=== PATIENT | female | born 1950 | race Caucasian/White ===

== ENCOUNTER 2019-12-22 11:05 | Outpatient (CLI) | payer MEDICARE, MEDICAID, SELFPAY ==
--- NOTE | 2019-12-22 | XR_ITS ---
WS: [id number] LEFT ELBOW: 2 VIEW(S) TECHNIQUE: AP and lateral. HISTORY: LEFT SHOULDER PAIN COMPARISON: None available. Nondisplaced linear density along the radial head. Suspicious for fracture. Seen best on the lateral projection. Very minimal distention of the anterior joint capsule. No soft tissue abnormality. XR/XR elbow LT 2V [id number] IMPRESSION: Indeterminate for nondisplaced radial head fracture. There is a lucency on the lateral projection only, suspicious for fracture. Consider follow-up radiograph s in one week.
--- NOTE | 2019-12-22 | XR_ITS ---
WS: [id number] LEFT SHOULDER: 3 VIEW(S) TECHNIQUE: Internal and external rotation with Y view. HISTORY: SHOULDER PAIN LEFT COMPARISON: None available. No fracture or dislocation or soft tissue abnormality. Mild AC joint narrowing. Dual lead LEFT subclavian cardiac pacer. XR/XR shoulder LT min 2V* [id number] IMPRESSION: No acute shoulder fracture. Mild narrowing AC joint.
== END 2019-12-22 11:06 | disposition home or self-care (01) ==
LOC: RADOUTREAD 14:14
PROVIDERS: Family Provider Family Medicine; PCP Family Medicine; Visit Provider Nurse Practitioner Family
DX: Z01.89 Encounter for other specified special examinations (principal)

== ENCOUNTER 2020-04-03 12:08 | Emergency (ER) | payer MEDICARE, MEDICAID, SELFPAY ==
[2020-04-03 12:16] VITALS: BP 124/78; PULSE 89; RESP 17; TEMP 36.9; O2SAT 96; BMI 35.0
--- NOTE | 2020-04-03 12:27 | XRR_ITS ---
PROCEDURE INFORMATION: Exam: XR Chest, 1 View Exam date and time: 04/03/2020 12:47 PM Age: 70 years old Clinical indication: Shortness of breath; Patient HX: Poor HX due to PT condition; Additional info: Altered mental status TECHNIQUE: Imaging protocol: XR of the chest Views: 1 view. COMPARISON: No relevant prior studies available. FINDINGS: Tubes, catheters and devices: Left -sided pacemaker. Lungs: Mildly hyperaerated lungs consistent with deep inspiratory effort vs reactive airway disease vs mild COPD . Pleural space: Unremarkable. No pleural effusion. No pneumothorax. Heart/Mediastinum: Mild cardiomegaly. Vasculature: Calcification of the thoracic aorta and/or great vessels consistent with atherosclerotic vessel disease. Bones/joints: Unremarkable. XR/XR chest 1V portable [id number] IMPRESSION: 1. Mild cardiomegaly. 2. Mildly hyperaerated lungs consistent with deep inspiratory effort vs reactive airway disease vs mild COPD .
--- NOTE | 2020-04-03 12:27 | CTR_ITS ---
PROCEDURE INFORMATION: Exam: CT Head Without Contrast Exam date and time: 04/03/2020 12:45 PM Age: 70 years old Clinical indication: Altered mental status/memory loss; Confusion or disorientation; Patient HX: AMS TECHNIQUE: Imaging protocol: Computed tomography of the head without contrast. Radiation optimization: All CT scans at this facility use at least one of these dose optimization techniques: automated exposure control; mA and/or kV adjustment per patient size (includes targeted exams where dose is matched to clinical indication); or iterative reconstruction. COMPARISON: No relevant prior studies available. RADIATION DOSE METRICS: Total DLP: 1772.59 mGy-cm FINDINGS: Brain: There are old infarcts in the left cerebellar hemisphere.Old left MCA distribution infarct with compensatory dilatation of the left lateral ventricle. There are chronic lacunar infarcts in the left basal ganglia and left thalamus.No evidence for large acute ischemic infarction. Please note acute ischemia can be occult by head CT. Ventricles: Normal. No ventriculomegaly. Bones/joints: Unremarkable. No acute fracture. Sinuses: Visualized sinuses are unremarkable. No fluid levels. Mastoid air cells: Visualized mastoid air cells are well aerated. Calcified plaque is present within the intracranial vasculature. Soft tissues: Unremarkable. CT/CT head wo con* [id number] IMPRESSION: Old left MCA distribution and left cerebellar hemisphere infarcts. There are senescent changes of the brain as described above. No evidence for large acute ischemic infarction or acute intracranial injury. Radiation Dose CTDIVOL = (mGy): DLP = 1772.59 (mGy-cm)
--- NOTE | 2020-04-03 12:32 | W.ED.AMS ---
HPI - Altered Mental Status General: Chief Complaint: Altered Mental Status Stated Complaint: poss stroke symptoms Time Seen by Provider: 04/03/20 12:17 Source: patient and family Mode of arrival: ambulatory Limitations: altered mental status History of Present Illness: HPI narrative: Patient is brought in by her granddaughter with concerns of confusion. Symptoms started about 10 days ago with increased confusion, gait instability, generalized weakness and a few falls. The patient is on warfarin anticoagulation for atrial fibrillation. The patient has had 2 CVAs and has some baseline confusion for several years according to the granddaughter. Does appear to be worsening now. No fever, no cough no shortness of breath. No other symptoms. On further discussion, the patient has apparently been having memory issues for at least 6 months. Her granddaughter states that the patient forgets things a lot, has been forgetting why she goes to places she goes to and is showing signs of memory loss. MD complaint: altered mental status and confusion Onset (ago): day(s) (10) Review of Systems General: Reports: 10 or more systems reviewed and unremarkable except in HPI and below Const: Denies: fever(s), chills or body aches Eyes: Denies: change in vision or blurry vision ENMT: Denies: throat pain, enlarged tonsils, odynophagia, hoarseness, mouth pain or swelling of lips/tongue Card: Denies: palpitations, irregular heart rhythm, edema or swelling of feet/ankles Resp: Denies: dyspnea, productive cough or non-productive cough GI: Denies: abdominal pain, nausea or vomiting : Denies: flank pain, difficulty voiding, dysuria, urinary frequency, urinary urgency or urinary hesitancy Musc: Denies: neck pain, back pain or extremity swelling Skin/Breast: Denies: rash, pruritus or erythema Neuro: Reports: difficulty walking, frequent falls and confusion; Denies: headache(s), numbness in extremities or weakness in extremities Endo: Denies: polyuria, polydipsia or tired all the time [facility] ED PFSH: Medical History (Updated 04/03/20 @ 17:09 by Estevan Ventura MD, [facility]) Anticoagulant long-term use Atrial fibrillation Bipolar 1 disorder CHF (congestive heart failure) CKD (chronic kidney disease) CVA (cerebral vascular accident) Diabetes HTN (hypertension) Ischemic cardiomyopathy Myocardial infarction Obesity Sick sinus syndrome Surgical History Status cardiac pacemaker Social History Smoking and tobacco status: former smoker Current occupational status: retired Physical Exam Const: COMMON NORMALS: no acute distress, average body habitus, no limitations, healthy appearing, alert and well nourished ORIENTATION/CONSCIOUSNESS: Yes oriented to person and Yes oriented to place; not oriented to time HENMT: COMMON NORMALS: normocephalic, atraumatic and moist oral mucous membranes HEAD & SCALP: normocephalic and atraumatic Neck/C-Spine: COMMON NORMALS: no meningeal signs and no JVD Resp: COMMON NORMALS: normal respiratory effort, No retractions, No use of accessory muscles, clear to auscultation bilaterally and percussion normal AUSCULTATION: clear to auscultation bilaterally PERCUSSION: percussion normal Cardio: COMMON NORMALS: no JVD, regular rate, regular rhythm, S1 normal heart sound present, S2 normal heart sound present, No gallops present (Cardio), No clicks present (Cardio), No murmurs present (Cardio), No rub (Cardio) and Peripheral pulses 2+ throughout RATE: regular rate RHYTHM: regular rhythm HEART SOUNDS: S1 normal heart sound present and S2 normal heart sound present PERIPHERAL PULSES: Peripheral pulses 2+ throughout GI: COMMON NORMALS: Normal to inspection, nondistended, normoactive bowel sounds present, Soft to palpation, non-tender, No hepatosplenomegaly present, no masses and no bruits PALPATION: Yes Soft to palpation and Yes No hepatosplenomegaly present : COMMON NORMALS: Yes no CVA tenderness BLADDER/KIDNEY EXAM: Yes no CVA tenderness Back/Pelvis: COMMON NORMALS: no CVA tenderness Extremity: COMMON NORMALS: normal to inspection, full ROM, capillary refill normal, no calf tenderness and no pedal edema Neuro: SENSORIUM/ORIENTATION: Yes alert, Yes oriented to person, Yes oriented to place and No oriented to time MENINGEAL SIGNS: Yes no meningeal signs OTHER: difficult to complete. Skin: COMMON NORMALS: no rashes or lesions noted, no wounds, turgor normal, no jaundice, no petechiae and no mottling GENERAL SKIN EXAM: no rashes or lesions noted and turgor normal Course Reevaluation(s): Reevaluation #1: Discussed her lab and imaging findings with the patient and her granddaughter. Nothing acute on head CT or her lab work. I explained that since the patient has been showing symptoms of forgetfulness and dementia for the last 6 months this is probably progression of dementia. Advised that she speak with the patient's primary care provider to discuss possible treatment options and if they want to start medications for dementia. She voiced understanding and is in agreement with the plan. Time: 17:07 Vital Signs: Vital signs: Vital Signs Temperature 98.5 F 04/03/20 12:16 Pulse Rate 85 04/03/20 14:44 Respiratory Rate 18 04/03/20 14:44 Blood Pressure 131/73 04/03/20 14:44 Pulse Oximetry 95 04/03/20 14:44 MDM - Altered Mental Status MDM Narrative: Medical decision making narrative: 70-year-old female patient who was brought in with gradual memory loss and confusion. Her granddaughter says this started about 10 days ago but on further questioning this has been going on for at least 6 months. Evaluation was unremarkable for any medical cause of her symptoms. She most likely has undiagnosed dementia and she is advised to follow-up with her primary care for discussion on management options. Lab Data: Labs: Lab Results 04/03/20 04/03/20 04/03/20 Range/Units 12:39 12:39 12:39 WBC 9.9 (4.0-10.0) 10^3/ uL RBC 4.27 (4.1-5.3) 10^6/u L Hgb 12.4 (11.5-15.3) g/dL Hct 38.6 (37.0-47.0) % MCV 90.4 (81-99) fL MCH 29.0 (28.0-34.0) pg MCHC 32.1 (30.0-36.0) g/dL RDW 14.5 (12.1-15.1) % Plt Count 166 (130-400) 10^3/c mm MPV 10.6 H (7.4-10.4) fL Neut % (Auto) 80.3 % Lymph % (Auto) 9.1 % [place] % (Auto) 9.7 % Eos % (Auto) 0.5 % Baso % (Auto) 0.2 % Neut # (Auto) 7.9 H (1.8-7.7) 10^3/u L Lymph # (Auto) 0.9 (0.8-4.8) 10^3/u L [place] # (Auto) 1.0 H (0.2-0.9) 10^3/u L Eos # (Auto) 0.1 (0.0-0.8) 10^3/u L Baso # (Auto) 0.0 (0.0-0.1) 10^3/u L Nucleated RBC % (a uto) 0 % Nucleated RBCs # 0.0 /100WBC PT 24.70 H (10.5-13.3) SECO NDS INR 2.14 H (0.8-1.2) Sodium 134 L (136-145) mmol/L Potassium 3.6 (3.5-5.1) mmol/L Chloride 93 L (98-107) mmol/L Carbon Dioxide 28 (22-29) mmol/L Anion Gap 16.6 (5-19) BUN 26 H (8-23) mg/dL Creatinine 1.6 H (0.5-0.9) mg/dL Glucose 327 H (65-115) mg/dL Calculated Osmolal ity 288 (285-295) mOsm/k g Calcium 9.4 (8.5-10.5) mg/dL Phosphorus 2.2 L (2.5-4.5) mg/dL Magnesium 1.9 (1.7-2.3) mg/dL Total Bilirubin 1.0 (0.15-1.2) mg/dL AST 32 (0-32) U/L ALT 23 (0-33) U/L Alkaline Phosphata se 66 (35-105) IU/L Total Protein 7.3 (6.6-8.7) g/dL Albumin 3.9 (3.5-5.2) g/dL Globulin 3.4 (1.3-4.6) g/dL TSH 2.22 (0.27-4.20) uIU/ mL Urine Color (Yellow) Urine Appearance (CLEAR) Urine pH (5-7) Ur Specific Gravit y (1.005-1.030) Urine Protein (Negative) Urine Glucose (UA) (Normal) Urine Ketones (Negative) Urine Blood (Negative) Urine Nitrate (Negative) Urine Bilirubin (NEGATIVE) Urine Urobilinogen (Negative) mg/dL Ur Leukocyte [place] ase (Negative) Urine RBC (0-2) /hpf Urine WBC (0-5) /hpf Ur Squamous Epith Cells (0-5) Other Crystals /hpf Urine Bacteria (NONE) 04/03/20 Range/Units 13:17 WBC (4.0-10.0) 10^3/ uL RBC (4.1-5.3) 10^6/u L Hgb (11.5-15.3) g/dL Hct (37.0-47.0) % MCV (81-99) fL MCH (28.0-34.0) pg MCHC (30.0-36.0) g/dL RDW (12.1-15.1) % Plt Count (130-400) 10^3/c mm MPV (7.4-10.4) fL Neut % (Auto) % Lymph % (Auto) % [place] % (Auto) % Eos % (Auto) % Baso % (Auto) % Neut # (Auto) (1.8-7.7) 10^3/u L Lymph # (Auto) (0.8-4.8) 10^3/u L [place] # (Auto) (0.2-0.9) 10^3/u L Eos # (Auto) (0.0-0.8) 10^3/u L Baso # (Auto) (0.0-0.1) 10^3/u L Nucleated RBC % (a uto) % Nucleated RBCs # /100WBC PT (10.5-13.3) SECO NDS INR (0.8-1.2) Sodium (136-145) mmol/L Potassium (3.5-5.1) mmol/L Chloride (98-107) mmol/L Carbon Dioxide (22-29) mmol/L Anion Gap (5-19) BUN (8-23) mg/dL Creatinine (0.5-0.9) mg/dL Glucose (65-115) mg/dL Calculated Osmolal ity (285-295) mOsm/k g Calcium (8.5-10.5) mg/dL Phosphorus (2.5-4.5) mg/dL Magnesium (1.7-2.3) mg/dL Total Bilirubin (0.15-1.2) mg/dL AST (0-32) U/L ALT (0-33) U/L Alkaline Phosphata se (35-105) IU/L Total Protein (6.6-8.7) g/dL Albumin (3.5-5.2) g/dL Globulin (1.3-4.6) g/dL TSH (0.27-4.20) uIU/ mL Urine Color Yellow (Yellow) Urine Appearance Cloudy (CLEAR) Urine pH 5 (5-7) Ur Specific Gravit y 1.020 (1.005-1.030) Urine Protein Trace (Negative) Urine Glucose (UA) 1+ (Normal) Urine Ketones Negative (Negative) Urine Blood 2+ H (Negative) Urine Nitrate Negative (Negative) Urine Bilirubin 1+ H (NEGATIVE) Urine Urobilinogen 1 H (Negative) mg/dL Ur Leukocyte [place] ase 2+ H (Negative) Urine RBC 0-4 H (0-2) /hpf Urine WBC 15-25 H (0-5) /hpf Ur Squamous Epith Cells 15-25 H (0-5) Other Crystals Talc /hpf Urine Bacteria 2+ H (NONE) Discharge Plan Discharge Patient Disposition: Home, Self-Care Clinical Impression: Dementia Qualifiers: Dementia type: unspecified type Dementia behavioral disturbance: without behavioral disturbance Qualified Code(s): F03.90 - Unspecified dementia without behavioral disturbance Condition: Stable Prescriptions: Continued metoprolol tartrate 75 mg tablet 75 mg PO BID RF: 0 ferrous sulfate [Feosol] 325 mg (65 mg iron) tablet 325 mg PO DAILY RF: 0 warfarin 5 mg tablet See Rx Instructions .ROUTE .COMPLEX RF: 0 glipizide 10 mg tablet 10 mg PO DAILY RF: 0 simvastatin 20 mg tablet 20 mg PO DAILY RF: 0 hydrochlorothiazide 12.5 mg tablet 12.5 mg PO DAILY RF: 0 aspirin [Aspir-81] 81 mg tablet,delayed release (DR/EC) 81 mg PO DAILY RF: 0 docusate sodium 100 mg Capsule 100 mg PO DAILY RF: 0 Lexapro 10 mg Tablet 10 mg PO DAILY RF: 0 Ambien CR 6.25 mg Tablet,Ext Release Multiphase 6.25 mg PO BEDTIME RF: 0 Discharge Orders: Discharge Order (Routine); Ordered 04/03/20 Ordered By: Estevan Ventura Referrals: García Theodore MD [Primary Care Provider] - 4-7 days Patient Instructions: Dementia (ED) Activity Restrictions/Additional Instructions: Return for any new or worsening symptoms. Follow-up with Dr. Theodore soon as possible for evaluation and to discuss if you want to start medication for dementia. You may also discuss if you want to reduce the dose of Ambien as this may contribute to her symptoms also. Coding Level of Care Code ED [employer] Strategist for Chg Fwd Exam Comprehensive
[2020-04-03 12:45] LABS: Basophils % 0.2 %; Eosinophils # 0.1 10^3/uL (0.0-0.8); Eosinophils % 0.5 %; Hematocrit 38.6 % (37.0-47.0); Hemoglobin 12.4 g/dL (11.5-15.3); Lymphocytes # 0.9 10^3/uL (0.8-4.8); Lymphocytes % 9.1 %; Mean Corpuscular HGB Conc 32.1 g/dL (30.0-36.0); Mean Corpuscular Volume 90.4 fL (81-99); Mean Platelet Volume 10.6 fL (7.4-10.4); Monocytes % 9.7 %; Neutrophils # 7.9 10^3/uL (1.8-7.7); Neutrophils % 80.3 %; Nucleated Red Blood Cells % 0 %; Platelet Count 166 10^3/cmm (130-400); Red Blood Count 4.27 10^6/uL (4.1-5.3); Red Cell Distribution Width 14.5 % (12.1-15.1); White Blood Count 9.9 10^3/uL (4.0-10.0)
[2020-04-03 12:53] LABS: INR 2.14 (0.8-1.2)
[2020-04-03 13:23] LABS: Alanine Aminotransferase 23 U/L (0-33); Albumin Level 3.9 g/dL (3.5-5.2); Alkaline Phosphatase 66 IU/L (35-105); Anion Gap 16.6 (5-19); Aspartate Amino Transferase 32 U/L (0-32); Blood Urea Nitrogen 26 mg/dL (8-23); Calcium 9.4 mg/dL (8.5-10.5); Carbon Dioxide 28 mmol/L (22-29); Chloride 93 mmol/L (98-107); Globulin 3.4 g/dL (1.3-4.6); Glucose 327 mg/dL (65-115); Magnesium 1.9 mg/dL (1.7-2.3); Osmolality Calculated 288 mOsm/kg (285-295); Phosphorus 2.2 mg/dL (2.5-4.5); Potassium 3.6 mmol/L (3.5-5.1); Sodium 134 mmol/L (136-145); Thyroid Stimulating Hormone 2.22 uIU/mL (0.27-4.20); Total Protein 7.3 g/dL (6.6-8.7)
[2020-04-03 14:04] LABS: Urine Appearance Cloudy (CLEAR); Urine Color Yellow (Yellow)
[2020-04-03 14:05] LABS: Add Urine Microscopic? YES; Bilirubin Urine 1+ (NEGATIVE); Blood Urine 2+ (Negative); Glucose Urine UA 1+ (Normal); Ketones Urine Negative (Negative); Leukocyte Esterase Urine 2+ (Negative); Nitrate Urine Negative (Negative); Protein Urine Trace (Negative); RBC Urine 0-4 /hpf (0-2); Urobilinogen Urine 1 mg/dL (Negative); WBC Urine 15-25 /hpf (0-5); pH Urine 5 (5-7)
[2020-04-03 14:06] LABS: Bacteria Urine 2+; Other Crystals Urine TALC /hpf; Squamous Epithelial Cell Urine 15-25 (0-5)
[2020-04-03 14:07] LABS: Add Urine Culture? No
[2020-04-03 14:44] VITALS: BP 131/73; PULSE 85; RESP 18; O2SAT 95
[2020-04-03 17:39] VITALS: BP 107/65; PULSE 68; RESP 18; O2SAT 98
== END 2020-04-03 17:58 | disposition home or self-care (01) ==
PROVIDERS: Emergency Provider Family Medicine; Family Provider Family Medicine; PCP Family Medicine
DX: F03.90 Unspecified dementia, unspecified severity, without behavioral disturbance, psychotic disturbance, mood disturbance, and anxiety (principal); Z79.01 Long term (current) use of anticoagulants; Z79.82 Long term (current) use of aspirin; I48.91 Unspecified atrial fibrillation; I11.0 Hypertensive heart disease with heart failure; I50.9 Heart failure, unspecified; Z86.73 Personal history of transient ischemic attack (TIA), and cerebral infarction without residual deficits; E11.9 Type 2 diabetes mellitus without complications; I25.2 Old myocardial infarction; Z95.0 Presence of cardiac pacemaker; Z87.891 Personal history of nicotine dependence
CPT/HCPCS: 12345; 36415; 70450; 71045; 80053; 81001; 83735; 84100; 84443; 85025; 85610; 99281; 99283

== ENCOUNTER 2021-07-05 16:23 | Emergency (ER) | payer MEDICARE, MEDICAID, SELFPAY ==
[2021-07-05 16:59] VITALS: BP 163/90; PULSE 70; RESP 20; TEMP 36.6; O2SAT 95; BMI 36.6
--- NOTE | 2021-07-05 18:35 | CTR_ITS ---
PROCEDURE INFORMATION: Exam: CT Maxillofacial Without Contrast Exam date and time: 07/05/2021 6:35 PM Age: 71 years old Clinical indication: Injury or trauma; Fall; Blunt trauma (contusions or hematomas); Orbit/periorbital; Left; Additional info: Fall and hit head-left periorbital swelling TECHNIQUE: Imaging protocol: Computed tomography images of the face without contrast. Radiation optimization: All CT scans at this facility use at least one of these dose optimization techniques: automated exposure control; mA and/or kV adjustment per patient size (includes targeted exams where dose is matched to clinical indication); or iterative reconstruction. COMPARISON: CT head wo con* [id number] 07/05/2021 6:43 PM RADIATION DOSE METRICS: Total DLP (mGy-cm): 764.56 FINDINGS: Orbital cavity: Orbits are normal. Globes are unremarkable. Bones/joints: No acute fracture. Paranasal sinuses: Mild left posterior ethmoid sinusitis is appreciated. Mild mucosal thickening is also observed in the right maxillary sinus Soft tissues: Left facial soft tissue swelling is noted. A small subcutaneous hematoma is present in the left supraorbital region. CT/CT facial bones wo con* [id number] IMPRESSION: No facial bone fracture. Mild sinusitis. Radiation Dose CTDIVOL = (mGy): DLP = 764.56 (mGy-cm)
--- NOTE | 2021-07-05 18:35 | CTR_ITS ---
PROCEDURE INFORMATION: Exam: CT Lumbar Spine Without Contrast Exam date and time: 07/05/2021 6:35 PM Age: 71 years old Clinical indication: Injury or trauma; Fall; Blunt trauma (contusions or hematomas); Prior surgery; Surgery type: Hyst; Additional info: Fall with back pain TECHNIQUE: Imaging protocol: Computed tomography images of the lumbar spine without contrast. Radiation optimization: All CT scans at this facility use at least one of these dose optimization techniques: automated exposure control; mA and/or kV adjustment per patient size (includes targeted exams where dose is matched to clinical indication); or iterative reconstruction. COMPARISON: CT thoracic spin wo con* [id number] 07/05/2021 6:51 PM RADIATION DOSE METRICS: Total DLP (mGy-cm): 1821.74 FINDINGS: Vertebrae: There is no anterior wedging deformity. No acute lucent fracture lines are seen. There is left convexity of the lumbar spine centered at the L1-L2 level, with prominent degenerative endplate changes eccentric to the right. Degenerative endplate changes are also noted at the L3-L4 and L4-L5 levels. There is slight anterolisthesis at L3-L4. Lumbar facet arthropathy is noted. Discs/Spinal canal/Neural foramina: Neural foraminal stenosis is mild, eccentric to the right at L1-L2, moderate at L2-L3, moderate to severe at L3-L4 and L4-L5. No severe central canal or neural foraminal stenosis is demonstrated by CT. CT/CT lumbar spine wo con* [id number] IMPRESSION: 1. No acute lumbar spinal injury demonstrated by CT. 2. Degenerative changes, as above. Radiation Dose CTDIVOL = (mGy): DLP = 1821.74 (mGy-cm)
--- NOTE | 2021-07-05 18:35 | CTR_ITS ---
PROCEDURE INFORMATION: Exam: CT Thoracic Spine Without Contrast Exam date and time: 07/05/2021 6:35 PM Age: 71 years old Clinical indication: Injury or trauma; Fall; Blunt trauma (contusions or hematomas); Prior surgery; Surgery type: Pacemaker; Additional info: Fall with back pain TECHNIQUE: Imaging protocol: Computed tomography images of the thoracic spine without contrast. Radiation optimization: All CT scans at this facility use at least one of these dose optimization techniques: automated exposure control; mA and/or kV adjustment per patient size (includes targeted exams where dose is matched to clinical indication); or iterative reconstruction. COMPARISON: CT cervical spin wo con* [id number] 07/05/2021 6:49 PM RADIATION DOSE METRICS: Total DLP (mGy-cm): 2048.22 FINDINGS: Vertebrae: There is slight left convexity of the upper thoracic spine, slight right convexity of the lower thoracic spine. No anterior wedging deformity is seen. No acute lucent fracture lines are visualized. Degenerative endplate changes are seen throughout the thoracic spine, worst at the mid and lower levels. Discs/Spinal canal/Neural foramina: No severe central canal or neural foraminal stenosis is seen at the thoracic spinal levels. Central canal stenosis is mild to moderate at the T8-9, T9-10 and T10-11 levels. No severe neural foraminal stenosis. CT/CT thoracic spin wo con* [id number] IMPRESSION: 1. No acute thoracic spinal injury demonstrated by CT. 2. Degenerative changes of the thoracic spine, as above. Radiation Dose CTDIVOL = (mGy): DLP = 2048.22 (mGy-cm)
--- NOTE | 2021-07-05 18:35 | CTR_ITS ---
PROCEDURE INFORMATION: Exam: CT Head Without Contrast Exam date and time: 07/05/2021 6:35 PM Age: 71 years old Clinical indication: Injury or trauma; Fall; Blunt trauma (contusions or hematomas); Additional info: Fall at home and hit head TECHNIQUE: Imaging protocol: Computed tomography of the head without contrast. Radiation optimization: All CT scans at this facility use at least one of these dose optimization techniques: automated exposure control; mA and/or kV adjustment per patient size (includes targeted exams where dose is matched to clinical indication); or iterative reconstruction. COMPARISON: CT head wo con* [id number] 04/03/2020 2:20 PM RADIATION DOSE METRICS: Total DLP (mGy-cm): 933.73 FINDINGS: Brain: Left insula, basal ganglia and thalamus, and left cerebellar hemisphere chronic infarctions are again seen. Mild atrophy and mild white matter chronic microvascular changes are noted. No hemorrhage or evidence of acute infarction is visualized. Cerebral ventricles: No ventriculomegaly. Paranasal sinuses: Mild left posterior ethmoid sinusitis is appreciated Mastoid air cells: Visualized mastoid air cells are well aerated. Bones/joints: Unremarkable. No acute fracture. Soft tissues: A subcutaneous hematoma is present in the left supraorbital region. Soft tissue swelling is also seen in the left periorbital region, left aspect of the forehead and left temporal scalp. CT/CT head wo con* [id number] IMPRESSION: 1. No acute intracranial abnormality. 2. Mild sinusitis. Radiation Dose CTDIVOL = (mGy): DLP = 933.73 (mGy-cm)
--- NOTE | 2021-07-05 18:35 | CTR_ITS ---
PROCEDURE INFORMATION: Exam: CT Cervical Spine Without Contrast Exam date and time: 07/05/2021 6:35 PM Age: 71 years old Clinical indication: Injury or trauma; Fall; Blunt trauma; Additional info: Fall with neck pain TECHNIQUE: Imaging protocol: Computed tomography images of the cervical spine without contrast. Radiation optimization: All CT scans at this facility use at least one of these dose optimization techniques: automated exposure control; mA and/or kV adjustment per patient size (includes targeted exams where dose is matched to clinical indication); or iterative reconstruction. COMPARISON: CT facial bones wo con* [id number] 07/05/2021 6:47 PM RADIATION DOSE METRICS: Total DLP (mGy-cm): 827.09 FINDINGS: Vertebrae: [id number] degenerative changes are present in the cervical spine. Mild canal stenosis is present at C5-C6 and C6-C7 secondary to chronic changes. No cervical spine fracture is seen. Spinal straightening may be due to positioning or muscle spasm. Soft tissues: Unremarkable. Lungs: Lung apices are normal. CT/CT cervical spin wo con* [id number] IMPRESSION: No cervical spine fracture. Radiation Dose CTDIVOL = (mGy): DLP = 827.09 (mGy-cm)
--- NOTE | 2021-07-05 18:37 | W.ED.FALL ---
HPI - Fall General: Chief Complaint: Fall Stated Complaint: PCP SENT HER CT INJURIES DUE TO FALL Time Seen by Provider: 07/05/21 18:17 History of Present Illness: HPI Narrative: Patient is a 71-year-old female comes to the ED after having a fall. Patient says last night she was in her bedroom and tripped over a laundry basket and fell forward. She has a bedside commode in her room and her face hit the bedside commode. She denies any loss of consciousness. She then was on the ground for around 8 to 10 hours until her daughter showed up to check on her. Patient says she was not in any real acute distress and when she was able to get help and get up she felt fine and did not want to come into the ED. Her main complaints are left periorbital swelling and pain, headache, neck pain and back pain. She also has some left rib pain as well. Denies any neurological symptoms. She is able to ambulate at her baseline after fall currently. Patient is currently on warfarin. Patient took dose of ibuprofen in the afternoon today to help with pain. Associated symptoms-after fall: Reports headache(s) and neck pain; Denies abdominal pain, chest pain or hematuria Review of Systems Const: Denies: fever(s), chills or fatigue Eyes: Denies: change in vision or eye discomfort ENMT: Reports: sinus pain (Left periorbital swelling and pain); Denies: throat pain, odynophagia, nasal discharge or nasal congestion Card: Denies: chest pain, palpitations, edema, swelling of feet/ankles, dyspnea on exertion or orthopnea Resp: Denies: dyspnea, productive cough or non-productive cough GI: Denies: abdominal pain, nausea, vomiting, diarrhea, constipation or hematochezia : Denies: flank pain, dysuria or hematuria Musc: Reports: neck pain and back pain; Denies: extremity swelling Skin/Breast: Denies: rash or new lesions Neuro: Reports: headache(s); Denies: numbness in extremities or weakness in extremities FORMERLY [facility], 1928–1983 ED PFSH: Medical History Anticoagulant long-term use Atrial fibrillation Bipolar 1 disorder CHF (congestive heart failure) CKD (chronic kidney disease) CVA (cerebral vascular accident) Diabetes HTN (hypertension) Ischemic cardiomyopathy Myocardial infarction Obesity Sick sinus syndrome Surgical History Status cardiac pacemaker Social History Smoking and tobacco status: former smoker Current occupational status: retired Physical Exam Const: COMMON NORMALS: no acute distress, patient oriented x3, healthy appearing and alert GENERAL APPEARANCE: cooperative and comfortable NUTRITIONAL APPEARANCE: overweight HENMT: COMMON NORMALS: normocephalic HEAD & SCALP: normocephalic MOUTH: Normal oral and palatal mucosa present THROAT: posterior oropharynx normal and uvula midline Eye: COMMON NORMALS: Equal, round and reactive pupils present (Right eye is normal-unable to assess left eye due to swelling.) PERIORBITAL: periorbital findings abnormal positive left periorbital swelling, periorbital tenderness and periorbital ecchymosis PUPIL: Yes Equal, round and reactive pupils present (Right eye is normal-unable to assess left eye due to swelling.) OTHER: Left periorbital swelling is significant enough to where my unable to assess her left eye. Neck/C-Spine: COMMON NORMALS: supple GENERAL: Yes normal visual inspection Resp: COMMON NORMALS: normal respiratory effort, No retractions, No use of accessory muscles and clear to auscultation bilaterally AUSCULTATION: clear to auscultation bilaterally Cardio: COMMON NORMALS: regular rate, regular rhythm, S1 normal heart sound present, S2 normal heart sound present, No gallops present (Cardio), No clicks present (Cardio), No murmurs present (Cardio) and Peripheral pulses 2+ throughout RATE: regular rate RHYTHM: regular rhythm HEART SOUNDS: S1 normal heart sound present and S2 normal heart sound present PERIPHERAL PULSES: Peripheral pulses 2+ throughout GI: COMMON NORMALS: Normal to inspection, nondistended, normoactive bowel sounds present, Soft to palpation, non-tender and no masses PALPATION: Yes Soft to palpation : COMMON NORMALS: Yes no CVA tenderness BLADDER/KIDNEY EXAM: Yes no CVA tenderness Back/Pelvis: COMMON NORMALS: no CVA tenderness Extremity: COMMON NORMALS: normal to inspection Neuro: COMMON NORMALS: patient oriented x3, CN's II-XII intact bilaterally, moves all extremities, no focal motor deficits and no sensory deficits noted SENSORIUM/ORIENTATION: Yes alert SENSORY EXAM: Yes extremities (intact) MOTOR EXAM: 5/5 motor strength present throughout Skin: GENERAL SKIN EXAM: dry skin Course Vital Signs: Vital signs: Vital Signs Temperature 97.8 F 07/05/21 16:59 Pulse Rate 73 07/05/21 20:58 Respiratory Rate 18 07/05/21 20:24 Blood Pressure 161/89 07/05/21 20:58 Pulse Oximetry 96 07/05/21 20:58 MDM - Fall MDM Narrative: Medical decision making narrative: Patient is a 71-year-old female comes to the ED after having a fall at home. Patient tripped over a laundry basket and her head hit her bedside commode. Denies any loss of consciousness. Patient is on warfarin. Her main complaint is left periorbital ecchymosis and swelling, headache, neck pain and back pain. She also has some left rib pain as well. Patient is very pleasant and appears nontoxic and in no acute distress here in the ED. Vitals are stable. Neuro exam was normal. Patient's lungs are clear to auscultation bilaterally and she appears in no respiratory distress. CT of face, head, cervical spine, thoracic spine, lumbar spine all showed no acute fractures or findings. CT of chest showed some left rib fractures. INR 1.76. Patient was diagnosed with contusion of face, musculoskeletal back pain and left rib fractures. Patient was discharged home with a prescription for hydrocodone for pain. Return to ED precautions given. Follow-up with PCP in 7 to 10 days reevaluation. Patient understood and agreed with plan. Lab Data: Attestation: I reviewed the patient's lab results. Labs: Lab Results 07/05/21 Range/Units 19:20 PT 20.90 H (12.1-14.9) SECO NDS INR 1.76 H (0.8-1.2) APTT 34.5 (23.9-36.7) SECO NDS Imaging Data^: CT Head: Attestation: I personally reviewed and interpreted this imaging study as follows: Radiologist's impression: [address] [address] [address] Scan Report Signed Patient: Rupa Baptiste Unit #: [id number] : 1950 Age/Sex: 71 / F ADM Date: 07/05/21 Loc: ER Room/Bed: Attending Dr: Ordering Provider/Ordering MD: Srinath Toure Date of Service: 07/05/21 Procedure(s): CT head wo con* [id number] Accession Number(s): [id number] Report Number: [id number] PROCEDURE INFORMATION: Exam: CT Head Without Contrast Exam date and time: 07/05/2021 6:35 PM Age: 71 years old Clinical indication: Injury or trauma; Fall; Blunt trauma (contusions or hematomas); Additional info: Fall at home and hit head TECHNIQUE: Imaging protocol: Computed tomography of the head without contrast. Radiation optimization: All CT scans at this facility use at least one of these dose optimization techniques: automated exposure control; mA and/or kV adjustment per patient size (includes targeted exams where dose is matched to clinical indication); or iterative reconstruction. COMPARISON: CT head wo con* [id number] 04/03/2020 2:20 PM RADIATION DOSE METRICS: Total DLP (mGy-cm): 933.73 FINDINGS: Brain: Left insula, basal ganglia and thalamus, and left cerebellar hemisphere chronic infarctions are again seen. Mild atrophy and mild white matter chronic microvascular changes are noted. No hemorrhage or evidence of acute infarction is visualized. Cerebral ventricles: No ventriculomegaly. Paranasal sinuses: Mild left posterior ethmoid sinusitis is appreciated Mastoid air cells: Visualized mastoid air cells are well aerated. Bones/joints: Unremarkable. No acute fracture. Soft tissues: A subcutaneous hematoma is present in the left supraorbital region. Soft tissue swelling is also seen in the left periorbital region, left aspect of the forehead and left temporal scalp. CT/CT head wo con* [id number] IMPRESSION: 1. No acute intracranial abnormality. 2. Mild sinusitis. Radiation Dose CTDIVOL = (mGy): DLP = 933.73 (mGy-cm) Dictated By: aDvid Aguilar MD Signed By: David Aguilar MD Signed Date/Time: 07/05/21 190 DD/ [address]: Attestation: I personally reviewed and interpreted this imaging study as follows: Radiologist's impression: [address] [address] [address] Scan Report Signed Patient: Rupa Baptiste Unit #: [id number] : 1950 Age/Sex: 71 / F ADM Date: 07/05/21 Loc: ER Room/Bed: Attending Dr: Ordering Provider/Ordering MD: Srinath Toure Date of Service: 07/05/21 Procedure(s): CT chest wo con [id number] Accession Number(s): [id number] Report Number: [id number] PROCEDURE INFORMATION: Exam: CT Chest Without Contrast; Diagnostic Exam date and time: 07/05/2021 6:56 PM Age: 71 years old Clinical indication: Injury or trauma; Fall; Blunt trauma (contusions or hematomas); Prior surgery; Surgery type: Pacemaker; Additional info: Fall, rib pain TECHNIQUE: Imaging protocol: Diagnostic computed tomography of the chest without contrast. Radiation optimization: All CT scans at this facility use at least one of these dose optimization techniques: automated exposure control; mA and/or kV adjustment per patient size (includes targeted exams where dose is matched to clinical indication); or iterative reconstruction. COMPARISON: CR XR chest 1V portable [id number] 04/03/2020 12:38 PM RADIATION DOSE METRICS: Total DLP (mGy-cm): 832.99 FINDINGS: Tubes, catheters and devices: Cardiac pacemaker is noted. Lungs: No alveolar infiltrate is seen.There is evidence of previous granulomatous reaction. Several small calcified and noncalcified nodular densities are seen in both lungs, likely granulomata. The noncalcified nodules are nonspecific. Correlate with previous and/or followup imaging in accordance with the patient's risk category, per Fleischner criteria. Pleural spaces: No pleural effusion is seen. No pneumothorax. Heart: Cardiomegaly. No pericardial effusion. Aorta: Atherosclerotic vascular disease is noted. The ascending aorta is ectatic, measuring 3.9 cm. No dissection is evident by noncontrast CT. The thoracic aorta is mildly tortuous. Lymph nodes: Unremarkable. No enlarged lymph nodes. Bones/joints: Likely old healed nondisplaced rib fractures on the right. There are acute appearing fractures of the left lateral 6th, 7th and 8th ribs. Thoracic spine is described in separate report. Abdomen: Cholelithiasis and atrophic left kidney are noted. CT/CT chest wo con [id number] IMPRESSION: 1. Acute appearing fractures of the left lateral ribs 6, 7th and 8th ribs. 2. Likely old healed nondisplaced rib fractures on the right. 3. Several small calcified and noncalcified nodular densities are seen in both lungs, likely granulomata. The noncalcified nodules are nonspecific. Correlate with previous and/or followup imaging in accordance with the patient's risk category, per Fleischner criteria. 4. Ectatic ascending aorta. 5. Cardiomegaly. Radiation Dose CTDIVOL = (mGy): DLP = 832.99 (mGy-cm) Dictated By: Sena Olivo MD Signed By: Sena Olivo MD Signed Date/Time: 07/05/211942 DD/ [address] [address] [address] Scan Report Signed Patient: Rupa Baptiste Unit #: [id number] : 1950 Age/Sex: 71 / F ADM Date: 07/05/21 Loc: ER Room/Bed: Attending Dr: Ordering Provider/Ordering MD: Srinath Toure Date of Service: 07/05/21 Procedure(s): CT lumbar spine wo con* [id number] Accession Number(s): [id number] Report Number: [id number] PROCEDURE INFORMATION: Exam: CT Lumbar Spine Without Contrast Exam date and time: 07/05/2021 6:35 PM Age: 71 years old Clinical indication: Injury or trauma; Fall; Blunt trauma (contusions or hematomas); Prior surgery; Surgery type: Hyst; Additional info: Fall with back pain TECHNIQUE: Imaging protocol: Computed tomography images of the lumbar spine without contrast. Radiation optimization: All CT scans at this facility use at least one of these dose optimization techniques: automated exposure control; mA and/or kV adjustment per patient size (includes targeted exams where dose is matched to clinical indication); or iterative reconstruction. COMPARISON: CT thoracic spin wo con* [id number] 07/05/2021 6:51 PM RADIATION DOSE METRICS: Total DLP (mGy-cm): 1821.74 FINDINGS: Vertebrae: There is no anterior wedging deformity. No acute lucent fracture lines are seen. There is left convexity of the lumbar spine centered at the L1-L2 level, with prominent degenerative endplate changes eccentric to the right. Degenerative endplate changes are also noted at the L3-L4 and L4-L5 levels. There is slight anterolisthesis at L3-L4. Lumbar facet arthropathy is noted. Discs/Spinal canal/Neural foramina: Neural foraminal stenosis is mild, eccentric to the right at L1-L2, moderate at L2-L3, moderate to severe at L3-L4 and L4-L5. No severe central canal or neural foraminal stenosis is demonstrated by CT. CT/CT lumbar spine wo con* [id number] IMPRESSION: 1. No acute lumbar spinal injury demonstrated by CT. 2. Degenerative changes, as above. Radiation Dose CTDIVOL = (mGy): DLP = 1821.74 (mGy-cm) Dictated By: Sena Olivo MD Signed By: Sena Olivo MD Signed Date/Time: 07/05/211924 DD/ [address] [address] [address] Scan Report Signed Patient: Rupa Baptiste Unit #: [id number] : 1950 Age/Sex: 71 / F ADM Date: 07/05/21 Loc: ER Room/Bed: Attending Dr: Ordering Provider/Ordering MD: Srinath Toure Date of Service: 07/05/21 Procedure(s): CT thoracic spin wo con* [id number] Accession Number(s): [id number] Report Number: [id number] PROCEDURE INFORMATION: Exam: CT Thoracic Spine Without Contrast Exam date and time: 07/05/2021 6:35 PM Age: 71 years old Clinical indication: Injury or trauma; Fall; Blunt trauma (contusions or hematomas); Prior surgery; Surgery type: Pacemaker; Additional info: Fall with back pain TECHNIQUE: Imaging protocol: Computed tomography images of the thoracic spine without contrast. Radiation optimization: All CT scans at this facility use at least one of these dose optimization techniques: automated exposure control; mA and/or kV adjustment per patient size (includes targeted exams where dose is matched to clinical indication); or iterative reconstruction. COMPARISON: CT cervical spin wo con* [id number] 07/05/2021 6:49 PM RADIATION DOSE METRICS: Total DLP (mGy-cm): 2048.22 FINDINGS: Vertebrae: There is slight left convexity of the upper thoracic spine, slight right convexity of the lower thoracic spine. No anterior wedging deformity is seen. No acute lucent fracture lines are visualized. Degenerative endplate changes are seen throughout the thoracic spine, worst at the mid and lower levels. Discs/Spinal canal/Neural foramina: No severe central canal or neural foraminal stenosis is seen at the thoracic spinal levels. Central canal stenosis is mild to moderate at the T8-9, T9-10 and T10-11 levels. No severe neural foraminal stenosis. CT/CT thoracic spin wo con* [id number] IMPRESSION: 1. No acute thoracic spinal injury demonstrated by CT. 2. Degenerative changes of the thoracic spine, as above. Radiation Dose CTDIVOL = (mGy): DLP = 8.22 (mGy-cm) Dictated By: Sena Olivo MD Signed By: Sena Olivo MD Signed Date/Time: 07/05/211930 DD/ 28 [place] [address] CT Scan Report Signed Patient: Rupa Baptiste Unit #: [id number] : 1950 Age/Sex: 71 / F ADM Date: 07/05/21 Loc: ER Room/Bed: Attending Dr: Ordering Provider/Ordering MD: Srinath Toure Date of Service: 07/05/21 Procedure(s): CT cervical spin wo con* [id number] Accession Number(s): [id number] Report Number: [id number] PROCEDURE INFORMATION: Exam: CT Cervical Spine Without Contrast Exam date and time: 07/05/2021 6:35 PM Age: 71 years old Clinical indication: Injury or trauma; Fall; Blunt trauma; Additional info: Fall with neck pain TECHNIQUE: Imaging protocol: Computed tomography images of the cervical spine without contrast. Radiation optimization: All CT scans at this facility use at least one of these dose optimization techniques: automated exposure control; mA and/or kV adjustment per patient size (includes targeted exams where dose is matched to clinical indication); or iterative reconstruction. COMPARISON: CT facial bones wo con* [id number] 07/05/2021 6:47 PM RADIATION DOSE METRICS: Total DLP (mGy-cm): 827.09 FINDINGS: Vertebrae: [id number] degenerative changes are present in the cervical spine. Mild canal stenosis is present at C5-C6 and C6-C7 secondary to chronic changes. No cervical spine fracture is seen. Spinal straightening may be due to positioning or muscle spasm. Soft tissues: Unremarkable. Lungs: Lung apices are normal. CT/CT cervical spin wo con* [id number] IMPRESSION: No cervical spine fracture. Radiation Dose CTDIVOL = (mGy): DLP = 827.09 (mGy-cm) Dictated By: David Aguilar MD Signed By: David Aguilar MD Signed Date/Time: 07/05/211905 DD/ 03 [place] [address] CT Scan Report Signed Patient: Rupa Baptiste Unit #: [id number] : 1950 Age/Sex: 71 / F ADM Date: 07/05/21 Loc: ER Room/Bed: Attending Dr: Ordering Provider/Ordering MD: Srinath Toure Date of Service: 07/05/21 Procedure(s): CT facial bones wo con* [id number] Accession Number(s): [id number] Report Number: [id number] PROCEDURE INFORMATION: Exam: CT Maxillofacial Without Contrast Exam date and time: 07/05/2021 6:35 PM Age: 71 years old Clinical indication: Injury or trauma; Fall; Blunt trauma (contusions or hematomas); Orbit/periorbital; Left; Additional info: Fall and hit head-left periorbital swelling TECHNIQUE: Imaging protocol: Computed tomography images of the face without contrast. Radiation optimization: All CT scans at this facility use at least one of these dose optimization techniques: automated exposure control; mA and/or kV adjustment per patient size (includes targeted exams where dose is matched to clinical indication); or iterative reconstruction. COMPARISON: CT head wo con* [id number] 07/05/2021 6:43 PM RADIATION DOSE METRICS: Total DLP (mGy-cm): 764.56 FINDINGS: Orbital cavity: Orbits are normal. Globes are unremarkable. Bones/joints: No acute fracture. Paranasal sinuses: Mild left posterior ethmoid sinusitis is appreciated. Mild mucosal thickening is also observed in the right maxillary sinus Soft tissues: Left facial soft tissue swelling is noted. A small subcutaneous hematoma is present in the left supraorbital region. CT/CT facial bones wo con* [id number] IMPRESSION: No facial bone fracture. Mild sinusitis. Radiation Dose CTDIVOL = (mGy): DLP = 764.56 (mGy-cm) Dictated By: David Aguilar MD Signed By: David Aguilar MD Signed Date/Time: 07/05/211911 DD/ 09 Discharge Plan Discharge Patient Disposition: Home Clinical Impression: Musculoskeletal back pain Fall as cause of accidental injury at home as place of occurrence Qualifiers: Encounter type: initial encounter Qualified Code(s): W19.XXXA - Unspecified fall, initial encounter Multiple fractures of left lower extremity and ribs Qualifiers: Encounter type: initial encounter Fracture type: closed Qualified Code(s): S82.92XA - Unspecified fracture of left lower leg, initial encounter for closed fracture Contusion of face Qualifiers: Encounter type: initial encounter Qualified Code(s): S00.83XA - Contusion of other part of head, initial encounter Condition: Stable Prescriptions: No Action metoprolol tartrate 75 mg tablet 75 mg PO BID RF: 0 ferrous sulfate [Feosol] 325 mg (65 mg iron) tablet 325 mg PO DAILY RF: 0 warfarin 5 mg tablet See Rx Instructions .ROUTE .COMPLEX RF: 0 glipizide 10 mg tablet 10 mg PO DAILY RF: 0 simvastatin 20 mg tablet 20 mg PO DAILY RF: 0 hydrochlorothiazide 12.5 mg tablet 12.5 mg PO DAILY RF: 0 aspirin [Aspir-81] 81 mg tablet,delayed release (DR/EC) 81 mg PO DAILY RF: 0 docusate sodium 100 mg Capsule 100 mg PO DAILY RF: 0 Lexapro 10 mg Tablet 10 mg PO DAILY RF: 0 Ambien CR 6.25 mg Tablet,Ext Release Multiphase 6.25 mg PO BEDTIME RF: 0 Discharge Orders: Discharge ED (Routine); Ordered 07/05/21 Ordered By: Srinath Toure Referrals: García Theodore MD [Primary Care Provider] - Discharge Diet: Regular Discharge Activity: Increase activity as tolerated Patient Instructions: Black Eye (ED), Rib Fracture (ED), Contusion in Adults (ED), Musculoskeletal Pain (ED), Fall Prevention (ED), Opioid Safety Activity Restrictions/Additional Instructions: Follow-up with medical provider as directed in 5-7 days. Take medications as prescribed. Rest and limit any activity to allow for ribs to heal. If you notice any increasing chest pain or shortness of breath return to the ED immediately for reevaluation. Return to the ER or your medical provider if condition worsens. Please read and understand discharge instructions. Thank you for choosing [facility] for your healthcare needs today. Please realize this is an emergency room and that we are providing you with a medical screening exam and this may not be complete and all inclusive of all the testing and or work up that you may need to determine your ailment or severity of your illness. It is very important that you follow up as instructed or that you return to the Emergency Department should you have concerns or if your condition changes or worsens in any way. Coding Level of Care Code ED Analytical Lab Analyst for [facility] Exam Comprehensive
--- NOTE | 2021-07-05 18:56 | CTR_ITS ---
PROCEDURE INFORMATION: Exam: CT Chest Without Contrast; Diagnostic Exam date and time: 07/05/2021 6:56 PM Age: 71 years old Clinical indication: Injury or trauma; Fall; Blunt trauma (contusions or hematomas); Prior surgery; Surgery type: Pacemaker; Additional info: Fall, rib pain TECHNIQUE: Imaging protocol: Diagnostic computed tomography of the chest without contrast. Radiation optimization: All CT scans at this facility use at least one of these dose optimization techniques: automated exposure control; mA and/or kV adjustment per patient size (includes targeted exams where dose is matched to clinical indication); or iterative reconstruction. COMPARISON: CR XR chest 1V portable [id number] 04/03/2020 12:38 PM RADIATION DOSE METRICS: Total DLP (mGy-cm): 832.99 FINDINGS: Tubes, catheters and devices: Cardiac pacemaker is noted. Lungs: No alveolar infiltrate is seen.There is evidence of previous granulomatous reaction. Several small calcified and noncalcified nodular densities are seen in both lungs, likely granulomata. The noncalcified nodules are nonspecific. Correlate with previous and/or followup imaging in accordance with the patient's risk category, per Fleischner criteria. Pleural spaces: No pleural effusion is seen. No pneumothorax. Heart: Cardiomegaly. No pericardial effusion. Aorta: Atherosclerotic vascular disease is noted. The ascending aorta is ectatic, measuring 3.9 cm. No dissection is evident by noncontrast CT. The thoracic aorta is mildly tortuous. Lymph nodes: Unremarkable. No enlarged lymph nodes. Bones/joints: Likely old healed nondisplaced rib fractures on the right. There are acute appearing fractures of the left lateral 6th, 7th and 8th ribs. Thoracic spine is described in separate report. Abdomen: Cholelithiasis and atrophic left kidney are noted. CT/CT chest wo con [id number] IMPRESSION: 1. Acute appearing fractures of the left lateral ribs 6, 7th and 8th ribs. 2. Likely old healed nondisplaced rib fractures on the right. 3. Several small calcified and noncalcified nodular densities are seen in both lungs, likely granulomata. The noncalcified nodules are nonspecific. Correlate with previous and/or followup imaging in accordance with the patient's risk category, per Fleischner criteria. 4. Ectatic ascending aorta. 5. Cardiomegaly. Radiation Dose CTDIVOL = (mGy): DLP = 832.99 (mGy-cm)
[2021-07-05] MEDS: HYDROcodone-acetaminophen 5-325 mg Tablet 1 TAB PO (19:15)
[2021-07-05 19:49] LABS: INR 1.76 (0.8-1.2); Partial Thromboplastin Time 34.5 SECONDS (23.9-36.7)
[2021-07-05 20:24] VITALS: BP 154/92; PULSE 80; RESP 18; O2SAT 95
[2021-07-05 20:58] VITALS: BP 161/89; PULSE 73; O2SAT 96
== END 2021-07-05 20:59 | disposition home or self-care (01) ==
PROVIDERS: Emergency Provider Physician Assistant; PCP Family Medicine
DX: S82.92XA Unspecified fracture of left lower leg, initial encounter for closed fracture (principal); S00.83XA Contusion of other part of head, initial encounter; Z79.01 Long term (current) use of anticoagulants; Z79.82 Long term (current) use of aspirin; Z79.84 Long term (current) use of oral hypoglycemic drugs; M54.9 Dorsalgia, unspecified; W18.09XA Striking against other object with subsequent fall, initial encounter; I11.0 Hypertensive heart disease with heart failure; I50.9 Heart failure, unspecified; Z86.73 Personal history of transient ischemic attack (TIA), and cerebral infarction without residual deficits; E11.9 Type 2 diabetes mellitus without complications; I25.2 Old myocardial infarction; Z87.891 Personal history of nicotine dependence; Z95.0 Presence of cardiac pacemaker
CPT/HCPCS: 70450; 70486; 71250; 72125; 72128; 72131; 85610; 85730; 99283

== ENCOUNTER → 2022-03-09 08:29 | Outpatient (BNVA) | payer MEDICARE, MEDICAID, SELFPAY | PROVIDERS: PCP Family Medicine; Visit Provider Internal Medicine | DX: Z45.010 Encounter for checking and testing of cardiac pacemaker pulse generator [battery] (principal) | CPT/HCPCS: 93280 ==

== ENCOUNTER → 2022-06-20 13:49 | Outpatient (BNVA) | payer MEDICARE, MEDICAID, SELFPAY | PROVIDERS: PCP Family Medicine; Visit Provider Internal Medicine | DX: I25.2 Old myocardial infarction (principal); I49.5 Sick sinus syndrome; I48.91 Unspecified atrial fibrillation; I25.5 Ischemic cardiomyopathy; E66.9 Obesity, unspecified; I13.0 Hypertensive heart and chronic kidney disease with heart failure and stage 1 through stage 4 chronic kidney disease, or unspecified chronic kidney disease; E11.22 Type 2 diabetes mellitus with diabetic chronic kidney disease; N18.9 Chronic kidney disease, unspecified; I50.9 Heart failure, unspecified; Z87.891 Personal history of nicotine dependence; Z79.84 Long term (current) use of oral hypoglycemic drugs; Z79.01 Long term (current) use of anticoagulants | CPT/HCPCS: 99214 ==

== ENCOUNTER → 2022-08-10 09:02 | Outpatient (BNVA) | payer MEDICARE, MEDICAID, SELFPAY | PROVIDERS: PCP Family Medicine; Visit Provider Internal Medicine | DX: Z45.010 Encounter for checking and testing of cardiac pacemaker pulse generator [battery] (principal) | CPT/HCPCS: 93280 ==

== ENCOUNTER 2022-08-31 16:43 | Observation (INO) | payer MEDICARE, MEDICAID, SELFPAY ==
[2022-08-31] VITALS (7 sets, daily range): BP systolic 159–184; BP diastolic 71–117; PULSE 73–95; RESP 16–28; TEMP 36.6–36.9; O2SAT 94–95; BMI 32.3
--- NOTE | 2022-08-31 16:56 | ECG_ITS ---
[facility] Test Date: 2022-08-31 Pat Name: Rupa Baptiste Department: Room: Gender: Female Critical Care Specialist: : 1950 Requested By: Vic Morales Order Number: [id number] [place] MD: Aamir Fontanez M.D. Measurements Intervals [place] Rate: 76 P: 0 CT: 0 QRS: 25 QRSD: 115 T: 256 QT: 444 QTc: 500 Interpretive Statements ATRIAL FIBRILLATION WITH ABERRANT CONDUCTION OR VENTRICULAR PREMATURE COMPLEXES MODERATE INTRAVENTRICULAR CONDUCTION DELAY [110+ ms QRS DURATION] ST DEVIATION AND MODERATE T-WAVE ABNORMALITY, CONSIDER ANTEROLATERAL ISCHEMIA [-0.1+ mV T-WAVE IN V3-V6] ST DEVIATION AND MODERATE T-WAVE ABNORMALITY, CONSIDER INFERIOR ISCHEMIA [-0.1+ mV T-WAVE IN II/aVF] Compared to ECG 05/16/2018 23:30:36 Ventricular premature complex(es) now present Aberrant conduction of supraventricular beat(s) now present Intraventricular conduction delay now present Possible ischemia now present T-wave abnormality still present Electronically Signed On 09-01-2022 15:04:49 [employer] MANAGER by Aamir Fontanez M.D. [id number]
--- NOTE | 2022-08-31 16:57 | XRR_ITS ---
PROCEDURE INFORMATION: Exam: XR Chest Exam date and time: 08/31/2022 6:06 PM Age: 72 years old Clinical indication: Smoker's cough; Additional info: Dyspnea, cough TECHNIQUE: Imaging protocol: Radiologic exam of the chest. Views: 1 view. COMPARISON: CT chest wo con [id number] 07/05/2021 6:57 PM FINDINGS: Tubes, catheters and devices: The pacemaker and its leads appear stable in position. Lungs: The lungs are clear. Pleural spaces: Unremarkable. No pleural effusion. No pneumothorax. Heart/Mediastinum: Unremarkable. No cardiomegaly. Bones/joints: Levoscoliosis of the thoracolumbar spine region is noted. No acute fracture is seen. XR/XR chest 1V portable [id number] IMPRESSION: No acute cardiopulmonary abnormality.
--- NOTE | 2022-08-31 16:58 | W.ED.SOB ---
HPI - SOB/Dyspnea General: Chief Complaint: Shortness of Breath/Dyspnea Stated Complaint: respiratory distress Time Seen by Provider: 08/31/22 16:46 History of Present Illness: HPI Narrative: Patient is brought in by EMS with report of shortness of breath. Patient has history of cerebrovascular events and head injury. She suffers from dementia. Patient is unable to provide history. EMS reports low-grade oral temperature. EMS reports diminished breath sounds at were improved by an albuterol treatment during transport. The patient is not oriented. Her daughter is on her way to help us determine what her baseline is. Patient is on warfarin for chronic atrial fibrillation. Other relevant history includes obesity, hypertension, pacemaker, renal disease. Review of Systems General: Reports: ROS unobtainable due to mental status PFSH ED PFSH: Medical History Anticoagulant long-term use Atrial fibrillation Bipolar 1 disorder CHF (congestive heart failure) CKD (chronic kidney disease) CVA (cerebral vascular accident) Diabetes HTN (hypertension) Ischemic cardiomyopathy Myocardial infarction Obesity Sick sinus syndrome Surgical History Status cardiac pacemaker Social History Smoking and tobacco status: former smoker Current occupational status: retired Physical Exam Const: COMMON NORMALS: alert and well nourished GENERAL APPEARANCE: cooperative and well developed ORIENTATION/CONSCIOUSNESS: Yes awake, Yes oriented to person and Yes oriented to place; not oriented to time HENMT: COMMON NORMALS: normocephalic, atraumatic, external ears normal and Normal external nose present HEAD & SCALP: normal to inspection, normocephalic and atraumatic FACE & SINUS: face symmetric NOSE: Normal external nose present EXTERNAL EAR: Yes external ears normal MOUTH: lip normal; no muffled voice Eye: COMMON NORMALS: EOMs intact bilaterally and conjunctivae normal GENERAL EYE: appearance normal, both eyes and all related structures CONJUNCTIVA: Yes conjunctivae normal Neck/C-Spine: COMMON NORMALS: no JVD GENERAL: Yes normal visual inspection and Yes trachea midline Resp: EFFORT & INSPECTION: Yes tachypneic, Yes respiratory distress (mild), Yes labored, No stridor, No Actively coughing, Yes audible wheezes and Yes prolonged expiratory phase AUSCULTATION: rales and wheezes Cardio: COMMON NORMALS: no JVD and regular rate RATE: regular rate RHYTHM: abnormal rhythm PERIPHERAL PULSES: radial pulses present GI: COMMON NORMALS: Soft to palpation INSPECTION: Yes normal to inspection PALPATION: Yes Soft to palpation, No Tenderness to palpation present (GI) and No Guarding due to palpation present (GI) Back/Pelvis: COMMON NORMALS: thoraco-lumbar ROM normal Extremity: COMMON NORMALS: normal to inspection, no calf tenderness and no pedal edema GENERAL: Yes normal exam except as noted Neuro: COMMON NORMALS: moves all extremities, no focal motor deficits and no sensory deficits noted SENSORIUM/ORIENTATION: Yes alert, Yes oriented to person, Yes oriented to place, No oriented to time and Yes Orientation impaired Psych: COMMON NORMALS: cooperative, normal affect and speech normal SPEECH: Yes normal speech Skin: COMMON NORMALS: turgor normal and no jaundice NARRATIVE SKIN EXAM: Yeast infection around pannus, umbilicus, pelvis GENERAL SKIN EXAM: turgor normal Course Vital Signs: Vital signs: Vital Signs Temperature 97.8 F 08/31/22 16:48 Pulse Rate 80 08/31/22 18:30 Respiratory Rate 22 H 08/31/22 18:30 Blood Pressure 165/101 08/31/22 18:30 Pulse Oximetry 95 08/31/22 18:30 Oxygen Delivery Me thod 08/31/22 18:30 MDM - SOB/Dyspnea Medical Decision Making I have had the opportunity to speak with the patient's daughter who has given some new collateral information. The patient seemed to have some respiratory distress last night. Daughter gave her breathing treatments and a humidifier. She seemed to get better. Today around 10 AM she was at her baseline. Around 3 PM the daughter checked on her again and she was minimally responsive with apparent respiratory distress. Daughter noted she had a right facial droop. She has a history of a stroke causing a right facial droop. This has resolved. Patient is on Coumadin and INR is in the normal range. Currently the patient is on room air and has some abnormal breath sounds. Daughter also notes that she has had urinary tract infections in the past which have caused changes in her breathing, mental status, and functional decline. UPDATE: The patient's BNP is significantly elevated. CT angiogram of the chest shows some clot in the brachiocephalic and left subclavian. Unknown chronicity. No pulmonary embolism. There is evidence of reflux into the liver and IVC, suggesting high right heart pressures. There was a question of some inflammation around the gallbladder. The patient does not have any tenderness there nor does she have any subjective complaint of abdominal pain or any objective findings of vomiting. Alkaline phosphatase is normal. CT scan of the head showed old strokes but nothing acute. ABG is pending. Patient is EKG is abnormal as mentioned above. Potassium is mildly low. AG elevated, urine ketones neg. I spoke with Dr. Lizama for admission; he is going to see patient and we'll wait for ABG before determine bed. Lab Data : 08/31/22 17:00 08/31/22 17:00 Labs/Radiology: Radiology Impressions Chest X-Ray 08/31/22 16:57 IMPRESSION: No acute cardiopulmonary abnormality. Chest CTA 08/31/22 18:32 IMPRESSION: Cardiomegaly with evidence for elevated central venous pressure or tricuspid regurgitation. Lower most cuts of imaging raise question of gallbladder inflammatory changes in association with cholelithiasis; dedicated abdominal imaging could be considered if there are appropriate clinical findings. 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 No evident pulmonary embolic disease. Head CT 08/31/22 18:32 IMPRESSION: Mild patient motion. No acute intracranial abnormality is seen. Laboratory Results WBC 7.0 10^3/uL (4.0-10.0) 08/31/22 17:00 RBC 4.23 10^6/uL (4.1-5.3) 08/31/22 17:00 Hgb 12.4 g/dL (11.5-15.3) 08/31/22 17:00 Hct 39.3 % (37.0-47.0) 08/31/22 17:00 MCV 92.9 fl (81-99) 08/31/22 17:00 MCH 29.3 pg (28.0-34.0) 08/31/22 17:00 MCHC 31.6 g/dL (30.0-36.0) 08/31/22 17:00 RDW 14.7 % (12.1-15.1) 08/31/22 17:00 Plt Count 189 10^3/cmm (130-400) 08/31/22 17:00 MPV 10.3 fL (7.4-10.4) 08/31/22 17:00 Neut % (Auto) 81.2 % 08/31/22 17:00 Lymph % (Auto) 4.6 % 08/31/22 17:00 [place] % (Auto) 9.8 % 08/31/22 17:00 Eos % (Auto) 3.0 % 08/31/22 17:00 Baso % (Auto) 0.4 % 08/31/22 17:00 Neut # (Auto) 5.71 10^3/uL (1.8-7.7) 08/31/22 17:00 Lymph # (Auto) 0.3 10^3/uL (0.8-4.8) L 08/31/22 17:00 [place] # (Auto) 0.7 10^3/uL (0.2-0.9) 08/31/22 17:00 Eos # (Auto) 0.2 10^3/uL (0.0-0.8) 08/31/22 17:00 Baso # (Auto) 0.0 10^3/uL (0.0-0.1) 08/31/22 17:00 Nucleated RBC % (auto) 0 % 08/31/22 17:00 Nucleated RBCs # 0.0 /100WBC 08/31/22 17:00 PT 26.80 SECONDS (12.1-14.9) H 08/31/22 17:00 INR 2.44 (0.8-1.2) H 08/31/22 17:00 Sodium 135 mmol/L (136-145) L 08/31/22 17:00 Potassium 3.2 mmol/L (3.5-5.1) L 08/31/22 17:00 Chloride 94 mmol/L (98-107) L 08/31/22 17:00 Carbon Dioxide 25 mmol/L (22-29) 08/31/22 17:00 Anion Gap 19.2 (5-19) H 08/31/22 17:00 BUN 25 mg/dL (8-23) H 08/31/22 17:00 Creatinine 1.3 mg/dL (0.5-0.9) H 08/31/22 17:00 GFR Calculation Not Reportable 08/31/22 17:00 Glucose 187 mg/dL (65-115) H 08/31/22 17:00 Calculated Osmolality 289 mOsm/kg (285-295) 08/31/22 17:00 Calcium 9.8 mg/dL (8.5-10.5) 08/31/22 17:00 Magnesium 1.7 mg/dL (1.7-2.3) 08/31/22 17:00 Total Bilirubin 1.2 mg/dL (0.15-1.2) 08/31/22 17:00 AST 67 U/L (0-32) H 08/31/22 17:00 ALT 62 U/L (0-33) H 08/31/22 17:00 Alkaline Phosphatase 100 U/L (35-105) 08/31/22 17:00 Troponin T Gen 5 ng/L 37 ng/L (0-10) H 08/31/22 17:09 NT-Pro-B Natriuret Pep 52473 pg/mL (0-125) H 08/31/22 17:00 Total Protein 7.8 g/dL (6.6-8.7) 08/31/22 17:00 Albumin 3.8 g/dL (3.5-5.2) 08/31/22 17:00 Globulin 4.0 g/dL (1.3-4.6) 08/31/22 17:00 Urine Color Yellow (Yellow) 08/31/22 18:48 Urine Appearance Clear (CLEAR) 08/31/22 18:48 Urine pH 5 (5-7) 08/31/22 18:48 Ur Specific [place] 1.020 (1.005-1.030) 08/31/22 18:48 Urine Protein 2+ (Negative) H 08/31/22 18:48 Urine Glucose (UA) Norm (Normal) 08/31/22 18:48 Urine Ketones Negative (Negative) 08/31/22 18:48 Urine Blood 3+ (Negative) H 08/31/22 18:48 Urine Nitrate Negative (Negative) 08/31/22 18:48 Urine Bilirubin 1+ (Negative) H 08/31/22 18:48 Urine Urobilinogen Norm mg/dL (Negative) 08/31/22 18:48 Ur Leukocyte Esterase Negative (Negative) 08/31/22 18:48 Urine RBC 0-4 /hpf (0-2) H 08/31/22 18:48 Urine WBC 0-4 /hpf (0-5) H 08/31/22 18:48 Ur Squamous Epith Cells 0-4 /hpf (0-5) H 08/31/22 18:48 Amorphous Sediment Not Reportable 08/31/22 18:48 Urine Bacteria None /hpf (NONE) 08/31/22 18:48 Influenza Type A Ag negative (Negative) 08/31/22 17:00 Influenza Type B Ag negative (Negative) 08/31/22 17:00 SARS-CoV-2 Ag (Rapid) negative (Negative) 08/31/22 17:00 EKG Data EKG 1: Interpretation: Atrial fibrillation, rate 76, T wave inversions with large amplitude noted in the inferior and lateral/anterior leads. No STEMI criteria. PVCs. QRS 115 ms. no prior EKG for comparison Discharge Plan Discharge Condition: Stable Prescriptions: No Action metoprolol tartrate 75 mg tablet 75 mg PO BID ferrous sulfate [Feosol] 325 mg (65 mg iron) tablet 325 mg PO DAILY warfarin 5 mg tablet See Rx Instructions .ROUTE .COMPLEX Rx Instructions: 5 mg orally on (, , SATURDAY, SAT, SUN) 2.5 mg orally on (SAT, ) glipizide 10 mg tablet 10 mg PO DAILY simvastatin 20 mg tablet 20 mg PO DAILY hydrochlorothiazide 12.5 mg tablet 12.5 mg PO DAILY aspirin [Aspir-81] 81 mg tablet,delayed release (DR/EC) 81 mg PO DAILY Lexapro 10 mg Tablet 10 mg PO DAILY Ambien CR 6.25 mg Tablet,Ext Release Multiphase 6.25 mg PO BEDTIME Referrals: García Theodore MD [Primary Care Provider] - Coding Level of Care Code ED Tumor Registrar for Chg Fwd Exam Comprehensive
[2022-08-31] MEDS: ipratropium-albuterol 3 mL Neb 6 ML INHALATION (17:01)
[2022-08-31] MEDS: nitroglycerin 1 gm/inch oint Pkt 1 INCH TOPICAL (17:17)
[2022-08-31 17:18] LABS: Basophils % 0.4 %; Eosinophils # 0.2 10^3/uL (0.0-0.8); Hematocrit 39.3 % (37.0-47.0); Hemoglobin 12.4 g/dL (11.5-15.3); Lymphocytes # 0.3 10^3/uL (0.8-4.8); Lymphocytes % 4.6 %; Mean Corpuscular HGB Conc 31.6 g/dL (30.0-36.0); Mean Corpuscular Hemoglobin 29.3 pg (28.0-34.0); Mean Corpuscular Volume 92.9 fl (81-99); Mean Platelet Volume 10.3 fL (7.4-10.4); Monocytes # 0.7 10^3/uL (0.2-0.9); Monocytes % 9.8 %; Neutrophils # 5.71 10^3/uL (1.8-7.7); Neutrophils % 81.2 %; Nucleated Red Blood Cells % 0 %; Platelet Count 189 10^3/cmm (130-400); Red Blood Count 4.23 10^6/uL (4.1-5.3); Red Cell Distribution Width 14.7 % (12.1-15.1)
[2022-08-31 17:30] LABS: INR 2.44 (0.8-1.2)
[2022-08-31 17:41] LABS: Influenza A by IFA negative (Negative); Influenza B by IFA negative (Negative); SARS Covid-2 Antigen negative (Negative)
[2022-08-31 18:15] LABS: Alanine Aminotransferase 62 U/L (0-33); Albumin Level 3.8 g/dL (3.5-5.2); Alkaline Phosphatase 100 U/L (35-105); Anion Gap 19.2 (5-19); Aspartate Amino Transferase 67 U/L (0-32); Blood Urea Nitrogen 25 mg/dL (8-23); Calcium 9.8 mg/dL (8.5-10.5); Carbon Dioxide 25 mmol/L (22-29); Chloride 94 mmol/L (98-107); Glucose 187 mg/dL (65-115); Magnesium 1.7 mg/dL (1.7-2.3); Osmolality Calculated 289 mOsm/kg (285-295); Potassium 3.2 mmol/L (3.5-5.1); Sodium 135 mmol/L (136-145); Total Bilirubin 1.2 mg/dL (0.15-1.2); Total Protein 7.8 g/dL (6.6-8.7)
--- NOTE | 2022-08-31 18:32 | CTR_ITS ---
PROCEDURE INFORMATION: Exam: CTA Chest With Contrast Exam date and time: 08/31/2022 7:23 PM Age: 72 years old Clinical indication: Shortness of breath; Additional info: Sudden shortness of breath, ekg abnormal, elevated bnp TECHNIQUE: Imaging protocol: Computed tomographic angiography of the chest with contrast. 3D rendering (Not supervised by radiologist): MIP and/or 3D reconstructed images were created by the technologist. Radiation optimization: All CT scans at this facility use at least one of these dose optimization techniques: automated exposure control; mA and/or kV adjustment per patient size (includes targeted exams where dose is matched to clinical indication); or iterative reconstruction. Contrast material: OMNIPAQUE 350; Contrast volume: 80 ml; Contrast route: INTRAVENOUS (IV); COMPARISON: CT chest con [id number] 07/05/2021 6:57 PM RADIATION DOSE METRICS: Total DLP (mGy-cm): 528.82 FINDINGS: Tubes, catheters and devices: Dual lead permanent pacemaker in place. Pulmonary arteries: Normal. No pulmonary emboli. Aorta: No aortic aneurysm. Veins: Extensive collateral contrast flow noted raising suggestion of obstruction of medial left subclavian vein and the left brachiocephalic vein. Contrast reflux into distended inferior vena cava and hepatic veins noted. Lungs: Calcified pulmonary granulomatous change. 4 mm nodule at left apex that can not be definitely classified is calcified is unchanged. No new abnormalities. Pleural spaces: No pneumothorax. No pleural effusion. Heart: Cardiomegaly. Dense coronary arterial calcifications are noted. Lymph nodes: No enlarged lymph nodes. Gallbladder and bile ducts: Lower most cuts raise question of gallbladder reactive changes in association with cholelithiasis. Bones/joints: Healing fractures of posterior right ribs noted. Soft tissues: Unremarkable. CT/CT angio chest PE protcl [id number] IMPRESSION: Cardiomegaly with evidence for elevated central venous pressure or tricuspid regurgitation. Lower most cuts of imaging raise question of gallbladder inflammatory changes in association with cholelithiasis; dedicated abdominal imaging could be considered if there are appropriate clinical findings. 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 No evident pulmonary embolic disease.
--- NOTE | 2022-08-31 18:32 | CTR_ITS ---
PROCEDURE INFORMATION: Exam: CT Head Without Contrast Exam date and time: 08/31/2022 7:20 PM Age: 72 years old Clinical indication: Altered mental status/memory loss; Additional info: AMS with right facial droop around 3pm, resolved TECHNIQUE: Imaging protocol: Computed tomography of the head without contrast. Radiation optimization: All CT scans at this facility use at least one of these dose optimization techniques: automated exposure control; mA and/or kV adjustment per patient size (includes targeted exams where dose is matched to clinical indication); or iterative reconstruction. COMPARISON: CT head wo con* [id number] 07/05/2021 6:43 PM RADIATION DOSE METRICS: Total DLP (mGy-cm): 1150.18 FINDINGS: Brain: Mild patient motion occurs during the examination. Chronic infarction changes are present in the left basal ganglia and insula, and left cerebellar hemisphere. Mild atrophy and mild white matter chronic microvascular changes are noted. No hemorrhage or evidence of acute infarction. Cerebral ventricles: No ventriculomegaly. Paranasal sinuses: A retention cyst is present in the left posterior ethmoid sinuses. No fluid levels. Mastoid air cells: Visualized mastoid air cells are well aerated. Bones/joints: Unremarkable. No acute fracture. Soft tissues: Unremarkable. CT/CT head wo con* [id number] IMPRESSION: Mild patient motion. No acute intracranial abnormality is seen.
[2022-08-31] MEDS: iohexol 350 mg/mL 500 mL Btl (per mL) IV (18:40)
[2022-08-31 19:14] LABS: Troponin T (5th) Once 37 ng/L (0-10)
[2022-08-31 19:27] LABS: Add Urine Microscopic? YES; Bilirubin Urine 1+ (Negative); Blood Urine 3+ (Negative); Glucose Urine UA Norm (Normal); Ketones Urine Negative (Negative); Leukocyte Esterase Urine Negative (Negative); Nitrate Urine Negative (Negative); Protein Urine 2+ (Negative); Urine Appearance Clear (CLEAR); Urine Color Yellow (Yellow); Urobilinogen Urine Norm (Negative); pH Urine 5 (5-7)
[2022-08-31 19:29] LABS: Add Urine Culture? No; RBC Urine 0-4 /hpf (0-2); Squamous Epithelial Cell Urine 0-4 /hpf (0-5); WBC Urine 0-4 /hpf (0-5)
--- NOTE | 2022-08-31 21:07 | PM.HP ---
Providers/Chief Complaint Primary Care Provider: García Theodore MD Chief Complaint: respiratory distress History of Present Illness Pleasant 72-year-old lady with history of A. 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 She lives by herself but the daughter lives a mile away and comes over multiple times day. She reportedly was feeling short of breath last night and also complained of some chest pain. Her daughter gave her some breathing treatments, this morning was seen around 10 AM and was okay. Around noon she was seen by her neighbor and was noted to be short of breath. Then around 2 PM was found slumped over, minimally responsive, daughter noted right-sided facial droop. She was noted short of breath on arrival in ER, received breathing treatment, Solu-Medrol dose. Saturation has improved to low to mid 90s. She is less short of breath, although her daughter feels she is still breathing harder than usual. The right side facial droop has since resolved. She is awake and alert. Her daughter does report that at home her blood pressure was very elevated up to 220 systolic. Currently blood pressure is better 165/101. Her daughter does state that her mother forgot to take 1 or 2 days her medications which her daughter left for her. In ER she was unable to provide history for herself until the daughter arrived later and provided the history. EKG noted with T wave inversions on EKG, ST depression concerning for inferior lateral ischemic changes. Also noted chronic atrial fibrillation. Baseline troponin mildly elevated at 37. NT proBNP very elevated at 24,926. BUN 25, creatinine 1.3, lower than prior 1.6 in 2020. Potassium 3.2, magnesium 1.7. Mild transaminitis, AST 67, ALT 62. UA 0-4 RBC, 0-4 WBC, 0-[address] with motion abnormality without acute intracranial abnormality. Chest x-ray without acute cardiopulmonary abnormality. CT angiogram of the chest with cardiomegaly with evidence of elevated central venous pressure or tricuspid regurgitation. Lowermost cuts imaging raise question of gallbladder inflammation changes in association with cholelithiasis. Dedicated normal imaging could be considered if there is appropriate clinical findings. Findings suggest inclusion of left brachiocephalic and median left subclavian veins. PPM in place. No PE. Review of Systems General: Reports: ROS unobtainable due to medical condition Const: Denies: fever(s) Card: Reports: chest pain (last night) Resp: Reports: dyspnea and non-productive cough GI: Denies: abdominal pain, nausea, vomiting or diarrhea : Denies: flank pain Skin/Breast: Denies: rash Neuro: Reports: other (transient facial droop); Denies: headache(s), numbness in extremities or weakness in extremities Medications/Allergies Home Medications Medication Instructions Recorded Confirmed Last Taken Type aspirin 81 mg tablet,delayed 81 mg PO DAILY 03/23/20 06/20/22 04/02/20 History release (Aspir-) ferrous sulfate 325 mg (65 mg 325 mg PO DAILY 03/23/20 06/20/22 04/02/20 History iron) tablet (Feosol) glipizide 10 mg tablet 10 mg PO DAILY 03/23/20 06/20/22 04/03/20 History hydrochlorothiazide 12.5 mg tablet 12.5 mg PO DAILY 03/23/20 06/20/22 04/02/20 History metoprolol tartrate 75 mg tablet 75 mg PO BID 03/23/20 06/20/22 04/03/20 History simvastatin 20 mg tablet 20 mg PO DAILY 03/23/20 06/20/22 04/02/20 History warfarin 5 mg tablet See Rx Instructions .Route .COMPLEX 03/23/20 06/20/22 04/02/20 History escitalopram oxalate 10 mg tablet 10 mg PO DAILY 04/03/20 06/20/22 04/02/20 History (Lexapro) zolpidem 6.25 mg tablet,extended 6.25 mg PO BEDTIME 04/03/20 06/20/22 04/02/20 History release,multiphase (Ambien CR) Allergies Allergy/AdvReac Type Severity Reaction Status Date / Time Penicillins Allergy Unknown Unknown Verified 06/20/22 14:00 Tetanus Vaccines and Toxoid Allergy Unknown Unknown Verified 06/20/22 14:00 PFSH Acute PFSH: Medical History (Updated 08/31/22 @ 21:34 by James Lizama MD) Anticoagulant long-term use Atrial fibrillation Bipolar 1 disorder CHF (congestive heart failure) CKD (chronic kidney disease) CVA (cerebral vascular accident) Diabetes HTN (hypertension) Ischemic cardiomyopathy Myocardial infarction Obesity Sick sinus syndrome Surgical History Status cardiac pacemaker Family History Other Cancer Suicide Social History Smoking and tobacco status: former smoker Caregiver/support person: Yes (daughter) Lives independently: No Household members: none Current occupational status: retired Vitals/I&O/Wt Last Vital Signs Temp 97.8 F 08/31/22 16:48 Pulse 80 08/31/22 18:30 Resp 22 H 08/31/22 18:30 BP 165/101 08/31/22 18:30 Pulse Ox 95 08/31/22 18:30 O2 Del Method 08/31/22 18:30 Weight last 48 hrs Weight 90.718 kg Physical Exam Narrative: Daughter at bedside, providing history Const: COMMON NORMALS: alert; negative for patient oriented x3 GENERAL APPEARANCE: cooperative ORIENTATION/CONSCIOUSNESS: Yes awake HENMT: COMMON NORMALS: oropharynx normal Neck/C-Spine: COMMON NORMALS: no JVD Resp: AUSCULTATION: diminished lung sounds Cardio: COMMON NORMALS: no JVD, regular rhythm, S1 normal heart sound present, S2 normal heart sound present and No murmurs present (Cardio) RHYTHM: abnormal rhythm irregularly irregular HEART SOUNDS: S1 normal heart sound present and S2 normal heart sound present GI: COMMON NORMALS: Normal to inspection, nondistended, normoactive bowel sounds present, Soft to palpation and non-tender PALPATION: Yes Soft to palpation OTHER: Fitzgerald negative Extremity: COMMON NORMALS: no joint enlargement and no pedal edema Neuro: COMMON NORMALS: moves all extremities; negative for patient oriented x3 SENSORIUM/ORIENTATION: Yes alert Skin: COMMON NORMALS: no rashes or lesions noted GENERAL SKIN EXAM: no rashes or lesions noted Data : 08/31/22 17:00 08/31/22 17:00 A&P Assessment and plan (1) Acute encephalopathy: Episode of acute encephalopathy, respiratory distress, briefly short of breath night before, was complaining of chest pain. Encephalopathy so far has resolved. She is awake and alert. Unclear etiology. May have been hypertensive urgency as blood pressure reported high in 220s. UA without suggestion of UTI. Lung imaging without suggestion of focal abnormality. She is otherwise afebrile, without leukocytosis, without any headache or suggestion of [employer] infection. Focal abnormality observed at the time of episode has also resolved. Discussed possibility of TIA, or possibly focal normality also was related to hypertensive urgency. Not sure if may be missing several days of medications contributed to the severe elevation of blood pressure. She will need optimization of control of blood pressure going forward. ABG is also pending to assess further for hypercapnia, although she is currently awake and alert so that is probably less likely. (2) Respiratory distress: She was short of breath yesterday, as well as this morning, received breathing treatments which belonged to her daughter. She otherwise does not normally use oxygen, no history of known lung disease. No focal pneumonia noted. Rapid flu and COVID-19 negative. Will check respiratory viral panel. Additional history of ischemic cardiomyopathy, history of EF 30-35%, most recent TTE in 2016. Will reassess TTE. Complete troponin EKG seriesTo assess for possibility of cardiac ischemia. Possibility of right-sided heart failure with possible congestive hepatopathy, perhaps also responsible for gallbladder findings, although otherwise no peripheral edema. (3) Chest pain: Episode of chest pain last night, complete troponin EKG series. Known history of CAD, ischemic cardiomyopathy. Assess TTE. Continue aspirin, beta-andrew, statin. She is also anticoagulated with warfarin. Nitroglycerin as needed. Would benefit from risk restratification once able to undergo, with stress test or invasive testing depending on above findings and her condition. (4) Transaminitis: New mild transaminitis. Question of possible congestive hepatopathy, possible endorgan injury with hypertensive urgency, or another cause. We will recheck liver parameters. Additional assessment with gallbladder ultrasound. Check hepatitis panel. Check respiratory viral panel. (5) Abnormal gall bladder diagnostic imaging: Gallbladder ultrasound, although abdominal exam is benign, Fitzgerald's negative. Does have mild transaminitis, although T bili and alk phos are normal. Possibly secondary to some congestive hepatopathy with beginning of right side/backward heart failure. (6) Ischemic cardiomyopathy: History of ischemic cardiomyopathy, past EF 30-35%. Assess TTE. (7) Lung nodule: 4 mm nodule left apical lung. Follow-up with primary provider. 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 Does have PPM in place. Possible chronic stenosis secondary to PPM wires. She is on anticoagulation in therapeutic range, thrombosis would be less likely. She also does not appear to have any edema in her left arm, shoulder, neck which will also support more of a chronic process. Follow-up with primary provider and cardiology in office. (9) HTN (hypertension): Possible hypertensive urgency at home, perhaps contributing to acute encephalopathy, possibly also with endorgan injury otherwise with cardiac effect with also underlying ischemic cardiomyopathy, possible also TIA. Blood pressure so far does look better. 165/101. We will resume metoprolol. Requested to confirm other medications, please resume other antihypertensives once available. Plan Hypomagnesemia: Replace, recheck Hypokalemia: Replace, recheck Dementia Chronic A. fib on anticoagulation: Continue warfarin. Follow-up INR. Continue metoprolol. Bipolar CKD History of CVA with residual right-sided symptoms Diabetes CAD Obesity SSS Other chronic problems noted Requested to confirm home medications, please reconcile once available. Attestations Medical Necessity Statement*: Place in observation for assessment and management after episode of acute encephalopathy, respiratory distress, chest pain, hypertensive urgency, with additional above abnormalities in a lady with underlying ischemic cardiomyopathy, EF 30-35%, history of CAD and other comorbidities. 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
--- NOTE | 2022-08-31 21:12 | USR_ITS ---
PROCEDURE INFORMATION: Exam: US Abdomen, Limited; Right Upper Quadrant Exam date and time: 08/31/2022 9:23 PM Age: 72 years old Clinical indication: Abnormal findings; Abnormal radiologic finding of the abdomen; Radiologic exam and body structure: CT of chest tonight; Patient HX: Shavon 14 years old; Additional info: Cholelithiasis, assess for cholecystitis TECHNIQUE: Imaging protocol: Real time ultrasound of the abdomen with image documentation. Limited exam focused on the right upper quadrant. COMPARISON: CT angio chest PE protcl [id number] 08/31/2022 7:23 PM FINDINGS: Liver: Normal. No masses. Gallbladder: Cholelithiasis noted. Gallbladder is contracted and gallbladder wall thickening is suggested. Biliary ducts: Common bile duct is dilated measuring up to 9 mm. Pancreas: Visualized pancreas is unremarkable. Right kidney: No mass. No hydronephrosis. US/US gall bladder [id number] IMPRESSION: Cholelithiasis. Gallbladder wall thickening and contraction can relate to acute or chronic inflammatory change. Dilation of common bile duct for which correlation with liver function tests is recommended in assessment for obstructive process.
--- NOTE | 2022-08-31 21:12 | USCV_ITS ---
Emile Rupa Age: 72 Gender: F : 1950 Exam Date: 08/31/2022 21:46 Ordering Phys: James Lizama MD Technologist: Britt Rodriguez Exam Location: [facility] [place] Indication: Dyspnea Cardiomyopathy valvular heart disease BP: 157 / 101 HR: 90 Rhythm: Sinus Technical Quality: Adequate MEASUREMENTS (Male / Female) Normal Values 2D ECHO LV Diastolic Diameter PLAX 4.2 cm 4.2 - 5.9 / 3.9 - 5.3 cm LV Systolic Diameter PLAX 3.4 cm LV Chamber Size 3.3 cm IVS Diastolic Thickness 1.6 cm 0.6 - 1.0 / 0.6 - 0.9 cm IVS Systolic Thickness 2.0 cm LVPW Diastolic Thickness 1.3 cm 0.6 - 1.0 / 0.6 - 0.9 cm LVPW Systolic Thickness 1.5 cm RV Chamber Size 4.5 cm LVOT Diameter 2.0 cm LV Ejection Fraction 2D Teich 38.7 % LV Ejection Fraction MOD 2C 47.4 % LV Ejection Fraction 2C AL 51.1 % LA Diameter 4.3 cm LA Width 3.6 cm LA Height 6.9 cm RA Width 4.7 cm RA Height 5.1 cm Aorta at Sinotubular Diameter 3.5 cm IVC Diameter 1.5 cm M-MODE Aortic Annulus Diameter 3.7 cm LA Ao Ratio MM 1.2 MV E Point Septal Separation 0.8 cm DOPPLER AV Peak Velocity 127.7 cm/s LVOT Peak Velocity 65.7 cm/s AV Area Cont Eq vti 1.6 cm squared AV Area Cont Eq pk 1.7 cm squared MV Area PHT 3.2 cm squared Mitral E to A Ratio 2.8 MV E' Velocity 57.0 cm/s Mitral E to MV E' Ratio 8.8 Mitral E to LV E' Lateral Ratio 6.3 Mitral E to LV E' Septal Ratio 14.6 TR Peak Velocity 263.4 cm/s TR Peak Gradient 27.8 mmHg TR Mean Velocity 189.7 cm/s TR Mean Gradient 17.0 mmHg TR Velocity Time Integral 76.2 cm TV Peak E Velocity 122.0 cm/s Right Atrial Pressure 15.0 mmHg Pulmonary Artery Systolic Pressu 42.8 mmHg RV Acceleration Time 0.1 s RV Ejection Time 0.4 s RV AcT/ET 0.4 FINDINGS Left Ventricle Mild biatrial enlargement mild left ventricular hypertrophy. Relative hypokinesia of the septum. LV ejection fraction on 50 to 55%( visual) Right Ventricle Normal right ventricular size and systolic function. Pacemaker wire is noted in the right ventricle Right Atrium Mildly increased right atrial size. Pacemaker wires noted Left Atrium Mildly increased left atrial size. Mitral Valve Mild mitral annular calcification. Moderate mitral valve regurgitation. Aortic Valve Thickened aortic valve. Tricuspid Valve Mild tricuspid valve regurgitation. Estimated pulmonary artery peak systolic pressure 43 mmHg Pulmonic Valve Pulmonic valve not well visualized. Pericardium Normal pericardium without effusion. Aorta Normal ascending aorta dimension. IVC Normal inferior vena cava. CONCLUSIONS Mild left ventricular hypertrophy. Relative hypokinesia of the septum. LV ejection fraction on 50 to 55%( visual). Mild biatrial enlargement Pacemaker wire is noted on the right. Right ventricule. Mild mitral annular calcification. Moderate mitral valve regurgitation. Mild tricuspid valve regurgitation. Estimated pulmonary artery peak systolic pressure 43 mmHg There is no pericardial effusion. Compared to the study from 06/07/2016, there is significant improvement in the LV ejection fraction Dr Aamir Fontanez MD [facility] (Electronically Signed) Final Date: 01 September 2022 11:19 S
[2022-08-31] MEDS: lidocaine 1% 5 ML in potassium chloride premix 100 ML 50 ML IV (21:32)
[2022-08-31] MEDS: metoprolol tartrate 50 mg Tablet 75 MG PO (22:57)
[2022-08-31 23:45] LABS: Hepatitis A Antibody IgM Non-Reactive (Nonreactive); Hepatitis B Core IgM Non-Reactive (Nonreactive); Hepatitis B Surface Antigen Non-Reactive (Nonreactive); Hepatitis C Virus Antibody Non-Reactive (Nonreactive)
[2022-09-01 03:51] VITALS: BP 159/93; PULSE 89; RESP 22; TEMP 36.4; O2SAT 94
[2022-09-01 05:36] LABS: Basophils % 0.2 %; Hematocrit 37.4 % (37.0-47.0); Hemoglobin 11.6 g/dL (11.5-15.3); Lymphocytes # 0.3 10^3/uL (0.8-4.8); Lymphocytes % 7.7 %; Mean Corpuscular Hemoglobin 29.6 pg (28.0-34.0); Mean Corpuscular Volume 95.4 fl (81-99); Mean Platelet Volume 10.9 fL (7.4-10.4); Monocytes # 0.2 10^3/uL (0.2-0.9); Monocytes % 5.3 %; Neutrophils # 3.59 10^3/uL (1.8-7.7); Neutrophils % 86.6 %; Nucleated Red Blood Cells % 0 %; Platelet Count 156 10^3/cmm (130-400); Red Blood Count 3.92 10^6/uL (4.1-5.3); Red Cell Distribution Width 14.9 % (12.1-15.1); White Blood Count 4.2 10^3/uL (4.0-10.0)
[2022-09-01 05:43] LABS: INR 2.24 (0.8-1.2)
[2022-09-01 06:00] VITALS: PULSE 95
[2022-09-01 06:10] LABS: Alanine Aminotransferase 58 U/L (0-33); Albumin Level 3.2 g/dL (3.5-5.2); Alkaline Phosphatase 85 U/L (35-105); Aspartate Amino Transferase 68 U/L (0-32); Blood Urea Nitrogen 25 mg/dL (8-23); Calcium 9.1 mg/dL (8.5-10.5); Carbon Dioxide 23 mmol/L (22-29); Chloride 96 mmol/L (98-107); Globulin 3.6 g/dL (1.3-4.6); Glucose 229 mg/dL (65-115); Magnesium 1.9 mg/dL (1.7-2.3); Osmolality Calculated 286 mOsm/kg (285-295); Sodium 132 mmol/L (136-145); Total Bilirubin 0.7 mg/dL (0.15-1.2); Total Protein 6.8 g/dL (6.6-8.7)
[2022-09-01 06:13] LABS: Creatinine Clr Calc Pharmacy 51.6772
[2022-09-01 06:15] LABS: Anion Gap 16.7 (5-19); Potassium 3.7 mmol/L (3.5-5.1)
[2022-09-01 06:31] LABS: Glucose Point of Care 221 mg/dL (70-110)
[2022-09-01 07:53] VITALS: BP 156/81; PULSE 99; RESP 16; TEMP 36.7; O2SAT 96
[2022-09-01 08:15] VITALS: PULSE 97; RESP 18; O2SAT 95
[2022-09-01] MEDS: atorvastatin 40 mg Tablet 20 MG PO (08:19)
[2022-09-01] MEDS: insulin lispro 100 unit/1 mL SUBCUT (08:19)
[2022-09-01] MEDS: metoprolol tartrate 50 mg Tablet 75 MG PO (08:19)
[2022-09-01] MEDS: aspirin 81 mg EC Tablet PO (08:20)
[2022-09-01 11:42] LABS: Glucose Point of Care 150 mg/dL (70-110)
[2022-09-01 11:56] VITALS: BP 159/96; PULSE 83; RESP 16; TEMP 36.7; O2SAT 94
[2022-09-01 15:04] VITALS: BP 159/96; PULSE 83; RESP 16; TEMP 36.7; O2SAT 94
--- NOTE | 2022-09-01 18:28 | PM.DCS ---
Discharge Providers Date of Admission: 08/31/22 22:39 Date of Discharge: September 01, 2022 Attending Provider at Admission: James Lizama Attending Provider at Discharge: Vinnie oDnohue MD Primary Care Provider: García Theodore MD Diagnoses at Discharge Discharge Diagnosis (1) Acute encephalopathy: Status: Inactive (2) Respiratory distress: Status: Inactive (3) Chest pain: Status: Inactive (4) Transaminitis: Status: Inactive (5) Abnormal gall bladder diagnostic imaging: Status: Inactive (6) Ischemic cardiomyopathy: Status: Inactive (7) Lung nodule: Status: Inactive (8) Acquired abnormality of brachiocephalic vein: Status: Inactive (9) HTN (hypertension): Status: Inactive Reason for Visit Reason for Visit: respiratory distress Hospital Course Hospital Course ?72-year-old lady with history of A. 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 Appropiate work up was done during hospital stay for the above mention complain, chest pain, and acute ecephalopathy was attributed to likely transient hypertensive urgency at home,transient SOB with wheezing, could be possibly 2/2 mild reactive airway disease possibly viral,she was at her baseline mentation at the time of discharge,encephalopathy was completely resolved. She was not having any chest pain at the time of discharge, 2Decho was done during hospital stay, results reviewed.Shortness of breath was mostly resoved,she was discharged on PO prednisone as well as albuterol inhaler as needed as well pulmicort inhaler.Over all patient did well during hospital stay she was discharged home in stable condition. She will follow her PCP as outpatient. Physical Exam Resp: COMMON NORMALS: normal respiratory effort and clear to auscultation bilaterally AUSCULTATION: clear to auscultation bilaterally OTHER: minimal occasional expiratory wheezing Cardio: COMMON NORMALS: regular rate, regular rhythm, S1 normal heart sound present, S2 normal heart sound present, No gallops present (Cardio), No murmurs present (Cardio), No rub (Cardio) and Peripheral pulses 2+ throughout RATE: regular rate RHYTHM: regular rhythm HEART SOUNDS: S1 normal heart sound present and S2 normal heart sound present PERIPHERAL PULSES: Peripheral pulses 2+ throughout GI: COMMON NORMALS: Normal to inspection, nondistended, normoactive bowel sounds present, Soft to palpation, non-tender, No hepatosplenomegaly present and no masses AUSCULTATION: Yes normoactive bowel sounds PALPATION: Yes Soft to palpation and Yes No hepatosplenomegaly present RECTAL EXAM: deferred Extremity: COMMON NORMALS: no clubbing, cyanosis or edema and no pedal edema Discharge Data Studies Completed and Pending Completed Studies During Hospitalization Category Date Time Status CT angio chest PE protcl [id number] Stat Cat Scan 08/31/22 18:[address] head wo con* [id number] Stat Cat Scan 08/31/22 18:32 Completed XR chest 1V portable [id number] Stat Exams 08/31/22 16:57 Completed CV carotid duplex BI* [id number] Stat Ultrasound 09/01/22 21:59 Completed CV. echo complete* [id number] Stat Ultrasound 08/31/22 21:12 Completed US gall bladder [id number] Stat Ultrasound 08/31/22 21:12 Completed Pending at discharge Category Date Time Status ABG FULL [Arterial Blood Gas Full] Stat Lab 08/31/22 18:42 Received Viral Respiratory,Rapid Cultur Routine Lab 08/31/22 22:39 Ordered Radiology Impressions Chest X-Ray 08/31/22 16:57 IMPRESSION: No acute cardiopulmonary abnormality. Chest CTA 08/31/22 18:32 IMPRESSION: Cardiomegaly with evidence for elevated central venous pressure or tricuspid regurgitation. Lower most cuts of imaging raise question of gallbladder inflammatory changes in association with cholelithiasis; dedicated abdominal imaging could be considered if there are appropriate clinical findings. 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 No evident pulmonary embolic disease. Head CT 08/31/22 18:32 IMPRESSION: Mild patient motion. No acute intracranial abnormality is seen. Gallbladder Ultrasound 08/31/22 21:12 IMPRESSION: Cholelithiasis. Gallbladder wall thickening and contraction can relate to acute or chronic inflammatory change. Dilation of common bile duct for which correlation with liver function tests is recommended in assessment for obstructive process. Carotid Doppler Study 09/01/22 21:59 IMPRESSION: No findings of occlusion or significant narrowing. REFERENCES: SRU CRITERIA. The degree of internal carotid artery stenosis is based on criteria defined by the Society of Radiologists in Ultrasound (SRU). Normal is no stenosis. Mild is less than 50% stenosis. Moderate is 50-69% stenosis. Severe is greater than 69% stenosis to near occlusion. Near occlusion is a markedly narrowed lumen. Total occlusion is no detectable patent lumen. Laboratory Results WBC 4.2 10^3/uL (4.0-10.0) 09/01/22 04:37 RBC 3.92 10^6/uL (4.1-5.3) L 09/01/22 04:37 Hgb 11.6 g/dL (11.5-15.3) 09/01/22 04:37 Hct 37.4 % (37.0-47.0) 09/01/22 04:37 MCV 95.4 fl (81-99) 09/01/22 04:37 MCH 29.6 pg (28.0-34.0) 09/01/22 04:37 MCHC 31.0 g/dL (30.0-36.0) 09/01/22 04:37 RDW 14.9 % (12.1-15.1) 09/01/22 04:37 Plt Count 156 10^3/cmm (130-400) 09/01/22 04:37 MPV 10.9 fL (7.4-10.4) H 09/01/22 04:37 Neut % (Auto) 86.6 % 09/01/22 04:37 Lymph % (Auto) 7.7 % 09/01/22 04:37 [place] % (Auto) 5.3 % 09/01/22 04:37 Eos % (Auto) 0.0 % 09/01/22 04:37 Baso % (Auto) 0.2 % 09/01/22 04:37 Neut # (Auto) 3.59 10^3/uL (1.8-7.7) 09/01/22 04:37 Lymph # (Auto) 0.3 10^3/uL (0.8-4.8) L 09/01/22 04:37 [place] # (Auto) 0.2 10^3/uL (0.2-0.9) 09/01/22 04:37 Eos # (Auto) 0.0 10^3/uL (0.0-0.8) 09/01/22 04:37 Baso # (Auto) 0.0 10^3/uL (0.0-0.1) 09/01/22 04:37 Nucleated RBC % (auto) 0 % 09/01/22 04:37 Nucleated RBCs # 0.0 /100WBC 09/01/22 04:37 PT 25.10 SECONDS (12.1-14.9) H 09/01/22 04:37 INR 2.24 (0.8-1.2) H 09/01/22 04:37 Sodium 132 mmol/L (136-145) L 09/01/22 04:37 Potassium 3.7 mmol/L (3.5-5.1) 09/01/22 04:37 Chloride 96 mmol/L (98-107) L 09/01/22 04:37 Carbon Dioxide 23 mmol/L (22-29) 09/01/22 04:37 Anion Gap 16.7 (5-19) 09/01/22 04:37 BUN 25 mg/dL (8-23) H 09/01/22 04:37 Creatinine 1.1 mg/dL (0.5-0.9) H 09/01/22 04:37 GFR Calculation Not Reportable 09/01/22 04:37 Glucose 229 mg/dL (65-115) H 09/01/22 04:37 POC Glucose 150 mg/dL (70-110) H 09/01/22 11:35 Calculated Osmolality 286 mOsm/kg (285-295) 09/01/22 04:37 Calcium 9.1 mg/dL (8.5-10.5) 09/01/22 04:37 Magnesium 1.9 mg/dL (1.7-2.3) 09/01/22 04:37 Total Bilirubin 0.7 mg/dL (0.15-1.2) 09/01/22 04:37 AST 68 U/L (0-32) H 09/01/22 04:37 ALT 58 U/L (0-33) H 09/01/22 04:37 Alkaline Phosphatase 85 U/L (35-105) 09/01/22 04:37 Troponin T Gen 5 ng/L 37 ng/L (0-10) H 08/31/22 17:09 NT-Pro-B Natriuret Pep 41375 pg/mL (0-125) H 08/31/22 17:00 Total Protein 6.8 g/dL (6.6-8.7) 09/01/22 04:37 Albumin 3.2 g/dL (3.5-5.2) L 09/01/22 04:37 Globulin 3.6 g/dL (1.3-4.6) 09/01/22 04:37 Urine Color Yellow (Yellow) 08/31/22 18:48 Urine Appearance Clear (CLEAR) 08/31/22 18:48 Urine pH 5 (5-7) 08/31/22 18:48 Ur Specific [place] 1.020 (1.005-1.030) 08/31/22 18:48 Urine Protein 2+ (Negative) H 08/31/22 18:48 Urine Glucose (UA) Norm (Normal) 08/31/22 18:48 Urine Ketones Negative (Negative) 08/31/22 18:48 Urine Blood 3+ (Negative) H 08/31/22 18:48 Urine Nitrate Negative (Negative) 08/31/22 18:48 Urine Bilirubin 1+ (Negative) H 08/31/22 18:48 Urine Urobilinogen Norm mg/dL (Negative) 08/31/22 18:48 Ur Leukocyte Esterase Negative (Negative) 08/31/22 18:48 Urine RBC 0-4 /hpf (0-2) H 08/31/22 18:48 Urine WBC 0-4 /hpf (0-5) H 08/31/22 18:48 Ur Squamous Epith Cells 0-4 /hpf (0-5) H 08/31/22 18:48 Amorphous Sediment Not Reportable 08/31/22 18:48 Urine Bacteria None /hpf (NONE) 08/31/22 18:48 Hepatitis A IgM Ab Non-reactive (Nonreactive) 08/31/22 17:00 Hep Bs Antigen Non-reactive (Nonreactive) 08/31/22 17:00 Hep B Core IgM Ab Non-reactive (Nonreactive) 08/31/22 17:00 Hepatitis C Antibody Non-reactive (Nonreactive) 08/31/22 17:00 Influenza Type A Ag negative (Negative) 08/31/22 17:00 Influenza Type B Ag negative (Negative) 08/31/22 17:00 SARS-CoV-2 Ag (Rapid) negative (Negative) 08/31/22 17:00 Vitals Last Vital Signs Temp 98.1 F 09/01/22 15:04 Pulse 83 09/01/22 15:04 Resp 16 09/01/22 15:04 BP 159/96 09/01/22 15:04 Pulse Ox 94 09/01/22 15:04 O2 Del Method 09/01/22 08:15 Discharge Plan Discharge Patient Disposition: Home Condition: Stable Prescriptions: New prednisone 20 mg tablet 20 mg PO DAILY 5 Days Qty: 5 0RF ProAir HFA 90 mcg/actuation HFA aerosol inhaler 1 inh inhalation Q6H PRN (Reason: shortness of breath or wheezing) Qty: 6.7 1RF Pulmicort Flexhaler 90 mcg/actuation aerosol powdr breath activated 1 inh inhalation BID 30 Days Qty: 1 0RF Continued metoprolol tartrate 75 mg tablet 75 mg PO BID ferrous sulfate [Feosol] 325 mg (65 mg iron) tablet 325 mg PO DAILY warfarin 5 mg tablet See Rx Instructions .ROUTE .COMPLEX Rx Instructions: 5 mg orally on (, , SATURDAY, SAT, SAT) 2.5 mg orally on (SAT, ) simvastatin 20 mg tablet 20 mg PO DAILY hydrochlorothiazide 12.5 mg tablet 12.5 mg PO DAILY aspirin [Aspir-81] 81 mg tablet,delayed release (DR/EC) 81 mg PO DAILY escitalopram oxalate [Lexapro] 10 mg Tablet 10 mg PO DAILY donepezil 5 mg Tablet 5 mg PO DAILY docusate sodium 100 mg Capsule 100 mg PO DAILY zolpidem 5 mg Tablet 5 - 10 mg PO BEDTIME glipizide 5 mg Tablet 5 mg PO DAILY Discharge Orders: Discharge Order (Routine); Ordered 09/01/22 Ordered By: Vinnie Donohue Referrals: García Theodore MD [Primary Care Provider] - 1 week (Please call Saturday to schedule your appointment.) Patient Instructions: Albuterol (By breathing), Prednisone (By mouth), Budesonide (By breathing) (Flex de Pulmicort, Pulmicort Flexhaler,..., Pulmonary Nodules (DC), Encephalopathy (DC), Opioid Safety Discharge Attestations Time Spent in Discharge Care*: less than 30 min Quality Metrics Clinical Quality Measures [ No reported AMI, CVA or VTE this stay] Coding Level of Care Code Acute Chg FW DC note Exam Expanded Problem Focused Diagnoses Acute encephalopathy G93.40 Respiratory distress R06.03 Chest pain R07.9 Transaminitis R74.01 Abnormal gall bladder diagnostic imaging R93.2 Ischemic cardiomyopathy I25.5 Lung nodule R91.1 Acquired abnormality of brachiocephalic vein I87.9 HTN (hypertension) I10
--- NOTE | 2022-09-01 21:59 | USR_ITS ---
PROCEDURE INFORMATION: Exam: US Duplex Bilateral Extracranial Arteries, Carotid Arteries Exam date and time: 09/01/2022 12:12 AM Age: 72 years old Clinical indication: Altered mental status/memory loss; Confusion or disorientation; Additional info: TIA TECHNIQUE: Imaging protocol: Real-time Duplex ultrasound scan of the bilateral carotid and vertebral arteries combining gaytan scale, color Doppler and spectral waveform analysis. Bilateral exam. Exam focused on the carotid arteries. COMPARISON: CT head wo con* [id number] 08/31/2022 7:20 PM FINDINGS: Right common carotid artery: Unremarkable. No occlusion or stenosis. Right internal carotid artery: Mild atheromatous change at origin. No occlusion or stenosis. Right ICA/CCA ratio: 0.6. Right external carotid artery: No stenosis in the origin. Right vertebral artery: Unremarkable. Antegrade flow. Left common carotid artery: Mild atheromatous change at origin. No occlusion or stenosis. Left internal carotid artery: Unremarkable. No occlusion or stenosis. Left ICA/CCA ratio: 1.4 Left external carotid artery: No stenosis in the origin. Left vertebral artery: Unremarkable. Antegrade flow. US/CV carotid duplex BI* [id number] IMPRESSION: No findings of occlusion or significant narrowing. REFERENCES: SRU CRITERIA. The degree of internal carotid artery stenosis is based on criteria defined by the Society of Radiologists in Ultrasound (SRU). Normal is no stenosis. Mild is less than 50% stenosis. Moderate is 50-69% stenosis. Severe is greater than 69% stenosis to near occlusion. Near occlusion is a markedly narrowed lumen. Total occlusion is no detectable patent lumen.
[2022-09-07 18:11] LABS: ABG PCO2 33.5 mmHg (35-45); ABG PH Result 7.46 (7.35-7.45); Base Excess ABG 0.3 mmol/L (-2.0-2.0); HCO3 ABG 23.7 mmol/L (22-26); Oxygen Saturation ABG 96.3; PO2 ABG 76.9 mmHg (80.0-100.0)
[2022-09-07 18:12] LABS: Blood Gas Allen Test POS; Blood Gas Operator Identificat MONRO; Blood Gas Sample Type ARTERIAL; Oxygen Device ROOM AIR; Potassium Level - ABG 3.2 mmol/L (3.5-5.0)
[2022-09-07 18:13] LABS: Arterial Blood Gas Hematocrit 38.3 % (37-47); Blood Gas CCRB Time 1910; Ionized Calcium Level - ABG 1.2 mmol/L (1.1-1.4)
[2022-09-07 18:14] LABS: Carboxyhemoglobin 1.3 %THgb (0.4-20.1); HGB O2 Sat 94.6 % (95-100); Methemoglobin 0.4 % (0.4-1.5); Total Hemoglobin 12.5 g/dL (12-16)
== END 2022-09-01 15:09 | disposition home or self-care (01) ==
LOC: ER 21:26 → MEDSURG 22:25
PROVIDERS: Admitting Provider Internal Medicine; Emergency Provider Emergency Medicine; PCP Family Medicine; Visit Provider Internal Medicine
DX: G93.40 Encephalopathy, unspecified (principal); R06.03 Acute respiratory distress; R07.9 Chest pain, unspecified; R74.01 Elevation of levels of liver transaminase levels; R93.2 Abnormal findings on diagnostic imaging of liver and biliary tract; I25.5 Ischemic cardiomyopathy; R91.1 Solitary pulmonary nodule; I87.9 Disorder of vein, unspecified; I48.91 Unspecified atrial fibrillation; I69.851 Hemiplegia and hemiparesis following other cerebrovascular disease affecting right dominant side; I65.23 Occlusion and stenosis of bilateral carotid arteries; K80.20 Calculus of gallbladder without cholecystitis without obstruction; F03.90 Unspecified dementia, unspecified severity, without behavioral disturbance, psychotic disturbance, mood disturbance, and anxiety; Z79.01 Long term (current) use of anticoagulants; I25.2 Old myocardial infarction; E66.9 Obesity, unspecified; Z68.33 Body mass index [BMI] 33.0-33.9, adult; E11.22 Type 2 diabetes mellitus with diabetic chronic kidney disease; I13.0 Hypertensive heart and chronic kidney disease with heart failure and stage 1 through stage 4 chronic kidney disease, or unspecified chronic kidney disease; N18.9 Chronic kidney disease, unspecified; I50.9 Heart failure, unspecified
CPT/HCPCS: 36415; 36416; 36600; 51701; 70450; 71045; 71275; 76705; 80051; 80053; 80074; 81001; 82330; 82805; 82962; 83735; 83880; 84484; 85025; 85610; 87426; 87804; 93005; 93306; 93880; 94640; 96365; 96366; 96367; 96372; 96375; 99285; G0378; J1815; J2930; J3475; J3480; Q9967

== ENCOUNTER 2022-09-06 | Outpatient (CLI) | payer MEDICARE, MEDICAID, SELFPAY ==
[2022-09-06 17:30] LABS: INR 2.58 (0.8-1.2)
[2022-09-06 17:44] LABS: NT Pro B Type Natriuretic Pept 7368 pg/mL (0-125)
== END 2022-09-06 23:00 | disposition home or self-care (01) ==
LOC: LAB 09-19 11:05
PROVIDERS: PCP Family Medicine; Visit Provider Family Medicine
DX: G93.40 Encephalopathy, unspecified (principal)
CPT/HCPCS: 83880; 85610

== ENCOUNTER → 2022-12-19 14:51 | Outpatient (BNVA) | payer MEDICARE, MEDICAID, SELFPAY | PROVIDERS: PCP Family Medicine; Visit Provider Internal Medicine | DX: I25.2 Old myocardial infarction (principal); I48.91 Unspecified atrial fibrillation; E66.9 Obesity, unspecified; I25.5 Ischemic cardiomyopathy; Z87.891 Personal history of nicotine dependence; Z95.0 Presence of cardiac pacemaker; Z79.01 Long term (current) use of anticoagulants; Z79.82 Long term (current) use of aspirin; I13.0 Hypertensive heart and chronic kidney disease with heart failure and stage 1 through stage 4 chronic kidney disease, or unspecified chronic kidney disease; E11.22 Type 2 diabetes mellitus with diabetic chronic kidney disease; N18.9 Chronic kidney disease, unspecified; I50.9 Heart failure, unspecified; Z79.84 Long term (current) use of oral hypoglycemic drugs | CPT/HCPCS: 99214 ==

== ENCOUNTER 2023-01-21 10:31 | Outpatient (CLI) | payer MEDICARE, MEDICAID, SELFPAY ==
--- NOTE | 2023-01-21 | ECG_ITS ---
[facility] Test Date: 2023-01-21 Pat Name: Rupa Baptiste Department: Room: Gender: Female Program Research Specialist: : 1950 Requested By: Dennis Lopez Order Number: [id number] South MD: Dennis Lopez M.D. Interpretive Statements NAME OF STUDY: LEXISCAN SESTAMIBI STRESS TEST INDICATION: [Chest Pain, ] Procedure: At the baseline, the blood pressure was 137/87 mmHg with a heart rate of 76 bpm. The electrocardiogram showed atrial fibrillation with PVCs. The Lexiscan was infused over a period of 20 seconds. A total of 0.4 mg of Lexiscan was infused. The stress phase was continued for a total of 5 minutes. Heart rate was at the end of stress phase was 74 bpm and a blood pressure of 150/71 mmHg. The EKG at the peak infusion revealed atrial fibrillation with PVCs. Sestamibi was injected 20 seconds after the Lexiscan infusion. Blood pressure at the end of recovery phase was 174/80 mmHg with a heart rate of 99 bpm. Conclusion: 1. Normal EKG response to Lexiscan infusion 2. No Lexiscan induced chest pain or cardiac arrhythmia. 3. Normal blood pressure and heart rate response. 4. Sestamibi/sestamibi perfusion scan pending; see separate report. Electronically Signed On 01-27-2023 14:55:31 CDT by Dennis Lopez M.D. [email or web address]
[2023-01-21 11:03] VITALS: BMI 33.3
--- NOTE | 2023-01-21 11:05 | NMCV_ITS ---
NM henry perf SPECT r/s* [id number] Rupa Baptiste Age: 72 Gender: F : 1950 Exam Date: 01/21/2023 11:05 Ordering Phys: Dennis Lopez M.D ([email or web address]) Technologist: TAMARA Ibarra Exam Location: [facility] Indications: CHEST PAIN STRESS TEST [facility] IMAGE PROTOCOL Rest/Stress 1 Lexiscan Day Radiopharmaceutical Dose (mCi) Administration Site Administered by Rest: Tc-99m 10.8 IV TAMARA Ibarra Sestamibi Stress:Tc-99m 32.8 IV TAMARA Ibarra Sestamibi Rest: 21-Jan-2023 60 Discovery 630 Stress: 21-Jan-2023 30 Discovery 630 0.4mg Lexiscan. Supine position only as patient was unable to lay prone. SPECT RESULTS Technical Quality: Excellent Raw Data Analysis: Normal Image Corrections: No attenuation or motion correction applied Summed Stress Score: 14 Summed Rest Score: 9 Summed Difference Score: 5 PERFUSION FINDINGS There is a large sized, partially reversible perfusion defect noted in the apical, apical inferior, inferior and inferolateral hussein. This is consistent with large sized prior infarcts in the RCA and Left circumflex artery territories with large areas of susan-infarct ischemia in these territories. FUNCTIONAL RESULTS (calculated via Gated SPECT) Stress Image LV EF (%): 55 Stress EDV (mL):94 TID: 0.87 Stress ESV (mL):42 FUNCTIONAL FINDINGS: There is normal left ventricular systolic function. IMPRESSIONS 1. Abnormal myocardial perfusion imaging with large sized prior infarcts noted in RCA and Left circumflex artery territories with large areas of susan-infarct ischemia in these territories. 2. LV systolic function is normal Dennis Lopez MD (Electronically Signed) Final Date: 26 January 2023 11:25 S
[2023-01-21 12:49] VITALS: BP 174/80; PULSE 99
== END 2023-01-21 10:32 | disposition home or self-care (01) ==
LOC: CDL 10:32
PROVIDERS: PCP Family Medicine; Visit Provider Internal Medicine
DX: R07.9 Chest pain, unspecified (principal)
CPT/HCPCS: 36415; 78452; 93017; 96374; A9500

== ENCOUNTER 2023-01-23 21:15 | Emergency (ER) | payer MEDICARE, MEDICAID, SELFPAY ==
[2023-01-23 21:30] VITALS: BP 163/100; PULSE 76; RESP 18; TEMP 36.7; O2SAT 94
--- NOTE | 2023-01-23 21:41 | XRR_ITS ---
PROCEDURE INFORMATION: Exam: XR Chest Exam date and time: 01/23/2023 9:47 PM Age: 72 years old Clinical indication: Shortness of breath; Prior surgery; Surgery type: Pacemaker; Additional info: SOB TECHNIQUE: Imaging protocol: Radiologic exam of the chest. Views: 1 view. COMPARISON: CR (CHEST, ) 08/31/2022 6:06 PM FINDINGS: Tubes, catheters and devices: Pacemaker. Lungs: Unremarkable. No consolidation. Pleural spaces: Unremarkable. No pleural effusion. No pneumothorax. Heart/Mediastinum: Cardiomegaly. Bones/joints: Unremarkable. XR/XR chest 1V portable [id number] IMPRESSION: 1. Negative for infiltrate. 2. Cardiomegaly. 3. Pacemaker.
--- NOTE | 2023-01-23 21:41 | ECG_ITS ---
[facility] Test Date: 2023-01-23 Pat Name: Rupa Baptiste Department: Room: Gender: Female Quantitative Researcher: : 1950 Requested By: Pelon Ramirez Order Number: [id number] South MD: Aamir Fontanez M.D. Measurements Intervals Lamar Rate: 78 P: 0 AL: 0 QRS: 77 QRSD: 138 T: -75 QT: 393 QTc: 448 Interpretive Statements Atrial fibrillation with demand V paced rhythm ELECTRONIC VENTRICULAR PACEMAKER -- CONTOUR ANALYSIS BASED ON INTRINSIC RHYTHM INTRAVENTRICULAR CONDUCTION DELAY [130+ ms QRS DURATION] Compared to ECG 08/31/2022 17:18:56 Ventricular premature complex(es) no longer present Aberrant conduction of supraventricular beat(s) no longer present T-wave abnormality no longer present Possible ischemia no longer present Electronically Signed On 01-24-2023 0:17:37 CDT by Aamir Fontanez M.D. [id number]
[2023-01-23] MEDS: hyDRALAzine 20 mg/mL INJ 1 mL 10 MG IVP (22:00)
--- NOTE | 2023-01-23 22:10 | W.ED.SOB ---
HPI - SOB/Dyspnea General: Chief Complaint: Shortness of Breath/Dyspnea Stated Complaint: high bp Time Seen by Provider: 01/23/23 21:49 Source: patient Mode of arrival: ambulatory Limitations: no limitations History of Present Illness: HPI Narrative: 72-year-old female has a history of hypertension along with CHF and A-fib she states that today she had a cough along with some slight dyspnea she is in no distress here pulse ox 95% on room air able to talk in full since she became concerned and asked her blood pressure is running over 200 she denies any chest pain she denies any vomiting she denies any worsening proving factors denies any swelling in her legs. Cough has been nonproductive. Associated symptoms: Deny abdominal pain, chest pain, fever(s), nausea or vomiting Review of Systems Const: Denies: fever(s), chills, body aches or change in appetite Eyes: Denies: blurry vision or eye discomfort ENMT: Denies: throat pain or dental pain Card: Denies: chest pain Resp: Reports: dyspnea and non-productive cough GI: Denies: abdominal pain, nausea, vomiting or diarrhea : Denies: dysuria Musc: Denies: neck pain or back pain Skin/Breast: Denies: rash Neuro: Denies: headache(s) Psych: Denies: depression Antonino/Lymph: Denies: easy bruising All/Imm: Denies: urticaria PFSH ED PFSH: Medical History (Updated 01/24/23 @ 01:34 by Pelon Ramirez MD) Abnormal gall bladder diagnostic imaging Acquired abnormality of brachiocephalic vein Acute encephalopathy Anticoagulant long-term use Atrial fibrillation Bipolar 1 disorder Chest pain CHF (congestive heart failure) CKD (chronic kidney disease) CVA (cerebral vascular accident) Diabetes HTN (hypertension) Ischemic cardiomyopathy Lung nodule Myocardial infarction Obesity Respiratory distress Sick sinus syndrome Transaminitis Surgical History Status cardiac pacemaker Family History Other Cancer Suicide Social History Smoking and tobacco status: former smoker Caregiver/support person: Yes (daughter) Lives independently: No Household members: none Current occupational status: retired Physical Exam Const: COMMON NORMALS: no acute distress, patient oriented x3 and healthy appearing HENMT: COMMON NORMALS: normocephalic and atraumatic HEAD & SCALP: normocephalic and atraumatic Eye: COMMON NORMALS: Equal, round and reactive pupils present and EOMs intact bilaterally PUPIL: Yes Equal, round and reactive pupils present Neck/C-Spine: COMMON NORMALS: full ROM and supple Chest: COMMONS NORMALS: normal inspection of the chest and normal palpation of entire chest wall Resp: COMMON NORMALS: normal respiratory effort, No retractions, No use of accessory muscles and clear to auscultation bilaterally AUSCULTATION: clear to auscultation bilaterally Cardio: COMMON NORMALS: regular rate, regular rhythm and No murmurs present (Cardio) RATE: regular rate RHYTHM: regular rhythm GI: COMMON NORMALS: Normal to inspection, nondistended, normoactive bowel sounds present, Soft to palpation, non-tender and no masses PALPATION: Yes Soft to palpation Extremity: COMMON NORMALS: normal to inspection and full ROM Neuro: COMMON NORMALS: patient oriented x3, moves all extremities and no focal motor deficits Psych: COMMON NORMALS: mental status grossly normal, Normal thought process present and cooperative THOUGHT PROCESS: Normal thought process present Skin: COMMON NORMALS: no rashes or lesions noted and no wounds GENERAL SKIN EXAM: no rashes or lesions noted Course Vital Signs: Vital signs: Vital Signs Temperature 98.1 F 01/23/23 21:30 Pulse Rate 102 H 01/24/23 01:36 Respiratory Rate 28 H 01/24/23 01:36 Blood Pressure 142/78 01/24/23 01:36 Pulse Oximetry 94 01/24/23 01:36 Oxygen Delivery Me thod 01/24/23 01:36 MDM - SOB/Dyspnea Medical Decision Making Patient presents here with slight cough and dyspnea she has been in no distress here she does have hypertension her blood pressure here is improved her blood work here is normal she has no signs of pulmonary edema never required oxygen she stable for discharge she is to follow-up with PCP and return if worsening. Lab Data 01/23/23 22:08 01/23/23 22:08 Labs/Radiology: Radiology Impressions Chest X-Ray 01/23/23 21:41 IMPRESSION: 1. Negative for infiltrate. 2. Cardiomegaly. 3. Pacemaker. Head CT 01/23/23 23:03 IMPRESSION: 1. Negative for intracranial hemorrhage or mass effect. 2. Stable large amount of diffuse white matter disease with a stable chronic infarct involving the left basal ganglial, insula and cerebellum similar to prior exam. 3. Left ethmoid sinus probable mucous retention cyst again seen similar to prior exam. Laboratory Results WBC 9.4 10^3/uL (4.0-10.0) 01/23/23 22:08 RBC 4.12 10^6/uL (4.1-5.3) 01/23/23 22:08 Hgb 11.6 g/dL (11.5-15.3) 01/23/23 22:08 Hct 36.8 % (37.0-47.0) L 01/23/23 22:08 MCV 89.3 fl (81-99) 01/23/23 22:08 MCH 28.2 pg (28.0-34.0) 01/23/23 22:08 MCHC 31.5 g/dL (30.0-36.0) 01/23/23 22:08 RDW 15.3 % (12.1-15.1) H 01/23/23 22:08 Plt Count 279 10^3/cmm (130-400) 01/23/23 22:08 MPV 10.1 fL (7.4-10.4) 01/23/23 22:08 Neut % (Auto) 68.3 % 01/23/23 22:08 Lymph % (Auto) 16.4 % 01/23/23 22:08 [place] % (Auto) 10.1 % 01/23/23 22:08 Eos % (Auto) 4.5 % 01/23/23 22:08 Baso % (Auto) 0.5 % 01/23/23 22:08 Neut # (Auto) 6.40 10^3/uL (1.8-7.7) 01/23/23 22:08 Lymph # (Auto) 1.5 10^3/uL (0.8-4.8) 01/23/23 22:08 [place] # (Auto) 1.0 10^3/uL (0.2-0.9) H 01/23/23 22:08 Eos # (Auto) 0.4 10^3/uL (0.0-0.8) 01/23/23 22:08 Baso # (Auto) 0.1 10^3/uL (0.0-0.1) 01/23/23 22:08 PT 23.50 SECONDS (12.1-14.9) H 01/23/23 22:08 INR 2.01 (0.8-1.2) H 01/23/23 22:08 Sodium 137 mmol/L (136-145) 01/23/23 22:08 Potassium 3.5 mmol/L (3.5-5.1) 01/23/23 22:08 Chloride 98 mmol/L (98-107) 01/23/23 22:08 Carbon Dioxide 31 mmol/L (22-29) H 01/23/23 22:08 Anion Gap 11.5 (5-19) 01/23/23 22:08 BUN 18 mg/dL (8-23) 01/23/23 22:08 Creatinine 1.0 mg/dL (0.5-0.9) H 01/23/23 22:08 GFR Calculation Not Reportable 01/23/23 22:08 Glucose 201 mg/dL (65-115) H 01/23/23 22:08 Calculated Osmolality 292 mOsm/kg (285-295) 01/23/23 22:08 Calcium 9.1 mg/dL (8.5-10.5) 01/23/23 22:08 Total Bilirubin 0.5 mg/dL (0.15-1.2) 01/23/23 22:08 AST 28 U/L (0-32) 01/23/23 22:08 ALT 22 U/L (0-33) 01/23/23 22:08 Alkaline Phosphatase 103 U/L (35-105) 01/23/23 22:08 Troponin T Baseline 27 ng/L (0-10) H 01/23/23 22:08 Troponin T 120 Minute 27.78 ng/L (0-10) H 01/24/23 00:47 Delta Troponin T 0.78 ABS# (0-10) 01/24/23 00:47 NT-Pro-B Natriuret Pep 5739 pg/mL (0-125) H 01/23/23 22:08 Total Protein 8.0 g/dL (6.6-8.7) 01/23/23 22:08 Albumin 3.3 g/dL (3.5-5.2) L 01/23/23 22:08 Globulin 4.7 g/dL (1.3-4.6) H 01/23/23 22:08 Influenza Type A Ag negative (Negative) 01/23/23 22:11 Influenza Type B Ag negative (Negative) 01/23/23 22:11 SARS-CoV-2 Ag (Rapid) negative (Negative) 01/23/23 22:11 EKG Data EKG 1: I personally reviewed and interpreted this EKG as follows: EKG Interpretation Date: 01/23/23 EKG interpretation time: 21:41 Interpretation: paced rhythm hr [address] or t wave abnormalities qrs 138 qtc 426 EKG 2: I personally reviewed and interpreted this EKG as follows: EKG Interpretation Date: 01/24/23 EKG interpretation time: 00:02 Interpretation: afib hr [address] or t wave abnormalities qrs 119 qtc 440 Discharge Plan Discharge Patient Disposition: Home Clinical Impression: Hypertension, Dyspnea Condition: Stable Prescriptions: No Action metoprolol tartrate 75 mg tablet 75 mg PO BID ferrous sulfate [Feosol] 325 mg (65 mg iron) tablet 325 mg PO DAILY warfarin 5 mg tablet See Rx Instructions .ROUTE .COMPLEX Rx Instructions: 5 mg orally on (, , SATURDAY, SAT, SUN) 2.5 mg orally on (MON, ) simvastatin 20 mg tablet 20 mg PO DAILY hydrochlorothiazide 12.5 mg tablet 12.5 mg PO DAILY aspirin [Aspir-81] 81 mg tablet,delayed release (DR/EC) 81 mg PO DAILY escitalopram oxalate [Lexapro] 10 mg Tablet 10 mg PO DAILY donepezil 5 mg Tablet 5 mg PO DAILY docusate sodium 100 mg Capsule 100 mg PO DAILY zolpidem 5 mg Tablet 5 - 10 mg PO BEDTIME glipizide 5 mg Tablet 5 mg PO DAILY Discharge Orders: Discharge ED (Routine); Ordered 01/24/23 Ordered By: Pelon Ramirez Referrals: García Theodore MD [Primary Care Provider] - Discharge Diet: Advance as tolerated Discharge Activity: Resume usual activity Patient Instructions: Dyspnea (ED), Hypertension (ED) Coding Level of Care Code ED 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
[2023-01-23 22:23] LABS: Hematocrit 36.8 % (37.0-47.0); Hemoglobin 11.6 g/dL (11.5-15.3); Red Blood Count 4.12 10^6/uL (4.1-5.3); White Blood Count 9.4 10^3/uL (4.0-10.0)
[2023-01-23 22:24] LABS: Basophils # 0.1 10^3/uL (0.0-0.1); Basophils % 0.5 %; Eosinophils # 0.4 10^3/uL (0.0-0.8); Eosinophils % 4.5 %; Lymphocytes # 1.5 10^3/uL (0.8-4.8); Lymphocytes % 16.4 %; Mean Corpuscular HGB Conc 31.5 g/dL (30.0-36.0); Mean Corpuscular Hemoglobin 28.2 pg (28.0-34.0); Mean Corpuscular Volume 89.3 fl (81-99); Mean Platelet Volume 10.1 fL (7.4-10.4); Monocytes % 10.1 %; Neutrophils % 68.3 %; Platelet Count 279 10^3/cmm (130-400); Red Cell Distribution Width 15.3 % (12.1-15.1)
[2023-01-23 22:43] LABS: INR 2.01 (0.8-1.2)
[2023-01-23 22:53] LABS: Alanine Aminotransferase 22 U/L (0-33); Albumin Level 3.3 g/dL (3.5-5.2); Alkaline Phosphatase 103 U/L (35-105); Anion Gap 11.5 (5-19); Aspartate Amino Transferase 28 U/L (0-32); Blood Urea Nitrogen 18 mg/dL (8-23); Calcium 9.1 mg/dL (8.5-10.5); Carbon Dioxide 31 mmol/L (22-29); Chloride 98 mmol/L (98-107); Globulin 4.7 g/dL (1.3-4.6); Glucose 201 mg/dL (65-115); NT Pro B Type Natriuretic Pept 5739 pg/mL (0-125); Osmolality Calculated 292 mOsm/kg (285-295); Potassium 3.5 mmol/L (3.5-5.1); Sodium 137 mmol/L (136-145); Total Bilirubin 0.5 mg/dL (0.15-1.2)
--- NOTE | 2023-01-23 23:03 | CTR_ITS ---
PROCEDURE INFORMATION: Exam: CT Head Without Contrast Exam date and time: 01/23/2023 11:30 PM Age: 72 years old Clinical indication: Pain; Headache; Patient HX: C/O FERRER with hypertension. History of CVA and dementia. TECHNIQUE: Imaging protocol: Computed tomography of the head without contrast. Radiation optimization: All CT scans at this facility use at least one of these dose optimization techniques: automated exposure control; mA and/or kV adjustment per patient size (includes targeted exams where dose is matched to clinical indication); or iterative reconstruction. REPORTING DATA: Count of CT and Cardiac NM exams in prior 12 months: This patient has received 2 known CTs and 0 known cardiac nuclear medicine studies in the 12 months prior to the current study. COMPARISON: CT head wo con* [id number] 08/31/2022 7:20 PM RADIATION DOSE METRICS: Total DLP (mGy-cm): 1277.1 FINDINGS: Brain: Stable large amount of diffuse white matter disease with a stable chronic infarct involving the left basal ganglial, insula and cerebellum similar to prior exam. Cerebral ventricles: No ventriculomegaly. Paranasal sinuses: Left ethmoid sinus probable mucous retention cyst again seen similar to prior exam. Mastoid air cells: Visualized mastoid air cells are well aerated. Bones/joints: Unremarkable. No acute fracture. Soft tissues: Unremarkable. CT/CT head wo con* [id number] IMPRESSION: 1. Negative for intracranial hemorrhage or mass effect. 2. Stable large amount of diffuse white matter disease with a stable chronic infarct involving the left basal ganglial, insula and cerebellum similar to prior exam. 3. Left ethmoid sinus probable mucous retention cyst again seen similar to prior exam.
[2023-01-23 23:06] LABS: SARS Covid-2 Antigen negative (Negative)
[2023-01-23 23:07] LABS: Influenza A by IFA negative (Negative); Influenza B by IFA negative (Negative)
[2023-01-23] MEDS: labetalol 5 mg/mL SDV 20mL 10 MG IVP (23:08)
[2023-01-23] MEDS: FUROsemide 10 mg/mL SDV 4mL 40 MG IVP (23:08)
[2023-01-23 23:13] VITALS: BP 182/129; PULSE 88; RESP 33; O2SAT 97
--- NOTE | 2023-01-23 23:56 | ECG_ITS ---
[facility] Test Date: 2023-01-24 Pat Name: Rupa Baptiste Department: Room: Gender: Female [employer]: : 1950 Requested By: Pelon Ramirez Order Number: [id number] oSuth MD: Dennis Lopez M.D. Measurements Intervals [place] Rate: 87 P: 0 SC: 0 QRS: 120 QRSD: 119 T: -60 QT: 395 QTc: 477 Interpretive Statements ATRIAL FIBRILLATION POSSIBLE RIGHT VENTRICULAR HYPERTROPHY [SOME/ALL OF: PROMINENT R IN V1, LATE TRANSITION, RAD, DAXA, SSS] ST DEVIATION AND MODERATE T-WAVE ABNORMALITY, CONSIDER LATERAL ISCHEMIA [-0.1+ mV T-WAVE IN I/aVL/V5/V6] ST DEVIATION AND MODERATE T-WAVE ABNORMALITY, CONSIDER INFERIOR ISCHEMIA [-0.1+ mV T-WAVE IN II/aVF] Compared to ECG 01/23/2023 21:41:19 Possible ischemia now present Ventricular-paced complex(es) or rhythm no longer present Intraventricular conduction delay no longer present Electronically Signed On 01-24-2023 16:40:50 CDT by Dennis Lopez M.D. [email or web address]
[2023-01-24] VITALS: BP 169/111; PULSE 102; RESP 18; O2SAT 95
[2023-01-24] MEDS: labetalol 5 mg/mL SDV 20mL 20 MG IVP (00:03)
[2023-01-24 00:46] LABS: Troponin(5th) Baseline 27 ng/L (0-10)
[2023-01-24 01:00] VITALS: BP 136/79; PULSE 103; RESP 21; O2SAT 99
[2023-01-24 01:21] LABS: Troponin 5 2HR 27.78 ng/L (0-10)
[2023-01-24 01:26] LABS: Troponin 5 2HR Delta 0.78 ABS# (0-10)
[2023-01-24 01:36] VITALS: BP 142/78; PULSE 102; RESP 28; O2SAT 94
== END 2023-01-24 01:57 | disposition home or self-care (01) ==
PROVIDERS: Emergency Provider Emergency Medicine; PCP Family Medicine
DX: R06.00 Dyspnea, unspecified (principal); Z79.01 Long term (current) use of anticoagulants; Z79.82 Long term (current) use of aspirin; Z79.84 Long term (current) use of oral hypoglycemic drugs; Z87.891 Personal history of nicotine dependence; I13.0 Hypertensive heart and chronic kidney disease with heart failure and stage 1 through stage 4 chronic kidney disease, or unspecified chronic kidney disease; E11.22 Type 2 diabetes mellitus with diabetic chronic kidney disease; N18.9 Chronic kidney disease, unspecified; I50.9 Heart failure, unspecified; I25.2 Old myocardial infarction; Z95.0 Presence of cardiac pacemaker; Z20.822 Contact with and (suspected) exposure to COVID-19
CPT/HCPCS: 70450; 71045; 80053; 83880; 84484; 85025; 85610; 87426; 87804; 93005; 96374; 96375; 96376; 99285; J0360; J1940; J3490

== ENCOUNTER 2023-01-25 17:42 | Emergency (ER) | payer MEDICARE, MEDICAID, SELFPAY ==
[2023-01-25] VITALS (19 sets, daily range): BP systolic 142–171; BP diastolic 80–121; PULSE 78–126; RESP 16–27; TEMP 37.3; O2SAT 92–97
--- NOTE | 2023-01-25 20:43 | ED_ITS ---
HPI - Headache General: Chief Complaint: Headache Stated Complaint: states high BP Time Seen by Provider: 01/25/23 20:43 History of Present Illness: Ms Baptiste is a 72-year-old lady with history of prior stroke, CKD, diabetes, atrial fibrillation, hypertension presenting to the emergency department for uncontrolled blood pressure. She notes recent ER visit for similar and had been doing well upon discharge, blood pressure gradually increased again. Today was 210 systolic and she noted left-sided headache which feels different from her baseline headaches. Denies other focal neurologic symptoms. No other specific changes in health, exacerbating, or alleviating factors identified. Onset (ago): day(s) Onset description: gradually Severity: moderate Quality & Timing: throbbing and pulsatile Exacerbating factors: none Relieving factors: nothing Associated symptoms: Reports other Review of Systems General: Reports: 10 or more systems reviewed and unremarkable except in HPI and below PFSH ED PFSH: Medical History (Updated 02/01/23 @ 00:02 by KATHRINE Goel) Abnormal gall bladder diagnostic imaging Acquired abnormality of brachiocephalic vein Acute encephalopathy Anticoagulant long-term use Atrial fibrillation Bipolar 1 disorder Chest pain CHF (congestive heart failure) CKD (chronic kidney disease) CVA (cerebral vascular accident) Diabetes HTN (hypertension) Ischemic cardiomyopathy Lung nodule Myocardial infarction Obesity Respiratory distress Sick sinus syndrome Transaminitis Surgical History Status cardiac pacemaker Family History Other Cancer Suicide Social History Smoking and tobacco status: former smoker Caregiver/support person: Yes (daughter) Lives independently: No Household members: none Current occupational status: retired Physical Exam Const: COMMON NORMALS: patient oriented x3 and alert GENERAL APPEARANCE: cooperative and well developed HENMT: COMMON NORMALS: normocephalic and atraumatic HEAD & SCALP: normocephalic and atraumatic THROAT: posterior oropharynx normal Eye: COMMON NORMALS: conjunctivae normal CONJUNCTIVA: Yes conjunctivae normal SCLERA: sclerae normal Neck/C-Spine: COMMON NORMALS: supple GENERAL: Yes trachea midline Resp: COMMON NORMALS: clear to auscultation bilaterally EFFORT & IN SPECTION: Yes able to speak in complete sentences AUSCULTATION: clear to auscultation bilaterally Cardio: COMMON NORMALS: regular rate and regular rhythm RATE: regular rate RHYTHM: regular rhythm GI: COMMON NORMALS: Soft to palpation PALPATION: Yes Soft to palpation and No Tenderness to palpation present (GI) Extremity: GENERAL: Yes normal exam except as noted and No edema Neuro: COMMON NORMALS: patient oriented x3, CN's II-XII intact bilaterally, moves all extremities, no focal motor deficits and no sensory deficits noted SENSORIUM/ORIENTATION: Yes alert and No Orientation impaired Psych: COMMON NORMALS: mental status grossly normal and Normal thought process present THOUGHT PROCESS: Normal thought process present Course Vital Signs: Vital signs: Vital Signs Temperature 99.1 F 01/25/23 17:51 Pulse Rate 85 01/26/23 00:29 Respiratory Rate 20 H 01/26/23 00:29 Blood Pressure 144/77 01/26/23 00:29 Pulse Oximetry 96 01/26/23 00:29 Oxygen Delivery Me thod Room Air 01/25/23 20:53 MDM - Headache Medical Decision Making 72-year-old lady presenting due to headache with high blood pressure. Exam as above. EKG demonstrates atrial fibrillation, nonspecific ST segment abnormalities, no STEMI. Labs with no evidence of significant abnormality requiring intervention or endorgan dysfunction. BNP is mildly elevated.. CT head and cervical spine negative for acute pathology. Patient had resolution of symptoms and improvement in blood pressure with migraine cocktail and metoprolol. Most likely allergy of patient's symptoms is hypertensive urgency. Given improvement she is satisfactory for outpatient management with plan to increase antihypertensives and have close PCP follow-up. The results of ED evaluation were discussed with the patient including prescriptions and/or symptomatic cares (if applicable) including appropriate and responsible use, followup plan, and return precautions. The patient verbalized understanding and felt safe for discharge. Medical Records I reviewed the patient's medical records. Lab Data I reviewed the patient's lab results. 01/25/23 20:52 01/25/23 20:52 Radiology Impressions Cervical Spine CT 01/25/23 21:00 IMPRESSION: No acute osseous injury. Head CT 01/25/23 21:00 IMPRESSION: No acute intracranial abnormality. Laboratory Results WBC 9.9 10^3/uL (4.0-10.0) 01/25/23 20:52 RBC 4.24 10^6/uL (4.1-5.3) 01/25/23 20:52 Hgb 11.8 g/dL (11.5-15.3) 01/25/23 20:52 Hct 37.5 % (37.0-47.0) 01/25/23 20:52 MCV 88.4 fl (81-99) 01/25/23 20:52 MCH 27.8 pg (28.0-34.0) L 01/25/23 20:52 MCHC 31.5 g/dL (30.0-36.0) 01/25/23 20:52 RDW 15.2 % (12.1-15.1) H 01/25/23 20:52 Plt Count 290 10^3/cmm (130-400) 01/25/23 20:52 MPV 9.9 fL (7.4-10.4) 01/25/23 20:52 Neut % (Auto) 67.6 % 01/25/23 20:52 Lymph % (Auto) 19.7 % 01/25/23 20:52 [place] % (Auto) 9.9 % 01/25/23 20:52 Eos % (Auto) 2.2 % 01/25/23 20:52 Baso % (Auto) 0.4 % 01/25/23 20:52 Neut # (Auto) 6.70 10^3/uL (1.8-7.7) 01/25/23 20:52 Lymph # (Auto) 2.0 10^3/uL (0.8-4.8) 01/25/23 20:52 [place] # (Auto) 1.0 10^3/uL (0.2-0.9) H 01/25/23 20:52 Eos # (Auto) 0.2 10^3/uL (0.0-0.8) 01/25/23 20:52 Baso # (Auto) 0.0 10^3/uL (0.0-0.1) 01/25/23 20:52 Nucleated RBC % (auto) 0 % 01/25/23 20:52 Nucleated RBCs # 0.0 /100WBC 01/25/23 20:52 PT 25.80 SECONDS (12.1-14.9) H 01/25/23 20:52 INR 2.26 (0.8-1.2) H 01/25/23 20:52 Sodium 134 mmol/L (136-145) L 01/25/23 20:52 Potassium 3.5 mmol/L (3.5-5.1) 01/25/23 20:52 Chloride 94 mmol/L (98-107) L 01/25/23 20:52 Carbon Dioxide 28 mmol/L (22-29) 01/25/23 20:52 Anion Gap 15.5 (5-19) 01/25/23 20:52 BUN 20 mg/dL (8-23) 01/25/23 20:52 Creatinine 0.9 mg/dL (0.5-0.9) 01/25/23 20:52 GFR Calculation Not Reportable 01/25/23 20:52 Glucose 169 mg/dL (65-115) H 01/25/23 20:52 Calculated Osmolality 285 mOsm/kg (285-295) 01/25/23 20:52 Calcium 9.3 mg/dL (8.5-10.5) 01/25/23 20:52 Total Bilirubin 0.5 mg/dL (0.15-1.2) 01/25/23 20:52 AST 28 U/L (0-32) 01/25/23 20:52 ALT 22 U/L (0-33) 01/25/23 20:52 Alkaline Phosphatase 96 U/L (35-105) 01/25/23 20:52 NT-Pro-B Natriuret Pep 5745 pg/mL (0-125) H 01/25/23 20:52 Total Protein 8.0 g/dL (6.6-8.7) 01/25/23 20:52 Albumin 3.1 g/dL (3.5-5.2) L 01/25/23 20:52 Globulin 4.9 g/dL (1.3-4.6) H 01/25/23 20:52 Discharge Plan Discharge Patient Disposition: Home Clinical Impression: Hypertension Condition: Stable Prescriptions: New hydrochlorothiazide 12.5 mg tablet 12.5 mg PO BID Qty: 60 1RF potassium chloride 8 mEq tablet extended release 8 meq PO DAILY Qty: 30 0RF Discontinued hydrochlorothiazide 12.5 mg tablet 12.5 mg PO DAILY No Action metoprolol tartrate 75 mg tablet 75 mg PO BID ferrous sulfate [Feosol] 325 mg (65 mg iron) tablet 325 mg PO DAILY warfarin 5 mg tablet See Rx Instructions .ROUTE .COMPLEX Rx Instructions: 5 mg orally on (, , SATURDAY, SAT, SUN) 2.5 mg orally on (MON, ) simvastatin 20 mg tablet 20 mg PO DAILY aspirin [Aspir-81] 81 mg tablet,delayed release (DR/EC) 81 mg PO DAILY escitalopram oxalate [Lexapro] 10 mg Tablet 10 mg PO DAILY donepezil 5 mg Tablet 5 mg PO DAILY docusate sodium 100 mg Capsule 100 mg PO DAILY zolpidem 5 mg Tablet 5 - 10 mg PO BEDTIME glipizide 5 mg Tablet 5 mg PO DAILY Discharge Orders: Discharge ED (Routine); Ordered 01/25/23 Ordered By: Bubba Santacruz Referrals: García Theodore MD [Primary Care Provider] - Discharge Diet: Usual diet Discharge Activity: Resume usual activity Patient Instructions: Acute Headache (ED), Hypertension (ED) Activity Restrictions/Additional Instructions: Thank you for visiting the emergency department. You were seen and evaluated for high blood pressure and headache. The exact cause of your symptoms is unclear as discussed. We are pleased that you had improvement with treatment in the emergency department. I will increase your hydrochlorothiazide from 12.5 mg once daily to 12.5 mg twice daily. I will also add potassium supplementation. Please continue your other medications. Please follow-up with your primary care provider, I recommend repeat laboratory studies within 2 weeks. I will message case management for follow-up with cardiology. Return to the emergency department for chest pain, shortness of breath, changes in urine output, confusion, or anything else that you are concerned about and feel needs emergency department evaluation. 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
[2023-01-25 21:00] LABS: Basophils % 0.4 %; Eosinophils # 0.2 10^3/uL (0.0-0.8); Eosinophils % 2.2 %; Hematocrit 37.5 % (37.0-47.0); Hemoglobin 11.8 g/dL (11.5-15.3); Lymphocytes % 19.7 %; Mean Corpuscular HGB Conc 31.5 g/dL (30.0-36.0); Mean Corpuscular Hemoglobin 27.8 pg (28.0-34.0); Mean Corpuscular Volume 88.4 fl (81-99); Mean Platelet Volume 9.9 fL (7.4-10.4); Monocytes % 9.9 %; Neutrophils % 67.6 %; Nucleated Red Blood Cells % 0 %; Platelet Count 290 10^3/cmm (130-400); Red Blood Count 4.24 10^6/uL (4.1-5.3); Red Cell Distribution Width 15.2 % (12.1-15.1); White Blood Count 9.9 10^3/uL (4.0-10.0)
--- NOTE | 2023-01-25 21:00 | CTR_ITS ---
PROCEDURE INFORMATION: Exam: CT Cervical Spine Without Contrast Exam date and time: 01/25/2023 9:12 PM Age: 72 years old Clinical indication: Injury or trauma; Fall; Blunt trauma; Patient HX: PT reports she fell; Additional info: R neck pain, HTN TECHNIQUE: Imaging protocol: Computed tomography of the cervical spine without contrast. Radiation optimization: All CT scans at this facility use at least one of these dose optimization techniques: automated exposure control; mA and/or kV adjustment per patient size (includes targeted exams where dose is matched to clinical indication); or iterative reconstruction. REPORTING DATA: Count of CT and Cardiac NM exams in prior 12 months: This patient has received 4 known CTs and 0 known cardiac nuclear medicine studies in the 12 months prior to the current study. COMPARISON: CT cervical spin wo con* [id number] 07/05/2021 6:49 PM RADIATION DOSE METRICS: Total DLP (mGy-cm): 496.5 FINDINGS: Bones/joints: Near anatomic alignment. No acute fracture. Multilevel degenerative changes are present. No severe spinal canal stenosis. Lungs: Unchanged 4 mm solid left upper lobe nodule. Soft tissues: Unremarkable. CT/CT cervical spin wo con* [id number] IMPRESSION: No acute osseous injury.
--- NOTE | 2023-01-25 21:00 | CTR_ITS ---
PROCEDURE INFORMATION: Exam: CT Head Without Contrast Exam date and time: 01/25/2023 9:12 PM Age: 72 years old Clinical indication: Pain; Headache not specified; Additional info: Left sided headache, HTN TECHNIQUE: Imaging protocol: Computed tomography of the head without contrast. Radiation optimization: All CT scans at this facility use at least one of these dose optimization techniques: automated exposure control; mA and/or kV adjustment per patient size (includes targeted exams where dose is matched to clinical indication); or iterative reconstruction. REPORTING DATA: Count of CT and Cardiac NM exams in prior 12 months: This patient has received 3 known CTs and 0 known cardiac nuclear medicine studies in the 12 months prior to the current study. COMPARISON: CT head wo con* [id number] 01/23/2023 11:30 PM RADIATION DOSE METRICS: Total DLP (mGy-cm): 1131.7 FINDINGS: Brain: Chronic left cerebellar encephalomalacia is unchanged. Chronic encephalomalacia left basal ganglia and insula and the left frontal white matter. No acute infarct. No hemorrhage. Stable involutional changes of the brain. No mass effect. Cerebral ventricles: Stable ventricular size. No ventriculomegaly. Paranasal sinuses: Scattered paranasal sinus mucosal thickening, without air-fluid level present. Mastoid air cells: Visualized mastoid air cells are well aerated. Bones/joints: Unremarkable. No acute fracture. Soft tissues: Unremarkable. CT/CT head wo con* [id number] IMPRESSION: No acute intracranial abnormality.
[2023-01-25 21:16] LABS: INR 2.26 (0.8-1.2)
[2023-01-25 21:21] LABS: Alanine Aminotransferase 22 U/L (0-33); Albumin Level 3.1 g/dL (3.5-5.2); Alkaline Phosphatase 96 U/L (35-105); Anion Gap 15.5 (5-19); Aspartate Amino Transferase 28 U/L (0-32); Blood Urea Nitrogen 20 mg/dL (8-23); Calcium 9.3 mg/dL (8.5-10.5); Carbon Dioxide 28 mmol/L (22-29); Chloride 94 mmol/L (98-107); Globulin 4.9 g/dL (1.3-4.6); Glucose 169 mg/dL (65-115); Osmolality Calculated 285 mOsm/kg (285-295); Potassium 3.5 mmol/L (3.5-5.1); Sodium 134 mmol/L (136-145); Total Bilirubin 0.5 mg/dL (0.15-1.2)
[2023-01-25] MEDS: diphenhydrAMINE 50 mg/mL SDV 1mL 12.5 MG IVP (21:38)
[2023-01-25] MEDS: metoclopramide 5 mg/mL SDV 2 mL IVP (21:39)
[2023-01-25] MEDS: acetaminophen 500 mg Tablet 1000 MG PO (21:40)
[2023-01-25 21:55] LABS: NT Pro B Type Natriuretic Pept 5745 pg/mL (0-125)
[2023-01-25] MEDS: metoprolol tartrate 25 mg Tablet 75 MG PO (22:23)
[2023-01-25] MEDS: metoprolol tartrate 1 mg/1 mL SDV 5 mL 5 MG IVP (22:26)
[2023-01-26 00:29] VITALS: BP 144/77; PULSE 85; RESP 20; O2SAT 96
--- NOTE | 2023-01-28 14:02 | DCPLANNER ---
Addendum entered by Janel Alonzo 02/15/23 09:50: Patient had a follow up appointment scheduled with [facility] - patient did attend appointment. Addendum entered by Janel Alonzo 01/31/23 07:40: Patient has a follow up appointment scheduled for January at 11:[address] Ceron at [facility]. Original Note: account support manager had message to schedule a follow up appointment for patient with cardiology. account support manager sent patients information to the front office staff at [facility]. Patients information will be printed and reviewed. Clinic will call patient with appointment information.
== END 2023-01-25 23:52 | disposition home or self-care (01) ==
PROVIDERS: Emergency Medicine; Emergency Provider Emergency Medicine; PCP Family Medicine
DX: I13.0 Hypertensive heart and chronic kidney disease with heart failure and stage 1 through stage 4 chronic kidney disease, or unspecified chronic kidney disease (principal); E11.22 Type 2 diabetes mellitus with diabetic chronic kidney disease; N18.9 Chronic kidney disease, unspecified; I50.9 Heart failure, unspecified; I25.2 Old myocardial infarction; Z95.0 Presence of cardiac pacemaker; Z79.82 Long term (current) use of aspirin; Z79.84 Long term (current) use of oral hypoglycemic drugs; Z79.01 Long term (current) use of anticoagulants; Z87.891 Personal history of nicotine dependence
CPT/HCPCS: 70450; 72125; 80053; 83880; 85025; 85610; 96374; 96375; 99285; J1200; J2765; J3475; J3490

== ENCOUNTER 2023-02-13 07:51 | Emergency (ER) | payer MEDICARE, MEDICAID, SELFPAY ==
[2023-02-13 07:59] VITALS: BP 154/98; PULSE 110; RESP 16; TEMP 36.7; O2SAT 95
--- NOTE | 2023-02-13 08:17 | ED_ITS ---
HPI - Wound/Laceration General: Chief Complaint: Wound/Laceration Stated Complaint: fall/head lac Time Seen by Provider: 02/13/23 07:53 Source: family (daughter) Mode of arrival: wheelchair Limitations: no limitations History of Present Illness: Patient is a 72-year-old female presents to ED today along with her daughter for evaluation of a bleeding scalp hematoma. Daughter states patient fell appro ximately 10 days ago and was subsequently seen at [facility] ED. She states they had CT scans (head/cervical) performed which were normal but states they were transferred to [place] because the [place] provider was freaked out because they could not get the bleeding from her scalp wound to stop. Patient is on warfarin. Daughter states once they arrived at [place] they were told I do not know why she was sent here and wound was stapled and they were discharged home. Daughter states wound had been doing well with minimal bleeding and hematoma seemed to be resolving but states today when she picked mother up (she had a scheduled cardiac angiogram this morning) she n oticed scalp wound/hematoma was bleeding again thus prompted their ED visit now. Daughter noticed blood underneath patient's fingernails and thinks she accidentally scratched the wound causing it to bleed. Patient herself is not able to provide much history secondary to dementia. Daughter does confirm she is at her normal mental status. Onset (ago): hour(s) Location: scalp Place: home Patient tetanus UTD: Yes Context: accidental Associated symptoms: Reports no associated symptoms; Denies fever(s) Treatments prior to arrival: bandage Review of Systems Const: Denies: fever(s) Neuro: Reports: confusion (chronic due to demenia) and other (normal mental status per daughter); Denies: headache(s) or behavioral changes [facility] ED PFSH: Medical History (Updated 02/13/23 @ 09:34 by ARUN Peace) Abnormal gall bladder diagnostic imaging Acquired abnormality of brachiocephalic vein Acute encephalopathy Anticoagulant long-term use Atrial fibrillation Bipolar 1 disorder Chest pain CHF (congestive heart failure) CKD (chronic kidney disease) CVA (cerebral vascular accident) Diabetes HTN (hypertension) Ischemic cardiomyopathy Lung nodule Myocardial infarction Obesity Respiratory distress Sick sinus syndrome Transaminitis Surgical History Status cardiac pacemaker Family History Other Cancer Suicide Social History Smoking and tobacco status: former smoker Caregiver/support person: Yes (daughter) Lives independently: No Household members: none Current occupational status: retired Physical Exam Const: COMMON NORMALS: no acute distress, average body habitus, alert and well nourished EXAM LIMITATIONS: altered mental status (chronic dementia) GENERAL APPEARANCE: cooperative ORIENTATION/CONSCIOUSNESS: Yes awake and Yes oriented to person HENMT: HEAD IMAGES: 1. large hematoma present with multiple intact ramón; wound is caked in dried blood/clots and matted in hair making examination difficult; does not appear to have any active bleeding at this time FACE & SINUS: normal facial exam Eye: GENERAL EYE: appearance normal, both eyes and all related structures Neck/C-Spine: COMMON NORMALS: full ROM CERVICAL SPINE: Yes cervical ROM normal and No Cervical spine tenderness OTHER: healing/old ecchymosis posterior neck from hematoma Neuro: SENSORIUM/ORIENTATION: Yes alert and Yes oriented to person Course Vital Signs: Vital signs: Vital Signs Temperature 98.0 F 02/13/23 07:59 Pulse Rate 110 H 02/13/23 07:59 Respiratory Rate 18 02/13/23 09:22 Blood Pressure 154/98 02/13/23 07:59 Pulse Oximetry 95 02/13/23 07:59 Oxygen Delivery Me thod Room Air 02/13/23 07:59 MDM - Wound/Laceration Medical Decision Making Daughter states wound has only been cleaned/washed once since incident 10 days ago. Daughter states she doesn't have the stomach to clean it. Wound here was caked in dried blood/clot/hair making visualization difficult. Wound was irrigated and cleaned as best as possible or as much as patient would allow. She does have one small 1-2mm area with scant oozing most likely secondary to underlying hematoma but no active bleeding. Patient was witnessed scratching/picking wound multiple times during her visit which most likely is what has caused bleeding to return. She declined blood work (CBC, INR). Ultimately patient has not been on her warfarin since Saturday as it was held due to her scheduled angiogram today so I would have a low suspicion for a supratherapeutic INR at this time. Daughter states they are going to schedule her a follow-up visit with her PCP Dr. Theodore. I will leave ramón in until that visit. Recommend pressure dressing and ice to help with swelling/bleeding. Strict return to ED precautions given. Discharge Plan Discharge Patient Disposition: Home Clinical Impression: Hematoma of scalp Qualifiers: Encounter type: subsequent encounter Qualified Code(s): S00.03XD - Contusion of scalp, subsequent encounter Condition: Stable Prescriptions: No Action metoprolol tartrate 75 mg tablet 75 mg PO BID ferrous sulfate [Feosol] 325 mg (65 mg iron) tablet 325 mg PO DAILY warfarin 5 mg tablet See Rx Instructions .ROUTE .COMPLEX Rx Instructions: 5 mg orally on (, , SATURDAY, SAT, SAT) 2.5 mg orally on (SAT, ) simvastatin 20 mg tablet 20 mg PO DAILY aspirin [Aspir-81] 81 mg tablet,delayed release (DR/EC) 81 mg PO DAILY enoxaparin 100 mg/mL syringe 90 mg SUBCUT DIRECTED Qty: 5.4 0RF Rx Instructions: 1 injection in the AM and PM on , , . escitalopram oxalate [Lexapro] 10 mg Tablet 10 mg PO DAILY hydrochlorothiazide 12.5 mg tablet 12.5 mg PO BID Qty: 60 1RF potassium chloride 8 mEq tablet extended release 8 meq PO DAILY Qty: 30 0RF donepezil 5 mg Tablet 5 mg PO DAILY docusate sodium 100 mg Capsule 100 mg PO DAILY zolpidem 5 mg Tablet 5 - 10 mg PO BEDTIME glipizide 5 mg Tablet 5 mg PO DAILY Discharge Orders: Discharge ED (Routine); Ordered 02/13/23 Ordered By: Radhika Correa Referrals: García Theodore MD [Primary Care Provider] - Patient Instructions: Hematoma (ED) Activity Restrictions/Additional Instructions: As we discussed please keep a pressure dressing on patient's scalp hematoma and apply ice for 20 minutes every 1-2 hours to help with swelling. Encourage patient to abstain from scratching or picking area. Please follow-up with her primary care provider by the end of the week for re-evaluation and staple removal. Patient needs to return to the emergency department if wound begins bleeding again or if she is soaking through her pressure dressing in less than 1 to 2 hours. Coding Level of Care Code ED Casting Supervisor for Brock Angelo
[2023-02-13 09:22] VITALS: RESP 18
== END 2023-02-13 09:44 | disposition home or self-care (01) ==
PROVIDERS: Emergency Provider Physician Assistant; PCP Family Medicine
DX: S00.03XA Contusion of scalp, initial encounter (principal); Z79.01 Long term (current) use of anticoagulants; Z79.82 Long term (current) use of aspirin; Z79.84 Long term (current) use of oral hypoglycemic drugs; Z87.891 Personal history of nicotine dependence; Z95.0 Presence of cardiac pacemaker; I13.0 Hypertensive heart and chronic kidney disease with heart failure and stage 1 through stage 4 chronic kidney disease, or unspecified chronic kidney disease; E11.22 Type 2 diabetes mellitus with diabetic chronic kidney disease; N18.9 Chronic kidney disease, unspecified; I50.9 Heart failure, unspecified; Z86.73 Personal history of transient ischemic attack (TIA), and cerebral infarction without residual deficits; I25.2 Old myocardial infarction; W19.XXXA Unspecified fall, initial encounter
CPT/HCPCS: 99282

== ENCOUNTER → 2023-02-14 11:16 | Outpatient (BNVA) | payer MEDICARE, MEDICAID, SELFPAY | PROVIDERS: PCP Family Medicine; Visit Provider Specialist | DX: I11.0 Hypertensive heart disease with heart failure (principal); I50.9 Heart failure, unspecified; I48.91 Unspecified atrial fibrillation; Z95.0 Presence of cardiac pacemaker; Z87.891 Personal history of nicotine dependence; I25.2 Old myocardial infarction; Z79.82 Long term (current) use of aspirin; Z79.01 Long term (current) use of anticoagulants | CPT/HCPCS: 99214 ==

== ENCOUNTER 2023-04-06 17:02 | Emergency (ER) | payer MEDICARE, MEDICAID, SELFPAY ==
[2023-04-06] VITALS (7 sets, daily range): BP systolic 132–176; BP diastolic 83–119; PULSE 84–120; RESP 16–19; TEMP 36.4; O2SAT 92–97
--- NOTE | 2023-04-06 17:07 | W.ED.FALL ---
Documented by User: Bubba Santacruz MD 04/16/23 03:32 HPI - Fall General: Chief Complaint: Fall Stated Complaint: COCCYX PAIN S/P FALL Time Seen by Provider: 04/06/23 17:05 Limitations: altered mental status History of Present Illness: Ms. Baptiste is a 73-year-old lady with history of cognitive decline secondary to prior strokes with dementia type symptoms presenting the emergency department for reported fall. Initially history is very unclear, EMS reported that she fell and had tailbone pain. The patient herself does not specifically recall this event and does not provide much meaningful history. Upon arrival of the patient's daughter shortly thereafter further information is obtained. Patient currently has good days and bad days. She seemed more out of it yesterday. Today she seemed worse with increased shortness of breath and visible dyspnea. She apparently was trying to go to bed this afternoon and slipped off the edge of the bed falling on her tailbone. Patient's daughter reviewed apparently video and no reported loss of consciousness or head strike. Initially was complaining of tailbone pain however seems to be intermittent. Primary concern today is increased shortness of breath and fatigue. Review of Systems General: Reports: ROS unobtainable due to mental status PFSH ED PFSH: Medical History (Updated 04/14/23 @ 00:01 by KATHRINE Goel) Abnormal gall bladder diagnostic imaging Acquired abnormality of brachiocephalic vein Acute encephalopathy Anticoagulant long-term use Atrial fibrillation Bipolar 1 disorder Chest pain CHF (congestive heart failure) CKD (chronic kidney disease) CVA (cerebral vascular accident) Diabetes HTN (hypertension) Ischemic cardiomyopathy Lung nodule Myocardial infarction Obesity Respiratory distress Sick sinus syndrome Transaminitis Surgical History Status cardiac pacemaker Family History Other Cancer Suicide Social History Smoking and tobacco status: former smoker Caregiver/support person: Yes (daughter) Lives independently: No Household members: none Current occupational status: retired Physical Exam Const: COMMON NORMALS: alert GENERAL APPEARANCE: cooperative and well developed HENMT: COMMON NORMALS: normocephalic and atraumatic HEAD & SCALP: normocephalic and atraumatic THROAT: posterior oropharynx normal Eye: COMMON NORMALS: conjunctivae normal CONJUNCTIVA: Yes conjunctivae normal SCLERA: sclerae normal Neck/C-Spine: COMMON NORMALS: supple GENERAL: Yes trachea midline Resp: COMMON NORMALS: normal respiratory effort EFFORT & INSPECTION: Yes able to speak in complete sentences Cardio: COMMON NORMALS: regular rate and regular rhythm RATE: regular rate RHYTHM: regular rhythm GI: COMMON NORMALS: Soft to palpation PALPATION: Yes Soft to palpation and No Tenderness to palpation present (GI) Back/Pelvis: OTHER: Lower lumbar and coccyx pain. Extremity: GENERAL: Yes normal exam except as noted and No edema Neuro: COMMON NORMALS: moves all extremities SENSORIUM/ORIENTATION: Yes alert and Yes Orientation impaired Psych: COMMON NORMALS: mental status grossly normal MEMORY/COGNITION: Yes memory grossly impaired Course Vital Signs: Vital signs: Vital Signs Temperature 97.6 F 04/06/23 17:09 Pulse Rate 86 04/06/23 21:00 Respiratory Rate 18 04/06/23 21:00 Blood Pressure 132/88 04/06/23 20:30 Pulse Oximetry 97 04/06/23 21:00 Oxygen Delivery Me thod Room Air 04/06/23 17:09 MDM - Fall Medical Decision Making 73-year-old lady presented the emergency department with low back pain post fall. Upon clarification of clinical history mostly concerned about significant change in level fatigue and initially complaining of severe pain though subsequently not. Handed off to Dr. Weber pending completion of ED evaluation. 73-year-old female checked out to me by the previous physician at shift change. This lady had had a fall trying to get into bed this afternoon. This is unusual for her and that she does not usually try to sleep in the afternoon. She has a history of atrial fibrillation as well as heart failure. She has been more short of breath recently. No cough or fever. Heart rate of 90. Blood pressure 140/83, saturations been normal on room air. She is in no respiratory distress. CBC is normal. BMP shows a BUN of 28, creatinine 1.2. BNP is significantly elevated at over 12,000. X-ray of the chest shows some mild cardiomegaly with no pulmonary edema. Lumbar and pelvic x-rays are negative. Pelvis CT done because of question of left fracture of hip, is negative for hip fracture. She appears to be baseline mental status. She has received 60 mg of IV furosemide here with excellent output already. She will be discharged home on 40 mg of Lasix daily. We will hold off on hydrochlorothiazide for the next 3 days due to potential potassium wasting in favor of Lasix. She may return to hydrochlorothiazide at that point. Close outpatient follow-up. To return if worsening. Medical Records I reviewed the patient's medical records. Lab Data I reviewed the patient's lab results. 04/06/23 17:42 04/06/23 17:42 Radiology Impressions Chest X-Ray 04/06/23 17:31 IMPRESSION: No acute findings. Stable mild cardiomegaly. Lumbar Spine X-Ray 04/06/23 17: IMPRESSION: No evidence of acute fracture or acute traumatic subluxation. Pelvis X-Ray 04/06/23: IMPRESSION: 1. Limited evaluation of the left hip. If left hip fracture is suspected, consider a dedicated left hip series or CT scan of the pelvis to include the hips. 2. No other acute finding. Pelvis CT 04/06/23 19:48 IMPRESSION: 1. No evidence of acute fracture or dislocation. 2. Mild degenerative changes of both hips. 3. Chronic whiskering and ligamentous calcification of bilateral ischial tuberosities. 4. Moderate diverticulosis of the distal colon without diverticulitis. Laboratory Results WBC 7.8 10^3/uL (4.0-10.0) 04/06/23 17: RBC 4.27 10^6/uL (4.1-5.3) 04/06/23 17: Hgb 12.1 g/dL (11.5-15.3) 04/06/23 17: Hct 39.7 % (37.0-47.0) 04/06/23 17: MCV 93.0 fl (81-99) 04/06/23 17: MCH 28.3 pg (28.0-34.0) 04/06/23 17: MCHC 30.5 g/dL (30.0-36.0) 04/06/23 17: RDW 15.5 % (12.1-15.1) H 04/06/23 17:42 Plt Count 211 10^3/cmm (130-400) 04/06/23 17: MPV 10.8 fL (7.4-10.4) H 04/06/23 17:42 Neut % (Auto) 71.4 % 04/06/23 17:42 Lymph % (Auto) 16.8 % 04/06/23 17:42 [place] % (Auto) 9.3 % 04/06/23 17:42 Eos % (Auto) 1.3 % 04/06/23 17:42 Baso % (Auto) 0.8 % 04/06/23 17:42 Neut # (Auto) 5.54 10^3/uL (1.8-7.7) 04/06/23 17:42 Lymph # (Auto) 1.3 10^3/uL (0.8-4.8) 04/06/23 17:42 [place] # (Auto) 0.7 10^3/uL (0.2-0.9) 04/06/23 17:42 Eos # (Auto) 0.1 10^3/uL (0.0-0.8) 04/06/23 17:42 Baso # (Auto) 0.1 10^3/uL (0.0-0.1) 04/06/23 17:42 Nucleated RBC % (auto) 0 % 04/06/23 17:42 Nucleated RBCs # 0.0 /100WBC 04/06/23 17:42 Sodium 133 mmol/L (136-145) L 04/06/23 17:42 Potassium 3.4 mmol/L (3.5-5.1) L 04/06/23 17:42 Chloride 97 mmol/L (98-107) L 04/06/23 17:42 Carbon Dioxide 24 mmol/L (22-29) 04/06/23 17:42 Anion Gap 15.4 (5-19) 04/06/23 17:42 BUN 28 mg/dL (8-23) H 04/06/23 17:42 Creatinine 1.2 mg/dL (0.5-0.9) H 04/06/23 17:42 GFR Calculation Not Reportable 04/06/23 17:42 Glucose 220 mg/dL (65-115) H 04/06/23 17:42 POC Glucose 235 mg/dL (70-110) H 04/06/23 17:49 Calculated Osmolality 288 mOsm/kg (285-295) 04/06/23 17:42 Calcium 8.7 mg/dL (8.5-10.5) 04/06/23 17:42 Magnesium 1.7 mg/dL (1.7-2.3) 04/06/23 17:42 Troponin T Baseline 23 ng/L (0-10) H 04/06/23 17:42 Troponin T 120 Minute 23.81 ng/L (0-10) H 04/06/23 19:34 Delta Troponin T 0.81 ABS# (0-10) 04/06/23 19:34 NT-Pro-B Natriuret Pep 53988 pg/mL (0-125) H 04/06/23 17:42 TSH 6.61 uIU/mL (0.27-4.20) H 04/06/23 17:42 Urine Color Colorless (Yellow) 04/06/23 19:39 Urine Appearance Hazy (CLEAR) A 04/06/23 19:39 Urine pH 7 (5-7) 04/06/23 19:39 Ur Specific [place] 1.005 (1.005-1.030) 04/06/23 19:39 Urine Protein Neg (Negative) 04/06/23 19:39 Urine Glucose (UA) Norm (Normal) 04/06/23 19:39 Urine Ketones Negative (Negative) 04/06/23 19:39 Urine Blood Neg (Negative) 04/06/23 19:39 Urine Nitrate Negative (Negative) 04/06/23 19:39 Urine Bilirubin Neg (Negative) 04/06/23 19:39 Urine Urobilinogen Norm mg/dL (Negative) 04/06/23 19:39 Ur Leukocyte Esterase 1+ (Negative) H 04/06/23 19:39 Urine RBC 0-4 /hpf (0-2) H 04/06/23 19:39 Urine WBC 25-40 /hpf (0-5) H 04/06/23 19:39 Ur Squamous Epith Cells 0-4 /hpf (0-5) H 04/06/23 19:39 Amorphous Sediment Not Reportable 04/06/23 19:39 Urine Bacteria 2+ /hpf (NONE) H 04/06/23 19:39 Discharge Plan Discharge Patient Disposition: Home Clinical Impression: CHF (congestive heart failure), Contusion of pelvic region Condition: Stable Prescriptions: New furosemide 40 mg tablet 40 mg PO DAILY Qty: 3 0RF Discontinued hydrochlorothiazide 12.5 mg tablet 12.5 mg PO BID Qty: 60 1RF No Action metoprolol tartrate 75 mg tablet 75 mg PO BID ferrous sulfate [Feosol] 325 mg (65 mg iron) tablet 325 mg PO DAILY simvastatin 20 mg tablet 20 mg PO DAILY aspirin [Aspir-81] 81 mg tablet,delayed release (DR/EC) 81 mg PO DAILY Eliquis 5 mg tablet 5 mg PO BID Qty: 180 0RF escitalopram oxalate [Lexapro] 10 mg Tablet 10 mg PO DAILY potassium chloride 8 mEq tablet extended release 8 meq PO DAILY Qty: 30 0RF donepezil 5 mg Tablet 5 mg PO DAILY docusate sodium 100 mg Capsule 100 mg PO DAILY zolpidem 5 mg Tablet 5 - 10 mg PO BEDTIME glipizide 5 mg Tablet 5 mg PO DAILY Discharge Orders: Discharge ED (Routine); Ordered 04/06/23 Ordered By: Mikhail Weber Referrals: García Theodore MD [Primary Care Provider] - 1-3 days Patient Instructions: Heart Failure (ED), Hip Contusion (ED) Activity Restrictions/Additional Instructions: For now, stop your hydrochlorothiazide. Use furosemide 40 mg daily instead. This is for 3 days. You may return to hydrochlorothiazide following. Call your doctor Saturday for a follow-up appointment. Return for worsening shortness of breath despite treatment, fever, chest discomfort, worsening mental status or worsening fall status, any other concerning symptoms. Coding Level of Care Code ED Transportation Worker for Chg Fwd Documented by User: Mikhail Weber, 04/07/23 16:23 HPI - Fall General: Chief Complaint: Fall Stated Complaint: COCCYX PAIN S/P FALL Time Seen by Provider: 04/06/23 17:05 [facility] ED PFSH: Medical History (Updated 04/14/23 @ 00:01 by KATHRINE Goel) Abnormal gall bladder diagnostic imaging Acquired abnormality of brachiocephalic vein Acute encephalopathy Anticoagulant long-term use Atrial fibrillation Bipolar 1 disorder Chest pain CHF (congestive heart failure) CKD (chronic kidney disease) CVA (cerebral vascular accident) Diabetes HTN (hypertension) Ischemic cardiomyopathy Lung nodule Myocardial infarction Obesity Respiratory distress Sick sinus syndrome Transaminitis Surgical History Status cardiac pacemaker Family History Other Cancer Suicide Social History Smoking and tobacco status: former smoker Caregiver/support person: Yes (daughter) Lives independently: No Household members: none Current occupational status: retired Course Vital Signs: Vital signs: Vital Signs Temperature 97.6 F 04/06/23 17:09 Pulse Rate 86 04/06/23 21:00 Respiratory Rate 18 04/06/23 21:00 Blood Pressure 132/88 04/06/23 20:30 Pulse Oximetry 97 04/06/23 21:00 Oxygen Delivery Me thod Room Air 04/06/23 17:09 MDM - Fall Medical Decision Making 73-year-old female checked out to me by the previous physician at shift change. This lady had had a fall trying to get into bed this afternoon. This is unusual for her and that she does not usually try to sleep in the afternoon. She has a history of atrial fibrillation as well as heart failure. She has been more short of breath recently. No cough or fever. Heart rate of 90. Blood pressure 140/83, saturations been normal on room air. She is in no respiratory distress. CBC is normal. BMP shows a BUN of 28, creatinine 1.2. BNP is significantly elevated at over 12,000. X-ray of the chest shows some mild cardiomegaly with no pulmonary edema. Lumbar and pelvic x-rays are negative. Pelvis CT done because of question of left fracture of hip, is negative for hip fracture. She appears to be baseline mental status. She has received 60 mg of IV furosemide here with excellent output already. She will be discharged home on 40 mg of Lasix daily. We will hold off on hydrochlorothiazide for the next 3 days due to potential potassium wasting in favor of Lasix. She may return to hydrochlorothiazide at that point. Close outpatient follow-up. To return if worsening. Lab Data 04/06/23 17:42 04/06/23 17:42 Radiology Impressions Chest X-Ray 04/06/23 17:31 IMPRESSION: No acute findings. Stable mild cardiomegaly. Lumbar Spine X-Ray 04/06/23 17:31 IMPRESSION: No evidence of acute fracture or acute traumatic subluxation. Pelvis X-Ray 04/06/23 17:31 IMPRESSION: 1. Limited evaluation of the left hip. If left hip fracture is suspected, consider a dedicated left hip series or CT scan of the pelvis to include the hips. 2. No other acute finding. Pelvis CT 04/06/23 19:48 IMPRESSION: 1. No evidence of acute fracture or dislocation. 2. Mild degenerative changes of both hips. 3. Chronic whiskering and ligamentous calcification of bilateral ischial tuberosities. 4. Moderate diverticulosis of the distal colon without diverticulitis. Laboratory Results WBC 7.8 10^3/uL (4.0-10.0) 04/06/23 17:42 RBC 4.27 10^6/uL (4.1-5.3) 04/06/23 17:42 Hgb 12.1 g/dL (11.5-15.3) 04/06/23 17:42 Hct 39.7 % (37.0-47.0) 04/06/23 17:42 MCV 93.0 fl (81-99) 04/06/23 17:42 MCH 28.3 pg (28.0-34.0) 04/06/23 17:42 MCHC 30.5 g/dL (30.0-36.0) 04/06/23 17:42 RDW 15.5 % (12.1-15.1) H 04/06/23 17:42 Plt Count 211 10^3/cmm (130-400) 04/06/23 17:42 MPV 10.8 fL (7.4-10.4) H 04/06/23 17:42 Neut % (Auto) 71.4 % 04/06/23 17:42 Lymph % (Auto) 16.8 % 04/06/23 17:42 [place] % (Auto) 9.3 % 04/06/23 17:42 Eos % (Auto) 1.3 % 04/06/23 17:42 Baso % (Auto) 0.8 % 04/06/23 17:42 Neut # (Auto) 5.54 10^3/uL (1.8-7.7) 04/06/23 17:42 Lymph # (Auto) 1.3 10^3/uL (0.8-4.8) 04/06/23 17:42 [place] # (Auto) 0.7 10^3/uL (0.2-0.9) 04/06/23 17:42 Eos # (Auto) 0.1 10^3/uL (0.0-0.8) 04/06/23 17:42 Baso # (Auto) 0.1 10^3/uL (0.0-0.1) 04/06/23 17:42 Nucleated RBC % (auto) 0 % 04/06/23 17:42 Nucleated RBCs # 0.0 /100WBC 04/06/23 17:42 Sodium 133 mmol/L (136-145) L 04/06/23 17:42 Potassium 3.4 mmol/L (3.5-5.1) L 04/06/23 17:42 Chloride 97 mmol/L (98-107) L 04/06/23 17:42 Carbon Dioxide 24 mmol/L (22-29) 04/06/23 17:42 Anion Gap 15.4 (5-19) 04/06/23 17:42 BUN 28 mg/dL (8-23) H 04/06/23 17:42 Creatinine 1.2 mg/dL (0.5-0.9) H 04/06/23 17:42 GFR Calculation Not Reportable 04/06/23 17:42 Glucose 220 mg/dL (65-115) H 04/06/23 17:42 POC Glucose 235 mg/dL (70-110) H 04/06/23 17:49 Calculated Osmolality 288 mOsm/kg (285-295) 04/06/23 17:42 Calcium 8.7 mg/dL (8.5-10.5) 04/06/23 17:42 Magnesium 1.7 mg/dL (1.7-2.3) 04/06/23 17:42 Troponin T Baseline 23 ng/L (0-10) H 04/06/23 17:42 Troponin T 120 Minute 23.81 ng/L (0-10) H 04/06/23 19:34 Delta Troponin T 0.81 ABS# (0-10) 04/06/23 19:34 NT-Pro-B Natriuret Pep 77459 pg/mL (0-125) H 04/06/23 17:42 TSH 6.61 uIU/mL (0.27-4.20) H 04/06/23 17:42 Urine Color Colorless (Yellow) 04/06/23 19:39 Urine Appearance Hazy (CLEAR) A 04/06/23 19:39 Urine pH 7 (5-7) 04/06/23 19:39 Ur Specific [place] 1.005 (1.005-1.030) 04/06/23 19:39 Urine Protein Neg (Negative) 04/06/23 19:39 Urine Glucose (UA) Norm (Normal) 04/06/23 19:39 Urine Ketones Negative (Negative) 04/06/23 19:39 Urine Blood Neg (Negative) 04/06/23 19:39 Urine Nitrate Negative (Negative) 04/06/23 19:39 Urine Bilirubin Neg (Negative) 04/06/23 19:39 Urine Urobilinogen Norm mg/dL (Negative) 04/06/23 19:39 Ur Leukocyte Esterase 1+ (Negative) H 04/06/23 19:39 Urine RBC 0-4 /hpf (0-2) H 04/06/23 19:39 Urine WBC 25-40 /hpf (0-5) H 04/06/23 19:39 Ur Squamous Epith Cells 0-4 /hpf (0-5) H 04/06/23 19:39 Amorphous Sediment Not Reportable 04/06/23 19:39 Urine Bacteria 2+ /hpf (NONE) H 04/06/23 19:39 Discharge Plan Discharge Patient Disposition: Home Clinical Impression: CHF (congestive heart failure), Contusion of pelvic region Condition: Stable Prescriptions: New furosemide 40 mg tablet 40 mg PO DAILY Qty: 3 0RF Discontinued hydrochlorothiazide 12.5 mg tablet 12.5 mg PO BID Qty: 60 1RF No Action metoprolol tartrate 75 mg tablet 75 mg PO BID ferrous sulfate [Feosol] 325 mg (65 mg iron) tablet 325 mg PO DAILY simvastatin 20 mg tablet 20 mg PO DAILY aspirin [Aspir-81] 81 mg tablet,delayed release (DR/EC) 81 mg PO DAILY Eliquis 5 mg tablet 5 mg PO BID Qty: 180 0RF escitalopram oxalate [Lexapro] 10 mg Tablet 10 mg PO DAILY potassium chloride 8 mEq tablet extended release 8 meq PO DAILY Qty: 30 0RF donepezil 5 mg Tablet 5 mg PO DAILY docusate sodium 100 mg Capsule 100 mg PO DAILY zolpidem 5 mg Tablet 5 - 10 mg PO BEDTIME glipizide 5 mg Tablet 5 mg PO DAILY Discharge Orders: Discharge ED (Routine); Ordered 04/06/23 Ordered By: Mikhail Weber Referrals: García Theodore MD [Primary Care Provider] - 1-3 days Patient Instructions: Heart Failure (ED), Hip Contusion (ED) Activity Restrictions/Additional Instructions: For now, stop your hydrochlorothiazide. Use furosemide 40 mg daily instead. This is for 3 days. You may return to hydrochlorothiazide following. Call your doctor Saturday for a follow-up appointment. Return for worsening shortness of breath despite treatment, fever, chest discomfort, worsening mental status or worsening fall status, any other concerning symptoms. Coding Level of Care Code ED Transportation Worker for Brock Angelo
--- NOTE | 2023-04-06 17:31 | XRR_ITS ---
PROCEDURE INFORMATION: Exam: XR Lumbosacral Spine Exam date and time: 04/06/2023 6:19 PM Age: 73 years old Clinical indication: Injury or trauma; Fall; Crushing TECHNIQUE: Imaging protocol: Radiologic exam of the lumbosacral spine. Views: 2 or 3 views. COMPARISON: CT lumbar spine wo con* [id number] 07/05/2021 6:54 PM FINDINGS: Limitations: Streak and motion artifacts limit evaluation. Bones/joints: Vertebral body heights are maintained. No acute fracture. Normal alignment. At L1-L2, there are prominent chronic degenerative endplate changes, better demonstrated on the comparison study. Multilevel degenerative disc disease, similar to the comparison examination. Soft tissues: Extensive atherosclerotic calcification of the abdominal aorta and iliac arteries. XR/XR lumbar spine 2-3V* [id number] IMPRESSION: No evidence of acute fracture or acute traumatic subluxation.
--- NOTE | 2023-04-06 17:31 | XRR_ITS ---
PROCEDURE INFORMATION: Exam: XR Chest Exam date and time: 04/06/2023 6:19 PM Age: 73 years old Clinical indication: Shortness of breath; Additional info: SOB TECHNIQUE: Imaging protocol: Radiologic exam of the chest. Views: 1 view. COMPARISON: CR (CHEST, ) 01/23/2023 9:47 PM FINDINGS: Tubes, catheters and devices: A left pacemaker device is present and its leads are in appropriate position. Lungs: There is no evidence of focal pulmonary consolidation. Pleural spaces: No pleural effusion or pneumothorax. Heart/Mediastinum: Mild cardiomegaly. Bones/joints: Old fractures of the right 9th and 10th ribs with advanced healing changes. There are no acute fractures. XR/XR chest 1V portable [id number] IMPRESSION: No acute findings. Stable mild cardiomegaly.
--- NOTE | 2023-04-06 17:31 | XRR_ITS ---
PROCEDURE INFORMATION: Exam: XR Pelvis Exam date and time: 04/06/2023 6:19 PM Age: 73 years old Clinical indication: Injury or trauma; Fall; Other: No pelvic/hip pain TECHNIQUE: Imaging protocol: Radiologic exam of the pelvis. Views: 1 or 2 view. COMPARISON: CT lumbar spine wo con* [id number] 07/05/2021 6:54 PM FINDINGS: Bones/joints: Evaluation of the left hip is limited by technical factors and overlying calcific opacities, some of which may be vascular in etiology. The reminder of the examination shows no acute pelvic fracture and no aggressive bone lesions. Soft tissues: There has been mesh repair of a midline pelvic ventral hernia. XR/XR pelvis 1-2V* [id number] IMPRESSION: 1. Limited evaluation of the left hip. If left hip fracture is suspected, consider a dedicated left hip series or CT scan of the pelvis to include the hips. 2. No other acute finding.
[2023-04-06 17:51] LABS: Basophils # 0.1 10^3/uL (0.0-0.1); Basophils % 0.8 %; Eosinophils # 0.1 10^3/uL (0.0-0.8); Eosinophils % 1.3 %; Hematocrit 39.7 % (37.0-47.0); Hemoglobin 12.1 g/dL (11.5-15.3); Lymphocytes # 1.3 10^3/uL (0.8-4.8); Lymphocytes % 16.8 %; Mean Corpuscular HGB Conc 30.5 g/dL (30.0-36.0); Mean Corpuscular Hemoglobin 28.3 pg (28.0-34.0); Mean Platelet Volume 10.8 fL (7.4-10.4); Monocytes # 0.7 10^3/uL (0.2-0.9); Monocytes % 9.3 %; Neutrophils # 5.54 10^3/uL (1.8-7.7); Neutrophils % 71.4 %; Nucleated Red Blood Cells % 0 %; Platelet Count 211 10^3/cmm (130-400); Red Blood Count 4.27 10^6/uL (4.1-5.3); Red Cell Distribution Width 15.5 % (12.1-15.1); White Blood Count 7.8 10^3/uL (4.0-10.0)
--- NOTE | 2023-04-06 17:53 | ECG_ITS ---
[facility] Test Date: 2023-04-06 Pat Name: Rupa Baptiste Department: Room: Gender: Female Adoption Specialist: : 1950 Requested By: Bubba Santacruz Order Number: [id number] South MD: Dennis Lopez M.D. Measurements Intervals [place] Rate: 76 P: 0 AL: 0 QRS: 50 QRSD: 117 T: 269 QT: 432 QTc: 488 Interpretive Statements ATRIAL FIBRILLATION WITH T WAVE INVERSIONS ELECTRONIC VENTRICULAR PACEMAKER -- CONTOUR ANALYSIS BASED ON INTRINSIC RHYTHM INDETERMINATE AXIS MODERATE INTRAVENTRICULAR CONDUCTION DELAY [110+ ms QRS DURATION] ST DEVIATION AND MODERATE T-WAVE ABNORMALITY, CONSIDER ANTEROLATERAL ISCHEMIA [-0.1+ mV T-WAVE IN V3-V6] ST DEVIATION AND MODERATE T-WAVE ABNORMALITY, CONSIDER INFERIOR ISCHEMIA [-0.1+ mV T-WAVE IN II/aVF] Compared to ECG 01/24/2023 00:02:38 Indeterminate axis now present Intraventricular conduction delay now present Atrial abnormality no longer present T-wave abnormality still present Possible ischemia still present Electronically Signed On 04-08-2023 8:00:45 CDT by Dennis Lopez M.D. [id number]
[2023-04-06 18:06] LABS: Glucose Point of Care 235 mg/dL (70-110)
[2023-04-06 18:10] LABS: Troponin(5th) Baseline 23 ng/L (0-10)
[2023-04-06 18:32] LABS: Anion Gap 15.4 (5-19); Blood Urea Nitrogen 28 mg/dL (8-23); Calcium 8.7 mg/dL (8.5-10.5); Carbon Dioxide 24 mmol/L (22-29); Chloride 97 mmol/L (98-107); Glucose 220 mg/dL (65-115); Magnesium 1.7 mg/dL (1.7-2.3); NT Pro B Type Natriuretic Pept 12982 pg/mL (0-125); Osmolality Calculated 288 mOsm/kg (285-295); Potassium 3.4 mmol/L (3.5-5.1); Sodium 133 mmol/L (136-145); Thyroid Stimulating Hormone 6.61 uIU/mL (0.27-4.20)
--- NOTE | 2023-04-06 18:53 | PC.NURSE ---
PT FAMILY STATES PT HAS GOOD DAYS AND WONKY DAYS WHERE HER DEMENTIA IS PROMINENT. FAMILY STATES THESE DAYS COME AND GO. FAMILY IS CONCERNED PT MAY HAVE A UTI
[2023-04-06] MEDS: FUROsemide 10 mg/mL SDV 10mL 60 MG IVP (19:01)
--- NOTE | 2023-04-06 19:48 | CTR_ITS ---
PROCEDURE INFORMATION: Exam: CT Pelvis Without Contrast; Skeletal Exam date and time: 04/06/2023 7:56 PM Age: 73 years old Clinical indication: Injury or trauma; Fall; Crushing; Left; Hip and pelvic region; Hip and pelvic area; Additional info: Fall pelvic pain TECHNIQUE: Imaging protocol: Computed tomography of the pelvis without contrast. Exam focused on the skeleton. Radiation optimization: All CT scans at this facility use at least one of these dose optimization techniques: automated exposure control; mA and/or kV adjustment per patient size (includes targeted exams where dose is matched to clinical indication); or iterative reconstruction. REPORTING DATA: Count of CT and Cardiac NM exams in prior 12 months: This patient has received 6 known CTs and 0 known cardiac nuclear medicine studies in the 12 months prior to the current study. COMPARISON: CR (PELVIS, ) 04/06/2023 6:19 PM RADIATION DOSE METRICS: Total DLP (mGy-cm): 517.07 FINDINGS: Bones/joints: There is diffuse osseous demineralization. No acute fracture. There is normal joint alignment. Both hips demonstrate acetabular sclerosis and subchondral cyst formation consistent with mild osteoarthritis. There are degenerative changes of the pubic symphysis. Chronic whiskering and ligamentous calcification at the (posterior) ischial tuberosities bilaterally. Soft tissues: Bilateral iliac artery calcification. Mild anasarca of the pelvic wall. No evidence of intrapelvic hematoma. Moderate diverticulosis of the visualized distal colon without acute diverticulitis. CT/CT bony pelvis [id number] IMPRESSION: 1. No evidence of acute fracture or dislocation. 2. Mild degenerative changes of both hips. 3. Chronic whiskering and ligamentous calcification of bilateral ischial tuberosities. 4. Moderate diverticulosis of the distal colon without diverticulitis.
[2023-04-06 20:00] LABS: Troponin 5 2HR 23.81 ng/L (0-10)
[2023-04-06 20:01] LABS: Add Urine Microscopic? YES; Bilirubin Urine Neg (Negative); Blood Urine Neg (Negative); Glucose Urine UA Norm (Normal); Ketones Urine Negative (Negative); Leukocyte Esterase Urine 1+ (Negative); Nitrate Urine Negative (Negative); Protein Urine Neg (Negative); Specific Gravity, Urine 1.005 (1.005-1.030); Urine Appearance Hazy (CLEAR); Urine Color Colorless (Yellow); Urobilinogen Urine Norm (Negative); pH Urine 7 (5-7)
[2023-04-06 20:08] LABS: Bacteria Urine 2+ /hpf; RBC Urine 0-4 /hpf (0-2); Squamous Epithelial Cell Urine 0-4 /hpf (0-5); WBC Urine 25-40 /hpf (0-5)
[2023-04-06 20:09] LABS: Add Urine Culture? Yes
[2023-04-06 20:10] LABS: Troponin 5 2HR Delta 0.81 ABS# (0-10)
== END 2023-04-06 21:35 | disposition home or self-care (01) ==
PROVIDERS: Emergency Medicine; Emergency Provider Emergency Medicine; PCP Family Medicine
DX: S30.0XXA Contusion of lower back and pelvis, initial encounter (principal); Z79.01 Long term (current) use of anticoagulants; Z79.82 Long term (current) use of aspirin; Z79.84 Long term (current) use of oral hypoglycemic drugs; Z87.891 Personal history of nicotine dependence; I13.0 Hypertensive heart and chronic kidney disease with heart failure and stage 1 through stage 4 chronic kidney disease, or unspecified chronic kidney disease; E11.22 Type 2 diabetes mellitus with diabetic chronic kidney disease; N18.9 Chronic kidney disease, unspecified; I50.9 Heart failure, unspecified; Z86.73 Personal history of transient ischemic attack (TIA), and cerebral infarction without residual deficits; I25.2 Old myocardial infarction; Z95.0 Presence of cardiac pacemaker; F03.90 Unspecified dementia, unspecified severity, without behavioral disturbance, psychotic disturbance, mood disturbance, and anxiety; W19.XXXA Unspecified fall, initial encounter
CPT/HCPCS: 36415; 36416; 71045; 72100; 72170; 72192; 80048; 81001; 82962; 83735; 83880; 84443; 84484; 85025; 87077; 87086; 87186; 93005; 96374; 99285; J1940

== ENCOUNTER 2023-04-20 20:48 | Emergency (ER) | payer MEDICARE, MEDICAID, SELFPAY ==
[2023-04-20 20:50] VITALS: BP 157/97; PULSE 105; RESP 18; TEMP 37.4; O2SAT 94; BMI 41.5
--- NOTE | 2023-04-20 21:23 | XRR_ITS ---
PROCEDURE INFORMATION: Exam: XR Chest Exam date and time: 04/20/2023 9:35 PM Age: 73 years old Clinical indication: Other: AMS; Additional info: AMS weakness TECHNIQUE: Imaging protocol: Radiologic exam of the chest. Views: 1 view. COMPARISON: CR (CHEST, ) 04/06/2023 6:19 PM FINDINGS: Tubes, catheters and devices: There is a permanent pacemaker present, unchanged. Lungs: No consolidative pulmonary infiltrates are noted. Pleural spaces: No pleural effusion. No pneumothorax. Heart/Mediastinum: Mild cardiomegaly is noted. Vasculature: The thoracic aorta is atherosclerotic. Bones/joints: Degenerative spine changes. XR/XR chest 1V portable [id number] IMPRESSION: 1. Mild cardiomegaly is noted. 2. No acute abnormality demonstrated. 3. There is no interval change from the prior examination.
[2023-04-20 22:02] LABS: Basophils % 0.4 %; Eosinophils # 0.1 10^3/uL (0.0-0.8); Eosinophils % 0.8 %; Hematocrit 36.2 % (37.0-47.0); Hemoglobin 11.3 g/dL (11.5-15.3); Lymphocytes # 0.6 10^3/uL (0.8-4.8); Lymphocytes % 5.4 %; Mean Corpuscular HGB Conc 31.2 g/dL (30.0-36.0); Mean Corpuscular Hemoglobin 28.3 pg (28.0-34.0); Mean Corpuscular Volume 90.5 fl (81-99); Mean Platelet Volume 9.7 fL (7.4-10.4); Monocytes # 0.7 10^3/uL (0.2-0.9); Monocytes % 6.9 %; Neutrophils # 8.95 10^3/uL (1.8-7.7); Neutrophils % 86.1 %; Nucleated Red Blood Cells % 0 %; Platelet Count 194 10^3/cmm (130-400); Red Cell Distribution Width 16.2 % (12.1-15.1); White Blood Count 10.4 10^3/uL (4.0-10.0)
[2023-04-20 22:21] LABS: Add Urine Microscopic? YES; Bilirubin Urine 1+ (Negative); Blood Urine Neg (Negative); Glucose Urine UA Norm (Normal); Ketones Urine Negative (Negative); Leukocyte Esterase Urine Negative (Negative); Nitrate Urine Negative (Negative); Protein Urine Trace (Negative); Specific Gravity, Urine 1.015 (1.005-1.030); Urine Appearance Clear (CLEAR); Urine Color Yellow (Yellow); Urobilinogen Urine Norm (Negative); pH Urine 5 (5-7)
[2023-04-20 22:22] LABS: Bacteria Urine TRACE /hpf
[2023-04-20 22:38] LABS: Lactic Sepsis W/Reflex 2.4 mmol/L (0.5-2.2)
[2023-04-20 22:44] LABS: Alanine Aminotransferase 29 U/L (0-33); Albumin Level 3.4 g/dL (3.5-5.2); Alkaline Phosphatase 111 U/L (35-105); Aspartate Amino Transferase 46 U/L (0-32); Blood Urea Nitrogen 20 mg/dL (8-23); C Reactive Protein 27.2 mg/L (0.0-4.9); Calcium 8.7 mg/dL (8.5-10.5); Carbon Dioxide 28 mmol/L (22-29); Chloride 92 mmol/L (98-107); Globulin 3.9 g/dL (1.3-4.6); Glucose 204 mg/dL (65-115); Lipase 33 U/L (13-60); NT Pro B Type Natriuretic Pept 6419 pg/mL (0-125); Osmolality Calculated 276 mOsm/kg (285-295); Sodium 129 mmol/L (136-145); Total Protein 7.3 g/dL (6.6-8.7)
[2023-04-20 22:45] LABS: Creatinine Clr Calc Pharmacy 51.6582
[2023-04-20] MEDS: metoprolol tartrate 1 mg/1 mL SDV 5 mL 5 MG IVP (22:52)
[2023-04-20 22:57] VITALS: BP 145/81; PULSE 81; RESP 16; O2SAT 94
[2023-04-20 23:19] VITALS: BP 159/104; PULSE 103; RESP 16; O2SAT 94
[2023-04-20] MEDS: ondansetron 2 mg/ML SDV 2 mL 4 MG IVP (23:32)
[2023-04-20 23:48] LABS: Reflex Lactate Order REFLEX LACTIC ORDERD
[2023-04-21 00:27] VITALS: BP 159/104; PULSE 103; RESP 16; TEMP 37.4; O2SAT 94
--- NOTE | 2023-04-21 00:45 | ED_ITS ---
HPI - Nausea/Vomiting/Diarrhea General: Chief complaint: Nausea/Vomiting/Diarrhea Stated complaint: N/V Time Seen by Provider: 04/20/23 20:52 History of Present Illness: 73-year-old female with a hx of demetntia who has had a couple of episodes of vomiting this evening. She had vomited intermittently on and off throughout the week. She was seen 2 weeks ago, diagnosed with heart failure, and allowed home. Shortness of breath has been improved since that time. At that point, she had an equivocal urinalysis. However, it cultured positive for E. coli, so the patient was called in medication and treated. She experienced vomiting with the Macrobid she was placed on. She seemed improved after starting a different antibiotic prescribed by her PCP for several days, until this evening, when she vomited twice. The patient also has some mental status changes, and generalized weakness. Her daughter had trouble moving her at home, and called an ambulance. Her daughter notes that she had taken her nightly Ambien prior to trying to get her moved, and this may have affected her mental status to some degree as well MD elicited complaint: nausea and vomiting Onset (ago): hour(s) Description of vomiting: food contents Associated nausea: Yes Associated abdominal pain: No Exacerbating factors: eating Associated symtoms: Reports altered mental status and nausea; Denies bloating, chest pain, cough, fevers/chills or anorexia Review of Systems General: Reports: ROS unobtainable due to mental status Card: Denies: chest pain GI: Reports: nausea; Denies: bloating [facility] ED PFSH: Medical History Abnormal gall bladder diagnostic imaging Acquired abnormality of brachiocephalic vein Acute encephalopathy Anticoagulant long-term use Atrial fibrillation Bipolar 1 disorder Chest pain CHF (congestive heart failure) CKD (chronic kidney disease) CVA (cerebral vascular accident) Diabetes HTN (hypertension) Ischemic cardiomyopathy Lung nodule Myocardial infarction Obesity Respiratory distress Sick sinus syndrome Transaminitis Surgical History Status cardiac pacemaker Family History Other Cancer Suicide Social History Smoking and tobacco status: former smoker Caregiver/support person: Yes (daughter) Lives independently: No Household members: none Current occupational status: retired Physical Exam Const: EXAM LIMITATIONS: altered mental status GENERAL APPEARANCE: cooperative and frail appearing; not in distress ORIENTATION/CONSCIOUSNESS: Yes awake and Yes oriented to person; not oriented to place and not oriented to time HENMT: COMMON NORMALS: normocephalic, atraumatic and Normal external nose present HEAD & SCALP: normocephalic and atraumatic NOSE: Normal external nose present Eye: COMMON NORMALS: Equal, round and reactive pupils present and EOMs intact bilaterally PUPIL: Yes Equal, round and reactive pupils present Neck/C-Spine: GENERAL: Yes trachea midline Chest: CHEST: Yes Symmetrical chest wall rise Resp: COMMON NORMALS: normal respiratory effort, No use of accessory muscles and clear to auscultation bilaterally AUSCULTATION: clear to auscultation bilaterally Cardio: COMMON NORMALS: regular rate and regular rhythm RATE: regular rate RHYTHM: regular rhythm GI: COMMON NORMALS: Normal to inspection, nondistended, normoactive bowel sounds present, Soft to palpation and non-tender PALPATION: Yes Soft to palpation Extremity: COMMON NORMALS: no pedal edema Neuro: PENG COMA SCALE: document GCS findings [place] coma scale eye opening: Spontaneous Peng coma scale verbal response: Confused [place] coma scale motor response: Obey commands [place] coma scale total score: 14 SENSORIUM/ORIENTATION: Yes oriented to person, No oriented to place and No oriented to time Course Vital Signs: Vital signs: Vital Signs Temperature 99.4 F 04/21/23 00:27 Pulse Rate 103 H 04/21/23 00:27 Respiratory Rate 16 04/21/23 00:27 Blood Pressure 159/104 04/21/23 00:27 Pulse Oximetry 94 04/21/23 00:27 Oxygen Delivery Me thod Room Air 04/20/23 20:50 MDM - Nausea/Vomiting/Diarrhea Medical Decision Making 73-year-old female. She does appear significantly confused, more so than on my exam of her 2 weeks ago however, this lady has had her nightly Ambien to help her sleep, which can significantly affect mental status. She has no localizing symptoms neurologically. Her laboratory is stable. Chest x-ray is stable as well her CRP is still minimally elevated, but she has no red or white cells in her urine. Her leukocyte esterase is negative. BNP is half of what it was 2 weeks ago. The concern is vomiting. The patient's daughter believes it may be the antibiotic medication she has been taking. The patient has a nontender belly on exam without significant bloating. As her urinalysis is now negative, and UTI seems to be fully treated, she will stop antibiotic. We will place her on Zofran prior to meals for symptom control. If she worsens, they will return. Risk of return is significant, as this patient seems to be fragile, and may not be functioning at home at this point. Lab Data 04/20/23 21:55 04/20/23 21:55 Radiology Impressions Chest X-Ray 04/20/23: IMPRESSION: 1. Mild cardiomegaly is noted. 2. No acute abnormality demonstrated. 3. There is no interval change from the prior examination. Laboratory Results WBC 10.4 10^3/uL (4.0-10.0) H 04/20/23 21:55 RBC 4.00 10^6/uL (4.1-5.3) L 04/20/23 21:55 Hgb 11.3 g/dL (11.5-15.3) L 04/20/23 21: Hct 36.2 % (37.0-47.0) L 04/20/23 21:55 MCV 90.5 fl (81-99) 04/20/23 21:55 MCH 28.3 pg (28.0-34.0) 04/20/23 21: MCHC 31.2 g/dL (30.0-36.0) 04/20/23 21: RDW 16.2 % (12.1-15.1) H 04/20/23 21:55 Plt Count 194 10^3/cmm (130-400) 04/20/23 21: MPV 9.7 fL (7.4-10.4) 04/20/23 21:55 Neut % (Auto) 86.1 % 04/20/23 21: Lymph % (Auto) 5.4 % 04/20/23 21: [place] % (Auto) 6.9 % 04/20/23 21: Eos % (Auto) 0.8 % 04/20/23 21: Baso % (Auto) 0.4 % 04/20/23 21:55 Neut # (Auto) 8.95 10^3/uL (1.8-7.7) H 04/20/23 21:55 Lymph # (Auto) 0.6 10^3/uL (0.8-4.8) L 04/20/23 21:55 [place] # (Auto) 0.7 10^3/uL (0.2-0.9) 04/20/23 21:55 Eos # (Auto) 0.1 10^3/uL (0.0-0.8) 04/20/23 21:55 Baso # (Auto) 0.0 10^3/uL (0.0-0.1) 04/20/23 21:55 Nucleated RBC % (auto) 0 % 04/20/23 21:55 Nucleated RBCs # 0.0 /100WBC 04/20/23 21:55 PT 19.60 SECONDS (12.1-14.9) H 04/20/23 21:55 INR 1.60 (0.8-1.2) H 04/20/23 21:55 APTT 31.0 SECONDS (23.9-36.7) 04/20/23 21:55 Sodium 129 mmol/L (136-145) L 04/20/23 21:55 Potassium 4.0 mmol/L (3.5-5.1) 04/20/23 21:55 Chloride 92 mmol/L (98-107) L 04/20/23 21:55 Carbon Dioxide 28 mmol/L (22-29) 04/20/23 21:55 Anion Gap 13.0 (5-19) 04/20/23 21:55 BUN 20 mg/dL (8-23) 04/20/23 21:55 Creatinine 1.2 mg/dL (0.5-0.9) H 04/20/23 21:55 GFR Calculation Not Reportable 04/20/23 21:55 Glucose 204 mg/dL (65-115) H 04/20/23 21:55 Calculated Osmolality 276 mOsm/kg (285-295) L 04/20/23 21:55 Lactic Acid 2.4 mmol/L (0.5-2.2) H 04/20/23 21:55 Lactic Acid (Sepsis) 2.0 mmol/L (0.5-2.2) 04/20/23 23:58 Calcium 8.7 mg/dL (8.5-10.5) 04/20/23 21:55 Total Bilirubin 1.0 mg/dL (0.15-1.2) 04/20/23 21:55 AST 46 U/L (0-32) H 04/20/23 21:55 ALT 29 U/L (0-33) 04/20/23 21:55 Alkaline Phosphatase 111 U/L (35-105) H 04/20/23 21:55 C-Reactive Protein 27.2 mg/L (0.0-4.9) H 04/20/23 21:55 NT-Pro-B Natriuret Pep 6419 pg/mL (0-125) H 04/20/23 21:55 Total Protein 7.3 g/dL (6.6-8.7) 04/20/23 21:55 Albumin 3.4 g/dL (3.5-5.2) L 04/20/23 21:55 Globulin 3.9 g/dL (1.3-4.6) 04/20/23 21:55 Lipase 33 U/L (13-60) 04/20/23 21:55 Urine Color Yellow (Yellow) 04/20/23 21:50 Urine Appearance Clear (CLEAR) 04/20/23 21:50 Urine pH 5 (5-7) 04/20/23 21:50 Ur Specific [place] 1.015 (1.005-1.030) 04/20/23 21:50 Urine Protein Trace (Negative) 04/20/23 21:50 Urine Glucose (UA) Norm (Normal) 04/20/23 21:50 Urine Ketones Negative (Negative) 04/20/23 21:50 Urine Blood Neg (Negative) 04/20/23 21:50 Urine Nitrate Negative (Negative) 04/20/23 21:50 Urine Bilirubin 1+ (Negative) H 04/20/23 21:50 Urine Urobilinogen Norm mg/dL (Negative) 04/20/23 21:50 Ur Leukocyte Esterase Negative (Negative) 04/20/23 21:50 Urine RBC None /hpf (0-2) 04/20/23 21:50 Urine WBC None /hpf (0-5) 04/20/23 21:50 Ur Squamous Epith Cells 5-10 /hpf (0-5) H 04/20/23 21:50 Amorphous Sediment Not Reportable 04/20/23 21:50 Urine Bacteria Trace /hpf (NONE) 04/20/23 21:50 Discharge Plan Discharge Patient Disposition: Home Clinical Impression: Vomiting, Weakness Condition: Stable Prescriptions: New ondansetron 4 mg film 4 mg PO DAILY PRN (Reason: nausea and vomiting) Qty: 20 0RF No Action metoprolol tartrate 75 mg tablet 75 mg PO BID ferrous sulfate [Feosol] 325 mg (65 mg iron) tablet 325 mg PO DAILY simvastatin 20 mg tablet 20 mg PO DAILY aspirin [Aspir-81] 81 mg tablet,delayed release (DR/EC) 81 mg PO DAILY Eliquis 5 mg tablet 5 mg PO BID Qty: 180 0RF escitalopram oxalate [Lexapro] 10 mg Tablet 10 mg PO DAILY potassium chloride 8 mEq tablet extended release 8 meq PO DAILY Qty: 30 0RF donepezil 5 mg Tablet 5 mg PO DAILY docusate sodium 100 mg Capsule 100 mg PO DAILY zolpidem 5 mg Tablet 5 - 10 mg PO BEDTIME glipizide 5 mg Tablet 5 mg PO DAILY furosemide 40 mg tablet 40 mg PO DAILY Qty: 3 0RF Discharge Orders: Discharge ED (Routine); Ordered 04/21/23 Ordered By: Mikhail Weber Referrals: García Theodore MD [Primary Care Provider] - 1-3 days Patient Instructions: Weakness (ED), Vomiting - Adult Activity Restrictions/Additional Instructions: Return for repeated episodes of vomiting, worsening mental status, worsening weakness, worsening shortness of breath, any other concerning symptoms. Use medication prescribed 30 minutes prior to meals, to prevent vomiting. Follow-up with your doctor this week. You may stop the antibiotic used for the urinary tract infection as this is resolved. Coding Level of Care Code ED Plumbing Technician for Brock Angelo
== END 2023-04-21 00:28 | disposition home or self-care (01) ==
PROVIDERS: Emergency Provider Emergency Medicine; PCP Family Medicine
DX: R11.11 Vomiting without nausea (principal); R53.1 Weakness; Z79.82 Long term (current) use of aspirin; Z79.84 Long term (current) use of oral hypoglycemic drugs; Z87.891 Personal history of nicotine dependence; I13.0 Hypertensive heart and chronic kidney disease with heart failure and stage 1 through stage 4 chronic kidney disease, or unspecified chronic kidney disease; E11.22 Type 2 diabetes mellitus with diabetic chronic kidney disease; N18.9 Chronic kidney disease, unspecified; I50.9 Heart failure, unspecified; Z86.73 Personal history of transient ischemic attack (TIA), and cerebral infarction without residual deficits; I25.2 Old myocardial infarction; Z95.0 Presence of cardiac pacemaker
CPT/HCPCS: 36415; 71045; 80053; 81001; 83605; 83690; 83880; 85025; 85610; 85730; 86140; 96374; 96375; 99285; J2405; J3490

== ENCOUNTER 2023-06-04 17:21 | Inpatient (IN) | payer MEDICARE, MEDICAID, SELFPAY ==
[2023-06-04] VITALS (11 sets, daily range): BP systolic 101–131; BP diastolic 73–91; PULSE 69–121; RESP 4–28; TEMP 35.8–36.4; O2SAT 96–99; BMI 29.9
--- NOTE | 2023-06-04 | XRR_ITS ---
[facility] Final Radiology Report Call: [phone] assistance Online chat: [email or web address] Name: BHARAT ESTRADA Age: 73Years F Date: 06/04/2023 MRN: [id number] SSN: -- : 1950 Study: XR CHEST 1 VIEW Requesting Physician: CHLOE ROWELL Images: 1 Add?l Studies: Provided Clinical History: PROCEDURE INFORMATION: Exam: XR Chest Exam date and time: 06/04/2023 6:33 PM Age: 73 years old Clinical indication: Patient HX: Cough, sobhorts TECHNIQUE: Imaging protocol: Radiologic exam of the chest. Views: 1 view. COMPARISON: No relevant prior studies available. FINDINGS: Tubes, catheters and devices: Pacemaker pad on the left chest wall. Intact dual lead left subclavian pacemaker. Lungs: Unremarkable. No consolidation. Pleural spaces: Unremarkable. No pleural effusion. No pneumothorax. Heart/Mediastinum: Cardiomegaly. Bones/joints: Unremarkable. IMPRESSION: 1. No acute pulmonary findings. 2. Cardiomegaly. Thank you for allowing us to participate in the care of your patient. Dictated and Authenticated by: Rogelio Cesar MD 06/04/2023 7:29 PM Central Time ([place] & [place]) [place]
--- NOTE | 2023-06-04 17:59 | ECG_ITS ---
[facility] Test Date: 2023-06-04 Pat Name: Rupa Baptiste Department: Room: ICU11 Gender: Female Window/Distribution Clerk: : 1950 Requested By: Sameer Baker Order Number: [id number] South MD: Jere Hardy M.D. Measurements Intervals [place] Rate: 115 P: 132 FL: 242 QRS: -66 QRSD: 169 T: 127 QT: 407 QTc: 565 Interpretive Statements ELECTRONIC VENTRICULAR PACEMAKER ABNORMAL RHYTHM ECG Compared to ECG 04/06/2023 17:53:42 Indeterminate axis no longer present Intraventricular conduction delay no longer present T-wave abnormality no longer present Possible ischemia no longer present Electronically Signed On 06-05-2023 14:45:55 CDT by Jere Hardy M.D. [id number] [email or web address]
[2023-06-04] MEDS: amiodarone 50 mg/mL SDV 3 mL 150 MG IVP (18:01)
--- NOTE | 2023-06-04 18:01 | ED_ITS ---
Documented by User: Sameer Samuel KassandraDO lianna 06/05/23 06:27 HPI - SOB/Dyspnea General: Chief Complaint: Shortness of Breath/Dyspnea Stated Complaint: chest pain, sob, Time Seen by Provider: 06/04/23 17:46 History of Present Illness: HPI Narrative: 73-year-old female presents to the emergency room generally feeling weak having rapid heart rate intermittently. Patient has a known history of atrial fibrillation has a pacemaker in place for the looking at her chart it is not an ICD. She presents with her daughter and neither of them were certain whether it was an ICD or not. Initially her complaint was generalized weakness not feeling well has been going on for some time. She was seen at another local emergency room there were no significant findings and she was discharged home. Shortly after arrival here she began having a wide-complex tachycardia around 1 15-1 20. On the rhythm strip she did not be appear to be any pacemaker spikes however on the EKG there are small pacemaker spikes it appears to be pacing at a rate of 115-120 intermittently there are on paced QRS spikes. He has a history of congestive heart failure as well. Took over care Pending labs and disposition. This is a 73-year-old female with complex medical history including atrial fibrillation, mood disorder, CHF, hypertension and hyperlipidemia. Patient presents emergency room with shortness of breath within the past few days but noticed increased difficulty breathing prior comes emergency room. Patient denies any chest pain, cough, cough blood or vomiting blood. No sick contacts or recent foreign travel. I discussed the EKG finding with initial ED physician. There was a concern for possible cardiac arrhythmia. Patient was started on amiodarone before I took over patient's care. MD elicited complaint: shortness of breath Pertinent past history: congestive heart failure Timing: intermittent Severity: moderate Exacerbating factors: nothing Relieving factors: nothing Known history of: congestive heart failure Associated symptoms: Reports chest congestion, cough, nausea and palpitations; Deny abdominal pain, chest pain, diaphoresis, dizziness, extremity pain, fever(s), hemoptysis, lightheadedness, myalgias, orthopnea, paresthesias, polydipsia, polyuria, rash, sense of impending doom, syncope or vomiting Treatment prior to arrival: none Review of Systems Const: Reports: fatigue and malaise; Denies: fever(s), chills or diaphoresis Card: Reports: palpitations, irregular heart rhythm and edema; Denies: chest pain, lightheadedness, syncope or orthopnea Resp: Reports: dyspnea and chest congestion; Denies: productive cough, non-productive cough or hemoptysis GI: Reports: nausea; Denies: abdominal pain or vomiting : Denies: dysuria, urinary frequency or urinary urgency Musc: Denies: neck pain, back pain or extremity pain Skin/Breast: Denies: rash or pruritus Neuro: Denies: dizziness Endo: Denies: polyuria or polydipsia PFSH ED PFSH: Medical History Abnormal gall bladder diagnostic imaging Acquired abnormality of brachiocephalic vein Acute encephalopathy Anticoagulant long-term use Atrial fibrillation Bipolar 1 disorder Chest pain CHF (congestive heart failure) CKD (chronic kidney disease) CVA (cerebral vascular accident) Residual right-sided weakness Diabetes HTN (hypertension) Ischemic cardiomyopathy Lung nodule Myocardial infarction Obesity Respiratory distress Sick sinus syndrome Transaminitis Surgical History History of hysterectomy Status cardiac pacemaker Family History Other Cancer Suicide Social History Smoking and tobacco status: former smoker Caregiver/support person: Yes (daughter) Lives independently: No Household members: none Current occupational status: retired Physical Exam Const: GENERAL APPEARANCE: cooperative and comfortable ORIEN TATION/CONSCIOUSNESS: Yes awake, Yes oriented to person, Yes oriented to place and Yes oriented to time HENMT: COMMON NORMALS: normocephalic, atraumatic and hearing grossly normal bilaterally HEAD & SCALP: normocephalic and atraumatic Resp: COMMON NORMALS: normal respiratory effort, No retractions and No use of accessory muscles AUSCULTATION: rales Cardio: COMMON NORMALS: No murmurs present (Cardio) RATE: tachycardic RHYTHM: abnormal rhythm irregularly irregular GI: COMMON NORMALS: Soft to palpation and No hepatosplenomegaly present AUSCULTATION: Yes normoactive bowel sounds PALPATION: Yes Soft to palpation, No Tenderness to palpation present (GI), No Guarding due to palpation present (GI) and Yes No hepatosplenomegaly present Extremity: COMMON NORMALS: normal to inspection, capillary refill normal, no clubbing, cyanosis or edema, no calf tenderness and no pedal edema Neuro: SENSORIUM/ORIENTATION: Yes oriented to person, Yes oriented to place and Yes oriented to time Skin: COMMON NORMALS: no rashes or lesions noted GENERAL SKIN EXAM: no rashes or lesions noted Course Vital Signs: Vital signs: Vital Signs Temperature 97.5 F L 06/06/23 19:00 Pulse Rate 107 H 06/07/23 02:00 Respiratory Rate 20 H 06/07/23 02:00 Blood Pressure 105/70 06/07/23 02:00 Pulse Oximetry 96 06/07/23 02:00 Oxygen Delivery Me thod Room Air 06/06/23 23:00 Oxygen Flow Rate 1 06/06/23 19:00 MDM - SOB/Dyspnea Medical Decision Making Initially on arrival patient was one of the regular exam rooms began having a tachyarrhythmia look like intermittent slow V. tach on the rate monitor. There did not appear to be any pacemaker spikes she was brought to the trauma bay and given 150 mg of IV push amiodarone and started on Milic amiodarone drip at half milligram. EKG shows a small pacer spikes with each of these complexes however the rate is at 115. Reviewing chart she does not have an ICD. Care signed out to Dr. White at change of shift. See final notes for diagnosis and disposition. Patient was made comfortable emergency room. Patient had extensive work-up done including CBC, CMP, troponin, BNP and cardiac enzymes. She was given Cardizem, amiodarone bolus and drip. Discussed the lab and treatment plan with the fernanda galvan at bedside. Discussed patient with the team assembler and hospitalist. Patient will be admitted for ICU admission for further evaluation and treatment. Lab Data 06/06/23 04:30 06/06/23 04:30 Labs/Radiology: Laboratory Results WBC 6.2 10^3/uL (4.0-10.0) 06/04/23 18:10 RBC 5.08 10^6/uL (4.1-5.3) 06/04/23 18:10 Hgb 15.3 g/dL (11.5-15.3) 06/04/23 18:10 Hct 49.0 % (37.0-47.0) H 06/04/23 18:10 MCV 96.5 fl (81-99) 06/04/23 18:10 MCH 30.1 pg (28.0-34.0) 06/04/23 18:10 MCHC 31.2 g/dL (30.0-36.0) 06/04/23 18:10 RDW 21.9 % (12.1-15.1) H 06/04/23 18:10 Plt Count 173 10^3/cmm (130-400) 06/04/23 18:10 MPV 11.3 fL (7.4-10.4) H 06/04/23 18:10 Neut % (Auto) 59.3 % 06/04/23 18:10 Lymph % (Auto) 28.6 % 06/04/23 18:10 Reeves % (Auto) 9.1 % 06/04/23 18:10 Eos % (Auto) 1.9 % 06/04/23 18:10 Baso % (Auto) 0.8 % 06/04/23 18:10 Neut # (Auto) 3.69 10^3/uL (1.8-7.7) 06/04/23 18:10 Lymph # (Auto) 1.8 10^3/uL (0.8-4.8) 06/04/23 18:10 Reeves # (Auto) 0.6 10^3/uL (0.2-0.9) 06/04/23 18:10 Eos # (Auto) 0.1 10^3/uL (0.0-0.8) 06/04/23 18:10 Baso # (Auto) 0.1 10^3/uL (0.0-0.1) 06/04/23 18:10 Nucleated RBC % (auto) 0 % 06/04/23 18:10 Nucleated RBCs # 0.0 /100WBC 06/04/23 18:10 Sodium 140 mmol/L (136-145) 06/04/23 18:10 Potassium 3.9 mmol/L (3.5-5.1) 06/04/23 18:10 Chloride 101 mmol/L (98-107) 06/04/23 18:10 Carbon Dioxide 27 mmol/L (22-29) 06/04/23 18:10 Anion Gap 15.9 (5-19) 06/04/23 18:10 BUN 16 mg/dL (8-23) 06/04/23 18:10 Creatinine 1.0 mg/dL (0.5-0.9) H 06/04/23 18:10 GFR Calculation Not Reportable 06/04/23 18:10 Glucose 102 mg/dL (65-115) 06/04/23 18:10 Calculated Osmolality 291 mOsm/kg (285-295) 06/04/23 18:10 Calcium 9.1 mg/dL (8.5-10.5) 06/04/23 18:10 Magnesium 1.8 mg/dL (1.7-2.3) 06/04/23 18:10 Total Bilirubin 2.1 mg/dL (0.15-1.2) H 06/04/23 18:10 AST 36 U/L (0-32) H 06/04/23 18:10 ALT 21 U/L (0-33) 06/04/23 18:10 Alkaline Phosphatase 87 U/L (35-105) 06/04/23 18:10 Troponin T Baseline 31 ng/L (0-10) H 06/04/23 18:10 Troponin T 120 Minute 34.26 ng/L (0-10) H 06/04/23 20:28 Delta Troponin T 3.26 ABS# (0-10) 06/04/23 20:28 NT-Pro-B Natriuret Pep 77150 pg/mL (0-125) H 06/04/23 18:10 Total Protein 6.5 g/dL (6.6-8.7) L 06/04/23 18:10 Albumin 3.2 g/dL (3.5-5.2) L 06/04/23 18:10 Globulin 3.3 g/dL (1.3-4.6) 06/04/23 18:10 Discharge Plan Discharge Patient Disposition: Admitted As Inpatient Admit Provider: Tyron Miranda Clinical Impression: Arrhythmia, Acute dyspnea, CHF (congestive heart failure) Condition: Stable Coding Level of Care Code ED [employer] And [employer] Manager for Chg Fwd Documented by User: aVn White MD 06/07/23 02:42 HPI - SOB/Dyspnea General: Chief Complaint: Shortness of Breath/Dyspnea Stated Complaint: chest pain, sob, Time Seen by Provider: 06/04/23 17:46 History of Present Illness: HPI Narrative: Took over care Pending labs and disposition. This is a 73-year-old female with complex medical history including atrial fibrillation, mood disorder, CHF, hypertension and hyperlipidemia. Patient presents emergency room with shortness of breath within the past few days but noticed increased difficulty breathing prior comes emergency room. Patient denies any chest pain, cough, cough blood or vomiting blood. No sick contacts or recent foreign travel. I discussed the EKG finding with initial ED physician. There was a concern for possible cardiac arrhythmia. Patient was started on amiodarone before I took over patient's care. Associated symptoms: Deny hemoptysis Review of Systems General: Reports: 10 or more systems reviewed and unremarkable except in HPI and below Resp: Reports: dyspnea; Denies: productive cough, non-productive cough, pain on inspiration, change in phlegm color or hemoptysis PFSH ED PFSH: Medical History Abnormal gall bladder diagnostic imaging Acquired abnormality of brachiocephalic vein Acute encephalopathy Anticoagulant long-term use Atrial fibrillation Bipolar 1 disorder Chest pain CHF (congestive heart failure) CKD (chronic kidney disease) CVA (cerebral vascular accident) Residual right-sided weakness Diabetes HTN (hypertension) Ischemic cardiomyopathy Lung nodule Myocardial infarction Obesity Respiratory distress Sick sinus syndrome Transaminitis Surgical History History of hysterectomy Status cardiac pacemaker Family History Other Cancer Suicide Social History Smoking and tobacco status: former smoker Caregiver/support person: Yes (daughter) Lives independently: No Household members: none Current occupational status: retired Physical Exam Const: COMMON NORMALS: no acute distress, average body habitus, patient oriented x3, no limitations, healthy appearing, alert and well nourished Neck/C-Spine: COMMON NORMALS: full ROM, no lymphadenopathy, supple, no meningeal signs, no JVD, Thyroid normal and No carotid bruits THYROID: Thyroid normal Chest: COMMONS NORMALS: normal inspection of the chest, normal palpation of entire chest wall, normal inspection of the breasts and normal palpation of the breasts Breast/axilla inspection: Yes normal inspection of the breasts BREAST/AXILLA PALPATION: Yes normal palpation of the breasts Resp: AUSCULTATION: diminished lung sounds, no tactile fremitus, No rub present and no vesicular sounds Cardio: COMMON NORMALS: no JVD and S2 normal heart sound present RATE: tachycardic and Other (paced ) RHYTHM: other (paced) HEART SOUNDS: S2 normal heart sound present GI: COMMON NORMALS: Normal to inspection, nondistended, normoactive bowel sounds present, Soft to palpation, non-tender, No hepatosplenomegaly present, no masses and no bruits PALPATION: Yes Soft to palpation and Yes No hepatosplenomegaly present Extremity: COMMON NORMALS: normal to inspection, full ROM, capillary refill n ormal, no joint enlargement, no clubbing, cyanosis or edema, no calf tenderness and no pedal edema Neuro: COMMON NORMALS: patient oriented x3 SENSORIUM/ORIENTATION: Yes alert MENINGEAL SIGNS: Yes no meningeal signs Psych: COMMON NORMALS: mental status grossly normal, Normal thought process present, cooperative, normal affect, speech normal, activity/motor behavior normal, denies hallucinations, denies homicidal ideation and denies suicidal ideation SPEECH: Yes normal speech THOUGHT PROCESS: Normal thought process present Course Vital Signs: Vital signs: Vital Signs Temperature 97.5 F L 06/06/23 19:00 Pulse Rate 107 H 06/07/23 02:00 Respiratory Rate 20 H 06/07/23 02:00 Blood Pressure 105/70 06/07/23 02:00 Pulse Oximetry 96 06/07/23 02:00 Oxygen Delivery Me thod Room Air 06/06/23 23:00 Oxygen Flow Rate 1 06/06/23 19:00 MDM - SOB/Dyspnea Medical Decision Making Patient was made comfortable emergency room. Patient had extensive work-up done including CBC, CMP, troponin, BNP and cardiac enzymes. She was given Cardizem, amiodarone bolus and drip. Discussed the lab and treatment plan with the daughter at bedside. Discussed patient with the team assembler and hospitalist. Patient will be admitted for ICU admission for further evaluation and treatment. Differential Diagnosis Likely acute exacerbation of chronic obstructive airways disease, congestive heart failure, community acquired pneumonia, asthma with exacerbation and pulm onary embolism Lab Data 06/06/23 04:30 06/06/23 04:30 Labs/Radiology: Laboratory Results WBC 6.2 10^3/uL (4.0-10.0) 06/04/23 18:10 RBC 5.08 10^6/uL (4.1-5.3) 06/04/23 18:10 Hgb 15.3 g/dL (11.5-15.3) 06/04/23 18:10 Hct 49.0 % (37.0-47.0) H 06/04/23 18:10 MCV 96.5 fl (81-99) 06/04/23 18:10 MCH 30.1 pg (28.0-34.0) 06/04/23 18:10 MCHC 31.2 g/dL (30.0-36.0) 06/04/23 18:10 RDW 21.9 % (12.1-15.1) H 06/04/23 18:10 Plt Count 173 10^3/cmm (130-400) 06/04/23 18:10 MPV 11.3 fL (7.4-10.4) H 06/04/23 18:10 Neut % (Auto) 59.3 % 06/04/23 18:10 Lymph % (Auto) 28.6 % 06/04/23 18:10 Reeves % (Auto) 9.1 % 06/04/23 18:10 Eos % (Auto) 1.9 % 06/04/23 18:10 Baso % (Auto) 0.8 % 06/04/23 18:10 Neut # (Auto) 3.69 10^3/uL (1.8-7.7) 06/04/23 18:10 Lymph # (Auto) 1.8 10^3/uL (0.8-4.8) 06/04/23 18:10 Reeves # (Auto) 0.6 10^3/uL (0.2-0.9) 06/04/23 18:10 Eos # (Auto) 0.1 10^3/uL (0.0-0.8) 06/04/23 18:10 Baso # (Auto) 0.1 10^3/uL (0.0-0.1) 06/04/23 18:10 Nucleated RBC % (auto) 0 % 06/04/23 18:10 Nucleated RBCs # 0.0 /100WBC 06/04/23 18:10 Sodium 140 mmol/L (136-145) 06/04/23 18:10 Potassium 3.9 mmol/L (3.5-5.1) 06/04/23 18:10 Chloride 101 mmol/L (98-107) 06/04/23 18:10 Carbon Dioxide 27 mmol/L (22-29) 06/04/23 18:10 Anion Gap 15.9 (5-19) 06/04/23 18:10 BUN 16 mg/dL (8-23) 06/04/23 18:10 Creatinine 1.0 mg/dL (0.5-0.9) H 06/04/23 18:10 GFR Calculation Not Reportable 06/04/23 18:10 Glucose 102 mg/dL (65-115) 06/04/23 18:10 Calculated Osmolality 291 mOsm/kg (285-295) 06/04/23 18:10 Calcium 9.1 mg/dL (8.5-10.5) 06/04/23 18:10 Magnesium 1.8 mg/dL (1.7-2.3) 06/04/23 18:10 Total Bilirubin 2.1 mg/dL (0.15-1.2) H 06/04/23 18:10 AST 36 U/L (0-32) H 06/04/23 18:10 ALT 21 U/L (0-33) 06/04/23 18:10 Alkaline Phosphatase 87 U/L (35-105) 06/04/23 18:10 Troponin T Baseline 31 ng/L (0-10) H 06/04/23 18:10 Troponin T 120 Minute 34.26 ng/L (0-10) H 06/04/23 20:28 Delta Troponin T 3.26 ABS# (0-10) 06/04/23 20:28 NT-Pro-B Natriuret Pep 09527 pg/mL (0-125) H 06/04/23 18:10 Total Protein 6.5 g/dL (6.6-8.7) L 06/04/23 18:10 Albumin 3.2 g/dL (3.5-5.2) L 06/04/23 18:10 Globulin 3.3 g/dL (1.3-4.6) 06/04/23 18:10 Other Data Paced rhythm with rate of 115.. 0-42 QRS interval 169 with interval 407 Critical Care Time Critical Care Time: Critical Care Time: Yes Total Critical Care Time: 45 Attestation: Time spent for multiple reevaluation. Discussed the patient with team assembler and hospitalist. Time spent discussing patient with family. Time spent reviewing old medical records including EKG and chest x-ray. Discharge Plan Discharge Patient Disposition: Admitted As Inpatient Admit Provider: Tyron Miranda Clinical Impression: Arrhythmia, Acute dyspnea, CHF (congestive heart failure) Condition: Stable Coding Level of Care Code ED [employer] And Special Products Manager for Brock Angelo
[2023-06-04 18:17] LABS: Basophils # 0.1 10^3/uL (0.0-0.1); Basophils % 0.8 %; Eosinophils # 0.1 10^3/uL (0.0-0.8); Eosinophils % 1.9 %; Hemoglobin 15.3 g/dL (11.5-15.3); Lymphocytes # 1.8 10^3/uL (0.8-4.8); Lymphocytes % 28.6 %; Mean Corpuscular HGB Conc 31.2 g/dL (30.0-36.0); Mean Corpuscular Hemoglobin 30.1 pg (28.0-34.0); Mean Corpuscular Volume 96.5 fl (81-99); Mean Platelet Volume 11.3 fL (7.4-10.4); Monocytes # 0.6 10^3/uL (0.2-0.9); Monocytes % 9.1 %; Neutrophils # 3.69 10^3/uL (1.8-7.7); Neutrophils % 59.3 %; Nucleated Red Blood Cells % 0 %; Platelet Count 173 10^3/cmm (130-400); Red Blood Count 5.08 10^6/uL (4.1-5.3); Red Cell Distribution Width 21.9 % (12.1-15.1); White Blood Count 6.2 10^3/uL (4.0-10.0)
--- NOTE | 2023-06-04 18:46 | W.ED.SOB ---
Documented by User: Van White MD 06/05/23 01:16 HPI - SOB/Dyspnea General: Chief Complaint: Shortness of Breath/Dyspnea Stated Complaint: chest pain, sob, Time Seen by Provider: 06/04/23 17:46 History of Present Illness: HPI Narrative: 73-year-old female with complex medical history including CHF, atrial fibrillation, mood disorder, and hyperlipidemia. Patient presents emergency room with daughter due to shortness of breath. Upon present emergency room patient was found to have abnormal rhythm on the EKG. She was started on amiodarone bolus and a drip. Associated symptoms: Deny chest pain, hemoptysis, lightheadedness, palpitations or syncope Review of Systems General: Reports: 10 or more systems reviewed and unremarkable except in HPI and below ENMT: Denies: enlarged tonsils Card: Denies: chest pain, palpitations, lightheadedness, syncope, pre-syncope, dyspnea on exertion or leg pain with exertion Resp: Reports: dyspnea; Denies: productive cough, non-productive cough, pain on inspiration, change in phlegm color or hemoptysis PFSH ED PFSH: Medical History (Updated 06/04/23 @ 23:06 by Tyron Miranda MD) Abnormal gall bladder diagnostic imaging Acquired abnormality of brachiocephalic vein Acute encephalopathy Anticoagulant long-term use Atrial fibrillation Bipolar 1 disorder Chest pain CHF (congestive heart failure) CKD (chronic kidney disease) CVA (cerebral vascular accident) Residual right-sided weakness Diabetes HTN (hypertension) Ischemic cardiomyopathy Lung nodule Myocardial infarction Obesity Respiratory distress Sick sinus syndrome Transaminitis Surgical History (Updated 06/04/23 @ 22:56 by Tyron Miranda MD) History of hysterectomy Status cardiac pacemaker Family History Other Cancer Suicide Social History Smoking and tobacco status: former smoker Caregiver/support person: Yes (daughter) Lives independently: No Household members: none Current occupational status: retired Physical Exam Const: COMMON NORMALS: no acute distress, average body habitus, patient oriented x3, no limitations, healthy appearing, alert and well nourished Neck/C-Spine: COMMON NORMALS: full ROM, no lymphadenopathy, supple, no meningeal signs, no JVD, Thyroid normal and No carotid bruits THYROID: Thyroid normal Chest: COMMONS NORMALS: normal inspection of the chest, normal palpation of entire chest wall, normal inspection of the breasts and normal palpation of the breasts Breast/axilla inspection: Yes normal inspection of the breasts BREAST/AXILLA PALPATION: Yes normal palpation of the breasts Resp: AUSCULTATION: diminished lung sounds, no tactile fremitus, No rub present and no vesicular sounds Cardio: COMMON NORMALS: no JVD and S2 normal heart sound present RATE: tachycardic and Other (paced ) RHYTHM: other (paced) HEART SOUNDS: S2 normal heart sound present GI: COMMON NORMALS: Normal to inspection, nondistended, normoactive bowel sounds present, Soft to palpation, non-tender, No hepatosplenomegaly present, no masses and no bruits PALPATION: Yes Soft to palpation and Yes No hepatosplenomegaly present Extremity: COMMON NORMALS: normal to inspection, full ROM, capillary refill normal, no joint enlargement, no clubbing, cyanosis or edema, no calf tenderness and no pedal edema Neuro: COMMON NORMALS: patient oriented x3 SENSORIUM/ORIENTATION: Yes alert MENINGEAL SIGNS: Yes no meningeal signs Psych: COMMON NORMALS: mental status grossly normal, Normal thought process present, cooperative, normal affect, speech normal, activity/motor behavior normal, denies hallucinations, denies homicidal ideation and denies suicidal ideation SPEECH: Yes normal speech THOUGHT PROCESS: Normal thought process present Course Reevaluation(s): Reevaluation #1: Patient was resting comfortably without acute distress. I discussed the finding with daughter. Reevaluation #2: Patient was given Cardizem bolus and patient was reexamined. Reevaluation #3: Patient was given IV Lasix. Discussed the rationale with daughter. Consultations: Consultation #1: I 6:40 PM I discussed patient with Dr. wynne the wholesale parts salesperson about the abnormal breathing and EKG abnormalities. I was told is okay to apply electrocardioversion if needed Consultation #2: I discussed patient with the hospitalist patient will be admitted for further evaluation and treatment. Consultation #3: I spoke with pacemaker member service representative and after interrogating the pacemaker she discussed the results with me. According to her there is no ventricular arrhythmia mostly atrial arrhythmia. Vital Signs: Vital signs: Vital Signs Temperature 96.8 F L 06/05/23 04:00 Pulse Rate 93 06/05/23 04:15 Respiratory Rate 23 H 06/05/23 04:15 Blood Pressure 104/74 06/05/23 04:00 Pulse Oximetry 80 L 06/05/23 04:15 Oxygen Delivery Me thod Nasal Cannula 06/04/23 23:24 Oxygen Flow Rate 2 06/04/23 23:24 MDM - SOB/Dyspnea Medical Decision Making Patient made comfortable emergency room. Patient extensive work-up done including CBC, CMP, BMP, troponin, chest x-ray. Was treated with IV amiodarone, Cardizem and Lasix. Discussed the x-ray, lab findings and treatment with daughter at bedside. Discussed patient with wholesale parts salesperson, hospitalist and pacemaker interrogator. Patient will be admitted for further evaluation and treatment. While in emergency room patient main stable within acute distress. Differential Diagnosis Likely acute exacerbation of chronic obstructive airways disease, congestive heart failure, community acquired pneumonia, asthma with exacerbation and pulmonary embolism Lab Data 06/05/23 01:15 06/05/23 01:15 Labs/Radiology: Laboratory Results WBC 6.2 10^3/uL (4.0-10.0) 06/04/23 18:10 RBC 5.08 10^6/uL (4.1-5.3) 06/04/23 18:10 Hgb 15.3 g/dL (11.5-15.3) 06/04/23 18:10 Hct 49.0 % (37.0-47.0) H 06/04/23 18:10 MCV 96.5 fl (81-99) 06/04/23 18:10 MCH 30.1 pg (28.0-34.0) 06/04/23 18:10 MCHC 31.2 g/dL (30.0-36.0) 06/04/23 18:10 RDW 21.9 % (12.1-15.1) H 06/04/23 18:10 Plt Count 173 10^3/cmm (130-400) 06/04/23 18:10 MPV 11.3 fL (7.4-10.4) H 06/04/23 18:10 Neut % (Auto) 59.3 % 06/04/23 18:10 Lymph % (Auto) 28.6 % 06/04/23 18:10 Mckenzie % (Auto) 9.1 % 06/04/23 18:10 Eos % (Auto) 1.9 % 06/04/23 18:10 Baso % (Auto) 0.8 % 06/04/23 18:10 Neut # (Auto) 3.69 10^3/uL (1.8-7.7) 06/04/23 18:10 Lymph # (Auto) 1.8 10^3/uL (0.8-4.8) 06/04/23 18:10 Mckenzie # (Auto) 0.6 10^3/uL (0.2-0.9) 06/04/23 18:10 Eos # (Auto) 0.1 10^3/uL (0.0-0.8) 06/04/23 18:10 Baso # (Auto) 0.1 10^3/uL (0.0-0.1) 06/04/23 18:10 Nucleated RBC % (auto) 0 % 06/04/23 18:10 Nucleated RBCs # 0.0 /100WBC 06/04/23 18:10 Sodium 140 mmol/L (136-145) 06/04/23 18:10 Potassium 3.9 mmol/L (3.5-5.1) 06/04/23 18:10 Chloride 101 mmol/L (98-107) 06/04/23 18:10 Carbon Dioxide 27 mmol/L (22-29) 06/04/23 18:10 Anion Gap 15.9 (5-19) 06/04/23 18:10 BUN 16 mg/dL (8-23) 06/04/23 18:10 Creatinine 1.0 mg/dL (0.5-0.9) H 06/04/23 18:10 GFR Calculation Not Reportable 06/04/23 18:10 Glucose 102 mg/dL (65-115) 06/04/23 18:10 Calculated Osmolality 291 mOsm/kg (285-295) 06/04/23 18:10 Calcium 9.1 mg/dL (8.5-10.5) 06/04/23 18:10 Magnesium 1.8 mg/dL (1.7-2.3) 06/04/23 18:10 Total Bilirubin 2.1 mg/dL (0.15-1.2) H 06/04/23 18:10 AST 36 U/L (0-32) H 06/04/23 18:10 ALT 21 U/L (0-33) 06/04/23 18:10 Alkaline Phosphatase 87 U/L (35-105) 06/04/23 18:10 Troponin T Baseline 31 ng/L (0-10) H 06/04/23 18:10 Troponin T 120 Minute 34.26 ng/L (0-10) H 06/04/23 20:28 Delta Troponin T 3.26 ABS# (0-10) 06/04/23 20:28 NT-Pro-B Natriuret Pep 62258 pg/mL (0-125) H 06/04/23 18:10 Total Protein 6.5 g/dL (6.6-8.7) L 06/04/23 18:10 Albumin 3.2 g/dL (3.5-5.2) L 06/04/23 18:10 Globulin 3.3 g/dL (1.3-4.6) 06/04/23 18:10 EKG Data EKG 1: Interpretation: Rate of 113 with paced rhythm. MT interval. QT interval 399. No ST elevation or inverted T wave. EKG 2: Computer Generated Interpretation: Rate of 115 with MT interval of 242 paced rhythm. No obvious ST elevation ST changes. QTc 407. Critical Care Time Critical Care Time: Critical Care Time: Yes Total Critical Care Time: 45 Attestation: Time spent to reevaluate and reexamined patient multiple times. Time spent discussing lab and x-ray findings with daughter. Discussed patient with wholesale parts salesperson, hospitalist and pacemaker interrogated. Time spent to review past medical history and old records. Discharge Plan Discharge Patient Disposition: Admitted As Inpatient Admit Provider: Tyron Miranda Clinical Impression: Arrhythmia, Acute dyspnea, CHF (congestive heart failure) Condition: Stable Coding Level of Care Code ED Laboratory Technologist for Chg Fwd Documented by User: Sameer Cai DO 06/05/23 06:20 HPI - SOB/Dyspnea General: Chief Complaint: Shortness of Breath/Dyspnea Stated Complaint: chest pain, sob, Time Seen by Provider: 06/04/23 17:46 PFSH ED PFSH: Medical History (Updated 06/04/23 @ 23:06 by Tyron Miranda MD) Abnormal gall bladder diagnostic imaging Acquired abnormality of brachiocephalic vein Acute encephalopathy Anticoagulant long-term use Atrial fibrillation Bipolar 1 disorder Chest pain CHF (congestive heart failure) CKD (chronic kidney disease) CVA (cerebral vascular accident) Residual right-sided weakness Diabetes HTN (hypertension) Ischemic cardiomyopathy Lung nodule Myocardial infarction Obesity Respiratory distress Sick sinus syndrome Transaminitis Surgical History (Updated 06/04/23 @ 22:56 by Tyron Miranda MD) History of hysterectomy Status cardiac pacemaker Family History Other Cancer Suicide Social History Smoking and tobacco status: former smoker Caregiver/support person: Yes (daughter) Lives independently: No Household members: none Current occupational status: retired Course Vital Signs: Vital signs: Vital Signs Temperature 96.8 F L 06/05/23 04:00 Pulse Rate 93 06/05/23 04:15 Respiratory Rate 23 H 06/05/23 04:15 Blood Pressure 104/74 06/05/23 04:00 Pulse Oximetry 80 L 06/05/23 04:15 Oxygen Delivery Me thod Nasal Cannula 06/04/23 23:24 Oxygen Flow Rate 2 06/04/23 23:24 MDM - SOB/Dyspnea Medical Decision Making Duplicate chart. Care signed out to Dr. White at change of shift. See final notes for diagnosis and disposition. Patient made comfortable emergency room. Patient extensive work-up done including CBC, CMP, BMP, troponin, chest x-ray. Was treated with IV amiodarone, Cardizem and Lasix. Discussed the x-ray, lab findings and treatment with daughter at bedside. Discussed patient with wholesale parts salesperson, hospitalist and pacemaker interrogator. Patient will be admitted for further evaluation and treatment. While in emergency room patient main stable within acute distress. Lab Data 06/05/23 01:15 06/05/23 01:15 Labs/Radiology: Laboratory Results WBC 6.2 10^3/uL (4.0-10.0) 06/04/23 18:10 RBC 5.08 10^6/uL (4.1-5.3) 06/04/23 18:10 Hgb 15.3 g/dL (11.5-15.3) 06/04/23 18:10 Hct 49.0 % (37.0-47.0) H 06/04/23 18:10 MCV 96.5 fl (81-99) 06/04/23 18:10 MCH 30.1 pg (28.0-34.0) 06/04/23 18:10 MCHC 31.2 g/dL (30.0-36.0) 06/04/23 18:10 RDW 21.9 % (12.1-15.1) H 06/04/23 18:10 Plt Count 173 10^3/cmm (130-400) 06/04/23 18:10 MPV 11.3 fL (7.4-10.4) H 06/04/23 18:10 Neut % (Auto) 59.3 % 06/04/23 18:10 Lymph % (Auto) 28.6 % 06/04/23 18:10 Mckenzie % (Auto) 9.1 % 06/04/23 18:10 Eos % (Auto) 1.9 % 06/04/23 18:10 Baso % (Auto) 0.8 % 06/04/23 18:10 Neut # (Auto) 3.69 10^3/uL (1.8-7.7) 06/04/23 18:10 Lymph # (Auto) 1.8 10^3/uL (0.8-4.8) 06/04/23 18:10 Mckenzie # (Auto) 0.6 10^3/uL (0.2-0.9) 06/04/23 18:10 Eos # (Auto) 0.1 10^3/uL (0.0-0.8) 06/04/23 18:10 Baso # (Auto) 0.1 10^3/uL (0.0-0.1) 06/04/23 18:10 Nucleated RBC % (auto) 0 % 06/04/23 18:10 Nucleated RBCs # 0.0 /100WBC 06/04/23 18:10 Sodium 140 mmol/L (136-145) 06/04/23 18:10 Potassium 3.9 mmol/L (3.5-5.1) 06/04/23 18:10 Chloride 101 mmol/L (98-107) 06/04/23 18:10 Carbon Dioxide 27 mmol/L (22-29) 06/04/23 18:10 Anion Gap 15.9 (5-19) 06/04/23 18:10 BUN 16 mg/dL (8-23) 06/04/23 18:10 Creatinine 1.0 mg/dL (0.5-0.9) H 06/04/23 18:10 GFR Calculation Not Reportable 06/04/23 18:10 Glucose 102 mg/dL (65-115) 06/04/23 18:10 Calculated Osmolality 291 mOsm/kg (285-295) 06/04/23 18:10 Calcium 9.1 mg/dL (8.5-10.5) 06/04/23 18:10 Magnesium 1.8 mg/dL (1.7-2.3) 06/04/23 18:10 Total Bilirubin 2.1 mg/dL (0.15-1.2) H 06/04/23 18:10 AST 36 U/L (0-32) H 06/04/23 18:10 ALT 21 U/L (0-33) 06/04/23 18:10 Alkaline Phosphatase 87 U/L (35-105) 06/04/23 18:10 Troponin T Baseline 31 ng/L (0-10) H 06/04/23 18:10 Troponin T 120 Minute 34.26 ng/L (0-10) H 06/04/23 20:28 Delta Troponin T 3.26 ABS# (0-10) 06/04/23 20:28 NT-Pro-B Natriuret Pep 67206 pg/mL (0-125) H 06/04/23 18:10 Total Protein 6.5 g/dL (6.6-8.7) L 06/04/23 18:10 Albumin 3.2 g/dL (3.5-5.2) L 06/04/23 18:10 Globulin 3.3 g/dL (1.3-4.6) 06/04/23 18:10 Discharge Plan Discharge Patient Disposition: Admitted As Inpatient Admit Provider: Tyron Miranda Clinical Impression: Arrhythmia, Acute dyspnea, CHF (congestive heart failure) Condition: Stable Coding Level of Care Code ED Laboratory Technologist for Brock Angelo
[2023-06-04 18:58] LABS: Troponin(5th) Baseline 31 ng/L (0-10)
[2023-06-04 19:01] LABS: Alanine Aminotransferase 21 U/L (0-33); Albumin Level 3.2 g/dL (3.5-5.2); Alkaline Phosphatase 87 U/L (35-105); Blood Urea Nitrogen 16 mg/dL (8-23); Calcium 9.1 mg/dL (8.5-10.5); Carbon Dioxide 27 mmol/L (22-29); Chloride 101 mmol/L (98-107); Globulin 3.3 g/dL (1.3-4.6); Glucose 102 mg/dL (65-115); Osmolality Calculated 291 mOsm/kg (285-295); Sodium 140 mmol/L (136-145); Total Bilirubin 2.1 mg/dL (0.15-1.2); Total Protein 6.5 g/dL (6.6-8.7)
[2023-06-04 19:04] LABS: Anion Gap 15.9 (5-19); Aspartate Amino Transferase 36 U/L (0-32); Potassium 3.9 mmol/L (3.5-5.1)
[2023-06-04] MEDS: dilTIAZem 5 mg/mL SDV 5 mL 20 MG IVP (19:50)
--- NOTE | 2023-06-04 19:58 | ECG_ITS ---
[facility] Test Date: 2023-06-04 Pat Name: Rupa Baptiste Department: Room: ICU11 Gender: Female Network Services Project Manager: : 1950 Requested By: Sameer Baker Order Number: [id number] South MD: Jere Hardy M.D. Measurements Intervals [place] Rate: 113 P: 0 WA: 0 QRS: -74 QRSD: 194 T: 113 QT: 399 QTc: 548 Interpretive Statements ELECTRONIC VENTRICULAR PACEMAKER ABNORMAL RHYTHM ECG Compared to ECG 04/06/2023 17:53:42 Indeterminate axis no longer present Intraventricular conduction delay no longer present T-wave abnormality no longer present Possible ischemia no longer present Electronically Signed On 06-05-2023 14:42:14 CDT by Jere Hardy M.D. [id number]
[2023-06-04 20:43] LABS: Magnesium 1.8 mg/dL (1.7-2.3); NT Pro B Type Natriuretic Pept 13956 pg/mL (0-125)
[2023-06-04 21:12] LABS: Troponin 5 2HR 34.26 ng/L (0-10); Troponin 5 2HR Delta 3.26 ABS# (0-10)
[2023-06-04] MEDS: FUROsemide 10 mg/mL SDV 10mL 60 MG IVP (21:28)
--- NOTE | 2023-06-04 22:54 | PM.HP ---
Providers/Chief Complaint Admitting Physician: Tyron Miranda MD Primary Care Provider: García Theodore MD Chief Complaint: chest pain, sob, History of Present Illness Rupa Baptiste is a 73 year old female with history of dementia presenting to the hospital with her daughter with shortness of breath the last several weeks. Prior to that she had had some vomiting, and has continued to have some significant diarrhea. She has not had any fever. She has ate less than before. Tonight she seemed significantly short of breath, weaker, and heart rate was up. They have visited the emergency department at [place] as well as here for some of these issues. There have been no sick contacts. She has not had any apparent chest pain. Review of Systems General: Reports: ROS unobtainable due to mental status (Patient with dementia, daughter helps with history) Medications/Allergies Home Medications Medication Instructions Recorded Confirmed Last Taken Type aspirin 81 mg tablet,delayed 81 mg PO DAILY 03/23/20 05/14/23 08/29/22 History release (Aspir-) ferrous sulfate 325 mg (65 mg 325 mg PO DAILY 03/23/20 05/14/23 08/29/22 History iron) tablet (Feosol) metoprolol tartrate 75 mg tablet 75 mg PO BID 03/23/20 05/14/23 08/29/22 History simvastatin 20 mg tablet 20 mg PO DAILY 03/23/20 05/14/23 08/29/22 History escitalopram oxalate 10 mg tablet 10 mg PO DAILY 04/03/20 05/14/23 08/29/22 History (Lexapro) docusate sodium 100 mg capsule 100 mg PO DAILY 08/31/22 05/14/23 08/29/22 History donepezil 5 mg tablet 5 mg PO DAILY 08/31/22 05/14/23 08/29/22 History glipizide 5 mg tablet 5 mg PO DAILY 08/31/22 05/14/23 08/29/22 History zolpidem 5 mg tablet 5 - 10 mg PO BEDTIME 08/31/22 05/14/23 08/29/22 History potassium chloride 8 mEq 8 meq PO DAILY #30 tabs 01/25/23 05/14/23 Unknown Rx tablet,extended release furosemide 40 mg tablet 40 mg PO DAILY #3 tabs 04/06/23 05/14/23 Unknown Rx ondansetron 4 mg oral soluble film 4 mg PO DAILY PRN nausea and 04/21/23 05/14/23 Unknown Rx vomiting #20 ea apixaban 5 mg tablet (Eliquis) 5 mg PO BID #180 tabs 05/16/23 Unknown Rx Allergies Allergy/AdvReac Type Severity Reaction Status Date / Time Penicillins Allergy Unknown Unknown Verified 02/13/23 08:05 Tetanus Vaccines and Toxoid Allergy Unknown Unknown Verified 02/13/23 08:05 PFSH Acute PFSH: Medical History (Updated 06/04/23 @ 23:06 by Tyron Miranda MD) Abnormal gall bladder diagnostic imaging Acquired abnormality of brachiocephalic vein Acute encephalopathy Anticoagulant long-term use Atrial fibrillation Bipolar 1 disorder Chest pain CHF (congestive heart failure) CKD (chronic kidney disease) CVA (cerebral vascular accident) Residual right-sided weakness Diabetes HTN (hypertension) Ischemic cardiomyopathy Lung nodule Myocardial infarction Obesity Respiratory distress Sick sinus syndrome Transaminitis Surgical History (Updated 06/04/23 @ 22:56 by Tyron Miranda MD) History of hysterectomy Status cardiac pacemaker Family History Other Cancer Suicide Social History Smoking and tobacco status: former smoker Caregiver/support person: Yes (daughter) Lives independently: No Household members: none Current occupational status: retired Vitals/I&O/Wt Last Vital Signs Temp 97.6 F 06/04/23 17:34 Pulse 115 H 06/04/23 21:36 Resp 16 06/04/23 22:34 BP 115/84 06/04/23 22:34 Pulse Ox 96 06/04/23 22:34 O2 Del Method Room Air 06/04/23 19:57 O2 Flow Rate 2 06/04/23 18:31 Weight last 48 hrs Weight 81.647 kg Physical Exam Narrative: General exam is a white female, conversant but confused. Daughter helps with history. HEENT: Atraumatic normocephalic. Oropharynx clear. Neck is supple no lymphadenopathy thyromegaly Cardiovascular tachycardic, irregular, no obvious murmur Lungs clear no wheezing or crackles. Diminished breath sounds at the bases. Abdomen is soft with positive bowel sounds. No obvious organomegaly. Tinea noted increases, umbilicus exam is deferred. Extremities no cyanosis, edema, cap refill brisk Skin no rash Neuro daughter reports mild right-sided weakness. Data 06/04/23 18:10 06/04/23 18:10 Other Labs: Magnesium normal Total bilirubin 2.1, AST 36. ALT and alk phos are normal Troponin 31 with repeat of 34 BNP 13,956 Albumin 3.2 Urinalysis not performed I have ordered a pacemaker check. Amiodarone was started in the emergency department. The patient also got 60 mg of Lasix, and some diltiazem. Chest x-ray demonstrates cardiomegaly, no infiltrate, pacemaker. Unfortunately no image can be reviewed secondary to issues with the interface EKG which I reviewed demonstrates a wide-complex tachycardia, some of the beats paced, irregular. This most likely represents atrial fibrillation with aberrancy Previous echocardiogram August 2022 demonstrates an EF of 50 to 55%, moderate MR, mild TR, pulmonary artery pressure around 40 A&P Assessment and plan (1) Arrhythmia: Patient presents with tachycardia, irregular wide-complex rhythm some of which are paced She was started on amiodarone in the emergency department Continue amiodarone Restart the patient's metoprolol, 25 mg twice daily. She is normally on 75 mg a day. 12.5 mg p.o. now. Cardiology consultation CBC, BMP in the morning Magnesium is already been checked along with potassium. Echocardiogram when heart rate is lower. Defer to cardiology/daytime physician (2) CHF (congestive heart failure): Patient presents with shortness of breath, markedly elevated BNP Echo when able In the emergency department with good diuresis Received 60 mg of Lasix IV once around 850. Reevaluate in the morning for further dosing. (3) Atrial fibrillation: Patient with past history of atrial fibrillation Hold her Eliquis, convert to Lovenox. This is being done in case any procedures are needed during her hospital stay. Cardiology consultation Continue amiodarone Change metoprolol to 25 mg twice daily 12.5 mg of metoprolol now (4) Diabetes: Consistent carb diet when able Mild sliding scale insulin (5) Diarrhea: Family reports diarrhea. Significant liquid stool. She has no evidence of abdominal pain First check C. difficile, monitor for any recurrent diarrhea She may have been on stool softener at home. We will have to wait for med reconciliation. Obviously hold this. Plan Multiple other medical problems as outlined in past medical history Full code Lovenox will suffice for DVT prophylaxis Protonix for GI prophylaxis Attestations Medical Necessity Statement*: Will need greater than 2 midnight stay for evaluation and treatment of cardiac arrhythmia, acute CHF Critical Care Time: The high probability of a clinically significant, sudden or life threatening deterioration of the patient's [cardiac, GI] system(s) required my full and direct attention, intervention and personal management. The critical care time is as shown. This time is in addition to time spent performing any reported procedures but includes the following: [x] Data and vital sign review and interpretation [x] Patient assessment, examination and intervention [x] Documentation [x] Medication orders and management Critical Care Time (min): 67 Coding Level of Care Code Critical Care >/= 30 minutes Critical care time (in minutes): 67 The high probability of a clinically significant, sudden or life threatening deterioration, as referenced in this documentation, required my full and direct attention, intervention and personal management. The critical care time shown is in addition to time spent performing any reported separately billable procedures and includes the following: [x] Data and vital sign review and interpretation [x] Patient assessment, examination and intervention [x] Medication orders and management [x] Patient/Family updates as able [x] Care Coordination and Documentation. Diagnoses Arrhythmia I49.9 CHF (congestive heart failure) I50.9 Atrial fibrillation I48.91 Diabetes E11.9 Diarrhea R19.7
[2023-06-04] MEDS: metoprolol tartrate 25 mg Tablet 12.5 MG PO (23:33)
[2023-06-04] MEDS: enoxaparin 80 mg/0.8 mL Syringe SUBCUT (23:34)
--- NOTE | 2023-06-04 23:46 | ECG_ITS ---
[facility] Test Date: 2023-06-05 Pat Name: Rupa Baptiste Department: Room: ICU11 Gender: Female Retail Attendant: : 1950 Requested By: Sameer Baker Order Number: [id number] South MD: Jere Hardy M.D. Measurements Intervals [place] Rate: 114 P: -64 MS: 64 QRS: -78 QRSD: 195 T: 110 QT: 421 QTc: 582 Interpretive Statements ELECTRONIC VENTRICULAR PACEMAKER ABNORMAL RHYTHM ECG Compared to ECG 06/04/2023 19:58:15 No significant changes Electronically Signed On 06-05-2023 14:46:22 CDT by Jere Hardy M.D. [id number]
[2023-06-05] VITALS (221 sets, daily range): BP systolic 42–155; BP diastolic 23–111; PULSE 57–129; RESP 0–42; TEMP 36–36.4; O2SAT 74–100
[2023-06-05 00:28] LABS: Bilirubin Urine 1+ (Negative); Blood Urine 2+ (Negative); Glucose Urine UA Norm (Normal); Ketones Urine Negative (Negative); Leukocyte Esterase Urine Trace (Negative); Nitrate Urine Negative (Negative); Protein Urine Neg (Negative); Specific Gravity, Urine 1.015 (1.005-1.030); Urine Appearance Hazy (CLEAR); Urine Color Yellow (Yellow); Urobilinogen Urine Neg (Negative); pH Urine 5 (5-7)
[2023-06-05 00:29] LABS: Add Urine Culture? Yes; Bacteria Urine 2+ /hpf; RBC Urine 0-4 /hpf (0-2); Squamous Epithelial Cell Urine 0-4 /hpf (0-5); WBC Urine 15-25 /hpf (0-5)
[2023-06-05 01:26] LABS: Basophils % 0.7 %; Eosinophils # 0.1 10^3/uL (0.0-0.8); Eosinophils % 1.7 %; Hematocrit 50.5 % (37.0-47.0); Hemoglobin 15.2 g/dL (11.5-15.3); Lymphocytes # 1.7 10^3/uL (0.8-4.8); Lymphocytes % 28.2 %; Mean Corpuscular HGB Conc 30.1 g/dL (30.0-36.0); Mean Corpuscular Hemoglobin 29.7 pg (28.0-34.0); Mean Corpuscular Volume 98.8 fl (81-99); Mean Platelet Volume 11.3 fL (7.4-10.4); Monocytes # 0.6 10^3/uL (0.2-0.9); Monocytes % 9.4 %; Neutrophils # 3.51 10^3/uL (1.8-7.7); Neutrophils % 59.8 %; Nucleated Red Blood Cells % 0 %; Platelet Count 165 10^3/cmm (130-400); Red Blood Count 5.11 10^6/uL (4.1-5.3); Red Cell Distribution Width 21.9 % (12.1-15.1); White Blood Count 5.9 10^3/uL (4.0-10.0)
[2023-06-05 01:48] LABS: Alanine Aminotransferase 21 U/L (0-33); Albumin Level 3.2 g/dL (3.5-5.2); Alkaline Phosphatase 92 U/L (35-105); Anion Gap 13.5 (5-19); Aspartate Amino Transferase 29 U/L (0-32); Blood Urea Nitrogen 18 mg/dL (8-23); Carbon Dioxide 29 mmol/L (22-29); Chloride 101 mmol/L (98-107); Globulin 3.5 g/dL (1.3-4.6); Glucose 120 mg/dL (65-115); Magnesium 1.8 mg/dL (1.7-2.3); Osmolality Calculated 293 mOsm/kg (285-295); Potassium 3.5 mmol/L (3.5-5.1); Sodium 140 mmol/L (136-145); Total Bilirubin 2.7 mg/dL (0.15-1.2); Total Protein 6.7 g/dL (6.6-8.7)
[2023-06-05 01:49] LABS: Troponin 5 6HR 35.74 ng/L (0-10); Troponin 5 6HR Delta 4.74 ng/L (0-12)
[2023-06-05] MEDS: cefTRIAXone 1,000 MG in sodium chloride 0.9% (plus) 50 ML 100 MG IV (04:34)
[2023-06-05 06:47] LABS: Glucose Point of Care 93 mg/dL (70-110)
--- NOTE | 2023-06-05 07:30 | US_ITS ---
WS: [id number] RIGHT UPPER QUADRANT ULTRASOUND HISTORY: elevated bili COMPARISON: 08/31/2022 Liver: 12.0 cm in length. Liver is normal size. There is a subtle area of increased echogenicity in t he right hepatic lobe measuring 1.3 x 2.4 x 1.5 cm toward the diaphragmatic surface. No increased vas cularity. This has not been identified on prior imaging studies. Portal Vein: Not well visualized Gallbladder: Normally distended gallbladder. Numerous stones are present with shadowing. The wall sullivan s not appear thickened. CBD: 0.4 cm Pancreas: Portions of the head and tail are obscured. The body is negative. Right kidney: 10.5 cm in length. Normal size and echogenicity. Cortical cyst lower pole measures 2.8 x 2.7 x 2.1 cm. Aorta and IVC: Poor visualization. No ascites. IMPRESSION: 1. Cholelithiasis without evidence for acute cholecystitis. 2. Hepatic steatosis. Focal area of increased echogenicity in the right lobe of the liver is probably either a small hemangioma or focal hepatic steatosis. This can be reevaluated in 3 months by ultraso und. This has not been described on prior imaging studies. 3. Quality of the ultrasound is suboptimal by body habitus.
--- NOTE | 2023-06-05 07:32 | USCV_ITS ---
Rupa Baptiste Age: 73 Gender: F : 1950 Exam Date: 06/05/2023 10:02 Ordering Phys: Maxx Garcia MD Technologist: YENY [place] [facility] [place] SHORTNESS OF BREATH BP: 92 / 77 HR: Rhythm: Atrial fibrillation Technical Quality: Adequate MEASUREMENTS (Male / Female) Normal Values 2D ECHO LVOT Diameter 2.0 cm LV Ejection Fraction MOD 2C 30.2 % LV Ejection Fraction 2C AL 24.2 % LA Diameter 4.4 cm LA Width 5.5 cm LA Height 6.6 cm RA Width 4.3 cm RA Height 5.6 cm Aorta at Sinotubular Diameter 2.8 cm IVC Diameter 2.5 cm M-MODE Aortic Annulus Diameter 3.3 cm LA Ao Ratio MM 1.3 MV E Point Septal Separation 0.8 cm DOPPLER AV Peak Velocity 90.0 cm/s LVOT Peak Velocity 51.0 cm/s AV Area Cont Eq vti 1.6 cm squared AV Area Cont Eq pk 1.8 cm squared MV Peak Velocity 71.0 cm/s MV Area PHT 3.1 cm squared MV E' Velocity 35.0 cm/s Mitral E to MV E' Ratio 14.0 Mitral E to LV E' Lateral Ratio 15.0 Mitral E to LV E' Septal Ratio 13.4 TR Peak Velocity 181.3 cm/s TR Peak Gradient 13.1 mmHg TR Mean Velocity 129.5 cm/s TR Mean Gradient 7.6 mmHg TR Velocity Time Integral 51.3 cm TV Peak E Velocity 84.0 cm/s Right Atrial Pressure 15.0 mmHg Pulmonary Artery Systolic Pressu 28.1 mmHg RV Acceleration Time 0.1 s RV Ejection Time 0.3 s RV AcT/ET 0.4 FINDINGS Left Ventricle Left ventricle is normal in size. LV systolic function is moderate to severely reduced with EF of 30-35%. Moderate to severe global hypokinesis. Right Ventricle RV is hypokinetic. Right ventricular pacemaker lead. Right Atrium RA is dilated. Right atrial pacemaker lead. Left Atrium Severely dilated. Mitral Valve Mild mitral annular calcification. Mild mitral regurgitation. Aortic Valve Aortic valve is thickened. Moderate aortic regurgitation. No significant stenosis Tricuspid Valve Mild tricuspid regurgitation. Pulmonary artery systolic pressure is normal Pulmonic Valve Not well visualized Pericardium Normal Aorta Normal in size IVC Dilated CONCLUSIONS LV systolic function is moderate to severely reduced with EF of 30-35%. Moderate to severe global hypokinesis. RV is hypokinetic. Bilateral dilation Mild mitral regurgitation Moderate aortic regurgitation Mild tricuspid regurgitation IVC dilated Compared to prior echocardiogram from 08/2022, LV systolic function has significantly reduced. Dennis Lopez MD (Electronically Signed) Final Date: 05 June 2023 18:12 S
[2023-06-05 08:13] LABS: Glucose Point of Care 96 mg/dL (70-110)
[2023-06-05 08:18] LABS: C Reactive Protein 8.3 mg/L (0.0-4.9); T3 Free 1.9 PG/ML (2.0-4.4); Thyroid Stimulating Hormone 8.55 uIU/mL (0.27-4.20)
[2023-06-05] MEDS: pantoprazole DR 40 mg Tablet PO (08:29)
[2023-06-05] MEDS: donepezil 5 MG Tablet PO (08:29)
[2023-06-05] MEDS: aspirin 81 mg EC Tablet PO (08:29)
[2023-06-05] MEDS: atorvastatin 40 mg Tablet 20 MG PO (08:29)
[2023-06-05] MEDS: magnesium lactate 84 mg Tablet PO (08:29)
[2023-06-05] MEDS: escitalopram 10 mg Tablet PO (08:29)
--- NOTE | 2023-06-05 09:03 | PC.PHAR ---
PTS DAUGHTER CONCHIS VERIFIED MEDICATIONS WITH ME OVER THE PHONE- DAUGHTER STS SHE THINKS PT SHOULD STILL BE TAKING POTASSIUM [address] HAS NOT CALLED IN A REFILL
--- NOTE | 2023-06-05 09:33 | PM.CONSULT ---
Providers/Reason For Consult Consulting Physician/Specialty*: Cardiovascular medicine Reason for Consult*: Wide-complex tachycardia Requesting Physician: Hospitalist Attending Physician: Maxx Garcia MD Primary Care Provider: García Theodore MD History of Present Illness History of Present Illness Rupa Baptiste is a 73 year old female well-known to me from when I was here full-time. She has an extraordinarily bizarre affect. She has a long list of medical problems including chronic atrial fibrillation. She previously was anticoagulated with warfarin but more recently has been on Eliquis. She has a bipolar affective disorder which manifests itself is extremely bizarre behavior at times. Apparently she is also recently developed dementia. I have not seen her in several years. She has underlying coronary disease with ischemic cardiomyopathy and chronic congestive heart failure. She also has chronic kidney disease, history of stroke, diabetes, hypertension, obesity, sick sinus syndrome, pacemaker implant, transaminitis and an occluded left subclavian vein. She is noncompliant with her medicines often simply not taking them or forgets them. Typically her daughter accompanies her which is the case today. She has been having some GI distress lately with nausea, vomiting and diarrhea. She frequents the emergency room here and also at [place]. She has been in this emergency room several times in the last few weeks. Last night she came in because she is short of breath. She was next noted to be in a wide-complex tachycardia with occasional paced beats. I originally received a call from the emergency room physician. He thought at the time that it was ventricular tachycardia and wanted to cardiovert her. Ultimately I received a copy of the EKG electronically and it appears to be atrial fibrillation with a rapid rate. Her BNP is significantly elevated. She was started on amiodarone in the emergency room and that continues. She was given a dose of Cardizem and Lopressor but those have not been continued. She was switched from Eliquis to Lovenox. This morning she is her usual bizarre self. Her blood pressure is 136/96. Her heart rate is now down to about 98 and irregularly irregular with a wide-complex. Her chest x-ray does not show any significant heart failure. Her creatinine is 1.3 and her BNP is nearly 14,000. She is not as short of breath this morning. Review of Systems Narrative: Review of systems is largely unavailable due to her underlying mental status. Medications/Allergies Home Medications Medication Instructions Recorded Confirmed Last Taken Type ferrous sulfate 325 mg (65 mg 325 mg PO DAILY 03/23/20 06/05/23 08/29/22 History iron) tablet (Feosol) metoprolol tartrate 75 mg tablet 75 mg PO BID 03/23/20 06/05/23 08/29/22 History simvastatin 20 mg tablet 20 mg PO DAILY 03/23/20 06/05/23 08/29/22 History escitalopram oxalate 10 mg tablet 10 mg PO DAILY 04/03/20 06/05/23 08/29/22 History (Lexapro) docusate sodium 100 mg capsule 100 mg PO DAILY 08/31/22 06/05/23 08/29/22 History donepezil 5 mg tablet 5 mg PO DAILY 08/31/22 06/05/23 08/29/22 History glipizide 5 mg tablet 5 mg PO DAILY 08/31/22 06/05/23 08/29/22 History zolpidem 5 mg tablet 5 - 10 mg PO BEDTIME 08/31/22 06/05/23 08/29/22 History potassium chloride 8 mEq 8 meq PO DAILY #30 tabs 01/25/23 06/05/23 Unknown Rx tablet,extended release furosemide 40 mg tablet 40 mg PO DAILY #3 tabs 04/06/23 06/05/23 Unknown Rx ondansetron 4 mg oral soluble film 4 mg PO DAILY PRN nausea and 04/21/23 06/05/23 Unknown Rx vomiting #20 ea apixaban 5 mg tablet (Eliquis) 5 mg PO BID #180 tabs 05/16/23 06/05/23 Unknown Rx aspirin 81 mg tablet,delayed 81 mg PO DAILY 06/05/23 06/05/23 Unknown History release lactobacillus comb no.10 20 20,000 mmu cells PO DAILY 06/05/23 06/05/23 Unknown History billion cell capsule (Probiotic) Allergies Allergy/AdvReac Type Severity Reaction Status Date / Time Penicillins Allergy Unknown Unknown Verified 06/05/23 09:04 Tetanus Vaccines and Toxoid Allergy Unknown Unknown Verified 06/05/23 09:04 Current Medications Generic Name Dose Route Start Last Admin Trade Name Freq PRN Reason Stop Dose Admin Aspirin 81 mg 06/05/23 09:00 06/05/23 08:29 Aspirin 81 Mg Ec Tablet PO 81 mg DAILY AJ Administration Atorvastatin Calcium 20 mg 06/05/23 09:00 06/05/23 08:29 Atorvastatin 40 Mg Tablet PO 20 mg DAILY AJ Administration Donepezil HCl 5 mg 06/05/23 09:00 06/05/23 08:29 Donepezil 5 Mg Tablet PO 5 mg DAILY AJ Administration Enoxaparin Sodium 80 mg 06/04/23 23:30 06/04/23 23:34 Enoxaparin 80 Mg/0.8 Ml Syringe SUBCUT 80 mg Q12H AJ Administration Escitalopram Oxalate 10 mg 06/05/23 09:00 06/05/23 08:29 Escitalopram 10 Mg Tablet PO 10 mg DAILY AJ Administration Amiodarone HCl 900 mg/ 518 mls @ 17.267 mls/hr 06/04/23 18:00 06/04/23 18:19 Dextrose/ IV Miscellaneous IV 0.5 mg/min Supplies CONT AJ 17.27 mls/hr Administration 0.5 MG/MIN Ceftriaxone Sodium 1,000 mg/ 50 mls @ 100 mls/hr 06/05/23 04:15 06/05/23 07:34 Sodium Chloride IV Infused Q24H [facility] Infusion Protocol Insulin Human Lispro 0 unit 06/05/23 08:00 06/05/23 08:00 Insulin Lispro 100 Unit/1 Ml SUBCUT Not Given WM&BEDTIME [facility] Protocol Magnesium Lactate 84 mg 06/05/23 09:00 06/05/23 08:29 Magnesium Lactate 84 Mg Tablet PO 84 mg DAILY [facility] Administration Nystatin 1 applic 06/05/23 09:00 06/05/23 08:30 Nystatin Cream 30 Gm TOPICAL Not Given BID [facility] Pantoprazole Sodium 40 mg 06/05/23 09:00 06/05/23 08:[address] 40 Mg Tablet PO 40 mg DAILY AJ Administration PFSH Acute PFSH: Medical History Abnormal gall bladder diagnostic imaging Acquired abnormality of brachiocephalic vein Acute encephalopathy Anticoagulant long-term use Atrial fibrillation Bipolar 1 disorder Chest pain CHF (congestive heart failure) CKD (chronic kidney disease) CVA (cerebral vascular accident) Residual right-sided weakness Diabetes HTN (hypertension) Ischemic cardiomyopathy Lung nodule Myocardial infarction Obesity Respiratory distress Sick sinus syndrome Transaminitis Surgical History History of hysterectomy Status cardiac pacemaker Family History Other Cancer Suicide Social History Smoking and tobacco status: former smoker Caregiver/support person: Yes (daughter) Lives independently: No Household members: none Current occupational status: retired Vitals/I&O/Wt Last Vital Signs Temp 96.8 F L 06/05/23 04:00 Pulse 57 L 06/05/23 09:00 Resp 19 H 06/05/23 08:35 BP 136/96 06/05/23 08:35 Pulse Ox 99 06/05/23 09:00 O2 Del Method Nasal Cannula 06/05/23 09:00 O2 Flow Rate 2 06/05/23 09:00 06/04/23 06/05/23 06/05/23 22:59 06:59 14:59 Intake Total 290 / 290 Output Total 150 / 150 Balance -150 / -150 290 / 290 Weight last 48 hrs Weight 193 lb Weight 180 lb Physical Exam Narrative: GENERAL: General she is awake and alert and not in any distress HEENT: Exam within normal limits. NECK: Supple without jugular vein distention. The carotid upstroke is normal without bruits. BACK: Exam normal. LUNGS: Clear. HEART: Irregularly irregular rhythm ABDOMEN: Benign without organomegaly or tenderness. EXTREMITIES: No edema. NEUROLOGIC: Exam normal. SKIN: Unremarkable. Urinary Catheter Management: Lewis: Cath Placed During This Visit: yes Reason for Continuing Indwelling Catheter: Accurate Measurement of Urinary Output in Critically Ill Patients Urinary Catheter Date of Insertion: 06/04/23 Urinary Catheter Time of Insertion: 22:30 Data 06/05/23 01:15 06/05/23 01:15 A&P Assessment and plan (1) Atrial fibrillation: (2) Diabetes: (3) Status cardiac pacemaker: (4) CHF (congestive heart failure): (5) Myocardial infarction: (6) CVA (cerebral vascular accident): (7) Anticoagulant long-term use: (8) CKD (chronic kidney disease): (9) Bipolar 1 disorder: (10) Obesity: (11) Sick sinus syndrome: (12) HTN (hypertension): Plan To me this is atrial fibrillation with a rapid rate associated with occasional paced beats. I think we simply need to slow the rate. I am going to add back her metoprolol but increase the dose to 100 mg twice a day. I am going to stop the Lovenox and add back the Eliquis. I do not think she needs amiodarone so I will stop that. I will avoid calcium channel blockers because of her underlying LV dysfunction. She seems comfortable now and clinically compensated. Consult Attestations Medical Necessity Statement: Hospitalization for atrial fibrillation, congestive heart failure and multiple other medical problems. and High Time for a total of 60 minutes, includes reviewing past or interval history, examining/interviewing patient, placing orders, counseling patient/family/other support, updating patient/family/other support, discussing plan of care with staff, communicating with other healthcare providers and documenting encounter Diagnoses Atrial fibrillation I48.91 Diabetes E11.9 Status cardiac pacemaker Z95.0 CHF (congestive heart failure) I50.9 Myocardial infarction I21.9 CVA (cerebral vascular accident) I63.9 Anticoagulant long-term use Z79.01 CKD (chronic kidney disease) N18.9 Bipolar 1 disorder F31.9 Obesity E66.9 Sick sinus syndrome I49.5 HTN (hypertension) I10
[2023-06-05 11:58] LABS: Glucose Point of Care 106 mg/dL (70-110)
--- NOTE | 2023-06-05 14:02 | PM.PN ---
Subjective Subjective: Patient was seen this morning, she is alert to person, to place, not to time she has no complaints she does not know why she is here in the hospital, denies any fevers, no chills, no cough, currently on amiodarone drip at 0.5 Patient was reexamined earlier on in the morning, her daughter is at bedside, her daughter tells me that for the last 6 weeks she has had a poor appetite, recurrent nausea vomiting, without a clear etiology, her primary care provider thought it was potentially her medications possibly Lasix however they could not find an answer eventually they were thinking it was a gallbladder but gallbladder ultrasound was supposed to be ordered but her primary care provider went on vacation and they said that they would ordered but he never came to fruition, she does complain of right upper quadrant pain when she eats, Vitals/I&O/Wt Last Vital Signs Temp 96.8 F L 06/05/23 04:00 Pulse 111 H 06/05/23 12:20 Resp 27 H 06/05/23 12:20 BP 124/97 06/05/23 12:20 Pulse Ox 99 06/05/23 12:20 O2 Del Method Nasal Cannula 06/05/23 09:00 O2 Flow Rate 2 06/05/23 09:00 06/04/23 06/05/23 06/05/23 22:59 06:59 14:59 Intake Total 530 / 530 Output Total 150 / 150 Balance -150 / -150 530 / 530 Weight last 48 hrs Weight 87.543 kg Weight 81.647 kg Physical Exam Const: COMMON NORMALS: no acute distress and patient oriented x3 Resp: COMMON NORMALS: normal respiratory effort, No retractions, No use of accessory muscles and clear to auscultation bilaterally AUSCULTATION: clear to auscultation bilaterally Cardio: COMMON NORMALS: regular rate, regular rhythm, S1 normal heart sound present and S2 normal heart sound present RATE: regular rate RHYTHM: regular rhythm HEART SOUNDS: S1 normal heart sound present and S2 normal heart sound present GI: COMMON NORMALS: Normal to inspection, nondistended, normoactive bowel sounds present OTHER: Right upper quadrant pain to palpation Extremity: COMMON NORMALS: no pedal edema Neuro: COMMON NORMALS: patient oriented x3 Psych: COMMON NORMALS: mental status grossly normal Urinary Catheter Management: Lewis: Cath Placed During This Visit: yes Reason for Continuing Indwelling Catheter: Accurate Measurement of Urinary Output in Critically Ill Patients Urinary Catheter Date of Insertion: 06/04/23 Urinary Catheter Time of Insertion: 22:30 Data 06/05/23 01:15 06/05/23 01:15 A&P Assessment and plan (1) Arrhythmia: Patient presents with tachycardia, irregular wide-complex rhythm some of which are paced, seems like atrial fibrillation with paced rhythm She was started on amiodarone in the emergency department Currently on amiodarone drip Restart the patient's metoprolol, 25 mg twice daily. She is normally on 75 mg a day. 12.5 mg p.o. now. Cardiology consultation CBC, BMP in the morning Magnesium is already been checked along with potassium. Cardiac echocardiogram ordered (2) CHF (congestive heart failure): Patient presents with shortness of breath, markedly elevated BNP Echo when able In the emergency department with good diuresis Received 60 mg of Lasix IV once around 850. Reevaluate in the morning for further dosing. (3) Atrial fibrillation: Patient with past history of atrial fibrillation Hold her Eliquis, convert to Lovenox. This is being done in case any procedures are needed during her hospital stay. Cardiology consultation Continue amiodarone Change metoprolol to 25 mg twice daily 12.5 mg of metoprolol now (4) Diabetes: Consistent carb diet when able Mild sliding scale insulin (5) Diarrhea: Family reports diarrhea. Significant liquid stool. She has no evidence of abdominal pain First check C. difficile, monitor for any recurrent diarrhea She may have been on stool softener at home. We will have to wait for med reconciliation. Obviously hold this. (6) Right upper quadrant abdominal pain: We will order right upper current ultrasound, does have hyperbilirubinemia, follow liver functions, follow bilirubin follow ultrasound, will consider HIDA scanning based on clinical progress (7) Hyperbilirubinemia: (8) Urinary tract infection: Continue Rocephin Plan Multiple other medical problems as outlined in past medical history Full code Lovenox will suffice for DVT prophylaxis Protonix for GI prophylaxis Attestations Medical Necessity Statement*: Patient requires hospitalization for wide-complex tachycardia, currently on amiodarone drip, with recurrent nausea, vomiting, Diagnoses Arrhythmia I49.9 CHF (congestive heart failure) I50.9 Atrial fibrillation I48.91 Diabetes E11.9 Diarrhea R19.7 Right upper quadrant abdominal pain R10.11 Hyperbilirubinemia E80.6 Urinary tract infection N39.0
[2023-06-05 16:29] LABS: Glucose Point of Care 105 mg/dL (70-110)
[2023-06-05] MEDS: nystatin cream 30 gm 1 APPLIC TOPICAL (17:20)
[2023-06-05 18:54] LABS: Blood Urea Nitrogen 17 mg/dL (8-23); Carbon Dioxide 25 mmol/L (22-29); Chloride 102 mmol/L (98-107); Glucose 110 mg/dL (65-115); Osmolality Calculated 288 mOsm/kg (285-295); Sodium 138 mmol/L (136-145)
[2023-06-05 18:57] LABS: Creatinine Clr Calc Pharmacy 49.0289
[2023-06-05 18:59] LABS: Anion Gap 15.2 (5-19); Potassium 4.2 mmol/L (3.5-5.1)
[2023-06-05 22:46] LABS: Glucose Point of Care 176 mg/dL (70-110)
[2023-06-05] MEDS: metoprolol tartrate 50 mg Tablet 100 MG PO (22:50)
[2023-06-05] MEDS: insulin lispro 100 unit/1 mL SUBCUT (22:51)
[2023-06-05] MEDS: apixaban 5 mg Tablet PO (22:51)
[2023-06-06] VITALS (125 sets, daily range): BP systolic 105–134; BP diastolic 67–113; PULSE 70–120; RESP 8–36; TEMP 36.4; O2SAT 83–100
[2023-06-06] MEDS: cefTRIAXone 1,000 MG in sodium chloride 0.9% (plus) 50 ML 100 MG IV (04:30)
[2023-06-06 04:50] LABS: Basophils % 0.6 %; Eosinophils # 0.1 10^3/uL (0.0-0.8); Eosinophils % 2.1 %; Hematocrit 47.9 % (37.0-47.0); Hemoglobin 14.9 g/dL (11.5-15.3); Lymphocytes # 1.3 10^3/uL (0.8-4.8); Lymphocytes % 20.4 %; Mean Corpuscular HGB Conc 31.1 g/dL (30.0-36.0); Mean Corpuscular Hemoglobin 30.2 pg (28.0-34.0); Mean Corpuscular Volume 97.2 fl (81-99); Mean Platelet Volume 10.6 fL (7.4-10.4); Monocytes # 0.8 10^3/uL (0.2-0.9); Monocytes % 13.4 %; Neutrophils # 3.98 10^3/uL (1.8-7.7); Neutrophils % 63.3 %; Nucleated Red Blood Cells % 0 %; Platelet Count 152 10^3/cmm (130-400); Red Blood Count 4.93 10^6/uL (4.1-5.3); Red Cell Distribution Width 21.7 % (12.1-15.1); White Blood Count 6.3 10^3/uL (4.0-10.0)
[2023-06-06 05:11] LABS: Alanine Aminotransferase 19 U/L (0-33); Albumin Level 2.9 g/dL (3.5-5.2); Alkaline Phosphatase 90 U/L (35-105); Aspartate Amino Transferase 25 U/L (0-32); Blood Urea Nitrogen 18 mg/dL (8-23); Calcium 8.8 mg/dL (8.5-10.5); Carbon Dioxide 25 mmol/L (22-29); Chloride 104 mmol/L (98-107); Globulin 3.1 g/dL (1.3-4.6); Glucose 117 mg/dL (65-115); Magnesium 1.8 mg/dL (1.7-2.3); Osmolality Calculated 291 mOsm/kg (285-295); Phosphorus 2.9 mg/dL (2.5-4.5); Sodium 139 mmol/L (136-145); Total Bilirubin 1.5 mg/dL (0.15-1.2)
[2023-06-06 05:22] LABS: T3 Free 1.9 PG/ML (2.0-4.4)
[2023-06-06 05:28] LABS: Anion Gap 13.9 (5-19); Potassium 3.9 mmol/L (3.5-5.1)
[2023-06-06 07:34] LABS: Glucose Point of Care 106 mg/dL (70-110)
--- NOTE | 2023-06-06 08:04 | P.PN_ITS ---
Subjective Subjective: Rupa is asleep this morning. I did not awaken her. Her heart rate is 100 and irregularly irregular. Her creatinine has remained stable. Ultrasound of her gallbladder revealed cholelithiasis without evidence for acute cholecystitis. Vitals/I&O/Wt Last Vital Signs Temp 97.6 F 06/05/23 19:00 Pulse 101 H 06/06/23 07:35 Resp 34 H 06/06/23 07:35 BP 112/85 06/06/23 07:35 Pulse Ox 97 06/06/23 07:35 O2 Del Method Nasal Cannula 06/05/23 19:00 O2 Flow Rate 2 06/05/23 19:00 06/05/23 06/06/23 06/06/23 22:59 06:59 14:59 Intake Total 50 / 580 Output Total 250 / 250 100 / 350 Balance -250 / 280 -50 / 230 Weight last 48 hrs Weight 192 lb 14.472 oz Weight 193 lb Weight 180 lb Physical Exam Narrative: GENERAL: General she is sleeping this morning. HEENT: Exam within normal limits. NECK: Supple without jugular vein distention. The carotid upstroke is normal without bruits. BACK: Exam normal. LUNGS: Clear. HEART: Irregularly irregular rhythm ABDOMEN: Benign without organomegaly or tenderness. EXTREMITIES: No edema. NEUROLOGIC: Exam normal. SKIN: Unremarkable. Urinary Catheter Management: Lewis: Cath Placed During This Visit: yes Reason for Continuing Indwelling Catheter: Accurate Measurement of Urinary Ou tput in Critically Ill Patients Urinary Catheter Date of Insertion: 06/04/23 Urinary Catheter Time of Insertion: 22:30 Data 06/06/23 04:30 06/06/23 04:30 Micro: Microbiology 06/05/23 12:20 C.difficile Toxin B Gene (PCR) - Final Stool - Stool Aspirate A&P Assessment and plan (1) Arrhythmia: (2) Acute dyspnea: (3) HTN (hypertension): (4) Sick sinus syndrome: (5) Obesity: (6) Atrial fibrillation: (7) Diabetes: (8) Status cardiac pacemaker: (9) CHF (congestive heart failure): (10) Myocardial infarction: (11) Anticoagulant long-term use: (12) CKD (chronic kidney disease): Plan Her cardiac status is stable. I am not going to increase her AV delphine blockers at this time. We will continue the anticoagulant. She is not having any chest pain. She is not short of breath at rest. She is able to lie flat. Attestations Medical Necessity Statement*: Hospitalization required for management of the above-mentioned medical problems. and Moderate Time for a total of 30 minutes, includes reviewing past or interval history, examining/interviewing patient, discussing plan of care with staff and documenting encounter Diagnoses Arrhythmia I49.9 Acute dyspnea R06.00 HTN (hypertension) I10 Sick sinus syndrome I49.5 Obesity E66.9 Atrial fibrillation I48.91 Diabetes E11.9 Status cardiac pacemaker Z95.0 CHF (congestive heart failure) I50.9 Myocardial infarction I21.9 Anticoagulant long-term use Z79.01 CKD (chronic kidney disease) N18.9
[2023-06-06 09:35] LABS: NT Pro B Type Natriuretic Pept 8530 pg/mL (0-125)
[2023-06-06] MEDS: escitalopram 10 mg Tablet PO (11:18)
[2023-06-06] MEDS: magnesium lactate 84 mg Tablet PO (11:18)
[2023-06-06] MEDS: pantoprazole DR 40 mg Tablet PO (11:18)
[2023-06-06] MEDS: donepezil 5 MG Tablet PO (11:19)
[2023-06-06] MEDS: atorvastatin 40 mg Tablet 20 MG PO (11:19)
[2023-06-06] MEDS: aspirin 81 mg EC Tablet PO (11:19)
[2023-06-06] MEDS: levothyroxine 25 mcg Tablet PO (11:19)
[2023-06-06] MEDS: nystatin cream 30 gm 1 APPLIC TOPICAL (11:20)
[2023-06-06] MEDS: apixaban 5 mg Tablet PO ×2 (11:21→20:40)
[2023-06-06] MEDS: metoprolol tartrate 50 mg Tablet 100 MG PO ×2 (11:21→20:40)
[2023-06-06 11:26] LABS: Glucose Point of Care 87 mg/dL (70-110)
--- NOTE | 2023-06-06 16:15 | NM_ITS ---
WS: [id number] NUCLEAR MEDICINE HIDA SCAN CLINICAL INFORMATION: ruq pain, hyperbilirubinemia TECHNIQUE: Following intravenous administration of NUCLEAR MEDICINE HIDA SCAN CLINICAL INFORMATION: ruq pain, hyperbilirubinemia 1. TECHNIQUE: Following intravenous administration of 7.6 mCi of technetium 99m mebrofenin, images o f the abdomen were obtained over the course of 120 minutes. Lateral imaging cannot be obtained due to patient's clinical status COMPARISON: Ultrasound 06/05/2023 FINDINGS: Patchy hepatic uptake compatible with fatty infiltration. Gallbladder difficult to visualize at 60 mi nutes. Additional imaging was performed 120 minutes. Gallbladder is not definitely visualized at 120 minutes. Findings suspicious for cystic duct obstruction and cholecystitis. Common bile duct and smal l bowel activity is visualized IMPRESSION: Somewhat limited study due to patient's clinical status and inability to position for lat eral imaging * Diffuse patchy hepatic radiotracer uptake compatible with fatty infiltration. * Gallbladder is not definitely visualized suspicious for cholecystitis. Correlation with biliary f unction studies. Recommend follow-up with ultrasound. * Common bile duct and small bowel activity are visualized by 90 minutes. Noted on the prior most recent CT from 2009 gallbladder appears thickened at that time with cholelith iasis similar to the recent ultrasound suggesting chronic or indolent gallbladder dysfunction.
--- NOTE | 2023-06-06 17:13 | PM.PN ---
Subjective Subjective: Patient was seen this morning, she denies any fevers, no chills, continues to complain of feeling nauseated and complaining of right upper quadrant abdominal pain, her daughter is at bedside, I discussed her echocardiogram findings, she tells me that Dr. Chelsey kan has been concerned about her heart function and he was considering doing an angiogram however as her clinical condition started to deteriorate she had a poor appetite, she was bedridden decided against it, as they thought she might succumb daughter wants to discuss with cardiology about potential interventions for the diminished ejection fraction, she tells me that anything that would help her mom give her more energy level she is for doing, Vitals/I&O/Wt Last Vital Signs Temp 97.6 F 06/05/23 19:00 Pulse 111 H 06/06/23 14:30 Resp 15 06/06/23 14:30 BP 130/113 06/06/23 15:00 Pulse Ox 98 06/06/23 14:30 O2 Del Method Nasal Cannula 06/06/23 10:01 O2 Flow Rate 2 06/06/23 10:01 06/06/23 06/06/23 06/06/23 06:59 14:59 22:59 Intake Total 50 / 580 0 / 0 Output Total 100 / 350 Balance -50 / 230 0 / 0 Weight last 48 hrs Weight 87.5 kg Weight 87.543 kg Weight 81.647 kg Physical Exam Const: COMMON NORMALS: no acute distress GENERAL APPEARANCE: cooperative ORIENTATION/CONSCIOUSNESS: Yes awake, Yes oriented to person and Yes oriented to place; not oriented to time Resp: COMMON NORMALS: normal respiratory effort, No retractions, No use of accessory muscles and clear to auscultation bilaterally AUSCULTATION: clear to auscultation bilaterally Cardio: COMMON NORMALS: regular rate, regular rhythm, S1 normal heart sound present and S2 normal heart sound present RATE: regular rate RHYTHM: regular rhythm HEART SOUNDS: S1 normal heart sound present and S2 normal heart sound present GI: COMMON NORMALS: Normal to inspection, nondistended, normoactive bowel sounds present and non-tender OTHER: Tender to the right upper quadrant to palpation Extremity: COMMON NORMALS: no clubbing, cyanosis or edema and no pedal edema Neuro: SENSORIUM/ORIENTATION: Yes oriented to person, Yes oriented to place and No oriented to time Urinary Catheter Management: Lewis: Cath Placed During This Visit: yes Reason for Continuing Indwelling Catheter: Accurate Measurement of Urinary Output in Critically Ill Patients Urinary Catheter Date of Insertion: 06/04/23 Urinary Catheter Time of Insertion: 22:30 Data 06/06/23 04:30 06/06/23 04:30 Micro: Microbiology 06/04/23 23:55 Urine Culture - Preliminary Urine,Clean Catch Gram Negative Rods 06/05/23 12:20 C.difficile Toxin B Gene (PCR) - Final Stool - Stool Aspirate A&P Assessment and plan (1) Arrhythmia: Patient presents with tachycardia, irregular wide-complex rhythm some of which are paced, seems like atrial fibrillation with paced rhythm She was started on amiodarone in the emergency department Cardiology consulted On metoprolol 100 twice daily On Eliquis 5 mg twice daily (2) CHF (congestive heart failure): Patient presents with shortness of breath, markedly elevated BNP CONCLUSIONS ?LV systolic function is moderate to severely reduced with EF of ?30-35%. Moderate to severe global hypokinesis. ?RV is hypokinetic. ?Bilateral dilation ?Mild mitral regurgitation ?Moderate aortic regurgitation ?Mild tricuspid regurgitation ?IVC dilated ?Compared to prior echocardiogram from 08/2022, LV systolic ?function has significantly reduced. -cardiology consulted (3) Atrial fibrillation: Patient with past history of atrial fibrillation eliquis Cardiology consultation (4) Diabetes: Consistent carb diet when able Mild sliding scale insulin (5) Diarrhea: Family reports diarrhea. Significant liquid stool. She has no evidence of abdominal pain First check C. difficile, monitor for any recurrent diarrhea She may have been on stool softener at home. We will have to wait for med reconciliation. Obviously hold this. (6) Right upper quadrant abdominal pain: ruq us 1. Cholelithiasis without evidence for acute cholecystitis. 2. Hepatic steatosis. Focal area of increased echogenicity in the right lobe of the liver is probably either a small hemangioma or focal hepatic steatosis. This can be reevaluated in 3 months by ultrasound. This has not been described on prior imaging studies. 3. Quality of the ultrasound is suboptimal by body habitus. due to persistent ruq pain, HID scan ordered (7) Hyperbilirubinemia: (8) Urinary tract infection: Continue Rocephin (9) Systolic CHF: Plan Multiple other medical problems as outlined in past medical history Full code Lovenox will suffice for DVT prophylaxis Protonix for GI prophylaxis plan for today cardio eval, hida scam, monitor hr, pt, ot Attestations Medical Necessity Statement*: patient needs hospitalization for ef 35%, new, afib, ruq hida scan Diagnoses Arrhythmia I49.9 CHF (congestive heart failure) I50.9 Atrial fibrillation I48.91 Diabetes E11.9 Diarrhea R19.7 Right upper quadrant abdominal pain R10.11 Hyperbilirubinemia E80.6 Urinary tract infection N39.0 Systolic CHF I50.20
[2023-06-06 17:17] LABS: Glucose Point of Care 124 mg/dL (70-110)
[2023-06-06 20:21] LABS: Glucose Point of Care 188 mg/dL (70-110)
[2023-06-06] MEDS: insulin lispro 100 unit/1 mL SUBCUT (20:40)
[2023-06-07] VITALS (41 sets, daily range): BP systolic 89–132; BP diastolic 63–113; PULSE 60–119; RESP 16–24; O2SAT 82–100
[2023-06-07 04:20] LABS: Basophils % 0.5 %; Eosinophils # 0.1 10^3/uL (0.0-0.8); Eosinophils % 1.3 %; Hematocrit 46.8 % (37.0-47.0); Hemoglobin 14.5 g/dL (11.5-15.3); Lymphocytes # 1.2 10^3/uL (0.8-4.8); Lymphocytes % 19.3 %; Mean Corpuscular Hemoglobin 30.5 pg (28.0-34.0); Mean Corpuscular Volume 98.5 fl (81-99); Mean Platelet Volume 10.9 fL (7.4-10.4); Monocytes # 0.7 10^3/uL (0.2-0.9); Monocytes % 10.5 %; Neutrophils # 4.27 10^3/uL (1.8-7.7); Neutrophils % 68.2 %; Nucleated Red Blood Cells % 0 %; Platelet Count 159 10^3/cmm (130-400); Red Blood Count 4.75 10^6/uL (4.1-5.3); Red Cell Distribution Width 21.9 % (12.1-15.1); White Blood Count 6.3 10^3/uL (4.0-10.0)
[2023-06-07] MEDS: cefTRIAXone 1,000 MG in sodium chloride 0.9% (plus) 50 ML 100 MG IV (05:45)
[2023-06-07] MEDS: levothyroxine 25 mcg Tablet PO (05:45)
[2023-06-07 05:57] LABS: Alanine Aminotransferase 16 U/L (0-33); Albumin Level 2.8 g/dL (3.5-5.2); Alkaline Phosphatase 83 U/L (35-105); Aspartate Amino Transferase 23 U/L (0-32); Blood Urea Nitrogen 19 mg/dL (8-23); Carbon Dioxide 28 mmol/L (22-29); Chloride 105 mmol/L (98-107); Globulin 3.1 g/dL (1.3-4.6); Glucose 99 mg/dL (65-115); Magnesium 1.9 mg/dL (1.7-2.3); Osmolality Calculated 294 mOsm/kg (285-295); Phosphorus 2.7 mg/dL (2.5-4.5); Sodium 141 mmol/L (136-145); Total Bilirubin 1.2 mg/dL (0.15-1.2); Total Protein 5.9 g/dL (6.6-8.7)
--- NOTE | 2023-06-07 07:41 | PM.PN ---
Subjective Subjective: Overnight Rupa's blood pressure and heart rate have gone up. Her blood pressure at this morning is 132/113. Her heart rate is 115 and irregularly irregular. She seems less with it this morning. I have looked after Rupa for many years. She has always had a very bizarre affect but was always able to process information relatively well. Now she does not seem to grasp what she is being told. When I asked her this morning how she was doing she told me that because the commercials are on TV that she was doing fine. She has relatively inappropriate answers to fairly simple questions. I had the same interaction with her last evening when I tried to discuss the results of the echo. Her daughter was not there last evening and is not there this morning. She does not appear in any distress. She is not short of breath. She tells me she is not having any pain. She did not get a dose of lisinopril yesterday. Vitals/I&O/Wt Last Vital Signs Temp 97.5 F L 06/06/23 19:00 Pulse 111 H 06/07/23 07:00 Resp 24 H 06/07/23 07:00 BP 132/113 06/07/23 07:00 Pulse Ox 82 L 06/07/23 07:00 O2 Del Method Room Air 06/06/23 23:00 O2 Flow Rate 1 06/06/23 19:00 06/06/23 06/07/23 06/07/23 22:59 06:59 14:59 Intake Total 50 / 50 50 / 50 Output Total 300 / 300 150 / 450 Balance -250 / -250 -150 / -400 50 / 50 Weight last 48 hrs Weight 192 lb 14.472 oz Weight 192 lb 14.472 oz Physical Exam Narrative: GENERAL: In general she is comfortable but seems slightly confused HEENT: Exam within normal limits. NECK: Supple without jugular vein distention. The carotid upstroke is normal without bruits. BACK: Exam normal. LUNGS: Clear. HEART: Irregularly irregular rhythm ABDOMEN: Benign without organomegaly or tenderness. EXTREMITIES: No edema. NEUROLOGIC: Exam not done. SKIN: Unremarkable. Urinary Catheter Management: Lewis: Cath Placed During This Visit: yes Reason for Continuing Indwelling Catheter: Accurate Measurement of Urinary Output in Critically Ill Patients Urinary Catheter Date of Insertion: 06/04/23 Urinary Catheter Time of Insertion: 22:30 Data 06/07/23 04:00 06/07/23 05:30 Micro: Microbiology 06/04/23 23:55 Urine Culture - Preliminary Urine,Clean Catch Gram Negative Rods A&P Assessment and plan (1) Bipolar 1 disorder: (2) CKD (chronic kidney disease): (3) Anticoagulant long-term use: (4) CVA (cerebral vascular accident): (5) Myocardial infarction: (6) CHF (congestive heart failure): (7) Status cardiac pacemaker: (8) Diabetes: (9) Atrial fibrillation: (10) Obesity: (11) Sick sinus syndrome: (12) HTN (hypertension): Plan This morning I am going to add verapamil to see if I can get her heart rate under better control. I am also going to increase the dose of lisinopril from 5 mg daily to 10 mg daily. Efforts to explain the drop in left ventricular function have simply been unsuccessful with Rupa directly. I will talk to her daughter if and when she comes in today. My general sense is to treat this medically no matter what given her overall state of health. Attestations Medical Necessity Statement*: Hospital stay for treatment of all of the above-mentioned medical problems is still required. and Moderate Time for a total of 35 minutes, includes reviewing past or interval history, examining/interviewing patient, updating patient/family/other support and documenting encounter Diagnoses Bipolar 1 disorder F31.9 CKD (chronic kidney disease) N18.9 Anticoagulant long-term use Z79.01 CVA (cerebral vascular accident) I63.9 Myocardial infarction I21.9 CHF (congestive heart failure) I50.9 Status cardiac pacemaker Z95.0 Diabetes E11.9 Atrial fibrillation I48.91 Obesity E66.9 Sick sinus syndrome I49.5 HTN (hypertension) I10
[2023-06-07 07:47] LABS: Glucose Point of Care 112 mg/dL (70-110)
[2023-06-07] MEDS: metoprolol tartrate 50 mg Tablet 100 MG PO ×2 (08:14→20:00)
[2023-06-07] MEDS: atorvastatin 40 mg Tablet 20 MG PO (08:15)
[2023-06-07] MEDS: aspirin 81 mg EC Tablet PO (08:15)
[2023-06-07] MEDS: magnesium lactate 84 mg Tablet PO (08:15)
[2023-06-07] MEDS: escitalopram 10 mg Tablet PO (08:15)
[2023-06-07] MEDS: donepezil 5 MG Tablet PO (08:15)
[2023-06-07] MEDS: lisinopril 5 mg Tablet 10 MG PO (08:15)
[2023-06-07] MEDS: pantoprazole DR 40 mg Tablet PO (08:15)
[2023-06-07] MEDS: apixaban 5 mg Tablet PO (08:15)
[2023-06-07] MEDS: ciprofloxacin 400 MG/200 ML PREMIX 200 MG IV ×2 (10:05→21:35)
[2023-06-07] MEDS: metroNIDAZOLE IV 500 MG/100 ML PREMIX 100 MG IV ×2 (10:07→17:06)
--- NOTE | 2023-06-07 11:29 | PC.SOCIAL ---
IMM Update: IMM Update. Page 2 of IMM updated/reviewed with pt at 0923. Copy provided and placed in pt file.
[2023-06-07 11:54] LABS: Glucose Point of Care 168 mg/dL (70-110)
[2023-06-07] MEDS: insulin lispro 100 unit/1 mL SUBCUT ×2 (11:56→20:03)
--- NOTE | 2023-06-07 14:28 | PC.PT ---
PT staff believe Patient would benefit most from rehab placement,but patient daughter state patient would not attend rehab, but hopefully with encouragement from care team,we can go that direction-
--- NOTE | 2023-06-07 15:13 | P.PN_ITS ---
Subjective Subjective: Patient was seen this morning, her daughter is at bedside she is alert to person, to place, not to time, I had extensive discussion with her about her HIDA scan findings, they seem to indicate chronic cholecystitis, given her symptoms of recurrent nausea, vomiting, poor appetite, weight loss, it seems to fit this, however given her diminished ejection fraction, I do not believe she would be a good surgical candidate, I did speak to general surgery spoke to Dr. Hameed, who recommended that patient could be a candidate for elective surgery as outpatient, if her cardiac condition could be optimized, her daughter really wants her mom to undergo her surgery, as her mom does not have a good quality of life she is continue to lose weight continues to have a lot of nausea vomiting, his severely deconditioned. Advised daughter that I do not know if fixing the gallbladder would help with that exactly, but certainly would help with her chronic nausea vomiting, and her right upper quadrant pain and on examination today she continues to be quite tender in the right upper quadrant. However doing a coronary angiogram for EF of 30 to 35% does carry significant risk, significant morbidity or mortality, significant risk of acute renal failure. Given her age, this does carry significant risk. According to daughter 6 months ago her mom was walking, she can carry out conversation she does have dementia, but she could carry out conversations, she does have a history of strokes and vascular dementia, but she was quite functional but over the last 6 months she has had a gradual decline. Her daughter is hoping that with us optimizing her cardiac status, performing a coronary angiogram this would give her a chance at potentially gallbladder surgery which is what she wants ultimately for her mom, she tells me that for the last few months she being trying to have her mom gallbladder evaluated and potentially operated on but as she had such a drastic decline they were worried that her mom would not make it. I did also speak to Dr. Hardy, who will also have a detailed discussion about performing a coronary angiogram. I was very clear with patient's daughter that I cannot promise that her mom will gain her functionality, after undergoing coronary angiogram, nor can I guarantee that she will be a optimal surgical candidate, it is up to the surgeon ultimately if he is going to operate on the gallbladder or not. The other option that I agrees to family is just medical evaluation, and medical treatment, kidney continue antibiotics, antiplatelet therapy however her daughter tells me that her mom or he does not have a good quality of life and she wants to give her mom a chance at the quality of life that she had 6 months ago. This will be shared decision making between Rupa her daughter and the surgeon. I have called upon Dr. Hardy to evaluate her cardiac condition, given her a diminished ejection fraction, and will await his discussion with the patient's family. After discussing the risk and benefits of all options, Vitals/I&O/Wt Last Vital Signs Temp 97.5 F L 06/06/23 19:00 Pulse 63 06/07/23 14:00 Resp 23 H 06/07/23 14:00 BP 105/70 06/07/23 14:00 Pulse Ox 92 06/07/23 14:00 O2 Del Method Nasal Cannula 06/07/23 07:42 O2 Flow Rate 2 06/07/23 07:42 06/07/23 06/07/23 06/07/23 06:59 14:59 22:59 Intake Total 600 / 600 Output Total 150 / 450 Balance -150 / -400 600 / 600 Weight last 48 hrs Weight 87.5 kg Weight 87.5 kg Physical Exam Const: COMMON NORMALS: no acute distress and patient oriented x3 Neck/C-Spine: COMMON NORMALS: no JVD Resp: COMMON NORMALS: normal respiratory effort, No retractions, No use of accessory muscles and clear to auscultation bilaterally AUSCULTATION: clear to auscultation bilaterally Cardio: COMMON NORMALS: no JVD, regular rate, regular rhythm, S1 normal heart sound present and S2 normal heart sound present RATE: regular rate RHYTHM: regular rhythm HEART SOUNDS: S1 normal heart sound present and S2 normal heart sound present GI: COMMON NORMALS: Normal to inspection, nondistended, normoactive bowel sounds present OTHER: Right upper quadrant tenderness Extremity: COMMON NORMALS: no pedal edema Neuro: COMMON NORMALS: patient oriented x3 Urinary Catheter Management: Lewis: Cath Placed During This Visit: yes Reason for Continuing Indwelling Catheter: Accurate Measurement of Urinary Output in Critically Ill Patients Urinary Catheter Date of Insertion: 06/04/23 Urinary Catheter Time of Insertion: 22:30 Data 06/07/23 04:00 06/07/23 05:30 Micro: Microbiology 06/04/23 23:55 Urine Culture - Final Urine,Clean Catch Klebsiella pneumoniae A&P Assessment and plan (1) Arrhythmia: Patient presents with tachycardia, irregular wide-complex rhythm some of which are paced, seems like atrial fibrillation with paced rhythm She was started on amiodarone in the emergency department Cardiology consulted On metoprolol 100 twice daily On Eliquis 5 mg twice daily (2) CHF (congestive heart failure): Patient presents with shortness of breath, markedly elevated BNP CONCLUSIONS ?LV systolic function is moderate to severely reduced with EF of ?30-35%. Moderate to severe global hypokinesis. ?RV is hypokinetic. ?Bilateral dilation ?Mild mitral regurgitation ?Moderate aortic regurgitation ?Mild tricuspid regurgitation ?IVC dilated ?Compared to prior echocardiogram from 08/2022, LV systolic ?function has significantly reduced. -cardiology consulted (3) Atrial fibrillation: Patient with past history of atrial fibrillation eliquis Cardiology consultation (4) Diabetes: Consistent carb diet when able Mild sliding scale insulin (5) Diarrhea: Monitor (6) Right upper quadrant abdominal pain: ruq us 1. Cholelithiasis without evidence for acute cholecystitis. 2. Hepatic steatosis. Focal area of increased echogenicity in the right lobe of the liver is probably either a small hemangioma or focal hepatic steatosis. This can be reevaluated in 3 months by ultrasound. This has not been described on prior imaging studies. 3. Quality of the ultrasound is suboptimal by body habitus. HIDA scan MPRESSION: Somewhat limited study due to patient's clinical status and inability to position for lateral imaging *? Diffuse patchy hepatic radiotracer uptake compatible with fatty infiltration. *? Gallbladder is not definitely visualized suspicious for? cholecystitis. Correlation with biliary function studies. Recommend follow-up with ultrasound. *? Common bile duct and small bowel activity are visualized by 90 minutes. Noted on the prior most recent CT from 2009 gallbladder appears thickened at that time with cholelithiasis similar to the recent ultrasound suggesting chronic or indolent gallbladder dysfunction. -Likely chronic cholecystitis -Switch to Cipro IV and Flagyl -Monitor nausea, vomiting -Low-fat diet -Follow-up with general surgery as outpatient for consideration of surgical intervention after optimizing of her cardiac status (7) Hyperbilirubinemia: (8) Urinary tract infection: On ciprofloxacin (9) Systolic CHF: - EF of 30 to 35% LV systolic function is moderate to severely reduced with EF of ?30-35%. Moderate to severe global hypokinesis. ?RV is hypokinetic. ?Bilateral dilation ?Mild mitral regurgitation ?Moderate aortic regurgitation ?Mild tricuspid regurgitation ?IVC dilated ?Compared to prior echocardiogram from 08/2022, LV systolic ?function has significantly reduced. -Cardiology consulted for consideration of cardiac angiogram (10) Chronic cholecystitis: Plan Multiple other medical problems as outlined in past medical history Full code Lovenox will suffice for DVT prophylaxis Protonix for GI prophylaxis plan for today spoke to patient, spoke to patient's daughter, extensive family discussion, spoke to cardiology Attestations Medical Necessity Statement*: Patient requires hospitalization for chronic cholecystitis, requiring IV antibiotics, diminished ejection fraction of 30 to 35%, awaiting cardiology's recommendation for possible coronary angiography Coding Level of Care Code 12417 High Time for a total of 60 minutes, includes reviewing past or interval history, examining/interviewing patient, placing orders, counseling patient/fam marina/other support, updating patient/family/other support, discussing plan of care with staff, communicating with other healthcare providers, documenting encounter and coordinating care Diagnoses Arrhythmia I49.9 CHF (congestive heart failure) I50.9 Atrial fibrillation I48.91 Diabetes E11.9 Diarrhea R19.7 Right upper quadrant abdominal pain R10.11 Hyperbilirubinemia E80.6 Urinary tract infection N39.0 Systolic CHF I50.20 Chronic cholecystitis K81.1
[2023-06-07 17:02] LABS: Glucose Point of Care 130 mg/dL (70-110)
[2023-06-07 19:57] LABS: Glucose Point of Care 161 mg/dL (70-110)
[2023-06-07] MEDS: morphine 4 mg/mL SDV 1 mL 2 MG IVP (22:54)
[2023-06-08] VITALS (58 sets, daily range): BP systolic 88–149; BP diastolic 53–99; PULSE 40–86; RESP 10–27; TEMP 35.9–37.1; O2SAT 75–100
[2023-06-08] MEDS: metroNIDAZOLE IV 500 MG/100 ML PREMIX 100 MG IV ×3 (02:07→17:43)
[2023-06-08 04:35] LABS: Basophils # 0.1 10^3/uL (0.0-0.1); Basophils % 0.7 %; Eosinophils # 0.2 10^3/uL (0.0-0.8); Eosinophils % 1.6 %; Hematocrit 47.6 % (37.0-47.0); Hemoglobin 14.4 g/dL (11.5-15.3); Lymphocytes # 1.4 10^3/uL (0.8-4.8); Lymphocytes % 15.7 %; Mean Corpuscular HGB Conc 30.3 g/dL (30.0-36.0); Mean Corpuscular Hemoglobin 30.1 pg (28.0-34.0); Mean Corpuscular Volume 99.6 fl (81-99); Mean Platelet Volume 11.7 fL (7.4-10.4); Monocytes # 1.9 10^3/uL (0.2-0.9); Monocytes % 20.4 %; Neutrophils % 61.4 %; Nucleated Red Blood Cells % 0 %; Platelet Count 155 10^3/cmm (130-400); Red Blood Count 4.78 10^6/uL (4.1-5.3); Red Cell Distribution Width 21.9 % (12.1-15.1); White Blood Count 9.1 10^3/uL (4.0-10.0)
[2023-06-08 05:01] LABS: Alanine Aminotransferase 17 U/L (0-33); Albumin Level 2.7 g/dL (3.5-5.2); Alkaline Phosphatase 84 U/L (35-105); Blood Urea Nitrogen 23 mg/dL (8-23); Calcium 8.8 mg/dL (8.5-10.5); Carbon Dioxide 22 mmol/L (22-29); Chloride 105 mmol/L (98-107); Globulin 3.1 g/dL (1.3-4.6); Glucose 133 mg/dL (65-115); Magnesium 2.1 mg/dL (1.7-2.3); Osmolality Calculated 290 mOsm/kg (285-295); Phosphorus 3.4 mg/dL (2.5-4.5); Sodium 137 mmol/L (136-145); Total Bilirubin 0.9 mg/dL (0.15-1.2); Total Protein 5.8 g/dL (6.6-8.7)
[2023-06-08 05:02] LABS: Creatinine Clr Calc Pharmacy 41.4756
[2023-06-08 05:03] LABS: Anion Gap 14.4 (5-19); Aspartate Amino Transferase 25 U/L (0-32); Potassium 4.4 mmol/L (3.5-5.1)
[2023-06-08] MEDS: levothyroxine 25 mcg Tablet PO (05:48)
[2023-06-08] MEDS: diphenhydrAMINE 50 mg Capsule PO (05:48)
[2023-06-08] MEDS: sodium chloride 0.9% 1,000 ML 50 ML IV (05:48)
--- NOTE | 2023-06-08 07:00 | XACV_ITS ---
Exam Room: ICU11 Ht: 165 cm Wt: 87 kg BSA: 2.03 m2 Gender: Female : 1950 Any Known Allergies: Other Exam Priority: Routine Procedure(s): Procedure Description: Diagnostic procedure Diagnostic Cath Status: Urgent Diagnostic Findings * Patient has had a decrease in left ventricular function and has cholecystitis. She has a number of underlying medical problems. Previous stress testing a few months ago was abnormal but angiography was not done at that time. Upon arrival to the catheterization laboratory patient's heart rate was paced and 60 bpm. She was less alert than previously. She was also intermittently hypoxic. She was mildly agitated. My feeling was that there was something amiss and that the procedure should not continue. I therefore decided not to proceed. In the meantime I did use an ultrasound to try to find her radial artery because she did not have a radial artery pulse. I was not able to identify the artery with ultrasound. The procedure was then aborted. No catheters were placed. She received only 1 mg of Versed. She was taken back to the intensive care unit. Conclusions 1. Procedure was not performed. I spoke to her daughter in person afterwards and explained everything to her. We will reassess later in the day. Diagnostic RX Recommendation: none Procedural Details Procedure Consent Obtained. Procedure started. Pre-Procedure Time Out. Identified patient by full name and date of as verbalized by the patient/guarantor. Does the consent match the physician's order: Yes. Accurate & Complete Informed Consent: Yes. Inpatient/Outpatient History & Physical on Chart: Yes. If H&P is completed, is and addenduem needed: No; If yes, is the addendum complete: N/A. Visualize and Verify Site with Patient/Guarantor: N/A. Relevant Radiology Images available: Yes. Pre-op teaching completed and patient verbalized understanding. The risks, benefits, and alternatives of sedation and/or procedure were discussed by physician. The patient agrees to continue. [facility] Clinical Fraility Score: 5: Mildly Frail. Engineering And Operations Director Indications: Cardiomyopathy. Chest Pain Symptom Assessment: Non-anginal Chest Pain. Correct patient, site and procedure confirmed by cath team. PERRLA. Strong, equal hand upward bound director bilaterally. Lungs clear x 5 lobes. IV Site on Arrival: 20 gauge in the left anticubital. IV Fluids: 0.9% NaCl at KVO. 0 mL infused prior to label press operator. Pre Procedural Pulses: right radial was 1+. Pre Procedural Pulses: bilateral dorsalis pedis was Doppled. Pre Procedural Pulses: bilateral posterior tibial was Doppled. Oxygen started at 2liters/min via nasal canula. right groin was prepped with chloroprep then draped in the usual sterile fashion. right radial was prepped with chloroprep then draped in the usual sterile fashion. Baseline sample Acquired. HR: 62 BPM. Physician arrived. Physician scrubbed in. Immediate Pre-Procedure Time Out. Correct Patient: Yes; Correct Procedure: Yes; Correct Site: Yes; Correct Patient Position: Yes; Correct Supplies: Yes; Dried Flammable Prep: Yes; Blood Products Available: N/A;. Decision to postpone cath due to the patient being nauseated and near vomitting. Vital chart was stopped. Procedure Medications Start: 6:45 AM Stop: 6:45 AM Medication: Versed Amount: 1 mg Route: I.V. I, the attending physician, have reviewed and verified all procedure medications. Yes, all medications given per verbal order History/Risk Factors Hypertension: Yes Dyslipidemia: No Peripheral Arterial Disease (PAD): No Myocardial Infarction (NC): No Obesity: Yes Renal Disease: No Tobacco Use: Former Prior Interventions PCI: No CABG: No Valve Surgery: No Report Signatures Finalized by Dr. Jere Hardy MD on 06/08/2023 02:44 PM
--- NOTE | 2023-06-08 07:16 | PM.PN ---
Subjective Subjective: Patient was brought down to the [facility] this morning. We placed her on the table. I was not able to identify a right radial pulse. I used an ultrasound machine and was not able to identify the right radial artery. We therefore switched our attention to her groin. She has a tremendous amount of adipose tissue there. Identifying a pulse was difficult. As I began to prepare to inject lidocaine she became somewhat agitated. Prior to the case, I decided not to give her any sedatives because of her underlying central nervous system situation. I was concerned that it may actually make her more agitated. She began to move her hips around and try to get herself more comfortable by laying on her side. Obviously the case cannot be done in that position. She then began to cough and became nauseated and made attempts to vomit. Because of the movement of her abdomen, the coughing, the nausea and attempted vomiting and moving of her legs, it was simply not possible to do the test. I gave her a very small amount of a benzodiazepine and as expected it actually made her agitation worse. Therefore, we took her off the table and have taken her back to the intensive care unit. Fortunately, her heart rate has come down in the 60s and occasionally she is paced. Her blood pressure is still very labile. When she arrived in the [facility] it was 104/60. A few minutes later it was 144/110. She is otherwise the same neurologically today. Vitals/I&O/Wt Last Vital Signs Temp 97.5 F L 06/06/23 19:00 Pulse 60 06/08/23 06:00 Resp 18 06/08/23 06:00 BP 113/76 06/08/23 06:00 Pulse Ox 87 L 06/08/23 06:00 O2 Del Method Nasal Cannula 06/07/23 07:42 O2 Flow Rate 2 06/07/23 07:42 06/07/23 06/08/23 06/08/23 22:59 06:59 14:59 Intake Total 360 / 960 100 / 1060 Output Total 100 / 100 Balance 260 / 860 100 / 960 Weight last 48 hrs Weight 192 lb 14.472 oz Physical Exam Narrative: GENERAL: In general she is mildly agitated and intermittently confused HEENT: Exam within normal limits. NECK: Supple without jugular vein distention. The carotid upstroke is normal without bruits. BACK: Exam normal. LUNGS: Clear. HEART: Irregular rate and rhythm ABDOMEN: Benign without organomegaly or tenderness. EXTREMITIES: No edema. NEUROLOGIC: Exam normal. SKIN: Unremarkable. Urinary Catheter Management: Lewis: Cath Placed During This Visit: yes Reason for Continuing Indwelling Catheter: Accurate Measurement of Urinary Output in Critically Ill Patients Urinary Catheter Date of Insertion: 06/04/23 Urinary Catheter Time of Insertion: 22:30 Data 06/08/23 03:55 06/08/23 03:55 Micro: Microbiology 06/04/23 23:55 Urine Culture - Final Urine,Clean Catch Klebsiella pneumoniae A&P Assessment and plan (1) Chronic cholecystitis: (2) Status cardiac pacemaker: (3) CHF (congestive heart failure): (4) Myocardial infarction: (5) CVA (cerebral vascular accident): (6) Anticoagulant long-term use: (7) CKD (chronic kidney disease): (8) Bipolar 1 disorder: Plan We simply are not able to do the angiogram today because of the above-mentioned issues. Sedation is not going to work for her because she will become more agitated. 1 could consider anesthesia but I do not think it is worth putting her to sleep to do the angiogram. Additionally, the test will not be easy through her groin because of her size. I put her back in the unit today and will reassess later this afternoon. We will consider making 1 more attempt via the groin tomorrow morning. I spoke to her daughter at length this morning and explained all of this to her. In a patient such as this, the risk of the procedure is increasing to the point where it may not be beneficial. In that circumstance, if she needed her gallbladder removed, we would have to optimize her situation as best as we can and proceed with the surgery if necessary. Attestations Medical Necessity Statement*: Requires hospitalization for management of multiple serious medical problems and High Time for a total of 60 minutes, includes reviewing past or interval history, examining/interviewing patient, placing orders, counseling patient/family/other support, updating patient/family/other support, discussing plan of care with staff, communicating with other healthcare providers, documenting encounter and coordinating care Diagnoses Chronic cholecystitis K81.1 Status cardiac pacemaker Z95.0 CHF (congestive heart failure) I50.9 Myocardial infarction I21.9 CVA (cerebral vascular accident) I63.9 Anticoagulant long-term use Z79.01 CKD (chronic kidney disease) N18.9 Bipolar 1 disorder F31.9
[2023-06-08 08:41] LABS: Glucose Point of Care 131 mg/dL (70-110)
--- NOTE | 2023-06-08 09:35 | XRR_ITS ---
PROCEDURE INFORMATION: Exam: XR Chest Exam date and time: 06/08/2023 10:46 AM Age: 73 years old Clinical indication: Other: N/v TECHNIQUE: Imaging protocol: Radiologic exam of the chest. Views: 1 view. COMPARISON: CR XR chest 1V portable [id number] 04/20/2023 9:35 PM FINDINGS: Tubes, catheters and devices: Dual lead cardiac device implanted in the left chest. Lungs: Left lower lobe opacity with obscuration of the left hemidiaphragm. Pleural spaces: Blunting of the bilateral costophrenic angles. No pneumothorax. Heart/Mediastinum: Mild cardiomegaly, unchanged. Vasculature: Calcifications of the aortic knob. Bones/joints: Unremarkable. XR/XR chest 1V portable [id number] IMPRESSION: 1. Bilateral pleural effusions. 2. Left lower lobe opacity may reflect pleural effusion, atelectasis, and/or infiltrate.
--- NOTE | 2023-06-08 09:35 | XRR_ITS ---
PROCEDURE INFORMATION: Exam: XR Abdomen Exam date and time: 06/08/2023 10:46 AM Age: 73 years old Clinical indication: Abdominal pain; Additional info: Abdominal distetion TECHNIQUE: Imaging protocol: Radiologic exam of the abdomen. Views: Frontal supine view of the abdomen. 1 View. COMPARISON: [place] hepatobiliary [place] phar [id number] 06/06/2023 2:26 PM FINDINGS: Lungs: Left basilar opacity is better seen on concurrent chest radiograph. Gastrointestinal tract: Overall nonobstructive bowel gas pattern. Bones/joints: Multilevel spondylosis. Soft tissues: Visualization of the soft tissue structures in the internal abdomen is hazy. This can be seen with intra-abdominal ascites. XR/XR KUB portable [id number] IMPRESSION: Visualization of the soft tissue structures in the internal abdomen is hazy. This can be seen with intra-abdominal ascites.
[2023-06-08] MEDS: sodium chloride 0.9% 1,000 ML 30 ML IV (10:30)
[2023-06-08] MEDS: ondansetron 2 mg/ML SDV 2 mL 4 MG IVP ×2 (10:31→23:01)
[2023-06-08] MEDS: aspirin 81 mg EC Tablet PO (10:32)
[2023-06-08] MEDS: atorvastatin 40 mg Tablet 20 MG PO (10:33)
[2023-06-08] MEDS: metoprolol tartrate 50 mg Tablet 100 MG PO (10:33)
[2023-06-08] MEDS: lisinopril 5 mg Tablet 10 MG PO (10:33)
[2023-06-08] MEDS: nystatin cream 30 gm 1 APPLIC TOPICAL ×2 (10:34→21:30)
[2023-06-08] MEDS: magnesium lactate 84 mg Tablet PO (10:34)
[2023-06-08] MEDS: donepezil 5 MG Tablet PO (10:34)
[2023-06-08] MEDS: escitalopram 10 mg Tablet PO (10:34)
[2023-06-08] MEDS: pantoprazole DR 40 mg Tablet PO (10:34)
[2023-06-08] MEDS: ferrous sulfate EC 325 mg Tablet PO (10:34)
[2023-06-08] MEDS: ciprofloxacin 400 MG/200 ML PREMIX 200 MG IV ×2 (10:35→23:00)
[2023-06-08 11:49] LABS: Glucose Point of Care 108 mg/dL (70-110)
[2023-06-08 13:29] LABS: ABG PCO2 37.2 mmHg (35-45); ABG PH Result 7.35 (7.35-7.45); Alveolar-Arterial Oxygen Gradi 4.3 mmHg (5-10); Arterial Blood Gas Hematocrit 45.3 % (37-47); Base Excess ABG -4.4 mmol/L (-2.0-2.0); Blood Gas Allen Test Pos; Blood Gas Operator Identificat CAK; Blood Gas Sample Site Radial, left; Blood Gas Sample Type Arterial; Carboxyhemoglobin 1.5 %THgb (0.4-20.1); HCO3 ABG 20.6 mmol/L (22-26); HGB O2 Sat 92.3 % (95-100); Ionized Calcium Level - ABG 1.2 mmol/L (1.1-1.4); Methemoglobin 0.2 % (0.4-1.5); Oxygen Device ROOM AIR; Oxygen Saturation ABG 93.9; PO2 ABG 70.1 mmHg (80.0-100.0); Potassium Level - ABG 4.1 mmol/L (3.5-5.0); Total Hemoglobin 14.8 g/dL (12-16)
--- NOTE | 2023-06-08 13:35 | CTR_ITS ---
PROCEDURE INFORMATION: Exam: CT Chest Without Contrast; Diagnostic Exam date and time: 06/08/2023 1:46 PM Age: 73 years old Clinical indication: Abdominal tenderness; Dyspnea; Additional info: Hypotrmnsion? Shock TECHNIQUE: Imaging protocol: Diagnostic computed tomography of the chest without contrast. Radiation optimization: All CT scans at this facility use at least one of these dose optimization techniques: automated exposure control; mA and/or kV adjustment per patient size (includes targeted exams where dose is matched to clinical indication); or iterative reconstruction. REPORTING DATA: Count of CT and Cardiac NM exams in prior 12 months: This patient has received 7 known CTs and 0 known cardiac nuclear medicine studies in the 12 months prior to the current study. COMPARISON: CT angio chest PE protcl [id number] 08/31/2022 7:23 PM RADIATION DOSE METRICS: Total DLP (mGy-cm): 1030.58 FINDINGS: Tubes, catheters and devices: There is a dual-lead AICD with leads positioned in the right atrium and right ventricle. Lungs: There is dependent opacity in both lower lobes. There are scattered calcified bilateral pulmonary granulomas. Pleural spaces: There are moderate size dependent bilateral pleural effusions. No pneumothorax. Heart: There is moderate cardiac enlargement. There is no pericardial effusion. Coronary arteries: There is severe coronary artery calcification. Lymph nodes: There is no mediastinal or hilar lymphadenopathy. Vasculature: There is moderate aortic atherosclerotic disease. Bones/joints: No visible fracture. There is moderate thoracic disc degeneration. Soft tissues: The extrathoracic soft tissues are unremarkable. PROCEDURE INFORMATION: Exam: CT Abdomen And Pelvis Without Contrast Exam date and time: 06/08/2023 1:46 PM Age: 73 years old Clinical indication: Abdominal tenderness; Dyspnea; Additional info: Hypotrmnsion? Shock TECHNIQUE: Imaging protocol: Computed tomography of the abdomen and pelvis without contrast. Radiation optimization: All CT scans at this facility use at least one of these dose optimization techniques: automated exposure control; mA and/or kV adjustment per patient size (includes targeted exams where dose is matched to clinical indication); or iterative reconstruction. REPORTING DATA: Count of CT and Cardiac NM exams in prior 12 months: This patient has received 7 known CTs and 0 known cardiac nuclear medicine studies in the 12 months prior to the current study. COMPARISON: CT bony pelvis [id number] 04/06/2023 7:56 PM RADIATION DOSE METRICS: Total DLP (mGy-cm): 1030.58 FINDINGS: Liver: The liver is normal. Gallbladder and bile ducts: The gallbladder contains numerous small stones. The cystic duct contains numerous small stones. The common bile duct is diffusely dilated measuring up to 16 mm diameter. There are numerous small stones in the common bile duct. The gallbladder is nondistended. There is no pericholecystic edema. Pancreas: There is moderate atrophy of the pancreas. Spleen: The spleen is unremarkable. Adrenal glands: The adrenal glands are unremarkable. Kidneys and ureters: There is marked atrophy of the left kidney. There is focal cortical scarring at the right upper pole. There are simple cysts in both kidneys. There is a dystrophic 14 mm calcification at the lower pole of the left kidney. There is no hydronephrosis or stones. Stomach and bowel: The stomach is decompressed, preventing meaningful evaluation of wall thickness. The small bowel is nondilated. There is mild diverticulosis at the splenic flexure and in the proximal sigmoid colon. There is no sign of diverticulitis. Appendix: The appendix is not visible. Intraperitoneal space: Small volume intraperitoneal free fluid. There is no intraperitoneal free air. Vasculature: There is severe aortic atherosclerotic disease. Lymph nodes: There is no lymphadenopathy in the retroperitoneum, mesentery, pelvis or inguinal regions. Urinary bladder: The urinary bladder is decompressed, preventing meaningful evaluation of wall thickness. The Lewis catheter is appropriately positioned with the bulb and tip within the bladder lumen. Reproductive: The uterus is absent. There is no adnexal mass or large cyst. Bones/joints: There is moderate degenerative disease in the lumbar spine. There is mild degenerative disease of both hips. The bony pelvis is intact. There is bilateral ischial enthesopathy. Soft tissues: The abdominal wall is intact. CT/[place] [id number] IMPRESSION: 1. Moderate bilateral pleural effusions. 2. Dependent opacity in both lower lobes consistent with atelectasis. 3. Cardiac enlargement. IMPRESSION: 1. Anasarca. Mild ascites. 2. Numerous stones filling the gallbladder, cystic duct and common bile duct. Moderate extrahepatic biliary dilation. No sign of acute cholecystitis. 3. Incidental findings above. COMMENTS: Consistent with the [employer]'s Incidental Findings Committee white paper (J Am Adeel Radiol 2018): Any incidental renal lesion less than 1 cm or classified as too small to characterize, or any incidental cystic renal lesion characterized as simple-appearing, is likely benign. No follow-up imaging is recommended for these lesions per consensus recommendations based on imaging criteria.
--- NOTE | 2023-06-08 13:57 | USCV_ITS ---
Rupa Baptiste Age: 73 Gender: F : 1950 Exam Date: 06/08/2023 14:36 Ordering Phys: Maxx Garcia MD Technologist: Rohit Pinto Exam Location: [facility] – [place] Indication: shock BP: 105 / 81 HR: 60 Rhythm: Sinus Technical Quality: Adequate MEASUREMENTS (Male / Female) Normal Values 2D ECHO LVOT Diameter 2.0 cm LV Ejection Fraction MOD 2C 33.3 % LV Ejection Fraction 2C AL 33.3 % LA Diameter 4.0 cm LA Width 3.9 cm LA Height 6.6 cm RA Width 4.5 cm RA Height 5.0 cm Aorta at Sinotubular Diameter 2.3 cm IVC Diameter 2.0 cm M-MODE Aortic Annulus Diameter 2.9 cm LA Ao Ratio MM 1.4 MV E Point Septal Separation 0.9 cm DOPPLER AV Peak Velocity 83.0 cm/s LVOT Peak Velocity 48.0 cm/s AV Area Cont Eq vti 1.7 cm squared AV Area Cont Eq pk 1.9 cm squared MV Peak Velocity 85.0 cm/s MV Area PHT 4.5 cm squared Mitral E to A Ratio 3.4 MV E' Velocity 35.0 cm/s Mitral E to MV E' Ratio 15.1 Mitral E to LV E' Lateral Ratio 12.5 Mitral E to LV E' Septal Ratio 19.7 TR Peak Velocity 136.5 cm/s TR Peak Gradient 7.4 mmHg TR Mean Velocity 94.8 cm/s TR Mean Gradient 3.9 mmHg TR Velocity Time Integral 30.3 cm Right Atrial Pressure 3.0 mmHg Pulmonary Artery Systolic Pressu 10.4 mmHg PV Peak Velocity 49.0 cm/s RV Acceleration Time 0.0 s RV Ejection Time 0.3 s RV AcT/ET 0.1 FINDINGS Left Ventricle The ventricle is not well seen. The apical view is reasonable. The left ventricular size is normal. There is probably moderate global hypokinesis. The overall ejection fraction is around 35%. In 1 view, there may be mild to moderate hypokinesis in the anterolateral wall however this is not confirmed in other views. Grade 2 diastolic dysfunction. The rhythm is paced. Right Ventricle Catheter/pacemaker wire in the right ventricular cavity. Normal right ventricular size and systolic function. Normal right ventricular systolic pressure. Right Atrium Mildly increased right atrial size. Left Atrium Moderately increased left atrial size. Mitral Valve Structurally normal mitral valve. Mild-moderate mitral valve regurgitation. Aortic Valve Structurally normal trileaflet aortic valve. Mild aortic valve calcification. Aortic valve sclerosis without stenosis or regurgitation. Tricuspid Valve Structurally normal tricuspid valve. Moderate tricuspid valve regurgitation. Pulmonic Valve Pulmonic valve not well visualized. Pericardium Normal pericardium without effusion. Aorta Normal ascending aorta dimension. IVC The inferior vena cava appears normal. CONCLUSIONS The ventricle is not well seen. The apical view is reasonable. The left ventricular size is normal. There is probably moderate global hypokinesis. The overall ejection fraction is around 30- 35%. In 1 view, there may be mild to moderate hypokinesis in the anterolateral wall however this is not confirmed in other views. Grade 2 diastolic dysfunction. The rhythm is paced. Mildly increased right atrial size. Moderately increased left atrial size. Structurally normal mitral valve. Mild-moderate mitral valve regurgitation. Comparison to the echo done 3 days ago is slightly difficult due to the fact that the rhythm was atrial fibrillation with a rapid rate 3 days ago and now it is paced at a rate of 60. However direct comparison suggests that the left ventricular function is the same today as it was 3 days ago. There is no other real change. I did not see the degree of aortic regurgitation today that was reported [address] Jere Hardy MD (Electronically Signed) Final Date: 08 June 2023 15:39 S
[2023-06-08 14:28] LABS: Basophils % 0.6 %; Eosinophils # 0.1 10^3/uL (0.0-0.8); Eosinophils % 1.9 %; Hematocrit 44.5 % (37.0-47.0); Hemoglobin 13.6 g/dL (11.5-15.3); Lymphocytes # 1.2 10^3/uL (0.8-4.8); Lymphocytes % 18.8 %; Mean Corpuscular HGB Conc 30.6 g/dL (30.0-36.0); Mean Corpuscular Hemoglobin 30.6 pg (28.0-34.0); Mean Corpuscular Volume 100.2 fl (81-99); Mean Platelet Volume 12.2 fL (7.4-10.4); Monocytes # 0.7 10^3/uL (0.2-0.9); Monocytes % 10.7 %; Neutrophils # 4.34 10^3/uL (1.8-7.7); Neutrophils % 67.5 %; Nucleated Red Blood Cells % 0 %; Platelet Count 150 10^3/cmm (130-400); Red Blood Count 4.44 10^6/uL (4.1-5.3); Red Cell Distribution Width 22.1 % (12.1-15.1); White Blood Count 6.4 10^3/uL (4.0-10.0)
[2023-06-08] MEDS: glucagon 1 mg/mL KIT 1 mL IM (14:28)
[2023-06-08] MEDS: DOBUTamine drip 500 MG/250 ML PREMIX 6.75 MG IV (14:31)
[2023-06-08] MEDS: DOPamine drip 400 MG/250 ML PREMIX 16.88 MG IV (14:34)
--- NOTE | 2023-06-08 14:38 | PC.NURSE ---
Late note. At approximately 1300, nurse observed that the patient's fingers have become more dusky compared to this morning and the SPO2 monitor is having increasing trouble getting a clear waveform. 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 NUrse alerted Dr le. Dr le ordered a CBC, CP, MAG, phos, lactic, troponin, and abg as well as a 250 CC bolus. Nurse got patient back to bed and then had trouble getting a blood pressure. patient placed into trendelenburg position. very faint peripheral pulses and a blood pressure was palpated at [address] le came to bed side. Ordered CT. Upon returned from CT, bLood pressures continued to drop and were not able to be obtained. Dopamine, dobutamine, and levophed started. Im glucagon were started.
[2023-06-08 14:44] LABS: Lactate (Lactic Acid level) 2.7 mmol/L (0.5-2.2)
[2023-06-08 14:45] LABS: Troponin(5th) Baseline 36 ng/L (0-10)
--- NOTE | 2023-06-08 14:53 | USR_ITS ---
PROCEDURE INFORMATION: Exam: US Duplex Lower Extremity Veins, Bilateral Exam date and time: 06/08/2023 3:47 PM Age: 73 years old Clinical indication: Edema, localized; Lower extremity, bilateral; Additional info: Dvt TECHNIQUE: Imaging protocol: Real-time duplex ultrasound of the bilateral extremities with 2-D gaytan scale, color Doppler flow and spectral waveform analysis including responses to compression and other maneuvers (when performed) with image documentation. Complete exam focused on the lower extremity veins. COMPARISON: [place] [id number] 06/08/2023 1:46 PM FINDINGS: Right deep veins: Unremarkable. The common femoral, femoral, proximal profunda femoral, popliteal, posterior tibial and peroneal veins are patent without thrombus. Normal Doppler waveforms. Normal compressibility and/or augmentation response. Left deep veins: Unremarkable. The common femoral, femoral, proximal profunda femoral, popliteal, posterior tibial and peroneal veins are patent without thrombus. Normal Doppler waveforms. Normal compressibility and/or augmentation response. Superficial veins: Bilateral saphenofemoral junctions are patent without thrombus. Soft tissues: Unremarkable. US/CV venous duplex [facility] [id number] IMPRESSION: No sonographic evidence of deep vein thrombosis.
[2023-06-08 15:06] LABS: Alanine Aminotransferase 14 U/L (0-33); Albumin Level 2.8 g/dL (3.5-5.2); Alkaline Phosphatase 80 U/L (35-105); Anion Gap 14.9 (5-19); Aspartate Amino Transferase 20 U/L (0-32); Blood Urea Nitrogen 22 mg/dL (8-23); Calcium 8.1 mg/dL (8.5-10.5); Carbon Dioxide 20 mmol/L (22-29); Chloride 104 mmol/L (98-107); Globulin 2.4 g/dL (1.3-4.6); Glucose 149 mg/dL (65-115); Magnesium 1.9 mg/dL (1.7-2.3); Osmolality Calculated 286 mOsm/kg (285-295); Potassium 3.9 mmol/L (3.5-5.1); Sodium 135 mmol/L (136-145); Total Bilirubin 0.9 mg/dL (0.15-1.2); Total Protein 5.2 g/dL (6.6-8.7)
[2023-06-08 15:07] LABS: D Dimer 1.45 ug/mIFEU (0-0.59)
--- NOTE | 2023-06-08 15:32 | XRR_ITS ---
PROCEDURE INFORMATION: Exam: XR Chest Exam date and time: 06/08/2023 3:54 PM Age: 73 years old Clinical indication: Device placement; Other: Central line TECHNIQUE: Imaging protocol: Radiologic exam of the chest. Views: 1 view. COMPARISON: [place] [id number] 06/08/2023 1:46 PM FINDINGS: Tubes, catheters and devices: Left-sided pacemaker with leads overlying the right atrium and right ventricle. Right internal jugular central venous catheter with its tip overlying the cavoatrial junction. Lungs: Streaky opacities at the lung bases, likely secondary to atelectasis and/or scarring. Pleural spaces: Right greater than left pleural effusions. Heart/Mediastinum: Cardiomegaly. Vasculature: Senescent changes of the aorta. Bones/joints: Unremarkable. XR/XR chest 1V portable [id number] IMPRESSION: 1. Right internal jugular central venous catheter with its tip overlying the cavoatrial junction. No clinically significant pneumothorax. 2. Cardiomegaly and right greater than left pleural effusions. 3. Additional findings, as above.
--- NOTE | 2023-06-08 15:40 | P.MISC_ITS ---
Miscellaneous Note Note: I was called a short while ago by the nurse stating that Rupa's blood pressure had dropped and she became cool and her fingernails were somewhat dusky. Her mentation was about the same though it is difficult to sort this out due to her abnormal baseline. Blood pressures are running in the 80s systolic. Hospitalist ordered a CT scan of the abdomen. This revealed bilateral pleural effusions, atelectasis and cardiomegaly. There was mild ascites and the previously noted gallbladder findings. No bleeding. An echocardiogram was also ordered. I just now looked at that and it reveals no significant changes from the echo done 3 days ago. The ejection fraction is still in the 30 to 35% range with no other new findings. Her white blood cell count is 6.4. Hemoglobin and hematocrit are still normal. Platelet count is still within normal range. Blood gas reveals a PO2 of 70, PCO2 of 37.2 and a pH of 7.35. This was done on room air. Her creatinine has bumped up a little now 1.5. Yesterday it was 1.1. Her lactate is 2.7. Central line is being placed and she has been put on no repinephrine. This is not hemorrhagic shock and does not appear to be cardiogenic since the ejection fraction is no different. 2 choices are sepsis and medications. I am going to put the BLAIR inhibitor, beta-andrew and calcium andrew on hold. I just spoke to her daughter Shila and explained everything to her.
[2023-06-08 15:55] LABS: Cortisol Random 15.93 ug/dL (2.47-19.5); Procalcitonin 0.08 ng/mL (0-0.5); Thyroid Stimulating Hormone 11.76 uIU/mL (0.27-4.20)
[2023-06-08 16:06] LABS: C Reactive Protein 5.1 mg/L (0.0-4.9)
--- NOTE | 2023-06-08 16:06 | ECG_ITS ---
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 Measurements Intervals [place] Rate: 60 P: -56 DC: 148 QRS: -69 QRSD: 198 T: 118 QT: 575 QTc: 579 Interpretive Statements ELECTRONIC ATRIAL PACEMAKER ELECTRONIC VENTRICULAR PACEMAKER PROLONGED QT INTERVAL CRITICAL TEST RESULT Compared to ECG 06/05/2023 00:53:43 Prolonged QT interval now present Electronically Signed On 06-08-2023 23:28:34 CDT by Allie Syed M.D. [id number]
--- NOTE | 2023-06-08 16:07 | PC.NURSE ---
Consulted by House Charge at 1446 for PICC placement r/t vesicant therapy. Upon arrival to ICU unit at 1550 nursing staff informed me physician had placed an central line and PICC was not needed at this time. I contacted the House Charge and confirmed I was not needed at this time.
--- NOTE | 2023-06-08 16:33 | ANES.PROC ---
Anesthesia Procedures Procedure/Date: 06/08/23 Central Venous Insert: Central Venous Line: - Needle visualize entry into right internal jugular -Flash of nonpulsatile dark red blood -Guidewire threaded, ultrasound confirms placement of guidewire into right internal jugular vein throughout -X-ray confirms placement Time Out Performed: Yes Consent: requested by attending/covering physician, risks and benefits reviewed and emergency procedure Central Line: New Anesthesia monitors: pulse oximetry, EKG, BP cuff and oxygen Vein cannulated: right internal jugular Ultrasound used: to identify patency to vessel and to visualize needle entry to vein Post procedure: Obtain Chest X-Ray
--- NOTE | 2023-06-08 17:00 | P.PN_ITS ---
Subjective Subjective: - Patient was examined multiple times throughout the morning, and into the afternoon in the evening time -Early in the morning she was seen, daughter at bedside, there was attempt on doing a coronary angiography, however due to nausea, vomiting, patient's intolerance, patient could not go through with the procedure -She was examined she is alert to person, not to place, not to time she can foll ow commands but has received Ativan so she is drowsy, daughter at bedside, daughter was updated, -At roughly 130, patient was noted to be pale, diaphoretic, less responsive, could not get electronic blood pressure, manual blood pressures were 80s over 40s, she had mottling of bilateral lower extremities, bilateral bilateral hands, and feet were cool, clammy, with a bluish hue -Immediately upon seeing the patient, blood pressures at that time were 80s over 40s, manual blood pressures, heart rates in the 60s, she is alert to person, not to place, not to time she can follow some commands, denies any abdominal pain, bilateral upper extremities, bilateral fingers have a bluish hue to them, bilate ral lower extremities, DP PT pulses significantly diminished cap refill greater than 4 seconds, with a bluish hue, mottling of the level of the bilateral knees, -My immediate concern at this time was shock -Etiology of shock was unclear, she was on Eliquis so immediately took patient to CAT scan to make sure she did not have a retroperitoneal bleed, or any internal bleeding -CAT scan did not show any significant radiographic evidence of internal bleeding although I did it without contrast given her creatinine -CT of the chest although done without any contrast, does not show any significant evidence of dissection -Patient was brought back to [facility] [place] [place] ICU, I spoke to Dr. Hardy, ordered a stat echo -Ordered CBC, CMP, lactic acid, mag, Phos, Pro-Corey, CRP troponin series -Bedside EKG does not show any acute ST-T wave changes, shows paced rhythm -My other thought was could this be beta-andrew toxicity she was given glucagon without any improvement -Patient was started on Levophed, dopamine, and dobutamine for concerns for shock -Central line was placed by IV -echocardiogram performed, EF is about 30% -Venous ultrasound negative for DVT -Daughter was informed about patient's critical status, status currently stable -Currently on 3 pressors, blood pressures 100s over 60s, she is on 6 L, following commands, no significant leukocytosis she is afebrile, creatinine is 1.5, lactic acid 2.7, troponin is 36 -Patient is currently in shock, etiology possibly cardiac in nature, will place on heparin drip there is also the possibility that she might have a PE however her ABG did not show any significant hypoxemia or acidosis venous ultrasound was negative for DVT. There is no significant allergic reaction, no rash, she nonpruritic, not neurogenic no significant trauma, the other thought is could this be septic shock, in addition, CT scan did show 2. ? Numerous stones filling the gallbladder, cystic duct and common bile duct. Moderate extrahepatic biliary dilation. No sign of acute cholecystitis. -However she does not have any significant transaminitis, hyperbilirubinemia, alk phos elevation -Patient had bedside updated currently remains on 3 pressors, she is alert to p erson, to place, not to time, she is on 6 L, status is critical, prognosis guarded Vitals/I&O/Wt Last Vital Signs Temp 96.7 F L 06/08/23 08:30 Pulse 60 06/08/23 14:30 Resp 26 H 06/08/23 14:30 BP 90/58 06/08/23 12:00 Pulse Ox 92 06/08/23 14:30 O2 Del Method Nasal Cannula 06/08/23 14:30 O2 Flow Rate 6 06/08/23 14:30 06/08/23 06/08/23 06/08/23 06:59 14:59 22:59 Intake Total 100 / 1060 632.680 / 632.680 5.4 / 638.080 Output Total 100 / 100 Balance 100 / 960 532.680 / 532.680 5.4 / 538.080 Weight last 48 hrs Weight 90 kg Weight 87.5 kg Physical Exam Const: COMMON NORMALS: no acute distress Resp: COMMON NORMALS: normal respiratory effort, No retractions, No use of accessory muscles and clear to auscultation bilaterally AUSCULTATION: clear to auscultation bilaterally Cardio: COMMON NORMALS: regular rate, regular rhythm, S1 normal heart sound present and S2 normal heart sound present RATE: regular rate RHYTHM: regular rhythm HEART SOUNDS: S1 normal heart sound present and S2 normal heart sound present GI: COMMON NORMALS: Normal to inspection, nondistended, normoactive bowel sounds present, non-tender and no masses Extremity: COMMON NORMALS: no pedal edema Psych: COMMON NORMALS: mental status grossly normal Urinary Catheter Management: Lewis: Cath Placed During This Visit: yes Reason for Continuing Indwelling Catheter: Accurate Measurement of Urinary Output in Critically Ill Patients Urinary Catheter Date of Insertion: 06/04/23 Urinary Catheter Time of Insertion: 22:30 Sepsis: Focused sepsis exam performed: Yes Focused sepsis exam: DP PT pulses diminished, capillary refill greater than 4 seconds, mottling up to the level of bilateral knees, bluish hue cool clammy bilateral lower extremities Data 06/08/23 14:17 06/08/23 14:17 Micro: Microbiology 06/04/23 23:55 Urine Culture - Final Urine,Clean Catch Klebsiella pneumoniae A&P Assessment and plan (1) Arrhythmia: Patient presents with tachycardia, irregular wide-complex rhythm some of which are paced, seems like atrial fibrillation with paced rhythm She was started on amiodarone in the emergency department Cardiology consulted On metoprolol 100 twice daily, currently on hold verapamil on hold Heparin drip (2) CHF (congestive heart failure): Patient presents with shortness of breath, markedly elevated BNP CONCLUSIONS ?LV systolic function is moderate to severely reduced with EF of ?30-35%. Moderate to severe global hypokinesis. ?RV is hypokinetic. ?Bilateral dilation ?Mild mitral regurgitation ?Moderate aortic regurgitation ?Mild tricuspid regurgitation ?IVC dilated ?Compared to prior echocardiogram from 08/2022, LV systolic ?function has significantly reduced. -cardiology consulted (3) Atrial fibrillation: Patient with past history of atrial fibrillation eliquis Cardiology consultation (4) Diabetes: Consistent carb diet when able Mild sliding scale insulin (5) Diarrhea: Monitor (6) Right upper quadrant abdominal pain: ruq us 1. Cholelithiasis without evidence for acute cholecystitis. 2. Hepatic steatosis. Focal area of increased echogenicity in the right lobe of the liver is probably either a small hemangioma or focal hepatic steatosis. This can be reevaluated in 3 months by ultrasound. This has not been described on prior imaging studies. 3. Quality of the ultrasound is suboptimal by body habitus. HIDA scan MPRESSION: Somewhat limited study due to patient's clinical status and inability to position for lateral imaging *? Diffuse patchy hepatic radiotracer uptake compatible with fatty infiltration. *? Gallbladder is not definitely visualized suspicious for? cholecystitis. Correlation with biliary function studies. Recommend follow-up with ultrasound. *? Common bile duct and small bowel activity are visualized by 90 minutes. Noted on the prior most recent CT from 2009 gallbladder appears thickened at that time with cholelithiasis similar to the recent ultrasound suggesting chronic or indolent gallbladder dysfunction. -Likely chronic cholecystitis -Switch to Cipro IV and Flagyl -Monitor nausea, vomiting -Repeat CT scan 06/08/2023 -2. ? Numerous stones filling the gallbladder, cystic duct and common bile duct. Moderate extrahepatic biliary dilation. No sign of acute cholecystitis. -However she does not have any significant transaminitis, hyperbilirubinemia, alk phos elevation (7) Hyperbilirubinemia: (8) Urinary tract infection: On ciprofloxacin (9) Systolic CHF: - EF of 30 to 35% LV systolic function is moderate to severely reduced with EF of ?30-35%. Moderate to severe global hypokinesis. ?RV is hypokinetic. ?Bilateral dilation ?Mild mitral regurgitation ?Moderate aortic regurgitation ?Mild tricuspid regurgitation ?IVC dilated ?Compared to prior echocardiogram from 08/2022, LV systolic ?function has significantly reduced. (10) Chronic cholecystitis: (11) Shock: - Multifactorial -Possible cardiogenic shock, repeat echo so far shows an EF of 30 to 35% -The other thought is it could be septic shock given evidence of stones in cystic duct, CBD, and extrahepatic biliary dilatation however no significant LFT abnormalities, bilirubin elevation or alk phos elevation, she has been on antibiotics since hospital admission -Currently on dopamine, Levophed, dobutamine -1 dose of stress dose steroids hydrocortisone 50 mg once ? Albumin 25 g IV every 8 hours -We will monitor closely Plan Multiple other medical problems as outlined in past medical history Full code Heparin drip will suffice for DVT prophylaxis Protonix for GI prophylaxis - Patient was examined multiple times throughout the morning, and into the afternoon in the evening time -Early in the morning she was seen, daughter at bedside, there was attempt on doing a coronary angiography, however due to nausea, vomiting, patient's intolerance, patient could not go through with the procedure -She was examined she is alert to person, not to place, not to time she can follow commands but has received Ativan so she is drowsy, daughter at bedside, daughter was updated, -At roughly 130, patient was noted to be pale, diaphoretic, less responsive, could not get electronic blood pressure, manual blood pressures were 80s over 40s, she had mottling of bilateral lower extremities, bilateral bilateral hands, and feet were cool, clammy, with a bluish hue -Immediately upon seeing the patient, blood pressures at that time were 80s over 40s, manual blood pressures, heart rates in the 60s, she is alert to person, not to place, not to time she can follow some commands, denies any abdominal pain, bilateral upper extremities, bilateral fingers have a bluish hue to them, bilateral lower extremities, DP PT pulses significantly diminished cap refill greater than 4 seconds, with a bluish hue, mottling of the level of the bilateral knees, -My immediate concern at this time was shock -Etiology of shock was unclear, she was on Eliquis so immediately took patient to CAT scan to make sure she did not have a retroperitoneal bleed, or any internal bleeding -CAT scan did not show any significant radiographic evidence of internal bleeding although I did it without contrast given her creatinine -CT of the chest although done without any contrast, does not show any significant evidence of dissection -Patient was brought back to [facility] ICU, I spoke to Dr. Hardy, ordered a stat echo -Ordered CBC, CMP, lactic acid, mag, Phos, Pro-Corey, CRP troponin series -Bedside EKG does not show any acute ST-T wave changes, shows paced rhythm -My other thought was could this be beta-andrew toxicity she was given glucagon without any improvement -Patient was started on Levophed, dopamine, and dobutamine for concerns for shock -Central line was placed by IV -echocardiogram performed, EF is about 30% -Venous ultrasound negative for DVT -Daughter was informed about patient's critical status, status currently stable -Currently on 3 pressors, blood pressures 100s over 60s, she is on 6 L, following commands, no significant leukocytosis she is afebrile, creatinine is 1.5, lactic acid 2.7, troponin is 36 -Patient is currently in shock, etiology possibly cardiac in nature, will place on heparin drip there is also the possibility that she might have a PE however her ABG did not show any significant hypoxemia or acidosis venous ultrasound was negative for DVT. There is no significant allergic reaction, no rash, she nonpruritic, not neurogenic no significant trauma, the other thought is could this be septic shock, in addition, CT scan did show 2. ? Numerous stones filling the gallbladder, cystic duct and common bile duct. Moderate extrahepatic biliary dilation. No sign of acute cholecystitis. -However she does not have any significant transaminitis, hyperbilirubinemia, alk phos elevation -Patient had bedside updated currently remains on 3 pressors, she is alert to person, to place, not to time, she is on 6 L, status is critical, prognosis guarded Attestations Medical Necessity Statement*: Patient requires hospitalization for shock, multifactorial cardiogenic, possibly septic, enecephalopathy Coding Level of Care Code Critical Care >/= 30 minutes Critical care time (in minutes): 70 The high probability of a clinically significant, sudden or life threatening deterioration, as referenced in this documentation, required my full and direct attention, intervention and personal management. The critical care time shown is in addition to time spent performing any reported separately billable procedures and includes the following: [x] Data and vital sign review and interpretation [x ] Patient assessment, examination and intervention [x] Medication orders and management [x] Patient/Family updates as able [x] Care Coordination and Documentation. Diagnoses Arrhythmia I49.9 CHF (congestive heart failure) I50.9 Atrial fibrillation I48.91 Diabetes E11.9 Diarrhea R19.7 Right upper quadrant abdominal pain R10.11 Hyperbilirubinemia E80.6 Urinary tract infection N39.0 Systolic CHF I50.20 Chronic cholecystitis K81.1 Shock R57.9
[2023-06-08] MEDS: hydrocortisone 100 mg/2 mL SDV 50 MG IVP ×2 (17:32→17:34)
[2023-06-08] MEDS: albumin 25 G/100 ML BAG 60 G IV ×2 (17:32→23:01)
[2023-06-08 18:01] LABS: Glucose Point of Care 155 mg/dL (70-110)
--- NOTE | 2023-06-08 18:18 | ECG_ITS ---
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 Measurements Intervals [place] Rate: 48 P: 0 DE: 0 QRS: 85 QRSD: 105 T: 259 QT: 488 QTc: 438 Interpretive Statements A paced rhythm ST DEVIATION AND MODERATE T-WAVE ABNORMALITY, CONSIDER ANTEROLATERAL ISCHEMIA ST DEVIATION AND MODERATE T-WAVE ABNORMALITY, CONSIDER INFERIOR ISCHEMIA Compared to ECG 06/08/2023 16:14:34 T-wave abnormality now present Possible ischemia now present Atrial-paced complex(es) or rhythm no longer present Ventricular-paced complex(es) or rhythm no longer present Prolonged QT interval no longer present Electronically Signed On 06-09-2023 11:07:44 CDT by Allie Syed M.D. [email or web address]
--- NOTE | 2023-06-08 18:19 | PC.NURSE ---
Peggy's heart rate observed to be 48. SHe should be paced at 60. Pacer is firing incorrectly, oftentimes after the qrs or on the T wave. BLood pressure is within normal limits, patient does not appear symptomatic for bradycardia. Nurse alerted Dr hanson. received orders for EKG.
[2023-06-08 19:04] LABS: Troponin 5 2HR 37.35 ng/L (0-10)
[2023-06-08 19:04] LABS: Amylase 49 U/L (28-100); Gamma Glutamyl Transferase 39 U/L (5-36); Lipase 15 U/L (13-60)
[2023-06-08 19:07] LABS: Troponin 5 2HR Delta 1.35 ABS# (0-10)
--- NOTE | 2023-06-08 19:26 | PM.MISC ---
Miscellaneous Note Note: I received a call short while ago from the nurse who said that the pacemaker was no longer capturing. Patient's heart rate was 48. The lower tracking rate on the pacemaker is 60 bpm. Twelve-lead EKG shows that the pacemaker is firing however at times there is no capture. I checked a chest x-ray which shows that the leads are still in the same place now that they were a couple days ago from the previous chest x-ray. The only thing that has changed in the last few hours is that she has been started on dopamine, norepinephrine and dobutamine and a right internal jugular central line was placed with the tip at the junction of the superior vena cava and the right atrium. There does not appear to be any interaction between the catheter and either of the 2 pacemaker leads. I reinterrogated the pacemaker this evening and compared that to the pacemaker interrogation from 4 days ago when she arrived at the emergency room. I do not see any differences in the 2 pacemaker interrogations. I also called the pacemaker operations support representative and talked to him about it. He looked at the interrogation and cannot come up with any obvious reason why pacemaker is not firing other than the number of vasoactive amines which are being administered. Since her left ventricular function has not changed over the last several days I am planning to wean the dobutamine and try to keep the dopamine and norepinephrine at a minimum. The pacemaker will update itself at 1:00 in the morning and will increase the output if it is necessary. We will continue to follow along. The representatives will be here Saturday morning for a generator change and so they will check on her at that time. They will of course be available if things deteriorate between now and then.
[2023-06-08] MEDS: insulin lispro 100 unit/1 mL SUBCUT ×2 (19:31→23:35)
--- NOTE | 2023-06-08 19:46 | PM.MISC ---
Miscellaneous Note Note: After gassing the situation with the pacemaker administrative representative, she continues to have episodes where the heart rate will be down in the mid to high 40s without capture of pacemaker. We have decided to place a donut magnet on top of the pacemaker to force it into asynchronous mode with a backup rate of 60. We will leave this until things settle down.
--- NOTE | 2023-06-08 20:06 | ECG_ITS ---
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 Measurements Intervals [place] Rate: 85 P: -56 MT: 142 QRS: -73 QRSD: 201 T: 110 QT: 500 QTc: 596 Interpretive Statements ELECTRONIC ATRIAL PACEMAKER ELECTRONIC VENTRICULAR PACEMAKER ABNORMAL RHYTHM ECG Compared to ECG 06/08/2023 18:23:54 T-wave abnormality no longer present Possible ischemia no longer present Electronically Signed On 06-08-2023 23:26:16 CDT by Allie Syed M.D. [id number]
[2023-06-08 23:19] LABS: Glucose Point of Care 191 mg/dL (70-110)
[2023-06-09] VITALS (94 sets, daily range): BP systolic 85–128; BP diastolic 40–81; PULSE 58–85; RESP 14–33; TEMP 36.4–36.8; O2SAT 67–100; BMI 33.1
[2023-06-09] MEDS: metroNIDAZOLE IV 500 MG/100 ML PREMIX 100 MG IV ×3 (01:21→17:47)
[2023-06-09 04:44] LABS: Basophils % 0.2 %; Hematocrit 41.9 % (37.0-47.0); Hemoglobin 12.9 g/dL (11.5-15.3); Lymphocytes # 0.6 10^3/uL (0.8-4.8); Lymphocytes % 6.8 %; Mean Corpuscular HGB Conc 30.8 g/dL (30.0-36.0); Mean Corpuscular Hemoglobin 30.4 pg (28.0-34.0); Mean Corpuscular Volume 98.6 fl (81-99); Mean Platelet Volume 11.7 fL (7.4-10.4); Monocytes # 0.7 10^3/uL (0.2-0.9); Monocytes % 8.8 %; Neutrophils # 6.84 10^3/uL (1.8-7.7); Neutrophils % 83.7 %; Nucleated Red Blood Cells % 0.2 %; Platelet Count 143 10^3/cmm (130-400); Red Blood Count 4.25 10^6/uL (4.1-5.3); Red Cell Distribution Width 21.3 % (12.1-15.1); White Blood Count 8.2 10^3/uL (4.0-10.0)
[2023-06-09 04:55] LABS: INR 2.73 (0.8-1.2)
[2023-06-09 05:05] LABS: Alanine Aminotransferase 13 U/L (0-33); Albumin Level 3.5 g/dL (3.5-5.2); Alkaline Phosphatase 69 U/L (35-105); Anion Gap 14.6 (5-19); Aspartate Amino Transferase 17 U/L (0-32); Blood Urea Nitrogen 29 mg/dL (8-23); C Reactive Protein 11.7 mg/L (0.0-4.9); Calcium 8.9 mg/dL (8.5-10.5); Carbon Dioxide 24 mmol/L (22-29); Chloride 101 mmol/L (98-107); Globulin 2.2 g/dL (1.3-4.6); Glucose 138 mg/dL (65-115); Osmolality Calculated 288 mOsm/kg (285-295); Phosphorus 4.4 mg/dL (2.5-4.5); Potassium 4.6 mmol/L (3.5-5.1); Sodium 135 mmol/L (136-145); Total Bilirubin 1.2 mg/dL (0.15-1.2); Total Protein 5.7 g/dL (6.6-8.7)
[2023-06-09 05:07] LABS: Lactate (Lactic Acid level) 2.1 mmol/L (0.5-2.2)
[2023-06-09 05:19] LABS: NT Pro B Type Natriuretic Pept 5393 pg/mL (0-125); Procalcitonin 0.39 ng/mL (0-0.5)
[2023-06-09 05:30] LABS: Creatine Phosphokinase 22 U/L (26-192)
[2023-06-09] MEDS: levothyroxine 25 mcg Tablet PO (06:12)
[2023-06-09] MEDS: albumin 25 G/100 ML BAG 60 G IV ×3 (06:13→23:34)
--- NOTE | 2023-06-09 07:00 | XRR_ITS ---
PROCEDURE INFORMATION: Exam: XR Chest Exam date and time: 06/09/2023 6:14 AM Age: 73 years old Clinical indication: Shortness of breath; Prior surgery; Surgery date: 6+ months; Surgery type: Pacer; Patient HX: F/u for pleural effusion; Additional info: SOB TECHNIQUE: Imaging protocol: Radiologic exam of the chest. Views: 1 view. COMPARISON: CR (CHEST, ) 06/08/2023 3:54 PM FINDINGS: Tubes, catheters and devices: Dual lead implanted left cardiac device in the left chest. Right jugular central venous catheter terminates over the SVC. Lungs: Unremarkable. No consolidation. Pleural spaces: Blunting of the bilateral costophrenic angles. Heart/Mediastinum: Cardiomegaly. Vasculature: Calcification of the aortic knob. Diaphragm: Persistent hazy opacities in the bilateral lung bases with obscuration of the bilateral hemidiaphragms. Bones/joints: Osseous structures are unchanged. XR/XR chest 1V portable [id number] IMPRESSION: 1. Persistent bilateral pleural effusions. 2. Cardiomegaly, unchanged.
[2023-06-09 07:25] LABS: Glucose Point of Care 118 mg/dL (70-110)
--- NOTE | 2023-06-09 07:51 | PM.PN ---
Subjective Subjective: Rupa has been relatively stable overnight. Once I put the magnet on the pacemaker her heart rate was in the 80s with atrial fibrillation. Her blood pressure has been fairly stable. We were able to wean the dobutamine and the dopamine. Her blood pressure this morning is 105/75. I took the magnet off and she is now paced at a rate of 62 to 67 bpm. I have left the magnet off for the time being. She is still on low-dose norepinephrine. She is much more awake and alert this morning. I believe her mental status is back to its baseline. She still does not respond appropriately to some questions however I think that is her new baseline after the stroke. She has had only 400 mL of urine output. Her skin is less cold this morning. Her white blood cell count still remains within normal range as does her hemoglobin and hematocrit. I asked the nurses not to start the heparin last evening when her pacemaker was acting up. This morning her INR is 2.73 on no anticoagulation medications. The biggest change this morning is her creatinine is now 2.1. She was 1.5 yesterday and 1.1 the day before. Her BNP this morning is 5393. Vitals/I&O/Wt Last Vital Signs Temp 98.3 F 06/09/23 00:00 Pulse 68 06/09/23 07:39 Resp 17 06/09/23 06:30 BP 108/62 06/09/23 06:30 Pulse Ox 100 06/09/23 07:39 O2 Del Method Nasal Cannula 06/09/23 07:39 O2 Flow Rate 6 06/09/23 07:39 06/08/23 06/09/23 06/09/23 22:59 06:59 14:59 Intake Total 1196.628 / 1829.308 420 / 2249.308 Output Total 100 / 200 200 / 400 Balance 1096.628 / 1629.308 220 / 1849.308 Weight last 48 hrs Weight 199 lb 1.6 oz Weight 198 lb 6.656 oz Physical Exam Narrative: GENERAL: In general she is awake and alert and is back to what I would consider her baseline mental status HEENT: Exam within normal limits. NECK: Supple without jugular vein distention. The carotid upstroke is normal without bruits. BACK: Exam normal. LUNGS: Clear. HEART: Paced rhythm ABDOMEN: Benign without organomegaly or tenderness. EXTREMITIES: No edema. NEUROLOGIC: Exam normal. SKIN: Unremarkable. Urinary Catheter Management: Lewis: Cath Placed During This Visit: yes Reason for Continuing Indwelling Catheter: Accurate Measurement of Urinary Output in Critically Ill Patients Urinary Catheter Date of Insertion: 06/04/23 Urinary Catheter Time of Insertion: 22:30 Data 06/09/23 04:18 06/09/23 04:18 Micro: Microbiology 06/08/23 17:53 Blood Culture - Preliminary Blood SPECIMEN COLLECTED 06/08/23 17:38 Blood Culture - Preliminary Blood SPECIMEN COLLECTED A&P Assessment and plan (1) Chronic cholecystitis: (2) Shock: (3) Systolic CHF: (4) Hyperbilirubinemia: (5) HTN (hypertension): (6) Sick sinus syndrome: (7) Atrial fibrillation: (8) Obesity: (9) Diabetes: (10) Status cardiac pacemaker: (11) Myocardial infarction: (12) CVA (cerebral vascular accident): (13) CKD (chronic kidney disease): (14) Bipolar 1 disorder: (15) Acute kidney injury: Plan I have taken the magnet off the pacemaker. Her pacemaker seems to be functioning normally this morning. I think this was most likely related to the placement of the vasoactive amines. Those have mostly been discontinued. I would not place her on heparin today. She is auto anticoagulated. The biggest difficulty is her renal failure now. This is related to the hypotension over the last couple days, plus the transient addition of dopamine, dobutamine and norepinephrine. She is oliguric. Continue to hold AV delphine blockers and the BLAIR inhibitor. Clearly, there will be no indication for cardiac catheterization unless the renal insufficiency and hypotension resolve. Attestations Medical Necessity Statement*: Continued hospitalization required for management of the above-mentioned medical problems and High Time for a total of 50 minutes, includes reviewing past or interval history, examining/interviewing patient, placing orders, counseling patient/family/other support, updating patient/family/other support, discussing plan of care with staff, communicating with other healthcare providers, documenting encounter and coordinating care Diagnoses Chronic cholecystitis K81.1 Shock R57.9 Systolic CHF I50.20 Hyperbilirubinemia E80.6 HTN (hypertension) I10 Sick sinus syndrome I49.5 Atrial fibrillation I48.91 Obesity E66.9 Diabetes E11.9 Status cardiac pacemaker Z95.0 Myocardial infarction I21.9 CVA (cerebral vascular accident) I63.9 CKD (chronic kidney disease) N18.9 Bipolar 1 disorder F31.9 Acute kidney injury N17.9
[2023-06-09 10:30] LABS: ABG PCO2 38.2 mmHg (35-45); ABG PH Result 7.36 (7.35-7.45); Arterial Blood Gas Hematocrit 40.3 % (37-47); Base Excess ABG -3.7 mmol/L (-2.0-2.0); Blood Gas Allen Test Pos; Blood Gas Operator Identificat CAK; Blood Gas Sample Site Radial, left; Blood Gas Sample Type Arterial; HCO3 ABG 21.4 mmol/L (22-26); Oxygen Device NC
[2023-06-09] MEDS: aspirin 81 mg EC Tablet PO (11:05)
[2023-06-09] MEDS: pantoprazole DR 40 mg Tablet PO (11:06)
[2023-06-09] MEDS: escitalopram 10 mg Tablet PO (11:06)
[2023-06-09] MEDS: donepezil 5 MG Tablet PO (11:06)
[2023-06-09] MEDS: magnesium lactate 84 mg Tablet PO (11:06)
[2023-06-09] MEDS: ferrous sulfate EC 325 mg Tablet PO (11:06)
[2023-06-09] MEDS: atorvastatin 40 mg Tablet 20 MG PO (11:06)
[2023-06-09] MEDS: ciprofloxacin 400 MG/200 ML PREMIX 200 MG IV (11:07)
[2023-06-09] MEDS: nystatin cream 30 gm 1 APPLIC TOPICAL ×2 (11:14→17:49)
[2023-06-09 11:17] LABS: Glucose Point of Care 145 mg/dL (70-110)
--- NOTE | 2023-06-09 11:39 | PC.SOCIAL ---
IMM update IMM updated with patient's daughter at bedside. Verbalized an understanding. Copy Pg 2 provided. Initialled, dated, timed, and placed in chart.
[2023-06-09] MEDS: insulin lispro 100 unit/1 mL SUBCUT ×2 (11:57→23:34)
--- NOTE | 2023-06-09 15:46 | P.PN_ITS ---
Subjective Subjective: - Patient was seen this morning, -Daughter is at bedside -Currently she is alert to person, to place, not to time, she can follow some commands but is easily confused, daughter tells me that she is about at baseline, but her appetite has been poor this morning -Had extensive discussion with daughter, about patient's shock yesterday -Overnight she was taken off dopamine, on dobutamine -Currently still on Levophed going at 4, maps around 65 -She also had a magnet placed over her pacer, currently off, heparin drip was turned off during the night INR 2.7 -I had extensive discussion with her daughter, I think her shock is likely cardiac related I cannot find any other reason I do not believe in septic shock, she has not had any fevers, certainly she has is a chronic cholecystitis with the hepatobiliary dilatation, vital think that that is a acute cause that we are seeing now, especially as she does not have a white count, nor is her liver function her alk phos elevated or lipase or amylase or CRP or Pro-Corey, I do not think it is obstructive shock, as she has been on blood thinners, and it was held the morning of her cardiac cath, I do not think it is hypovolemic shock, BNP is elevated, I do not believe he needs anaphylactic reaction, and nothing is hemorrhagic shock, CAT scan did not show any retroperitoneal bleed, hemoglobin stable -Thus for now we will continue pressors, continue for Levophed, ultimately in my mind she is going to need cardiac intervention -However the big issue is now her developing acute renal failure from her shock, she is heading towards acute tubular necrosis as her renal function has completely declined -The issue then is retention of fluid fluid overload and then developing respiratory failure from fluid overload and CHF -In the morbidity and mortality and intubation required -But we will monitor her -I Rosa consult nephrology see what their interventions are I would hold off on any fluids, liberalize her fluid intake -I did discuss with daughter about the potential of dialysis, although its not urgently required now that she might require it, her daughter is going to think on this -I advised that if she did get put on dialysis, we could certainly then do the cardiac catheterization, but placing Rupa on dialysis is a significant decis ion, affecting her quality of life, -Her daughter is nothing on this, we will consult nephrology will have their input, -I also went over the goals of care with her daughter, her mom remains a full co de, Vitals/I&O/Wt Last Vital Signs Temp 97.5 F L 06/09/23 12:00 Pulse 63 06/09/23 14:15 Resp 20 H 06/09/23 14:15 BP 116/67 06/09/23 14:15 Pulse Ox 92 06/09/23 14:15 O2 Del Method Nasal Cannula 06/09/23 12:00 O2 Flow Rate 3 06/09/23 12:00 06/09/23 06/09/23 06/09/23 06:59 14:59 22:59 Intake Total 420 / 2249.308 771.46 / 771.46 Output Total 200 / 400 Balance 220 / 1849.308 771.46 / 771.46 Weight last 48 hrs Weight 90.31 kg Weight 90 kg Physical Exam Const: COMMON NORMALS: no acute distress Neck/C-Spine: COMMON NORMALS: no JVD Resp: COMMON NORMALS: normal respiratory effort, No retractions, No use of accessory muscles and clear to auscultation bilaterally AUSCULTATION: clear to auscultation bilaterally Cardio: COMMON NORMALS: no JVD, regular rate, regular rhythm, S1 normal heart sound present and S2 normal heart sound present RATE: regular rate RHYTHM: regular rhythm HEART SOUNDS: S1 normal heart sound present and S2 normal heart sound present GI: COMMON NORMALS: Normal to inspection, nondistended, normoactive bowel sounds present and non-tender Extremity: COMMON NORMALS: no pedal edema Urinary Catheter Management: Lewis: Cath Placed During This Visit: yes Reason for Continuing Indwelling Catheter: Accurate Measurement of Urinary Output in Critically Ill Patients Urinary Catheter Date of Insertion: 06/04/23 Urinary Catheter Time of Insertion: 22:30 Data 06/09/23 04:18 06/09/23 04:18 Micro: Microbiology 06/08/23 17:53 Blood Culture - Preliminary Blood SPECIMEN COLLECTED 06/08/23 17:38 Blood Culture - Preliminary Blood SPECIMEN COLLECTED A&P Assessment and plan (1) Arrhythmia: Patient presents with tachycardia, irregular wide-complex rhythm some of which are paced, seems like atrial fibrillation with paced rhythm She was started on amiodarone in the emergency department Cardiology consulted On metoprolol 100 twice daily, currently on hold verapamil on hold Heparin drip on hold (2) CHF (congestive heart failure): Patient presents with shortness of breath, markedly elevated BNP CONCLUSIONS ?LV systolic function is moderate to severely reduced with EF of ?30-35%. Moderate to severe global hypokinesis. ?RV is hypokinetic. ?Bilateral dilation ?Mild mitral regurgitation ?Moderate aortic regurgitation ?Mild tricuspid regurgitation ?IVC dilated ?Compared to prior echocardiogram from 08/2022, LV systolic ?function has significantly reduced. -cardiology consulted (3) Atrial fibrillation: Patient with past history of atrial fibrillation eliquis Cardiology consultation (4) Diabetes: Consistent carb diet when able Mild sliding scale insulin (5) Diarrhea: Monitor (6) Right upper quadrant abdominal pain: ruq us 1. Cholelithiasis without evidence for acute cholecystitis. 2. Hepatic steatosis. Focal area of increased echogenicity in the right lobe of the liver is probably either a small hemangioma or focal hepatic steatosis. This can be reevaluated in 3 months by ultrasound. This has not been described on prior imaging studies. 3. Quality of the ultrasound is suboptimal by body habitus. HIDA scan MPRESSION: Somewhat limited study due to patient's clinical status and inability to position for lateral imaging *? Diffuse patchy hepatic radiotracer uptake compatible with fatty infiltration. *? Gallbladder is not definitely visualized suspicious for? cholecystitis. Correlation with biliary function studies. Recommend follow-up with ultrasound. *? Common bile duct and small bowel activity are visualized by 90 minutes. Noted on the prior most recent CT from 2009 gallbladder appears thickened at that time with cholelithiasis similar to the recent ultrasound suggesting chroni c or indolent gallbladder dysfunction. -Likely chronic cholecystitis -Switch to Cipro IV and Flagyl -Monitor nausea, vomiting -Repeat CT scan 06/08/2023 -2. ? Numerous stones filling the gallbladder, cystic duct and common bile duct. Moderate extrahepatic biliary dilation. No sign of acute cholecystitis. -However she does not have any significant transaminitis, hyperbilirubinemia, alk phos elevation, or lipase elevation, no Pro-Corey or CRP elevation (7) Hyperbilirubinemia: (8) Urinary tract infection: On ciprofloxacin (9) Systolic CHF: - EF of 30 to 35% LV systolic function is moderate to severely reduced with EF of ?30-35%. Moderate to severe global hypokinesis. ?RV is hypokinetic. ?Bilateral dilation ?Mild mitral regurgitation ?Moderate aortic regurgitation ?Mild tricuspid regurgitation ?IVC dilated ?Compared to prior echocardiogram from 08/2022, LV systolic ?function has significantly reduced. (10) Chronic cholecystitis: (11) Shock: - Multifactorial -Possible cardiogenic shock, repeat echo so far shows an EF of 30 to 35% -I do not feel this is septic shock s although there is evidence of stones in cystic duct, CBD, and extrahepatic biliary dilatation however remains afebrile, no significant LFT abnormalities, bilirubin elevation or alk phos elevation, or lipase elevation, no Pro-Corey or CRP elevation, no leukocytosis, she has been on antibiotics since hospital admission -Currently on dopamine, Levophed, dobutamine ? Albumin 25 g IV every 8 hours -We will monitor closely (12) Acute renal failure: - Acute renal failure -Likely secondary to hypotension, shock, multiple pressors -Hold nephrotoxic agents -Maintain MAP greater than 75 -Monitor urine output -Consult nephrology Plan Multiple other medical problems as outlined in past medical history Encephalopathic, from hypoxia, shock, chronically cystitis, underlying dementia Full code INR 2.73, SCDs for DVT prophylaxis Protonix for GI prophylaxis Patient requires hospitalization for shock, remains on Levophed, encephalopathy, concerns for cardiogenic shock, Attestations Medical Necessity Statement*: Patient requires hospitalization for shock, concerns for cardiogenic shock, on Levophed, encephalopathy, now developing acute renal failure Coding Level of Care Code Critical Care >/= 30 minutes Critical care time (in minutes): 45 The high probability of a clinically significant, sudden or life threatening deterioration, as referenced in this documentation, required my full and direct attention, intervention and personal management. The critical care time shown is in addition to time spent performing any reported separately billable procedures and includes the following: [x] Data and vital sign review and interpretation [x ] Patient assessment, examination and intervention [x] Medication orders and management [x] Patient/Family updates as able [x] Care Coordination and Documentation. Diagnoses Arrhythmia I49.9 CHF (congestive heart failure) I50.9 Atrial fibrillation I48.91 Diabetes E11.9 Diarrhea R19.7 Right upper quadrant abdominal pain R10.11 Hyperbilirubinemia E80.6 Urinary tract infection N39.0 Systolic CHF I50.20 Chronic cholecystitis K81.1 Shock R57.9 Acute renal failure N17.9
[2023-06-09 17:10] LABS: Glucose Point of Care 137 mg/dL (70-110)
[2023-06-09 21:06] LABS: Glucose Point of Care 160 mg/dL (70-110)
[2023-06-10] VITALS (97 sets, daily range): BP systolic 86–141; BP diastolic 51–86; PULSE 60–85; RESP 17–26; TEMP 36.4–36.6; O2SAT 90–100
[2023-06-10] MEDS: metroNIDAZOLE IV 500 MG/100 ML PREMIX 100 MG IV ×3 (02:36→17:25)
[2023-06-10 03:07] LABS: Bacillus cereus group Not Detected (NOT DETECT); Bacillus subtillis group Not Detected (NOT DETECT); Corynebacterium Not Detected (NOT DETECT); Cutibacterium acnes (P.acnes) Not Detected (NOT DETECT); Enterococcus Not Detected (NOT DETECT); Enterococcus faecalis Not Detected (NOT DETECT); Enterococcus faecium Not Detected (NOT DETECT); Lactobacillus species Not Detected (NOT DETECT); Listeria Not Detected (NOT DETECT); Listeria monocytogenes Not Detected (NOT DETECT); Micrococcus Not Detected (NOT DETECT); Pan Candida Not Detected (NOT DETECT); Pan Gram-Negative Not Detected (NOT DETECT); Staphylococcus epidermidis Detected (NOT DETECT); Staphylococcus lugdunensis Not Detected (NOT DETECT); Staphylococcus species Detected (NOT DETECT); Streptococcus agalactiae Not Detected (NOT DETECT); Streptococcus anginosus group Not Detected (NOT DETECT); Streptococcus pneumoniae Not Detected (NOT DETECT); Streptococcus pyogenes Not Detected (NOT DETECT); Streptococcus species Not Detected (NOT DETECT); mecA Detected (NOT DETECT); mecC Not Detected (NOT DETECT)
[2023-06-10 04:55] LABS: Basophils % 0.3 %; Eosinophils # 0.1 10^3/uL (0.0-0.8); Eosinophils % 0.8 %; Hematocrit 39.8 % (37.0-47.0); Hemoglobin 12.5 g/dL (11.5-15.3); Lymphocytes # 1.4 10^3/uL (0.8-4.8); Lymphocytes % 14.4 %; Mean Corpuscular HGB Conc 31.4 g/dL (30.0-36.0); Mean Corpuscular Hemoglobin 30.6 pg (28.0-34.0); Mean Corpuscular Volume 97.5 fl (81-99); Monocytes # 1.3 10^3/uL (0.2-0.9); Monocytes % 13.8 %; Neutrophils # 6.86 10^3/uL (1.8-7.7); Neutrophils % 70.5 %; Nucleated Red Blood Cells % 0.3 %; Platelet Count 122 10^3/cmm (130-400); Red Blood Count 4.08 10^6/uL (4.1-5.3); Red Cell Distribution Width 21.2 % (12.1-15.1); White Blood Count 9.7 10^3/uL (4.0-10.0)
[2023-06-10 05:07] LABS: INR 3.52 (0.8-1.2)
[2023-06-10 05:08] LABS: ABG PCO2 39.1 mmHg (35-45); ABG PH Result 7.35 (7.35-7.45); Arterial Blood Gas Hematocrit 40.4 % (37-47); Base Excess ABG -3.9 mmol/L (-2.0-2.0); Blood Gas Allen Test Pos; Blood Gas Sample Site Brachial, right; Blood Gas Sample Type Arterial; HCO3 ABG 21.4 mmol/L (22-26); Oxygen Device NC
[2023-06-10 05:09] LABS: Alanine Aminotransferase 11 U/L (0-33); Albumin Level 4.2 g/dL (3.5-5.2); Alkaline Phosphatase 59 U/L (35-105); Anion Gap 17.3 (5-19); Aspartate Amino Transferase 18 U/L (0-32); Blood Urea Nitrogen 32 mg/dL (8-23); C Reactive Protein 14.4 mg/L (0.0-4.9); Calcium 9.3 mg/dL (8.5-10.5); Carbon Dioxide 23 mmol/L (22-29); Chloride 95 mmol/L (98-107); Globulin 1.8 g/dL (1.3-4.6); Glucose 96 mg/dL (65-115); Osmolality Calculated 279 mOsm/kg (285-295); Phosphorus 4.7 mg/dL (2.5-4.5); Potassium 4.3 mmol/L (3.5-5.1); Sodium 131 mmol/L (136-145)
[2023-06-10 05:11] LABS: Lactate (Lactic Acid level) 1.4 mmol/L (0.5-2.2)
[2023-06-10 05:25] LABS: NT Pro B Type Natriuretic Pept 6824 pg/mL (0-125); Procalcitonin 0.51 ng/mL (0-0.5)
[2023-06-10 05:35] LABS: Creatine Phosphokinase 22 U/L (26-192)
--- NOTE | 2023-06-10 05:57 | ECG_ITS ---
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 Measurements Intervals [place] Rate: 64 P: -60 MD: 143 QRS: -73 QRSD: 198 T: 113 QT: 534 QTc: 551 Interpretive Statements ELECTRONIC ATRIAL PACEMAKER ELECTRONIC VENTRICULAR PACEMAKER ABNORMAL RHYTHM ECG Compared to ECG 06/08/2023 21:56:07 No significant changes Electronically Signed On 06-10-2023 11:08:26 CDT by Allie Syed M.D. [email or web address]
[2023-06-10] MEDS: albumin 25 G/100 ML BAG 60 G IV ×3 (06:16→23:00)
[2023-06-10] MEDS: levothyroxine 25 mcg Tablet 37.5 MCG PO (06:16)
[2023-06-10 07:24] LABS: Glucose Point of Care 89 mg/dL (70-110)
--- NOTE | 2023-06-10 07:53 | P.CONIM_ITS ---
Providers/Reason For Consult Consulting Physician/Specialty*: ESRD /Nephrology Reason for Consult*: Acute on CKD Attending Physician: Maxx Garcia MD Primary Care Provider: García Theodore MD History of Present Illness History of Present Illness Rupa Baptiste is a 73 year old female With past medical history of hypertension, diabetes, chronic kidney disease, cardiomyopathy, chronic atrial fibrillation, sick sinus syndrome and status post pacemaker, presented to the emergency department on 06/01/2023 due to GI symptoms including nausea vomiting and diarrhea. Patient was also noted to be A-fib with rapid ventricular response and received Cardizem. Patient's creatinine on presentation was 1.3 worsened to 2.7 currently. Echo was done that showed ejection fraction 30 to 35% moderate AR. Patient was also noted to be hypotensive and was placed on Levophed currently at 2 mics. Was also on dopamine and dobutamine which are currently discontinued. She is currently on 3 L O2 by nasal cannula, urine output has dropped significantly in the last 24 hours. Review of Systems Narrative: oTHER ROS NEGATIVE Medications/Allergies Home Medications Medication Instructions Recorded Confirmed Last Taken Type ferrous sulfate 325 mg (65 mg 325 mg PO DAILY 03/23/20 06/05/23 08/29/22 History iron) tablet (Feosol) metoprolol tartrate 75 mg tablet 75 mg PO BID 03/23/20 06/05/23 08/29/22 History simvastatin 20 mg tablet 20 mg PO DAILY 03/23/20 06/05/23 08/29/22 History escitalopram oxalate 10 mg tablet 10 mg PO DAILY 04/03/20 06/05/23 08/29/22 History (Lexapro) docusate sodium 100 mg capsule 100 mg PO DAILY 08/31/22 06/05/23 08/29/22 History donepezil 5 mg tablet 5 mg PO DAILY 08/31/22 06/05/23 08/29/22 History glipizide 5 mg tablet 5 mg PO DAILY 08/31/22 06/05/23 08/29/22 History zolpidem 5 mg tablet 5 - 10 mg PO BEDTIME 08/31/22 06/05/23 08/29/22 History potassium chloride 8 mEq 8 meq PO DAILY #30 tabs 01/25/23 06/05/23 Unknown Rx tablet,extended release furosemide 40 mg tablet 40 mg PO DAILY #3 tabs 04/06/23 06/05/23 Unknown Rx ondansetron 4 mg oral soluble film 4 mg PO DAILY PRN nausea and 04/21/23 06/05/23 Unknown Rx vomiting #20 ea apixaban 5 mg tablet (Eliquis) 5 mg PO BID #180 tabs 05/16/23 06/05/23 Unknown Rx aspirin 81 mg tablet,delayed 81 mg PO DAILY 06/05/23 06/05/23 Unknown History release lactobacillus comb no.10 20 20,000 mmu cells PO DAILY 06/05/23 06/05/23 Unknown History billion cell capsule (Probiotic) Allergies Allergy/AdvReac Type Severity Reaction Status Date / Time Penicillins Allergy Unknown Unknown Verified 06/05/23 09:04 Tetanus Vaccines and Toxoid Allergy Unknown Unknown Verified 06/05/23 09:04 Current Medications Generic Name Dose Route Start Last Admin Trade Name Freq PRN Reason Stop Dose Admin Aspirin 81 mg 06/05/23 09:00 06/09/23 11:05 Aspirin 81 Mg Ec Tablet PO 81 mg DAILY AJ Administration Atorvastatin Calcium 20 mg 06/05/23 09:00 06/09/23 11:06 Atorvastatin 40 Mg Tablet PO 20 mg DAILY AJ Administration Donepezil HCl 5 mg 06/05/23 09:00 06/09/23 11:06 Donepezil 5 Mg Tablet PO 5 mg DAILY AJ Administration Escitalopram Oxalate 10 mg 06/05/23 09:00 06/09/23 11:06 Escitalopram 10 Mg Tablet PO 10 mg DAILY AJ Administration Ferrous Sulfate 325 mg 06/08/23 09:00 06/09/23 11:06 Ferrous Sulfate Ec 325 Mg Tablet PO 325 mg DAILY AJ Administration Metronidazole 500 mg in 100 mls @ 100 mls/hr 06/07/23 10:00 06/10/23 03:59 Flagyl Iv IV Infused Q8H AJ Infusion Protocol Norepinephrine Bitartrate 4 mg 254 mls @ 0 mls/hr 06/08/23 14:15 06/10/23 03:59 / Dextrose IV 4 mcg/min .Q0M AJ 15.24 mls/hr Titration Protocol Per Protocol Dobutamine HCl/Dextrose 500 mg in 250 mls @ 0 mls/hr 06/08/23 14:15 06/08/23 20:00 Dobutamine Drip IV 0 mcg/kg/min .Q0M AJ 0 mls/hr Titration Protocol Per Protocol Dopamine HCl/Dextrose 400 mg in 250 mls @ 16.875 mls/hr 06/08/23 14:15 06/09/23 15:01 Intropin Drip IV Not Given CONT AJ Protocol 5 MCG/KG/MIN Albumin Human 25 g in 100 mls @ 60 mls/hr 06/08/23 14:45 06/10/23 06:16 Albumin IV 60 mls/hr Q8H AJ Administration Insulin Human Lispro 0 unit 06/05/23 08:00 06/10/23 07:22 Insulin Lispro 100 Unit/1 Ml SUBCUT Not Given WM&BEDTIME AJ Protocol Levothyroxine Sodium 37.5 mcg 06/10/23 06:00 06/10/23 06:16 Levothyroxine 25 Mcg Tablet PO 37.5 mcg QAM AJ Administration Lisinopril 10 mg 06/07/23 09:00 06/08/23 10:33 Lisinopril 5 Mg Tablet PO 10 mg DAILY AJ Administration Magnesium Lactate 84 mg 06/05/23 09:00 06/09/23 11:06 Magnesium Lactate 84 Mg Tablet PO 84 mg DAILY AJ Administration Metoprolol Tartrate 100 mg 06/05/23 21:00 06/08/23 10:33 Metoprolol Tartrate 50 Mg Tablet PO 100 mg BID@0900,2100 AJ Administration Morphine Sulfate 2 mg 06/07/23 22:46 06/07/23 22:54 Morphine 4 Mg/Ml Sdv 1 Ml IVP 2 mg Q4H PRN Administration SEVERE PAIN Nystatin 1 applic 06/05/23 09:00 06/09/23 17:49 Nystatin Cream 30 Gm TOPICAL 1 applic BID AJ Administration Ondansetron HCl 4 mg 06/04/23 23:24 06/08/23 23:01 Ondansetron 2 Mg/Ml Sdv 2 Ml IVP 4 mg Q6H PRN Administration NAUSEA AND VOMITING Pantoprazole Sodium 40 mg 06/05/23 09:00 06/09/23 11:[address] 40 Mg Tablet PO 40 mg DAILY AJ Administration Verapamil HCl 40 mg 06/08/23 09:00 06/08/23 10:35 Verapamil 40 Mg Tablet PO 40 mg BID AJ Administration PFSH Acute PFSH: Medical History (Updated 06/09/23 @ 16:00 by Maxx Garcia MD) Abnormal gall bladder diagnostic imaging Acquired abnormality of brachiocephalic vein Acute encephalopathy Acute kidney injury Anticoagulant long-term use Atrial fibrillation Bipolar 1 disorder Chest pain CHF (congestive heart failure) CKD (chronic kidney disease) CVA (cerebral vascular accident) Residual right-sided weakness Diabetes HTN (hypertension) Ischemic cardiomyopathy Lung nodule Myocardial infarction Obesity Respiratory distress Sick sinus syndrome Transaminitis Surgical History History of hysterectomy Status cardiac pacemaker Family History Other Cancer Suicide Social History Smoking and tobacco status: former smoker Caregiver/support person: Yes (daughter) Lives independently: No Household members: none Current occupational status: retired Vitals/I&O/Wt Last Vital Signs Temp 97.8 F 06/09/23 16:00 Pulse 60 06/10/23 06:15 Resp 20 H 06/10/23 06:15 BP 126/74 06/10/23 06:15 Pulse Ox 98 06/10/23 06:15 O2 Del Method Nasal Cannula 06/09/23 16:00 O2 Flow Rate 3 06/09/23 16:00 06/09/23 06/10/23 06/10/23 22:59 06:59 14:59 Intake Total 1000.406 / 2010.866 437.536 / 2449.402 Output Total 50 / 50 10 60 Balance 950.406 / 1961.866 427.536 / 2389.402 Weight last 48 hrs Weight 89.811 kg Weight 90.31 kg Physical Exam Narrative: AWake alert, no acute distress HEENT S1-S2, regular rate and rhythm per report Lungs clear per report Trace edema Urinary Catheter Management: Lewis: Cath Placed During This Visit: yes Reason for Continuing Indwelling Catheter: Accurate Measurement of Urinary Output in Critically Ill Patients Urinary Catheter Date of Insertion: 06/04/23 Urinary Catheter Time of Insertion: 22:30 Data 06/10/23 04:27 06/10/23 04:27 Micro: Microbiology 06/08/23 17:38 Blood Culture - Preliminary Blood Staphylococcus epidermidis 06/08/23 17:53 Blood Culture - Preliminary Blood NEGATIVE TO DATE A&P Assessment and plan (1) Acute renal failure: Acute on chronic kidney disease: Patient's baseline creatinine is in the range of 1-1.3. Now has creatinine of 2.7 likely multifactorial-secondary to prerenal DIXIE and hypotension. -Patient still on Levophed, once patient off Levophed we will try to diurese her. -Avoid nephrotoxins and IV contrast studies -Continue to monitor for now, no indication for dialysis but if renal function continues to get worse may require temporary HD. Continue IV albumin No obstruction on CT 2. Hyponatremia: Mild, monitor, 3. Shock: Requiring multiple pressors, off dopamine and dobutamine and now on low-dose Levophed. Wean Levophed as tolerated 4. History of pacemaker placement 5. History of rapid A-fib 6. History of CAD with cardiomyopathy, latest ejection fraction 30 to 35% Patient evaluated using audiovisual cart. Time spent 40 minutes Coding Level of Care Code Acute Code for [facility] Fwd Diagnoses Acute renal failure N17.9
[2023-06-10] MEDS: donepezil 5 MG Tablet PO (08:00)
[2023-06-10] MEDS: ferrous sulfate EC 325 mg Tablet PO (08:01)
[2023-06-10] MEDS: nystatin cream 30 gm 1 APPLIC TOPICAL ×2 (08:01→17:27)
[2023-06-10] MEDS: aspirin 81 mg EC Tablet PO (08:01)
[2023-06-10] MEDS: pantoprazole DR 40 mg Tablet PO (08:01)
[2023-06-10] MEDS: magnesium lactate 84 mg Tablet PO (08:01)
[2023-06-10] MEDS: atorvastatin 40 mg Tablet 20 MG PO (08:01)
[2023-06-10] MEDS: escitalopram 10 mg Tablet PO (08:01)
[2023-06-10 08:56] LABS: INR 3.33 (0.8-1.2)
[2023-06-10 08:57] LABS: Fibrinogen 167 mg/dL (174-498); Partial Thromboplastin Time 44.9 SECONDS (23.9-36.7)
[2023-06-10 09:00] LABS: D Dimer 1.17 ug/mIFEU (0-0.59)
[2023-06-10] MEDS: ciprofloxacin 400 MG/200 ML PREMIX 200 MG IV (09:40)
[2023-06-10] MEDS: ondansetron 2 mg/ML SDV 2 mL 4 MG IVP ×2 (11:30→18:40)
[2023-06-10 11:59] LABS: Glucose Point of Care 103 mg/dL (70-110)
[2023-06-10] MEDS: FUROsemide 10 mg/mL SDV 4mL 40 MG IVP (14:41)
[2023-06-10] MEDS: metoclopramide 5 mg/mL SDV 2 mL IVP (14:47)
[2023-06-10 17:17] LABS: Glucose Point of Care 69 mg/dL (70-110)
--- NOTE | 2023-06-10 17:35 | PM.PN ---
Subjective Subjective: Rupa Baptiste is a 73 year old female with a long list of medical problems including chronic atrial fibrillation on Eliquis, coronary disease with ischemic cardiomyopathy and chronic congestive heart failure.? She also has chronic kidney disease, history of stroke, diabetes, hypertension, obesity, sick sinus syndrome, pacemaker implant, transaminitis and an occluded left subclavian vein..? She has a bipolar affective disorder which manifests itself is extremely bizarre behavior at times.? ? She came in with nausea, vomiting and diarrhea and was diagnosed with cholecystitis. She was in shock briefly and is now off pressors. She was diagnosed with moderate LV dysfunction few months back and had abnormal stress test. Cath was planned however she developed hypotension. Her renal function worsened. renal function worsening, minimal UO. remains in paced rhythm minimal pressor requirement Medications: Reviewed: Yes Vitals/I&O/Wt Last Vital Signs Temp 97.6 F 06/10/23 12:45 Pulse 60 06/10/23 16:15 Resp 22 H 06/10/23 16:15 BP 116/62 06/10/23 16:15 Pulse Ox 93 06/10/23 16:15 O2 Del Method Nasal Cannula 06/10/23 14:48 O2 Flow Rate 4 06/10/23 14:48 06/10/23 06/10/23 06/10/23 06:59 14:59 22:59 Intake Total 437.536 / 2449.402 572.324 / 572.324 100 / 672.324 Output Total 10 / 60 Balance 427.536 / 2389.402 572.324 / 572.324 100 / 672.324 Weight last 48 hrs Weight 198 lb Weight 199 lb 1.6 oz Physical Exam Narrative: Gen: patient laying propped up in bed RS: AEBE, decreased breath sounds at bases, basal crackles, no wheezing CVS:S1, S2 regular Ext:No edema or cyanosis PA: soft, NTND, BS2+ 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 Urinary Catheter Management: Lewis: Cath Placed During This Visit: yes Reason for Continuing Indwelling Catheter: Accurate Measurement of Urinary Output in Critically Ill Patients Urinary Catheter Date of Insertion: 06/04/23 Urinary Catheter Time of Insertion: 22:30 Data 06/12/23 05:04 06/11/23 04:07 Micro: Microbiology 06/08/23 17:38 Blood Culture - Preliminary Blood Staphylococcus epidermidis 06/08/23 17:53 Blood Culture - Preliminary Blood NEGATIVE TO DATE A&P Assessment and plan (1) Acute kidney injury: (2) Chronic cholecystitis: (3) Shock: resolved (4) Systolic CHF: HFrEF (5) Hyperbilirubinemia: (6) HTN (hypertension): (7) Sick sinus syndrome: (8) Atrial fibrillation: (9) Obesity: (10) Diabetes: (11) Status cardiac pacemaker: (12) Myocardial infarction: (13) CVA (cerebral vascular accident): (14) CKD (chronic kidney disease): (15) Bipolar 1 disorder: Plan Patient is in renal failure. She is oliguric. Continue to hold AV delphine blockers and the BLAIR inhibitor. Pacemaker working appropriately There will be no indication for cardiac catheterization unless the renal insufficiency and hypotension resolve. I spoke in length with the patient and her daughter. However, they are not very clear on what they want. Patient in her moments has expressed desire not to be on dialysis. So, far it seems like she is heading that way. Nephrology is on board. Attestations Medical Necessity Statement*: remains critically ill Coding Level of Care Code 35581 Diagnoses Acute kidney injury N17.9 Chronic cholecystitis K81.1 Shock R57.9 Systolic CHF I50.20 Hyperbilirubinemia E80.6 HTN (hypertension) I10 Sick sinus syndrome I49.5 Atrial fibrillation I48.91 Obesity E66.9 Diabetes E11.9 Status cardiac pacemaker Z95.0 Myocardial infarction I21.9 CVA (cerebral vascular accident) I63.9 CKD (chronic kidney disease) N18.9 Bipolar 1 disorder F31.9
--- NOTE | 2023-06-10 17:36 | P.PN_ITS ---
Subjective Subjective: Greciaeint is on 2mcg of levophed, Patient was examined multiple times throughout the day, this morning she was examined daughter at bedside, alert to person, not to place, not to time she feels nauseous this morning, has had a poor appetite, urine output is minimal at 30 cc, she feels short of breath, she is edematous, we had a detailed discussion with patient and her daughter at bedside about di alysis and dialysis catheter placement risks and benefits, versus hospice, her daughter tells me that she was brought to subject with Rupa, when she is more alert, in the afternoon patient was getting up into a chair she developed hypotension, with nausea, and desaturation of her O2 sat she was gone back into bed, reexamined, she is normotensive, alert to person, not to place, not to time, she is on 4 L, has anasarca, remains off Levophed, I had a detailed discussion with daughter at bedside that I am worried that she is developing fluid overload, anasarca she was given Lasix without any significant output, worried that she is developed acute renal failure, potentially acute tubular necrosis, I feel that she is likely going to need dialysis sooner, to help with the fluid overload, as I am worried that she might develop acute respiratory failure, fluid overload or flash pulmonary edema we will repeat her BMP this afternoon, her daughter tells me that she broached the subject with her, but was not able to get any answers Vitals/I&O/Wt Last Vital Signs Temp 97.6 F 06/10/23 12:45 Pulse 60 06/10/23 16:15 Resp 22 H 06/10/23 16:15 BP 116/62 06/10/23 16:15 Pulse Ox 93 06/10/23 16:15 O2 Del Method Nasal Cannula 06/10/23 14:48 O2 Flow Rate 4 06/10/23 14:48 06/10/23 06/10/23 06/10/23 06:59 14:59 22:59 Intake Total 437.536 / 2449.402 572.324 / 572.324 100 / 672.324 Output Total Balance 427.536 / 2389.402 572.324 / 572.324 100 / 672.324 Weight last 48 hrs Weight 89.811 kg Weight 90.31 kg Physical Exam Const: COMMON NORMALS: no acute distress ORIENTATION/CONSCIOUSNESS: Yes aw dionisio, Yes oriented to person and Yes confused; not oriented to place and not oriented to time Chest: OTHER: Anasarca Resp: COMMON NORMALS: normal respiratory effort, No retractions and No use of accessory muscles AUSCULTATION: crackles Cardio: COMMON NORMALS: regular rate, regular rhythm, S1 normal heart sound present and S2 normal heart sound present RATE: regular rate RHYTHM: regular rhythm HEART SOUNDS: S1 normal heart sound present and S2 normal heart sound present GI: COMMON NORMALS: Normal to inspection, nondistended, normoactive bowel raudel nds present and non-tender Extremity: COMMON NORMALS: no pedal edema Neuro: SENSORIUM/ORIENTATION: Yes oriented to person, No oriented to place and No oriented to time Urinary Catheter Management: Lewis: Cath Placed During This Visit: yes Reason for Continuing Indwelling Catheter: Accurate Measurement of Urinary Output in Critically Ill Patients Urinary Catheter Date of Insertion: 06/04/23 Urinary Catheter Time of Insertion: 22:30 Data 06/10/23 04:27 06/10/23 04:27 Micro: Microbiology 06/08/23 17:38 Blood Culture - Preliminary Blood Staphylococcus epidermidis 06/08/23 17:53 Blood Culture - Preliminary Blood NEGATIVE TO DATE A&P Assessment and plan (1) Arrhythmia: Patient presents with tachycardia, irregular wide-complex rhythm some of which are paced, seems like atrial fibrillation with paced rhythm She was started on amiodarone in the emergency department Cardiology consulted On metoprolol 100 twice daily, currently on hold verapamil on hold Heparin drip on hold (2) CHF (congestive heart failure): Patient presents with shortness of breath, markedly elevated BNP CONCLUSIONS ?LV systolic function is moderate to severely reduced with EF of ?30-35%. Moderate to severe global hypokinesis. ?RV is hypokinetic. ?Bilateral dilation ?Mild mitral regurgitation ?Moderate aortic regurgitation ?Mild tricuspid regurgitation ?IVC dilated ?Compared to prior echocardiogram from 08/2022, LV systolic ?function has significantly reduced. -cardiology consulted (3) Atrial fibrillation: Patient with past history of atrial fibrillation eliquis Cardiology consultation (4) Diabetes: Consistent carb diet when able Mild sliding scale insulin (5) Diarrhea: Monitor (6) Right upper quadrant abdominal pain: ruq us 1. Cholelithiasis without evidence for acute cholecystitis. 2. Hepatic steatosis. Focal area of increased echogenicity in the right lobe of the liver is probably either a small hemangioma or focal hepatic steatosis. This can be reevaluated in 3 months by ultrasound. This has not been described on prior imaging studies. 3. Quality of the ultrasound is suboptimal by body habitus. HIDA scan MPRESSION: Somewhat limited study due to patient's clinical status and inability to position for lateral imaging *? Diffuse patchy hepatic radiotracer uptake compatible with fatty infiltration. *? Gallbladder is not definitely visualized suspicious for? cholecystitis. Correlation with biliary function studies. Recommend follow-up with ultrasound. *? Common bile duct and small bowel activity are visualized by 90 minutes. Noted on the prior most recent CT from 2009 gallbladder appears thickened at that time with cholelithiasis similar to the recent ultrasound suggesting chronic or indolent gallbladder dysfunction. -Likely chronic cholecystitis -Switch to Cipro IV and Flagyl -Monitor nausea, vomiting -Repeat CT scan 06/08/2023 -2. ? Numerous stones filling the gallbladder, cystic duct and common bile duct. Moderate extrahepatic biliary dilation. No sign of acute cholecystitis. -However she does not have any significant transaminitis, hyperbilirubinemia, alk phos elevation, or lipase elevation, no Pro-Corey or CRP elevation (7) Hyperbilirubinemia: (8) Urinary tract infection: On ciprofloxacin (9) Systolic CHF: - EF of 30 to 35% LV systolic function is moderate to severely reduced with EF of ?30-35%. Moderate to severe global hypokinesis. ?RV is hypokinetic. ?Bilateral dilation ?Mild mitral regurgitation ?Moderate aortic regurgitation ?Mild tricuspid regurgitation ?IVC dilated ?Compared to prior echocardiogram from 08/2022, LV systolic ?function has significantly reduced. (10) Chronic cholecystitis: (11) Shock: - Multifactorial -Possible cardiogenic shock, repeat echo so far shows an EF of 30 to 35% -I do not feel this is septic shock s although there is evidence of stones in cystic duct, CBD, and extrahepatic biliary dilatation however remains afebrile, no significant LFT abnormalities, bilirubin elevation or alk phos elevation, or lipase elevation, no Pro-Corey or CRP elevation, no leukocytosis, she has been on antibiotics since hospital admission -Currently levophed, 2mcg ? Albumin 25 g IV every 8 hours -We will monitor closely (12) Acute renal failure: - Acute renal failure, 10cc -Likely secondary to hypotension, shock, multiple pressors -Hold nephrotoxic agents -Maintain MAP greater than 75 -Monitor urine output -Consult nephrology Plan Multiple other medical problems as outlined in past medical history Encephalopathic, from hypoxia, shock, chronically cystitis, underlying dementia Full code INR 3.33, SCDs for DVT prophylaxis Protonix for GI prophylaxis Patient requires hospitalization for shock, remains on Levophed, encephalopathy, concerns for cardiogenic shock, Attestations Medical Necessity Statement*: patient requires hospitalization for acute renal faolure, shock, chronic cholecystittis Coding Level of Care Code Critical Care >/= 30 minutes Critical care time (in minutes): 35 The high probability of a clinically significant, sudden or life threatening deterioration, as referenced in this documentation, required my full and direct attention, intervention and personal management. The critical care time shown is in addition to time spent performing any reported separately billable procedures and includes the following: [x] Data and vital sign review and interpretation [x ] Patient assessment, examination and intervention [x] Medication orders and management [x] Patient/Family updates as able [x] Care Coordination and Documentation. Diagnoses Arrhythmia I49.9 CHF (congestive heart failure) I50.9 Atrial fibrillation I48.91 Diabetes E11.9 Diarrhea R19.7 Right upper quadrant abdominal pain R10.11 Hyperbilirubinemia E80.6 Urinary tract infection N39.0 Systolic CHF I50.20 Chronic cholecystitis K81.1 Shock R57.9 Acute renal failure N17.9
[2023-06-10 18:31] LABS: Anion Gap 17.5 (5-19); Blood Urea Nitrogen 38 mg/dL (8-23); Calcium 9.2 mg/dL (8.5-10.5); Carbon Dioxide 23 mmol/L (22-29); Chloride 95 mmol/L (98-107); Glucose 71 mg/dL (65-115); Osmolality Calculated 280 mOsm/kg (285-295); Potassium 4.5 mmol/L (3.5-5.1); Sodium 131 mmol/L (136-145)
[2023-06-10 18:47] LABS: Glucose Point of Care 73 mg/dL (70-110)
[2023-06-10 22:19] LABS: Glucose Point of Care 83 mg/dL (70-110)
[2023-06-11] VITALS (79 sets, daily range): BP systolic 102–161; BP diastolic 50–98; PULSE 60–78; RESP 14–28; TEMP 36.3–36.6; O2SAT 80–99
[2023-06-11] MEDS: metroNIDAZOLE IV 500 MG/100 ML PREMIX 100 MG IV ×3 (01:45→17:09)
[2023-06-11 05:03] LABS: Basophils % 0.1 %; Eosinophils % 0.5 %; Hematocrit 38.5 % (37.0-47.0); Lymphocytes # 0.7 10^3/uL (0.8-4.8); Lymphocytes % 9.7 %; Mean Corpuscular HGB Conc 31.2 g/dL (30.0-36.0); Mean Corpuscular Hemoglobin 30.3 pg (28.0-34.0); Mean Corpuscular Volume 97.2 fl (81-99); Mean Platelet Volume 11.9 fL (7.4-10.4); Monocytes # 0.9 10^3/uL (0.2-0.9); Monocytes % 12.2 %; Neutrophils # 5.88 10^3/uL (1.8-7.7); Neutrophils % 77.2 %; Nucleated Red Blood Cells % 0 %; Platelet Count 76 10^3/cmm (130-400); Red Blood Count 3.96 10^6/uL (4.1-5.3); Red Cell Distribution Width 21.2 % (12.1-15.1); White Blood Count 7.6 10^3/uL (4.0-10.0)
[2023-06-11] MEDS: levothyroxine 25 mcg Tablet 37.5 MCG PO (05:16)
[2023-06-11 05:17] LABS: INR 3.39 (0.8-1.2)
[2023-06-11] MEDS: ondansetron 2 mg/ML SDV 2 mL 4 MG IVP ×3 (05:19→19:54)
[2023-06-11 05:30] LABS: Lactate (Lactic Acid level) 1.7 mmol/L (0.5-2.2)
[2023-06-11 05:31] LABS: NT Pro B Type Natriuretic Pept 8551 pg/mL (0-125); Procalcitonin 0.49 ng/mL (0-0.5)
[2023-06-11 05:37] LABS: Alanine Aminotransferase 10 U/L (0-33); Albumin Level 4.9 g/dL (3.5-5.2); Alkaline Phosphatase 57 U/L (35-105); Aspartate Amino Transferase 19 U/L (0-32); Blood Urea Nitrogen 41 mg/dL (8-23); Calcium 9.5 mg/dL (8.5-10.5); Carbon Dioxide 18 mmol/L (22-29); Chloride 94 mmol/L (98-107); Globulin 1.4 g/dL (1.3-4.6); Glucose 57 mg/dL (65-115); Magnesium 2.3 mg/dL (1.7-2.3); Osmolality Calculated 276 mOsm/kg (285-295); Phosphorus 4.9 mg/dL (2.5-4.5); Sodium 129 mmol/L (136-145); Total Bilirubin 1.2 mg/dL (0.15-1.2); Total Protein 6.3 g/dL (6.6-8.7)
[2023-06-11 05:44] LABS: Anion Gap 21.7 (5-19); Potassium 4.7 mmol/L (3.5-5.1)
[2023-06-11 05:45] LABS: Creatine Phosphokinase 24 U/L (26-192)
[2023-06-11 06:01] LABS: Slide Review Slide Review Perform
[2023-06-11] MEDS: albumin 25 G/100 ML BAG 60 G IV ×3 (06:05→22:42)
[2023-06-11 06:24] LABS: Glucose Point of Care 64 mg/dL (70-110)
[2023-06-11] MEDS: dextrose 50% syringe 50 mL 25 ML IVP (06:26)
[2023-06-11 07:22] LABS: Glucose Point of Care 108 mg/dL (70-110)
[2023-06-11] MEDS: ferrous sulfate EC 325 mg Tablet PO (08:02)
[2023-06-11] MEDS: donepezil 5 MG Tablet PO (08:02)
[2023-06-11] MEDS: escitalopram 10 mg Tablet PO (08:02)
[2023-06-11] MEDS: atorvastatin 40 mg Tablet 20 MG PO (08:02)
[2023-06-11] MEDS: pantoprazole DR 40 mg Tablet PO (08:02)
[2023-06-11] MEDS: magnesium lactate 84 mg Tablet PO (08:02)
[2023-06-11] MEDS: aspirin 81 mg EC Tablet PO (08:02)
[2023-06-11] MEDS: nystatin cream 30 gm 1 APPLIC TOPICAL ×2 (08:04→17:09)
[2023-06-11] MEDS: metoclopramide 5 mg/mL SDV 2 mL IVP (08:12)
[2023-06-11 08:40] LABS: Lactate Dehydrogenase 142 U/L (135-214)
[2023-06-11] MEDS: ciprofloxacin 400 MG/200 ML PREMIX 200 MG IV (09:01)
[2023-06-11 10:16] LABS: LAB Peripheral Smear Sent for Review
--- NOTE | 2023-06-11 10:23 | P.PN_ITS ---
Subjective Subjective: uop dropped further Medications: Reviewed: Yes Vitals/I&O/Wt Last Vital Signs Temp 97.6 F 06/11/23 04:00 Pulse 60 06/11/23 08:45 Resp 21 H 06/11/23 08:45 BP 130/74 06/11/23 08:45 Pulse Ox 90 06/11/23 08:45 O2 Del Method Room Air 06/11/23 05:15 O2 Flow Rate 4 06/10/23 14:48 06/10/23 06/11/23 06/11/23 22:59 06:59 14:59 Intake Total 200 / 772.324 200 / 972.324 400 / 400 Output Total 5 / 15 Balance 190 / 762.324 195 / 957.324 400 / 400 Weight last 48 hrs Weight 90.5 kg Weight 89.811 kg Physical Exam Narrative: AWake alert, no acute distress HEENT S1-S2, regular rate and rhythm per report Lungs clear per report Trace edema Urinary Catheter Management: Lewis: Cath Placed During This Visit: yes Reason for Continuing Indwelling Catheter: Accurate Measurement of Urinary Out put in Critically Ill Patients Urinary Catheter Date of Insertion: 06/04/23 Urinary Catheter Time of Insertion: 22:30 Data 06/11/23 04:07 06/11/23 04:07 Micro: Microbiology 06/08/23 17:38 Blood Culture - Preliminary Blood Staphylococcus epidermidis A&P Assessment and plan (1) Acute renal failure: Acute on chronic kidney disease: Patient's baseline creatinine is in the range of 1-1.3. Now has creatinine of 2.7 likely multifactorial-secondary to prerenal DIXIE and hypotension. -off levophed , UOP low , will give gentle fluids today -Avoid nephrotoxins and IV contrast studies -Continue to monitor for now, no indication for dialysis today but if renal function continues to get worse and has volume overload and electrolyte derangements - will plan for temporary HD. Continue IV albumin No obstruction on CT 2. Hyponatremia: Mild, monitor, 3. Shock: Required multiple pressors, off now Wean Levophed as tolerated 4. History of pacemaker placement 5. History of rapid A-fib 6. History of CAD with cardiomyopathy, latest ejection fraction 30 to 35% Patient evaluated using audiovisual cart. Time spent 40 minutes Attestations Medical Necessity Statement*: per medicine Coding Level of Care Code Acute Code for [facility] Fwd Diagnoses Acute renal failure N17.9
[2023-06-11] MEDS: sodium chloride 0.9% 500 ML 50 ML IV (10:52)
[2023-06-11 11:06] LABS: Glucose Point of Care 81 mg/dL (70-110)
--- NOTE | 2023-06-11 11:35 | PC.SOCIAL ---
IMM update IMM updated with patient's daughter at bedside. Verbalized an understanding. Copy Pg 2 provided. Initialled, dated, timed, and placed in chart.
--- NOTE | 2023-06-11 16:15 | P.PN_ITS ---
Subjective Subjective: patient was seen this morning, no fever, no cough, she has been drowsy this morning, her daughter is at bedside, she has broached the subject about dialysis with her mom but has no decison as of yet, remains off levophed, Vitals/I&O/Wt Last Vital Signs Temp 97.4 F L 06/11/23 10:00 Pulse 60 06/11/23 14:00 Resp 18 06/11/23 14:00 BP 129/63 06/11/23 14:00 Pulse Ox 95 06/11/23 14:00 O2 Del Method Room Air 06/11/23 05:15 O2 Flow Rate 4 06/10/23 14:48 06/11/23 06/11/23 06/11/23 06:59 14:59 22:59 Intake Total 200 / 972.324 460 / 460 Output Total 5 / 15 Balance 195 / 957.324 460 / 460 Weight last 48 hrs Weight 90.5 kg Weight 89.811 kg Physical Exam Const: COMMON NORMALS: no acute distress and patient oriented x3 Resp: COMMON NORMALS: normal respiratory effort, No retractions, No use of accessory muscles and clear to auscultation bilaterally AUSCULTATION: clear to auscultation bilaterally Cardio: COMMON NORMALS: regular rate, regular rhythm, S1 normal heart sound present and S2 normal heart sound present RATE: regular rate RHYTHM: regular rhythm HEART SOUNDS: S1 normal heart sound present and S2 normal heart sound present GI: COMMON NORMALS: Normal to inspection, nondistended, normoactive bowel sounds present Extremity: COMMON NORMALS: no pedal edema Neuro: COMMON NORMALS: patient oriented x3 Psych: COMMON NORMALS: mental status grossly normal Urinary Catheter Management: Lewis: Cath Placed During This Visit: yes Reason for Continuing Indwelling Catheter: Accurate Measurement of Urinary O utput in Critically Ill Patients Urinary Catheter Date of Insertion: 06/04/23 Urinary Catheter Time of Insertion: 22:30 Data 06/11/23 04:07 06/11/23 04:07 A&P Assessment and plan (1) Arrhythmia: Patient presents with tachycardia, irregular wide-complex rhythm some of which are paced, seems like atrial fibrillation with paced rhythm She was started on amiodarone in the emergency department Cardiology consulted On metoprolol 100 twice daily, currently on hold verapamil on hold Heparin drip on hold (2) CHF (congestive heart failure): Patient presents with shortness of breath, markedly elevated BNP CONCLUSIONS ?LV systolic function is moderate to severely reduced with EF of ?30-35%. Moderate to severe global hypokinesis. ?RV is hypokinetic. ?Bilateral dilation ?Mild mitral regurgitation ?Moderate aortic regurgitation ?Mild tricuspid regurgitation ?IVC dilated ?Compared to prior echocardiogram from 08/2022, LV systolic ?function has significantly reduced. -cardiology consulted (3) Atrial fibrillation: Patient with past history of atrial fibrillation eliquis Cardiology consultation (4) Diabetes: Consistent carb diet when able Mild sliding scale insulin (5) Diarrhea: Monitor (6) Right upper quadrant abdominal pain: ruq us 1. Cholelithiasis without evidence for acute cholecystitis. 2. Hepatic steatosis. Focal area of increased echogenicity in the right lobe of the liver is probably either a small hemangioma or focal hepatic steatosis. This can be reevaluated in 3 months by ultrasound. This has not been described on prior imaging studies. 3. Quality of the ultrasound is suboptimal by body habitus. HIDA scan MPRESSION: Somewhat limited study due to patient's clinical status and inability to position for lateral imaging *? Diffuse patchy hepatic radiotracer uptake compatible with fatty infiltration. *? Gallbladder is not definitely visualized suspicious for? cholecystitis. Correlation with biliary function studies. Recommend follow-up with ultrasound. *? Common bile duct and small bowel activity are visualized by 90 minutes. Noted on the prior most recent CT from 2009 gallbladder appears thickened at that time with cholelithiasis similar to the recent ultrasound suggesting chronic or indolent gallbladder dysfunction. -Likely chronic cholecystitis -Switch to Cipro IV and Flagyl -Monitor nausea, vomiting -Repeat CT scan 06/08/2023 -2. ? Numerous stones filling the gallbladder, cystic duct and common bile duct. Moderate extrahepatic biliary dilation. No sign of acute cholecystitis. -However she does not have any significant transaminitis, hyperbilirubinemia, alk phos elevation, or lipase elevation, no Pro-Corey or CRP elevation (7) Hyperbilirubinemia: (8) Urinary tract infection: On ciprofloxacin (9) Systolic CHF: - EF of 30 to 35% LV systolic function is moderate to severely reduced with EF of ?30-35%. Moderate to severe global hypokinesis. ?RV is hypokinetic. ?Bilateral dilation ?Mild mitral regurgitation ?Moderate aortic regurgitation ?Mild tricuspid regurgitation ?IVC dilated ?Compared to prior echocardiogram from 08/2022, LV systolic ?function has significantly reduced. (10) Chronic cholecystitis: (11) Shock: - Multifactorial -Possible cardiogenic shock, repeat echo so far shows an EF of 30 to 35% -I do not feel this is septic shock s although there is evidence of stones in cystic duct, CBD, and extrahepatic biliary dilatation however remains afebrile, no significant LFT abnormalities, bilirubin elevation or alk phos elevation, or lipase elevation, no Pro-Corey or CRP elevation, no leukocytosis, she has been on antibiotics since hospital admission -off lveophed ? Albumin 25 g IV every 8 hours -We will monitor closely (12) Acute renal failure: - Acute renal failure, minimal -didnot respond to lasix, now receiving fluid therapy -Likely secondary to hypotension, shock, multiple pressors -Hold nephrotoxic agents -Maintain MAP greater than 75 -Monitor urine output -Consult nephrology (13) Elevated INR: -INR3.39, potentially dysfunction related to renal failure, will monitor for signs of bleeding (14) Thrombocytopenia: Platelet 76,000, has PLT dysfunction secondary to renail failure, will monitor (15) Acute encephalopathy: -alert to person, to place, not to time -can follow commands at times Plan Multiple other medical problems as outlined in past medical history Encephalopathic, from hypoxia, shock, chronically cystitis, underlying dementia Full code INR 3.33, SCDs for DVT prophylaxis Protonix for GI prophylaxis will monitor renal function, pt ot, monitor plt count, monitor inr, npo midnight Attestations Medical Necessity Statement*: patient requires hospitalization for acute renal failure, Diagnoses Arrhythmia I49.9 CHF (congestive heart failure) I50.9 Atrial fibrillation I48.91 Diabetes E11.9 Diarrhea R19.7 Right upper quadrant abdominal pain R10.11 Hyperbilirubinemia E80.6 Urinary tract infection N39.0 Systolic CHF I50.20 Chronic cholecystitis K81.1 Shock R57.9 Acute renal failure N17.9 Elevated INR R79.1 Thrombocytopenia D69.6 Acute encephalopathy G93.40
[2023-06-11 16:52] LABS: Glucose Point of Care 90 mg/dL (70-110)
[2023-06-11 21:13] LABS: Glucose Point of Care 90 mg/dL (70-110)
[2023-06-12] VITALS (27 sets, daily range): BP systolic 126–156; BP diastolic 66–104; PULSE 58–63; RESP 17–23; TEMP 36.6–36.7; O2SAT 93–100; BMI 33.2
--- NOTE | 2023-06-12 | PM.PN ---
Subjective Subjective: Rupa Baptiste is a 73 year old female with a long list of medical problems including chronic atrial fibrillation on Eliquis, coronary disease with ischemic cardiomyopathy and chronic congestive heart failure.? She also has chronic kidney disease, history of stroke, diabetes, hypertension, obesity, sick sinus syndrome, pacemaker implant, transaminitis and an occluded left subclavian vein..? She has a bipolar affective disorder which manifests itself is extremely bizarre behavior at times.? ? She came in with nausea, vomiting and diarrhea and was diagnosed with cholecystitis. She was in shock briefly and is now off pressors. She was diagnosed with moderate LV dysfunction few months back and had abnormal stress test. Cath was planned however she developed hypotension. Her renal function worsened. renal function worsening, minimal UO. remains in paced rhythm Medications: Reviewed: Yes Vitals/I&O/Wt Last Vital Signs Temp 97.4 F L 06/11/23 10:00 Pulse 60 06/11/23 22:00 Resp 14 06/11/23 15:30 BP 126/84 06/11/23 22:00 Pulse Ox 97 06/11/23 22:00 O2 Del Method Room Air 06/11/23 05:15 O2 Flow Rate 4 06/10/23 14:48 06/11/23 06/11/23 06/12/23 14:59 22:59 06:59 Intake Total 460 / 460 810 / 1270 Output Total 100 / 100 Balance 460 / 460 710 / 1170 Weight last 48 hrs Weight 199 lb 8.293 oz Weight 198 lb Physical Exam Narrative: Gen: patient laying propped up in bed RS: AEBE, decreased breath sounds at bases, basal crackles, no wheezing CVS:S1, S2 regular Ext:No edema or cyanosis PA: soft, NTND, BS2+ [employer]: arousable but not anserwing questions appropriately. Urinary Catheter Management: Lewis: Cath Placed During This Visit: yes Reason for Continuing Indwelling Catheter: Accurate Measurement of Urinary Output in Critically Ill Patients Urinary Catheter Date of Insertion: 06/04/23 Urinary Catheter Time of Insertion: 22:30 Data 06/12/23 05:04 06/12/23 05:04 A&P Assessment and plan (1) Acute kidney injury: (2) Chronic cholecystitis: (3) Shock: resolved (4) Systolic CHF: HFrEF (5) Hyperbilirubinemia: (6) HTN (hypertension): (7) Sick sinus syndrome: (8) Atrial fibrillation: (9) Obesity: (10) Diabetes: (11) Status cardiac pacemaker: (12) Myocardial infarction: (13) CVA (cerebral vascular accident): (14) CKD (chronic kidney disease): (15) Bipolar 1 disorder: Plan Patient is in renal failure. She is oliguric. Continue to hold AV delphine blockers and the BLAIR inhibitor. Pacemaker working appropriately There will be no indication for cardiac catheterization unless the renal insufficiency and hypotension resolve. I spoke in length with the patient and her daughter. However, they are not very clear on what they want. Patient in her moments has expressed desire not to be on dialysis. So, far it seems like she is heading that way. Nephrology is on board. Attestations Medical Necessity Statement*: needs hospital stay for renal failure Coding Level of Care Code 91202 Diagnoses Acute kidney injury N17.9 Chronic cholecystitis K81.1 Shock R57.9 Systolic CHF I50.20 Hyperbilirubinemia E80.6 HTN (hypertension) I10 Sick sinus syndrome I49.5 Atrial fibrillation I48.91 Obesity E66.9 Diabetes E11.9 Status cardiac pacemaker Z95.0 Myocardial infarction I21.9 CVA (cerebral vascular accident) I63.9 CKD (chronic kidney disease) N18.9 Bipolar 1 disorder F31.9
[2023-06-12] MEDS: metroNIDAZOLE IV 500 MG/100 ML PREMIX 100 MG IV ×3 (01:50→17:40)
[2023-06-12] MEDS: metoclopramide 5 mg/mL SDV 2 mL IVP (02:03)
[2023-06-12 05:25] LABS: Basophils % 0.4 %; Eosinophils # 0.1 10^3/uL (0.0-0.8); Eosinophils % 0.7 %; Hematocrit 39.1 % (36-47); Lymphocytes # 0.7 10^3/uL (0.8-4.8); Lymphocytes % 7.8 %; Mean Corpuscular HGB Conc 31.5 g/dL (30-55); Mean Corpuscular Hemoglobin 30.9 pg (27-33); Mean Corpuscular Volume 98.2 fl (85-98); Mean Platelet Volume 12.5 fL (7.4-10.4); Monocytes # 1.1 10^3/uL (0.2-0.9); Monocytes % 12.6 %; Neutrophils # 6.52 10^3/uL (1.8-7.7); Neutrophils % 78.1 %; Nucleated Red Blood Cells % 0.2 %; Platelet Count 87 10^3/cmm (157-399); Red Blood Count 3.98 10^6/uL (3.85-5.65); Red Cell Distribution Width 21.6 % (12.1-15.1); White Blood Count 8.34 10^3/uL (3.29-11.43)
[2023-06-12 05:41] LABS: INR 3.95 (0.8-1.2)
[2023-06-12 06:08] LABS: Anion Gap 19.9 (5-19); Blood Urea Nitrogen 43 mg/dL (8-23); Calcium 9.7 mg/dL (8.5-10.5); Carbon Dioxide 22 mmol/L (22-29); Chloride 95 mmol/L (98-107); Glucose 67 mg/dL (65-115); NT Pro B Type Natriuretic Pept 12676 pg/mL (0-125); Osmolality Calculated 283 mOsm/kg (285-295); Potassium 4.9 mmol/L (3.5-5.1); Sodium 132 mmol/L (136-145)
[2023-06-12 07:32] LABS: Glucose Point of Care 65 mg/dL (70-110)
[2023-06-12] MEDS: levothyroxine 25 mcg Tablet 37.5 MCG PO (07:35)
[2023-06-12] MEDS: albumin 25 G/100 ML BAG 60 G IV ×3 (07:35→21:31)
[2023-06-12] MEDS: ciprofloxacin 400 MG/200 ML PREMIX 200 MG IV (09:05)
[2023-06-12] MEDS: pantoprazole DR 40 mg Tablet PO (09:06)
[2023-06-12] MEDS: ferrous sulfate EC 325 mg Tablet PO (09:06)
[2023-06-12] MEDS: escitalopram 10 mg Tablet PO (09:06)
[2023-06-12] MEDS: atorvastatin 40 mg Tablet 20 MG PO (09:06)
[2023-06-12] MEDS: aspirin 81 mg EC Tablet PO (09:06)
[2023-06-12] MEDS: magnesium lactate 84 mg Tablet PO (09:06)
[2023-06-12] MEDS: donepezil 5 MG Tablet PO (09:07)
[2023-06-12] MEDS: sodium chloride 0.9% 1,000 ML 50 ML IV (10:27)
--- NOTE | 2023-06-12 11:04 | P.PN_ITS ---
Subjective Subjective: UOP remains low, on room air Medications: Reviewed: Yes Vitals/I&O/Wt Last Vital Signs Temp 97.9 F 06/12/23 01:00 Pulse 60 06/12/23 10:00 Resp 19 H 06/12/23 10:00 BP 147/72 06/12/23 10:00 Pulse Ox 100 06/12/23 09:00 O2 Del Method Room Air 06/12/23 08:15 O2 Flow Rate 4 06/10/23 14:48 06/11/23 06/12/23 06/12/23 22:59 06:59 14:59 Intake Total 810 / 1270 310 / 1580 Output Total 100 / 100 55 / 155 Balance 710 / 1170 255 / 1425 Weight last 48 hrs Weight 90.5 kg Weight 90.5 kg Physical Exam Narrative: AWake alert, no acute distress HEENT S1-S2, regular rate and rhythm per report Lungs clear per report Trace edema Urinary Catheter Management: Lewis: Cath Placed During This Visit: yes Reason for Continuing Indwelling Catheter: Accurate Measurement of Urinary Output in Critically Ill Patients Urinary Catheter Date of Insertion: 06/04/23 Urinary Catheter Time of Insertion: 22:30 Data 06/12/23 05:04 06/12/23 05:04 A&P Assessment and plan (1) Acute renal failure: Acute on chronic kidney disease: Patient's baseline creatinine is in the range of 1-1.3. Now has creatinine of 3.5 likely multifactorial-secondary to prerenal DIXIE and hypotension. -off levophed , UOP low , will give fluids again today -Avoid nephrotoxins and IV contrast studies -Continue to monitor for now, no absolute indication for dialysis today but if renal function continues to get worse and has volume overload and electrolyte derangements - will plan for temporary HD. Continue IV albumin No obstruction on CT 2. Hyponatremia: Mild, monitor, 3. Shock: Required multiple pressors, off now Wean Levophed as tolerated 4. History of pacemaker placement 5. History of rapid A-fib 6. History of CAD with cardiomyopathy, latest ejection fraction 30 to 35% Patient evaluated using audiovisual cart. Time spent 40 minutes Attestations Medical Necessity Statement*: per medicine Coding Level of Care Code Acute Code for [facility] Fwd Diagnoses Acute renal failure N17.9
[2023-06-12 11:28] LABS: Glucose Point of Care 74 mg/dL (70-110)
--- NOTE | 2023-06-12 16:07 | PM.PN ---
Subjective Subjective: Rupa Baptiste is a 73 year old female with a long list of medical problems including chronic atrial fibrillation on Eliquis, coronary disease with ischemic cardiomyopathy and chronic congestive heart failure.? She also has chronic kidney disease, history of stroke, diabetes, hypertension, obesity, sick sinus syndrome, pacemaker implant, transaminitis and an occluded left subclavian vein.? She has a bipolar affective disorder which manifests itself is extremely bizarre behavior at times.? ? She came in with nausea, vomiting and diarrhea and was diagnosed with cholecystitis. She was in shock briefly and is now off pressors but that left her with worsening renal function.She was diagnosed with moderate LV dysfunction few months back and had abnormal stress test. Cath was planned however she developed hypotension. Her renal function worsened. renal function worsening, minimal UO. remains in paced rhythm Medications: Reviewed: Yes Vitals/I&O/Wt Last Vital Signs Temp 97.9 F 06/12/23 01:00 Pulse 58 L 06/12/23 14:00 Resp 19 H 06/12/23 14:00 BP 149/70 06/12/23 14:00 Pulse Ox 94 06/12/23 13:00 O2 Del Method Room Air 06/12/23 08:15 O2 Flow Rate 4 06/10/23 14:48 06/12/23 06/12/23 06/12/23 06:59 14:59 22:59 Intake Total 310 / 1580 100 / 100 Output Total 55 / 155 Balance 255 / 1425 100 / 100 Weight last 48 hrs Weight 199 lb 8.293 oz Weight 199 lb 8.293 oz Physical Exam Narrative: Gen: patient laying propped up in bed RS: AEBE, decreased breath sounds at bases, basal crackles, no wheezing CVS:S1, S2 regular Ext:1+ edema bilateral legs and forearms. 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 Urinary Catheter Management: Lewis: Cath Placed During This Visit: yes Reason for Continuing Indwelling Catheter: Accurate Measurement of Urinary Output in Critically Ill Patients Urinary Catheter Date of Insertion: 06/04/23 Urinary Catheter Time of Insertion: 22:30 Data 06/12/23 05:04 06/12/23 05:04 A&P Assessment and plan (1) Acute kidney injury: (2) Systolic CHF: HFrEF (3) Hyperbilirubinemia: (4) HTN (hypertension): (5) Sick sinus syndrome: (6) Chronic cholecystitis: (7) Atrial fibrillation: (8) Obesity: (9) Diabetes: (10) Status cardiac pacemaker: (11) Myocardial infarction: (12) CVA (cerebral vascular accident): (13) CKD (chronic kidney disease): (14) Bipolar 1 disorder: (15) Shock: resolved Plan Patient is in renal failure. She is oliguric. Continue to hold AV delphine blockers and the BLAIR inhibitor. Pacemaker working appropriately There will be no indication for cardiac catheterization unless the renal insufficiency and hypotension resolve. I spoke in length with the patient and her daughter. However, they are not very clear on what they want. Patient in her moments has expressed desire not to be on dialysis. So, far it seems like she is heading that way. Nephrology is on board. Attestations Medical Necessity Statement*: needs hospital stay for renal failure Coding Level of Care Code 42326 Diagnoses Acute kidney injury N17.9 Systolic CHF I50.20 Hyperbilirubinemia E80.6 HTN (hypertension) I10 Sick sinus syndrome I49.5 Chronic cholecystitis K81.1 Atrial fibrillation I48.91 Obesity E66.9 Diabetes E11.9 Status cardiac pacemaker Z95.0 Myocardial infarction I21.9 CVA (cerebral vascular accident) I63.9 CKD (chronic kidney disease) N18.9 Bipolar 1 disorder F31.9 Shock R57.9
--- NOTE | 2023-06-12 16:12 | P.PN_ITS ---
Subjective Subjective: Patient was examined multiple times throughout the morning, early in the morning I had an extensive discussion with patient's daughter and patient about dialysis, continue medical interventions, hospice ? Her urine output has improved to 155 cc, but her creatinine has increased to 3.5, she is developing anasarca, fluid overload, she is requiring oxygen, I can hear crackles on my lung examinations[place] [id number] - I had a discussion with her daughter and patient about dialysis, and asked patient does she want dialysis she keeps shaking her head no -I had extensive discussion with patient and her daughter about the importance of dialysis, that without dialysis depending on how she progresses she will potentially develop an arrhythmia electrolyte abnormalities worsening renal failure, fluid overload and morbidity and mortality associated. We can certainly give her another 24 hours and see what her kidney function does, and what her electrolytes do and her fluid status do, but she does not carry a significant risk of developing these complications. Doing dialysis would help with her fluid overload, help with correct fluid electrolyte abnormalities, would also give her the possibility of undergoing coronary angiography for her diminished ejection fraction. And then ultimately potentially intervening on her gallbladder, which has been giving her problems for the last 6 months with nausea vomiting, poor appetite. However pursuing medical interventions does carry risk, placing the dialysis catheter does she tolerate dialysis well to her blood pressures do, does she tolerate an angiogram what is angiogram shows that there is a lot of questions still that need answered, there is a lot of hurdles still in her future. The other option would be comfort care easing her pain easing her suffering allowing her to be at home with her family and not pursuing interventions. After discussing the risk and benefits of all options, her's daughter voiced understanding, all questions answered. I am not sure if I can get an informed decision from patient, as she is alert to person, to place not to time, and she does not ask any questions and seems like the information I gav e to her glossed over her. Not sure if she can make such a complicated decision, however when I asked her multiple times does she want dialysis that simple question she kept shaking her head saying no. I had extensive discussion with daughter about shared decision making, then I am going to give her her and her mother and her family time to make a decision. I am a revisit with them this afternoon, I revisited with them this afternoon, however daughter was not at bedside, patient sitting up in a chair alert and awake, her son was at bedside, he tells me that family has not come up with a decision as of yet. We will wait their decision. So far patient remains a full code. Vitals/I&O/Wt Last Vital Signs Temp 97.9 F 06/12/23 01:00 Pulse 58 L 06/12/23 14:00 Resp 19 H 06/12/23 14:00 BP 149/70 06/12/23 14:00 Pulse Ox 94 06/12/23 13:00 O2 Del Method Room Air 06/12/23 08:15 O2 Flow Rate 4 06/10/23 14:48 06/12/23 06/12/23 06/12/23 06:59 14:59 22:59 Intake Total 310 / 1580 100 / 100 Output Total 55 / 155 Balance 255 / 1425 100 / 100 Weight last 48 hrs Weight 90.5 kg Weight 90.5 kg Physical Exam Const: COMMON NORMALS: no acute distress ORIENTATION/CONSCIOUSNESS: Yes awake and Yes oriented to person; not oriented to place and not oriented to time Resp: COMMON NORMALS: normal respiratory effort, No retractions, No use of accessory muscles and clear to auscultation bilaterally AUSCULTATION: clear t o auscultation bilaterally Cardio: COMMON NORMALS: regular rate, regular rhythm, S1 normal heart sound present and S2 normal heart sound present RATE: regular rate RHYTHM: regular rhythm HEART SOUNDS: S1 normal heart sound present and S2 normal heart sound present GI: COMMON NORMALS: Normal to inspection, nondistended, normoactive bowel sounds present and non-tender Extremity: COMMON NORMALS: no pedal edema Neuro: SENSORIUM/ORIENTATION: Yes oriented to person, No oriented to place and No oriented to time Urinary Catheter Management: Lewis: Cath Placed During This Visit: yes Reason for Continuing Indwelling Catheter: Accurate Measurement of Urinary Output in Critically Ill Patients Urinary Catheter Date of Insertion: 06/04/23 Urinary Catheter Time of Insertion: 22:30 Data 06/12/23 05:04 06/12/23 05:04 A&P Assessment and plan (1) Arrhythmia: Patient presents with tachycardia, irregular wide-complex rhythm some of which are paced, seems like atrial fibrillation with paced rhythm She was started on amiodarone in the emergency department Cardiology consulted On metoprolol 100 twice daily, currently on hold verapamil on hold Heparin drip on hold (2) CHF (congestive heart failure): Patient presents with shortness of breath, markedly elevated BNP CONCLUSIONS ?LV systolic function is moderate to severely reduced with EF of ?30-35%. Moderate to severe global hypokinesis. ?RV is hypokinetic. ?Bilateral dilation ?Mild mitral regurgitation ?Moderate aortic regurgitation ?Mild tricuspid regurgitation ?IVC dilated ?Compared to prior echocardiogram from 08/2022, LV systolic ?function has significantly reduced. -cardiology consulted -Status post Lasix without response. ?, Has received gentle IV hydration due to acute renal failure ?, Now developing crackles on lung le although scattered, anasarca, lower extremity edema, my concern is for her elevated BNP her worsening heart failure if her urine output does not improve she is a high risk of developing acute hypoxic respiratory failure resulting morbidity and mortality possible intubation, ? However family has not made a decision as of yet about dialysis, will await the decision (3) Atrial fibrillation: Patient with past history of atrial fibrillation eliquis on hold as self anticoagulating Cardiology consultation (4) Diabetes: Consistent carb diet when able Mild sliding scale insulin (5) Diarrhea: Monitor (6) Right upper quadrant abdominal pain: ruq us 1. Cholelithiasis without evidence for acute cholecystitis. 2. Hepatic steatosis. Focal area of increased echogenicity in the right lobe of the liver is probably either a small hemangioma or focal hepatic steatosis. This can be reevaluated in 3 months by ultrasound. This has not been described on prior imaging studies. 3. Quality of the ultrasound is suboptimal by body habitus. HIDA scan MPRESSION: Somewhat limited study due to patient's clinical status and inability to position for lateral imaging *? Diffuse patchy hepatic radiotracer uptake compatible with fatty infiltration. *? Gallbladder is not definitely visualized suspicious for? cholecystitis. Correlation with biliary function studies. Recommend follow-up with ultrasound. *? Common bile duct and small bowel activity are visualized by 90 minutes. Noted on the prior most recent CT from 2009 gallbladder appears thickened at that time with cholelithiasis similar to the recent ultrasound suggesting chronic or indolent gallbladder dysfunction. -Likely chronic cholecystitis -Switch to Cipro IV and Flagyl -Monitor nausea, vomiting -Repeat CT scan 06/08/2023 -2. ? Numerous stones filling the gallbladder, cystic duct and common bile duct. Moderate extrahepatic biliary dilation. No sign of acute cholecystitis. -However she does not have any significant transaminitis, hyperbilirubinemia, alk phos elevation, or lipase elevation, no Pro-Corey or CRP elevation ? Continue ciprofloxacin, continue Flagyl (7) Hyperbilirubinemia: (8) Urinary tract infection: On ciprofloxacin (9) Systolic CHF: - EF of 30 to 35% LV systolic function is moderate to severely reduced with EF of ?30-35%. Moderate to severe global hypokinesis. ?RV is hypokinetic. ?Bilateral dilation ?Mild mitral regurgitation ?Moderate aortic regurgitation ?Mild tricuspid regurgitation ?IVC dilated ?Compared to prior echocardiogram from 08/2022, LV systolic ?function has significantly reduced. (10) Chronic cholecystitis: (11) Shock: - Multifactorial -Possible cardiogenic shock, repeat echo so far shows an EF of 30 to 35% -I do not feel this is septic shock s although there is evidence of stones in cystic duct, CBD, and extrahepatic biliary dilatation however remains afebrile, no significant LFT abnormalities, bilirubin elevation or alk phos elevation, or lipase elevation, no Pro-Corey or CRP elevation, no leukocytosis, she has been on antibiotics since hospital admission -off Levophed ? Albumin 25 g IV every 8 hours -We will monitor closely (12) Acute renal failure: - Acute renal failure, minimal your output -didnot respond to lasix, status post fluid therapy -Likely secondary to hypotension, shock, multiple pressors -Hold nephrotoxic agents -Maintain MAP greater than 75 -Monitor urine output -Consult nephrology (13) Elevated INR: -INR3.95, potentially dysfunction related to renal failure, will monitor for signs of bleeding (14) Thrombocytopenia: Platelet 87,000, has PLT dysfunction secondary to renail failure, will monitor (15) Acute encephalopathy: -alert to person, to place, not to time -can follow commands at times Plan Multiple other medical problems as outlined in past medical history Encephalopathic, from hypoxia, shock, chronically cystitis, underlying dementia Full code INR 395, SCDs for DVT prophylaxis Protonix for GI prophylaxis will monitor renal function, pt ot, monitor plt count, monitor inr, await family decision Attestations Medical Necessity Statement*: Patient requires hospitalization for acute renal failure, developing fluid overload, awaiting family's decision about dialysis or hospice, receiving antibiotics for chronic cholecystitis, developing elevated INR, monitoring for signs of bleeding, has been off anticoagulation for the last 72 hours, receiving fluids for acute renal failure, thrombocytopenia Coding Level of Care Code 27994 High Time for a total of 70 minutes, includes reviewing past or interval history, examining/interviewing patient, placing orders, counseling patient/family/other support, updating patient/family/other support, discussing plan of care with staff, communicating with other healthcare providers, documenting encounter and coordinating care Diagnoses Arrhythmia I49.9 CHF (congestive heart failure) I50.9 Atrial fibrillation I48.91 Diabetes E11.9 Diarrhea R19.7 Right upper quadrant abdominal pain R10.11 Hyperbilirubinemia E80.6 Urinary tract infection N39.0 Systolic CHF I50.20 Chronic cholecystitis K81.1 Shock R57.9 Acute renal failure N17.9 Elevated INR R79.1 Thrombocytopenia D69.6 Acute encephalopathy G93.40
[2023-06-12 16:18] LABS: Glucose Point of Care 79 mg/dL (70-110)
[2023-06-12] MEDS: nystatin cream 30 gm 1 APPLIC TOPICAL (17:42)
[2023-06-12 22:06] LABS: Glucose Point of Care 98 mg/dL (70-110)
[2023-06-13] VITALS (27 sets, daily range): BP systolic 137–165; BP diastolic 72–111; PULSE 60–71; RESP 14–24; TEMP 36.7; O2SAT 93–99
[2023-06-13] MEDS: metroNIDAZOLE IV 500 MG/100 ML PREMIX 100 MG IV ×3 (02:36→18:17)
[2023-06-13] MEDS: levothyroxine 25 mcg Tablet 37.5 MCG PO (05:53)
[2023-06-13] MEDS: albumin 25 G/100 ML BAG 60 G IV ×3 (06:09→23:38)
[2023-06-13] MEDS: sodium chloride 0.9% 1,000 ML 50 ML IV (06:10)
[2023-06-13 06:20] LABS: Glucose Point of Care 107 mg/dL (70-110)
[2023-06-13 06:21] LABS: Basophils % 0.3 %; Eosinophils # 0.1 10^3/uL (0.0-0.8); Eosinophils % 0.8 %; Hematocrit 39.3 % (36-47); Lymphocytes # 0.8 10^3/uL (0.8-4.8); Lymphocytes % 8.3 %; Mean Corpuscular HGB Conc 31.8 g/dL (30-55); Mean Corpuscular Hemoglobin 30.2 pg (27-33); Mean Corpuscular Volume 94.9 fl (85-98); Mean Platelet Volume 12.5 fL (7.4-10.4); Monocytes # 1.3 10^3/uL (0.2-0.9); Monocytes % 14.2 %; Nucleated Red Blood Cells # 0.1 /100WBC; Nucleated Red Blood Cells % 0.9 %; Platelet Count 104 10^3/cmm (157-399); Red Blood Count 4.14 10^6/uL (3.85-5.65); Red Cell Distribution Width 21.6 % (12.1-15.1); White Blood Count 9.08 10^3/uL (3.29-11.43)
[2023-06-13 06:30] LABS: INR 3.95 (0.8-1.2)
[2023-06-13 06:56] LABS: Anion Gap 22.7 (5-19); Blood Urea Nitrogen 48 mg/dL (8-23); Calcium 9.6 mg/dL (8.5-10.5); Carbon Dioxide 19 mmol/L (22-29); Chloride 96 mmol/L (98-107); Glucose 73 mg/dL (65-115); NT Pro B Type Natriuretic Pept 18449 pg/mL (0-125); Osmolality Calculated 287 mOsm/kg (285-295); Potassium 4.7 mmol/L (3.5-5.1); Sodium 133 mmol/L (136-145)
--- NOTE | 2023-06-13 09:55 | P.PN_ITS ---
Subjective Subjective: Rupa Baptiste is a 73 year old female with a long list of medical problems including chronic atrial fibrillation on Eliquis, coronary disease with ischemic cardiomyopathy and chronic congestive heart failure.? She also has chronic kidney disease, history of stroke, diabetes, hypertension, obesity, sick sinus syndrome, pacemaker implant, transaminitis and an occluded left subclavian vein.? She has a bipolar affective disorder which manifests itself is extremely bizarre behavior at times.? ? She came in with nausea, vomiting and diarrhea and was diagnosed with cholecystitis. She was in shock briefly and is now off pressors but that left her with worsening renal function.She was diagnosed with moderate LV dysfunction few months back and had abnormal stress test. Cath was planned however she developed hypotension. Her renal function worsened. renal function worsening, UO ~400 ML NOW. remains in paced rhythm Medications: Reviewed: Yes Vitals/I&O/Wt Last Vital Signs Temp 98.0 F 06/12/23 23:35 Pulse 71 06/13/23 05:55 Resp 24 H 06/13/23 05:00 BP 165/111 06/13/23 05:00 Pulse Ox 96 06/13/23 04:00 O2 Del Method Room Air 06/12/23 23:35 O2 Flow Rate 4 06/10/23 14:48 06/12/23 06/13/23 06/13/23 22:59 06:59 14:59 Intake Total 700 / 800 1185.833 / 1985.833 Output Total 300 / 300 125 / 425 Balance 400 / 500 1060.833 / 1560.833 Weight last 48 hrs Weight 215 lb 5 oz Weight 199 lb 8.293 oz Physical Exam Narrative: Gen: patient laying propped up in bed RS: AEBE, decreased breath sounds at bases, basal crackles, no wheezing CVS:S1, S2 regular Ext:2-3+ edema bilateral legs and forearms. 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 Urinary Catheter Management: Lewis: Cath Placed During This Visit: yes Reason for Continuing Indwelling Catheter: Accurate Measurement of Urinary Output in Critically Ill Patients Urinary Catheter Date of Insertion: 06/04/23 Urinary Catheter Time of Insertion: 22:30 Data 06/13/23 06:07 06/13/23 06:07 Micro: Microbiology 06/08/23 17:38 Blood Culture - Preliminary Blood Staphylococcus epidermidis A&P Assessment and plan (1) Acute kidney injury: plan for dilaysis (2) Systolic CHF: HFrEF (3) Hyperbilirubinemia: (4) HTN (hypertension): (5) Sick sinus syndrome: (6) Chronic cholecystitis: (7) Atrial fibrillation: (8) Obesity: (9) Diabetes: (10) Status cardiac pacemaker: (11) Myocardial infarction: (12) CVA (cerebral vascular accident): (13) CKD (chronic kidney disease): (14) Bipolar 1 disorder: (15) Shock: resolved Plan Abnormal stress test Patient is in renal failure. Continue to hold AV delphine blockers and the BLAIR inhibitor. Pacemaker working appropriately Depending on her progression will plan for cardiac catheterization . I spoke in length with the patient and her daughter. Daughters decided on dialysis. Patient in her lucid moments has expressed desire not to be on dialysis in past. Nephrology is on board. Attestations Medical Necessity Statement*: As per primary team Coding Level of Care Code 83570 Diagnoses Acute kidney injury N17.9 Systolic CHF I50.20 Hyperbilirubinemia E80.6 HTN (hypertension) I10 Sick sinus syndrome I49.5 Chronic cholecystitis K81.1 Atrial fibrillation I48.91 Obesity E66.9 Diabetes E11.9 Status cardiac pacemaker Z95.0 Myocardial infarction I21.9 CVA (cerebral vascular accident) I63.9 CKD (chronic kidney disease) N18.9 Bipolar 1 disorder F31.9 Shock R57.9
--- NOTE | 2023-06-13 09:56 | PM.PN ---
Subjective Subjective: altered mental status c/o SOB Medications: Reviewed: Yes Vitals/I&O/Wt Last Vital Signs Temp 98.0 F 06/12/23 23:35 Pulse 60 06/13/23 09:55 Resp 24 H 06/13/23 05:00 BP 165/111 06/13/23 05:00 Pulse Ox 95 06/13/23 09:55 O2 Del Method Nasal Cannula 06/13/23 09:55 O2 Flow Rate 2 06/13/23 09:55 06/12/23 06/13/23 06/13/23 22:59 06:59 14:59 Intake Total 700 / 800 1185.833 / 1985.833 Output Total 300 / 300 125 / 425 Balance 400 / 500 1060.833 / 1560.833 Weight last 48 hrs Weight 97.664 kg Weight 90.5 kg Physical Exam Narrative: Lethargic , no acute distress HEENT S1-S2, regular rate and rhythm per report Lungs clear per report Trace edema Urinary Catheter Management: Lewis: Cath Placed During This Visit: yes Reason for Continuing Indwelling Catheter: Accurate Measurement of Urinary Output in Critically Ill Patients Urinary Catheter Date of Insertion: 06/04/23 Urinary Catheter Time of Insertion: 22:30 Data 06/13/23 06:07 06/13/23 06:07 Micro: Microbiology 06/08/23 17:38 Blood Culture - Preliminary Blood Staphylococcus epidermidis A&P Assessment and plan (1) Acute renal failure: Acute on chronic kidney disease: Patient's baseline creatinine is in the range of 1-1.3. Now has creatinine of 3.8 likely multifactorial-secondary to prerenal DIXIE and hypotension , cardiorenal -off levophed , UOP low , will give fluids again today -Avoid nephrotoxins and IV contrast studies -renal function worsening , now has SOB , AMS and mild metabolic acidosis --> recommend temporary catheter placement and start HD No obstruction on CT 2. Hyponatremia: Mild, monitor, 3. Shock: Required multiple pressors, off now Wean Levophed as tolerated 4. History of pacemaker placement 5. History of rapid A-fib 6. History of CAD with cardiomyopathy, latest ejection fraction 30 to 35% Patient evaluated using audiovisual cart. Time spent 40 minutes Attestations Medical Necessity Statement*: per medicine Coding Level of Care Code Acute Code for g Fwd Diagnoses Acute renal failure N17.9
[2023-06-13] MEDS: nystatin cream 30 gm 1 APPLIC TOPICAL ×2 (10:15→20:56)
[2023-06-13 10:58] LABS: Hepatitis B Surface Antigen Non-Reactive (Nonreactive)
--- NOTE | 2023-06-13 12:28 | PC.NURSE ---
BS=77
[2023-06-13] MEDS: ciprofloxacin 400 MG/200 ML PREMIX 100 MG IV (12:42)
--- NOTE | 2023-06-13 13:43 | PC.SOCIAL ---
IMM Updated Updated pt's daughter on IMM. No questions voiced. Provided pt a copy. Initialed, dated, & timed copy in chart.
--- NOTE | 2023-06-13 15:03 | PM.PN ---
Subjective Subjective: Family has made the decision to proceed with dialysis today. General surgery consult placed for temporary HD catheter. Patient continues to be confused lethargic and obtunded Medications: Reviewed: Yes Vitals/I&O/Wt Last Vital Signs Temp 98.0 F 06/12/23 23:35 Pulse 60 06/13/23 10:00 Resp 19 H 06/13/23 10:00 BP 151/79 06/13/23 10:00 Pulse Ox 99 06/13/23 10:00 O2 Del Method Nasal Cannula 06/13/23 09:55 O2 Flow Rate 2 06/13/23 09:55 06/13/23 06/13/23 06/13/23 06:59 14:59 22:59 Intake Total 1185.833 / 1985.833 300 / 300 Output Total 125 / 425 425 / 425 Balance 1060.833 / 1560.833 -125 / -125 Weight last 48 hrs Weight 97.664 kg Weight 90.5 kg Physical Exam Narrative: General: Laying in bed, appears uncomfortable, does not participate in conversation. HEENT: PERRLA, pupils bilaterally equal and reactive, pallors not present Chest: Crackles to auscultation bilaterally CVS: S1-S2 regular, no murmurs, no tachycardia, no gallops, no rubs Abdomen: Soft, nontender, no organomegaly, bowel sounds present Neuro: Moves all extremities while laying in bed. Urinary Catheter Management: Lewis: Cath Placed During This Visit: yes Reason for Continuing Indwelling Catheter: Accurate Measurement of Urinary Output in Critically Ill Patients Urinary Catheter Date of Insertion: 06/04/23 Urinary Catheter Time of Insertion: 22:30 Data 06/13/23 06:07 06/13/23 06:07 Micro: Microbiology 06/08/23 17:38 Blood Culture - Preliminary Blood Staphylococcus epidermidis A&P Assessment and plan (1) Arrhythmia: Patient presents with tachycardia, irregular wide-complex rhythm some of which are paced, She was started on amiodarone in the emergency department On metoprolol 100 twice daily, currently on hold verapamil on hold Heparin drip on hold Planned for cardiac cath per cardiology (2) CHF (congestive heart failure): Patient presents with shortness of breath, markedly elevated BNP CONCLUSIONS ?LV systolic function is moderate to severely reduced with EF of ?30-35%. Moderate to severe global hypokinesis. ?RV is hypokinetic. ?Bilateral dilation ?Mild mitral regurgitation ?Moderate aortic regurgitation ?Mild tricuspid regurgitation ?IVC dilated ?Compared to prior echocardiogram from 08/2022, LV systolic ?function has significantly reduced. -cardiology consulted -Status post Lasix without response. ?, Has received gentle IV hydration due to acute renal failure ?, Now developing crackles on lung le although scattered, anasarca, lower extremity edema, my concern is for her elevated BNP her worsening heart failure if her urine output does not improve she is a high risk of developing acute hypoxic respiratory failure resulting morbidity and mortality possible intubation, (3) Atrial fibrillation: Patient with past history of atrial fibrillation eliquis on hold Cardiology consultation (4) Diabetes: Consistent carb diet when able Mild sliding scale insulin (5) Diarrhea: Monitor (6) Right upper quadrant abdominal pain: ruq us 1. Cholelithiasis without evidence for acute cholecystitis. 2. Hepatic steatosis. Focal area of increased echogenicity in the right lobe of the liver is probably either a small hemangioma or focal hepatic steatosis. This can be reevaluated in 3 months by ultrasound. This has not been described on prior imaging studies. 3. Quality of the ultrasound is suboptimal by body habitus. HIDA scan MPRESSION: Somewhat limited study due to patient's clinical status and inability to position for lateral imaging *? Diffuse patchy hepatic radiotracer uptake compatible with fatty infiltration. *? Gallbladder is not definitely visualized suspicious for? cholecystitis. Correlation with biliary function studies. Recommend follow-up with ultrasound. *? Common bile duct and small bowel activity are visualized by 90 minutes. Noted on the prior most recent CT from 2009 gallbladder appears thickened at that time with cholelithiasis similar to the recent ultrasound suggesting chronic or indolent gallbladder dysfunction. -Likely chronic cholecystitis -Switch to Cipro IV and Flagyl -Monitor nausea, vomiting -Repeat CT scan 06/08/2023 -2. ? Numerous stones filling the gallbladder, cystic duct and common bile duct. Moderate extrahepatic biliary dilation. No sign of acute cholecystitis. -However she does not have any significant transaminitis, hyperbilirubinemia, alk phos elevation, or lipase elevation, no Pro-Corey or CRP elevation ? Continue ciprofloxacin, continue Flagyl (7) Hyperbilirubinemia: (8) Urinary tract infection: On ciprofloxacin (9) Systolic CHF: - EF of 30 to 35% LV systolic function is moderate to severely reduced with EF of ?30-35%. Moderate to severe global hypokinesis. ?RV is hypokinetic. ?Bilateral dilation ?Mild mitral regurgitation ?Moderate aortic regurgitation ?Mild tricuspid regurgitation ?IVC dilated ?Compared to prior echocardiogram from 08/2022, LV systolic ?function has significantly reduced. (10) Chronic cholecystitis: (11) Shock: - Multifactorial -Possible cardiogenic shock, repeat echo so far shows an EF of 30 to 35% -I do not feel this is septic shock s although there is evidence of stones in cystic duct, CBD, and extrahepatic biliary dilatation however remains afebrile, no significant LFT abnormalities, bilirubin elevation or alk phos elevation, or lipase elevation, no Pro-Corey or CRP elevation, no leukocytosis, she has been on antibiotics since hospital admission -off Levophed ? Albumin 25 g IV every 8 hours -We will monitor closely (12) Acute renal failure: - Acute renal failure, minimal your output -didnot respond to lasix, status post fluid therapy -Likely secondary to hypotension, shock, multiple pressors -Hold nephrotoxic agents -Maintain MAP greater than 75 -Monitor urine output -Consult nephrology (13) Elevated INR: -INR3.95, potentially dysfunction related to renal failure, will monitor for signs of bleeding (14) Thrombocytopenia: Platelet 87,000, has PLT dysfunction secondary to renail failure, will monitor (15) Acute encephalopathy: -alert to person, to place, not to time -can follow commands at times Plan Multiple other medical problems as outlined in past medical history Encephalopathic, from hypoxia, shock, chronically cystitis, underlying dementia Full code INR 395, SCDs for DVT prophylaxis Protonix for GI prophylaxis Plan for today: Patient's family has decided to proceed with dialysis. General surgery consulted for placement of temporary HD catheter and start dialysis. Attestations Medical Necessity Statement*: Plan to start HD today Coding Level of Care Code Acute Code for [facility] Fwd Diagnoses Arrhythmia I49.9 CHF (congestive heart failure) I50.9 Atrial fibrillation I48.91 Diabetes E11.9 Diarrhea R19.7 Right upper quadrant abdominal pain R10.11 Hyperbilirubinemia E80.6 Urinary tract infection N39.0 Systolic CHF I50.20 Chronic cholecystitis K81.1 Shock R57.9 Acute renal failure N17.9 Elevated INR R79.1 Thrombocytopenia D69.6 Acute encephalopathy G93.40
--- NOTE | 2023-06-13 16:29 | PM.CONSULT ---
Providers/Reason For Consult Consulting Physician/Specialty*: General surgery Reason for Consult*: Need for dialysis Attending Physician: Anastasiia Solorio MD Primary Care Provider: García Theodore MD History of Present Illness History of Present Illness Rupa Baptiste is a 73 year old female with history of dementia, atrial fibrillation, CHF and kidney disease who was admitted to the hospital and is being managed for fluid overload. Patient has been evaluated by nephrology and determined that she will benefit from temporarily dialysis. I have been asked to place a temporary dialysis catheter for this patient. On my examination at the bedside, daughter states that she is the primary decision making for the patient at the moment, she will like her to have dialysis to improve her comfort, she states that the patient at the moment is having a lot of trouble breathing and has difficulty laying down. Review of Systems Narrative: 10 point review of system was not able to be conducted due to patient dementia Medications/Allergies Home Medications Medication Instructions Recorded Confirmed Last Taken Type ferrous sulfate 325 mg (65 mg 325 mg PO DAILY 03/23/20 06/05/23 08/29/22 History iron) tablet (Feosol) metoprolol tartrate 75 mg tablet 75 mg PO BID 03/23/20 06/05/23 08/29/22 History simvastatin 20 mg tablet 20 mg PO DAILY 03/23/20 06/05/23 08/29/22 History escitalopram oxalate 10 mg tablet 10 mg PO DAILY 04/03/20 06/05/23 08/29/22 History (Lexapro) docusate sodium 100 mg capsule 100 mg PO DAILY 08/31/22 06/05/23 08/29/22 History donepezil 5 mg tablet 5 mg PO DAILY 08/31/22 06/05/23 08/29/22 History glipizide 5 mg tablet 5 mg PO DAILY 08/31/22 06/05/23 08/29/22 History zolpidem 5 mg tablet 5 - 10 mg PO BEDTIME 08/31/22 06/05/23 08/29/22 History potassium chloride 8 mEq 8 meq PO DAILY #30 tabs 01/25/23 06/05/23 Unknown Rx tablet,extended release furosemide 40 mg tablet 40 mg PO DAILY #3 tabs 04/06/23 06/05/23 Unknown Rx ondansetron 4 mg oral soluble film 4 mg PO DAILY PRN nausea and 04/21/23 06/05/23 Unknown Rx vomiting #20 ea apixaban 5 mg tablet (Eliquis) 5 mg PO BID #180 tabs 05/16/23 06/05/23 Unknown Rx aspirin 81 mg tablet,delayed 81 mg PO DAILY 06/05/23 06/05/23 Unknown History release lactobacillus comb no.10 20 20,000 mmu cells PO DAILY 06/05/23 06/05/23 Unknown History billion cell capsule (Probiotic) Allergies Allergy/AdvReac Type Severity Reaction Status Date / Time Penicillins Allergy Unknown Unknown Verified 06/05/23 09:04 Tetanus Vaccines and Toxoid Allergy Unknown Unknown Verified 06/05/23 09:04 Current Medications Generic Name Dose Route Start Last Admin Trade Name Freq PRN Reason Stop Dose Admin Aspirin 81 mg 06/05/23 09:00 06/13/23 09:54 Aspirin 81 Mg Ec Tablet PO Not Given DAILY [facility] Atorvastatin Calcium 20 mg 06/05/23 09:00 06/13/23 09:54 Atorvastatin 40 Mg Tablet PO Not Given DAILY [facility] Dextrose 25 ml 06/04/23 23:05 06/11/23 06:26 Dextrose 50% Syringe 50 Ml IVP 25 ml ONCE PRN Administration hypoglycemia protocol Protocol Donepezil HCl 5 mg 06/05/23 09:00 06/13/23 09:54 Donepezil 5 Mg Tablet PO Not Given DAILY [facility] Escitalopram Oxalate 10 mg 06/05/23 09:00 06/13/23 09:54 Escitalopram 10 Mg Tablet PO Not Given DAILY [facility] Ferrous Sulfate 325 mg 06/08/23 09:00 06/13/23 09:54 Ferrous Sulfate Ec 325 Mg Tablet PO Not Given DAILY AJ Metronidazole 500 mg in 100 mls @ 100 mls/hr 06/07/23 10:00 06/13/23 11:15 Flagyl Iv IV Infused Q8H AJ Infusion Protocol Norepinephrine Bitartrate 4 mg 254 mls @ 0 mls/hr 06/08/23 14:15 06/11/23 13:51 / Dextrose IV Infused .Q0M AJ Titration Protocol Per Protocol Albumin Human 25 g in 100 mls @ 60 mls/hr 06/08/23 14:45 06/13/23 06:09 Albumin IV 60 mls/hr Q8H AJ Administration Ciprofloxacin/Dextrose 400 mg in 200 mls @ 200 mls/hr 06/10/23 10:00 06/13/23 12:42 Cipro IV 100 mls/hr Q24H AJ Administration Protocol Sodium Chloride 1,000 mls @ 50 mls/hr 06/12/23 09:45 06/13/23 06:10 Sodium Chloride 0.9% IV 50 mls/hr .Q20H AJ Administration Insulin Human Lispro 0 unit 06/05/23 08:00 06/13/23 12:41 Insulin Lispro 100 Unit/1 Ml SUBCUT Not Given WM&BEDTIME AJ Protocol Levothyroxine Sodium 37.5 mcg 06/10/23 06:00 06/13/23 05:53 Levothyroxine 25 Mcg Tablet PO 37.5 mcg QAM AJ Administration Magnesium Lactate 84 mg 06/05/23 09:00 06/13/23 09:54 Magnesium Lactate 84 Mg Tablet PO Not Given DAILY AJ Metoclopramide HCl 5 mg 06/10/23 14:38 06/12/23 02:03 Metoclopramide 5 Mg/Ml Sdv 2 Ml IVP 5 mg Q6H PRN Administration NAUSEA AND VOMITING Morphine Sulfate 2 mg 06/07/23 22:46 06/07/23 22:54 Morphine 4 Mg/Ml Sdv 1 Ml IVP 2 mg Q4H PRN Administration SEVERE PAIN Nystatin 1 applic 06/05/23 09:00 06/13/23 10:15 Nystatin Cream 30 Gm TOPICAL 1 applic BID AJ Administration Ondansetron HCl 4 mg 06/04/23 23:24 06/11/23 19:54 Ondansetron 2 Mg/Ml Sdv 2 Ml IVP 4 mg Q6H PRN Administration NAUSEA AND VOMITING Pantoprazole Sodium 40 mg 06/05/23 09:00 06/13/23 09:[address] 40 Mg Tablet PO Not Given DAILY AJ PFSH Acute PFSH: Medical History (Updated 06/11/23 @ 16:24 by Maxx Garcia MD) Abnormal gall bladder diagnostic imaging Acquired abnormality of brachiocephalic vein Acute encephalopathy Acute kidney injury Anticoagulant long-term use Atrial fibrillation Bipolar 1 disorder Chest pain CHF (congestive heart failure) CKD (chronic kidney disease) CVA (cerebral vascular accident) Residual right-sided weakness Diabetes HTN (hypertension) Ischemic cardiomyopathy Lung nodule Myocardial infarction Obesity Respiratory distress Sick sinus syndrome Transaminitis Surgical History History of hysterectomy Status cardiac pacemaker Family History Other Cancer Suicide Social History Smoking and tobacco status: former smoker Caregiver/support person: Yes (daughter) Lives independently: No Household members: none Current occupational status: retired Vitals/I&O/Wt Last Vital Signs Temp 98.0 F 06/12/23 23:35 Pulse 60 06/13/23 14:00 Resp 19 H 06/13/23 10:00 BP 151/79 06/13/23 10:00 Pulse Ox 99 06/13/23 10:00 O2 Del Method Nasal Cannula 06/13/23 09:55 O2 Flow Rate 2 06/13/23 09:55 06/13/23 06/13/23 06/13/23 06:59 14:59 22:59 Intake Total 1185.833 / 1985.833 300 / 300 Output Total 125 / 425 425 / 425 Balance 1060.833 / 1560.833 -125 / -125 Weight last 48 hrs Weight 215 lb 5 oz Weight 199 lb 8.293 oz Physical Exam Narrative: General : Patient is disoriented Head : Normal cephalic, a-traumatic. Neck: There is a central line present on the right neck. Normal anatomy in the left neck Lungs : Equal chest rise bilaterally, no use of accessory muscles, trachea is midline. CV : Rate and rhythm are normal. Abdomen : Soft, ND, NT, no g/r/m Extremities : Edema of all extremities. Urinary Catheter Management: Lewis: Cath Placed During This Visit: yes Reason for Continuing Indwelling Catheter: Accurate Measurement of Urinary Output in Critically Ill Patients Urinary Catheter Date of Insertion: 06/04/23 Urinary Catheter Time of Insertion: 22:30 Data 06/13/23 06:07 06/13/23 06:07 Micro: Microbiology 06/08/23 17:38 Blood Culture - Preliminary Blood Staphylococcus epidermidis A&P Assessment and plan (1) CHF (congestive heart failure): Plan After a complete history, physical examination and review of all of available clinical data the following is my assessment. Patient at the moment has difficulty laying down, in addition she appears to be disoriented, and hospital bed is unable to provide Trendelenburg. Therefore it would be ideal to that temporary dialysis catheter insertion in the operating room. After discussion with the patient the family and dialysis nurse we have decided to proceed with a catheter placement tomorrow at noon, she will receive dialysis immediately after. I have discussed all the risk and benefits of the catheter placement with the family member, including the risks of pneumothorax, cannulation of the carotid artery, injury to the great vessels in the chest requiring emergent surgery, long-term risk of infection, bleeding, migration of the catheter. After discussion of all risk benefits family member has decided to proceed. Case will be booked for tomorrow at noon. Patient can have diet today, should be n.p.o. after midnight. Coding Level of Care Code 67467 Diagnoses CHF (congestive heart failure) I50.9
--- NOTE | 2023-06-13 16:33 | PC.HD ---
Headlight Adjuster wrote orders for dialysis today (06/13/2023) after placement of temporary dialysis catheter. Per surgery, patient will be going to the OR on Saturday for catheter placement. Dialysis to follow. Headlight Adjuster has been notified.
[2023-06-13] MEDS: morphine 4 mg/mL SDV 1 mL 2 MG IVP (17:43)
[2023-06-13 18:38] LABS: Glucose Point of Care 97 mg/dL (70-110)
[2023-06-14] VITALS (36 sets, daily range): BP systolic 131–176; BP diastolic 61–110; PULSE 60–116; RESP 13–25; TEMP 36.3–37.6; O2SAT 92–100
[2023-06-14] MEDS: metroNIDAZOLE IV 500 MG/100 ML PREMIX 100 MG IV ×2 (03:38→09:02)
[2023-06-14 04:15] LABS: Basophils % 0.2 %; Eosinophils # 0.1 10^3/uL (0.0-0.8); Eosinophils % 1.3 %; Hematocrit 37.8 % (36-47); Lymphocytes # 0.9 10^3/uL (0.8-4.8); Mean Corpuscular HGB Conc 32.3 g/dL (30-55); Mean Corpuscular Hemoglobin 30.7 pg (27-33); Mean Platelet Volume 11.8 fL (7.4-10.4); Monocytes # 1.3 10^3/uL (0.2-0.9); Monocytes % 15.4 %; Neutrophils # 6.17 10^3/uL (1.8-7.7); Neutrophils % 72.6 %; Nucleated Red Blood Cells # 0.1 /100WBC; Nucleated Red Blood Cells % 0.9 %; Platelet Count 83 10^3/cmm (157-399); Red Blood Count 3.98 10^6/uL (3.85-5.65); Red Cell Distribution Width 21.7 % (12.1-15.1)
[2023-06-14 04:28] LABS: INR 3.92 (0.8-1.2)
[2023-06-14 04:42] LABS: Anion Gap 22.4 (5-19); Blood Urea Nitrogen 55 mg/dL (8-23); Calcium 9.6 mg/dL (8.5-10.5); Carbon Dioxide 19 mmol/L (22-29); Chloride 98 mmol/L (98-107); Glucose 66 mg/dL (65-115); NT Pro B Type Natriuretic Pept 20846 pg/mL (0-125); Osmolality Calculated 293 mOsm/kg (285-295); Potassium 4.4 mmol/L (3.5-5.1); Sodium 135 mmol/L (136-145)
[2023-06-14] MEDS: levothyroxine 25 mcg Tablet 37.5 MCG PO (04:54)
[2023-06-14] MEDS: morphine 4 mg/mL SDV 1 mL 2 MG IVP ×2 (04:55→09:24)
[2023-06-14] MEDS: ondansetron 2 mg/ML SDV 2 mL 4 MG IVP (05:37)
[2023-06-14] MEDS: nystatin cream 30 gm 1 APPLIC TOPICAL (09:03)
[2023-06-14] MEDS: ciprofloxacin 400 MG/200 ML PREMIX 100 MG IV (09:03)
--- NOTE | 2023-06-14 10:16 | PC.NURSE ---
Nurse went into patients room upon daughters request that the patient wass having severe pain and needed pain medication. Upon entering the room, patient is in high-fowlers position, slouched over slightly. Breathing at a normal rate, resting with eyes closed, but was drooling from her mouth. When asking patient if she was in pain, she shook her head no. Nurse asked patient again if she was having pain, patient said no. Nurse told daughter that it does not appear that patient is in pain and patient stated she was not in pain. Daughter argued that patient is in fact in pain and had just been crying regarding her back. Daughter told nurse that this is like when she's had an asthma attack before and that she doesnt know about CHF but that shes sure they're the same. She then explained to the nurse Mom's back is hurting so bad because she is having a hard time breathing and that her muscles are so sore because of all her work shes using to breath. Patient was not tachypneic at the time the nurse was present. Daughter insisted to the nurse that her mother needed the morphine. Nurse gave 2mg of Morphine to the patient at 0924 am. At 0928 patient began to vomit through her nose and her mouth, she was not able to breath, and became cyanotic. This lasted less than 60 seconds and patient returned to baseline but is still lethargic.
[2023-06-14] MEDS: FUROsemide 10 mg/mL SDV 4mL 40 MG IVP (11:03)
[2023-06-14] MEDS: sodium chloride 0.9% 1,000 ML 30 ML IV (11:24)
--- NOTE | 2023-06-14 11:33 | PM.PN ---
Subjective Subjective: plan for temporary HD catheter placement today Medications: Reviewed: Yes Vitals/I&O/Wt Last Vital Signs Temp 97.7 F 06/14/23 11:21 Pulse 60 06/14/23 11:21 Resp 18 06/14/23 11:21 BP 139/61 06/14/23 11:21 Pulse Ox 95 06/14/23 11:21 O2 Del Method Nasal Cannula 06/14/23 11:21 O2 Flow Rate 2 06/14/23 11:21 06/13/23 06/14/23 06/14/23 22:59 06:59 14:59 Intake Total 1098.333 / 1698.333 200 / 1898.333 Output Total 525 / 950 200 / 1150 Balance 573.333 / 748.333 0 / 748.333 Weight last 48 hrs Weight 98.974 kg Weight 97.664 kg Physical Exam Narrative: Lethargic , no acute distress HEENT S1-S2, regular rate and rhythm per report Lungs clear per report Trace edema Urinary Catheter Management: Lewis: Cath Placed During This Visit: yes Reason for Continuing Indwelling Catheter: Accurate Measurement of Urinary Output in Critically Ill Patients Urinary Catheter Date of Insertion: 06/04/23 Urinary Catheter Time of Insertion: 22:30 Data 06/14/23 03:57 06/14/23 03:57 Micro: Microbiology 06/08/23 17:53 Blood Culture - Final Blood NO GROWTH AFTER 5 DAYS A&P Assessment and plan (1) Acute renal failure: Acute on chronic kidney disease: Patient's baseline creatinine is in the range of 1-1.3. Now has creatinine of 3.8 likely multifactorial-secondary to prerenal DIXIE and hypotension , cardiorenal -off levophed , UOP low , -Avoid nephrotoxins and IV contrast studies -renal function worsening , now has SOB , AMS and mild metabolic acidosis --> recommend temporary catheter placement and start HD , HD # [address] today No obstruction on CT 2. Hyponatremia: Mild, monitor, 3. Shock: Required multiple pressors, off now Wean Levophed as tolerated 4. History of pacemaker placement 5. History of rapid A-fib 6. History of CAD with cardiomyopathy, latest ejection fraction 30 to 35% Patient evaluated using audiovisual cart. Time spent 40 minutes Attestations Medical Necessity Statement*: per report Coding Level of Care Code Acute Code for [facility] Fwd Diagnoses Acute renal failure N17.9
--- NOTE | 2023-06-14 11:45 | PM.PN ---
Subjective Subjective: Patient is very tired appearing today. She is asleep upon entering the room. She is briefly able to open her eyes. Family is in the room with her today, waiting for catheter placement and to start dialysis. Medications: Reviewed: Yes Vitals/I&O/Wt Last Vital Signs Temp 97.7 F 06/14/23 11:21 Pulse 60 06/14/23 11:21 Resp 18 06/14/23 11:21 BP 139/61 06/14/23 11:21 Pulse Ox 95 06/14/23 11:21 O2 Del Method Nasal Cannula 06/14/23 11:21 O2 Flow Rate 2 06/14/23 11:21 06/13/23 06/14/23 06/14/23 22:59 06:59 14:59 Intake Total 1098.333 / 1698.333 200 / 1898.333 Output Total 525 / 950 200 / 1150 Balance 573.333 / 748.333 0 / 748.333 Weight last 48 hrs Weight 218 lb 3.2 oz Weight 215 lb 5 oz Physical Exam Narrative: General: Cooperative patient in no apparent distress. Well developed. HEENT: Normocephalic, Atraumatic. External ears normal. Nasal passages patent without drainage. MMM. Heart: RRR. Resp: Lung sounds are diminished, there are also scattered rales. On nasal cannula, 2 L.. Abd: Soft, non-tender. Non-distended. Extremities: 2+ edema. Skin: No rash or lesions on exposed areas. Neuro: No focal motor or sensory loss. Gait is normal. m Urinary Catheter Management: Lewis: Cath Placed During This Visit: yes Reason for Continuing Indwelling Catheter: Accurate Measurement of Urinary Output in Critically Ill Patients Urinary Catheter Date of Insertion: 06/04/23 Urinary Catheter Time of Insertion: 22:30 Data 06/14/23 03:57 06/14/23 03:57 Micro: Microbiology 06/08/23 17:53 Blood Culture - Final Blood NO GROWTH AFTER 5 DAYS A&P Assessment and plan (1) Arrhythmia: (2) CHF (congestive heart failure): (3) Atrial fibrillation: (4) Diabetes: (5) Diarrhea: Monitor (6) Right upper quadrant abdominal pain: (7) Hyperbilirubinemia: (8) Urinary tract infection: (9) Systolic CHF: (10) Chronic cholecystitis: (11) Shock: (12) Acute renal failure: - Acute renal failure, minimal your output -didnot respond to lasix, status post fluid therapy -Likely secondary to hypotension, shock, multiple pressors -Consult nephrology (13) Elevated INR: -INR3.95, potentially dysfunction related to renal failure, will monitor for signs of bleeding (14) Thrombocytopenia: Platelet 87,000, has PLT dysfunction secondary to renail failure, will monitor (15) Acute encephalopathy: -alert to person, to place, not to time -can follow commands at times Plan 73 y/o F admitted for Encephalopathy, shock, arrhythmia, CHF exacerbation. Continue close inpatient monitoring. Cards, Nephro, Gen Surgery consulted and appreciated. Plan for cath placement and dialysis later today. Cardiology planning cath. EF 30-35%. Holding anticoagulation for surgical procedure. On eliquis at home for A-fib. Continue SSI, glucose checks and CC diet. Recheck AM labs. Continue RAAT and O2 protocol. Continue Cipro and Flagyl for RUQ abdominal pain. US showed cholelithiasis, Hepatic steatosis. UTI on Cipro. Shock has resolved. Off pressors. Continue strict I/O's. Hold nephrotoxic agents -Maintain MAP greater than 75. She does remain lethargic and difficult to arouse. Hopefully this will improve some with dialysis. Will discuss with family and patient regarding D/C planning when able. Code Status: Full IVF: None DVT PPx: SCD's. GI PPx: Protonix ABx: Cipro/Flagyl Diet: NPO, will advance as indicated. Discharge plan: Attestations Medical Necessity Statement*: Patient requires hospitalization for acute renal failure, developing fluid overload, Hemodialysis, receiving antibiotics for chronic cholecystitis, developing elevated INR, monitoring for signs of bleeding, has been off anticoagulation for the last 72 hours, receiving fluids for acute renal failure, thrombocytopenia Coding Level of Care Code Acute Code for [facility]g Fwd High MDM includes number and complexity of problems actively addressed during encounter, amount and/or complexity of data reviewed/ordered and described risk of complication, morbidity or mortality of management as documented Diagnoses Arrhythmia I49.9 CHF (congestive heart failure) I50.9 Atrial fibrillation I48.91 Diabetes E11.9 Diarrhea R19.7 Right upper quadrant abdominal pain R10.11 Hyperbilirubinemia E80.6 Urinary tract infection N39.0 Systolic CHF I50.20 Chronic cholecystitis K81.1 Shock R57.9 Acute renal failure N17.9 Elevated INR R79.1 Thrombocytopenia D69.6 Acute encephalopathy G93.40
--- NOTE | 2023-06-14 12:02 | ANES.PREANE2 ---
Pre-Anesthetic Assessment Height/Weight: Height 1.65 m Weight 98.974 kg Temp Pulse Resp BP Pulse Ox O2 Del Method O2 Flow Rate 97.7 F 60 18 139/61 95 Nasal Cannula 2 06/14/23 11:21 06/14/23 11:21 06/14/23 11:21 06/14/23 11:21 06/14/23 11:21 06/14/23 11:21 06/14/23 11:21 Operation Date: 06/08/23 07:00 Proposed Procedures p Cardiac Catheterization(Not Applicable) - Aamir Fontanez MD Operation Date: 06/14/23 12:00 Proposed Procedures p Temporary Dialysis Catheter Insertion(Not Applicable) - Lee De Anda MD Familial anesthetic complications: none Was Beta Andre taken within 24 hours: Yes Was Clonidine taken within 24 hours: N/A Social No alcohol and No tobacco Exam clear to auscultation bilaterally and regular rate & rhythm Airway Submandibular: within normal limits Cervical ROM: within normal limits Mallampati: Class II Dentition: false CV/HEM Atrial Fibrillation, Anemia, Coronary Artery Disease, Congestive Heart Failure (EF 30%) and Hypertension Pacemaker Chronic Renal Insufficiency ARF Metabolic Diabetes Mellitus and Morbid Obesity Neuropsych Bipolar, Cerebrovascular Accident and Dementia Somnolent Anesthetic Plan ASA status: 4 Anesthesia: MAC Medications/Allergies Home Medications Medication Instructions Recorded Confirmed Last Taken Type ferrous sulfate 325 mg (65 mg 325 mg PO DAILY 03/23/20 06/05/23 08/29/22 History iron) tablet (Feosol) metoprolol tartrate 75 mg tablet 75 mg PO BID 03/23/20 06/05/23 08/29/22 History simvastatin 20 mg tablet 20 mg PO DAILY 03/23/20 06/05/23 08/29/22 History escitalopram oxalate 10 mg tablet 10 mg PO DAILY 04/03/20 06/05/23 08/29/22 History (Lexapro) docusate sodium 100 mg capsule 100 mg PO DAILY 08/31/22 06/05/23 08/29/22 History donepezil 5 mg tablet 5 mg PO DAILY 08/31/22 06/05/23 08/29/22 History glipizide 5 mg tablet 5 mg PO DAILY 08/31/22 06/05/23 08/29/22 History zolpidem 5 mg tablet 5 - 10 mg PO BEDTIME 08/31/22 06/05/23 08/29/22 History potassium chloride 8 mEq 8 meq PO DAILY #30 tabs 01/25/23 06/05/23 Unknown Rx tablet,extended release furosemide 40 mg tablet 40 mg PO DAILY #3 tabs 04/06/23 06/05/23 Unknown Rx ondansetron 4 mg oral soluble film 4 mg PO DAILY PRN nausea and 04/21/23 06/05/23 Unknown Rx vomiting #20 ea apixaban 5 mg tablet (Eliquis) 5 mg PO BID #180 tabs 05/16/23 06/05/23 Unknown Rx aspirin 81 mg tablet,delayed 81 mg PO DAILY 06/05/23 06/05/23 Unknown History release lactobacillus comb no.10 20 20,000 mmu cells PO DAILY 06/05/23 06/05/23 Unknown History billion cell capsule (Probiotic) Allergies Allergy/AdvReac Type Severity Reaction Status Date / Time Penicillins Allergy Unknown Unknown Verified 06/05/23 09:04 Tetanus Vaccines and Toxoid Allergy Unknown Unknown Verified 06/05/23 09:04 Current Medications Generic Name Dose Route Start Last Admin Trade Name Freq PRN Reason Stop Dose Admin Aspirin 81 mg 06/05/23 09:00 06/14/23 08:09 Aspirin 81 Mg Ec Tablet PO Not Given DAILY AJ Atorvastatin Calcium 20 mg 06/05/23 09:00 06/14/23 08:09 Atorvastatin 40 Mg Tablet PO Not Given DAILY AJ Dextrose 25 ml 06/04/23 23:05 06/11/23 06:26 Dextrose 50% Syringe 50 Ml IVP 25 ml ONCE PRN Administration hypoglycemia protocol Protocol Donepezil HCl 5 mg 06/05/23 09:00 06/14/23 08:09 Donepezil 5 Mg Tablet PO Not Given DAILY AJ Escitalopram Oxalate 10 mg 06/05/23 09:00 06/14/23 08:09 Escitalopram 10 Mg Tablet PO Not Given DAILY AJ Ferrous Sulfate 325 mg 06/08/23 09:00 06/14/23 08:09 Ferrous Sulfate Ec 325 Mg Tablet PO Not Given DAILY AJ Metronidazole 500 mg in 100 mls @ 100 mls/hr 06/07/23 10:00 06/14/23 09:02 Flagyl Iv IV 100 mls/hr Q8H AJ Administration Protocol Norepinephrine Bitartrate 4 mg 254 mls @ 0 mls/hr 06/08/23 14:15 06/11/23 13:51 / Dextrose IV Infused .Q0M AJ Titration Protocol Per Protocol Albumin Human 25 g in 100 mls @ 60 mls/hr 06/08/23 14:45 06/14/23 01:42 Albumin IV Infused Q8H AJ Infusion Ciprofloxacin/Dextrose 400 mg in 200 mls @ 200 mls/hr 06/10/23 10:00 06/14/23 09:03 Cipro IV 100 mls/hr Q24H AJ Administration Protocol Sodium Chloride 1,000 mls @ 50 mls/hr 06/12/23 09:45 06/14/23 02:50 Sodium Chloride 0.9% IV Not Given .Q20H AJ Sodium Chloride 1,000 mls @ 30 mls/hr 06/14/23 11:30 06/14/23 11:24 Sodium Chloride 0.9% IV 06/15/23 11:29 30 mls/hr .Q24H AJ Administration Insulin Human Lispro 0 unit 06/05/23 08:00 06/14/23 08:09 Insulin Lispro 100 Unit/1 Ml SUBCUT Not Given WM&BEDTIME [facility] Protocol Levothyroxine Sodium 37.5 mcg 06/10/23 06:00 06/14/23 04:54 Levothyroxine 25 Mcg Tablet PO 37.5 mcg QAM AJ Administration Magnesium Lactate 84 mg 06/05/23 09:00 06/14/23 08:10 Magnesium Lactate 84 Mg Tablet PO Not Given DAILY AJ Metoclopramide HCl 5 mg 06/10/23 14:38 06/12/23 02:03 Metoclopramide 5 Mg/Ml Sdv 2 Ml IVP 5 mg Q6H PRN Administration NAUSEA AND VOMITING Morphine Sulfate 2 mg 06/07/23 22:46 06/14/23 09:24 Morphine 4 Mg/Ml Sdv 1 Ml IVP 2 mg Q4H PRN Administration SEVERE PAIN Nystatin 1 applic 06/05/23 09:00 06/14/23 09:03 Nystatin Cream 30 Gm TOPICAL 1 applic BID AJ Administration Ondansetron HCl 4 mg 06/04/23 23:24 06/14/23 05:37 Ondansetron 2 Mg/Ml Sdv 2 Ml IVP 4 mg Q6H PRN Administration NAUSEA AND VOMITING Pantoprazole Sodium 40 mg 06/05/23 09:00 06/14/23 08:[address] 40 Mg Tablet PO Not Given DAILY [facility] Anesthesia Medical History (Updated 06/11/23 @ 16:24 by Maxx Garcia MD) Abnormal gall bladder diagnostic imaging Acquired abnormality of brachiocephalic vein Acute encephalopathy Acute kidney injury Anticoagulant long-term use Atrial fibrillation Bipolar 1 disorder Chest pain CHF (congestive heart failure) CKD (chronic kidney disease) CVA (cerebral vascular accident) Residual right-sided weakness Diabetes HTN (hypertension) Ischemic cardiomyopathy Lung nodule Myocardial infarction Obesity Respiratory distress Sick sinus syndrome Transaminitis Surgical History History of hysterectomy Status cardiac pacemaker Family History Other Cancer Suicide Social History Smoking and tobacco status: former smoker Caregiver/support person: Yes (daughter) Lives independently: No Household members: none Current occupational status: retired Data Anesthesia 06/14/23 03:57 06/14/23 03:57 Short CBC 06/13/23 06/14/23 Range/Units 06:07 03:57 WBC 9.08 8.50 (3.29-11.43) 10^3/uL Hgb 12.50 12.20 (11.27-16.99) g/dL Hct 39.3 37.8 (36-47) % MCV 94.9 95.0 (85-98) fl Plt Count 104 L 83 L (157-399) 10^3/cmm Neut % (Auto) 76.0 72.6 % Neut # (Auto) 6.90 6.17 (1.8-7.7) 10^3/uL BMP 06/13/23 06/14/23 06:07 03:57 Sodium 133 L 135 L Potassium 4.7 4.4 Chloride 96 L 98 Carbon Dioxide 19 L 19 L BUN 48 H 55 H Creatinine 3.8 H 4.1 H Glucose 73 66 Calcium 9.6 9.6 Cardiac Enzymes 06/13/23 06/14/23 Range/Units 06:07 03:57 NT-Pro-B Natriuret Pep 35046 H 30284 H (0-125) pg/mL Coags 06/13/23 06/14/23 06:07 03:57 PT 40.20 H 39.90 H INR 3.95 H 3.92 H Microbiology 06/08/23 17:53 Blood Culture - Final Blood NO GROWTH AFTER 5 DAYS Cardiac Studies: Echocardiogram 06/08/23 Sestamibi Stress Test (Cardiology) 01/21/23
--- NOTE | 2023-06-14 12:45 | SC_ITS ---
WS: [id number] EXAMINATION: C-arm FL for CVA [id number] REASON FOR EXAM: surgery COMPARISON: None available. ORDER DATE: 06/14/2023 12:45 PM FINDINGS: C ARM view of electrode lead positioning noted on a single view IMPRESSION: Total fluoroscopy time 47.1 seconds
--- NOTE | 2023-06-14 13:32 | P.OP_ITS ---
Operative Report Date of procedure: June 14, 2023 Pre-op diagnosis: Fluid Overload and CHF Post-op diagnosis: Same Procedure done: Placement of non-tunneled dialysis catheter Implants: 16cm non tunneled dialysis catheter Surgeon: Lee De Anda MD Estimated blood loss: 10 Complications: normal Findings: normal right IJ anatomy. catheter placement verified with fluoroscopy Brief History: This is a 73-year-old female who is admitted to the hospital with CHF complicated with fluid overload, nephrology has evaluated the patient and has decided that it would be a good idea to proceed with hemodialysis to remove volume as patient is short of breath and markedly overloaded. I have been consulted for this reason. After discussion of the risk and benefits of the operation with patient and family member decision has been made to proceed with placement of nontunneled dialysis catheter. Procedure: Patient was brought into the OR. Placed in the supine position. Due to patient poor clinical status, previous history of right IJ catheterization for triple- lumen central line and left sided pacemaker we initiated with ultrasound interrogation of bilateral femoral veins and bilateral IJ to evaluate for optimal placement. After ultrasound evaluation it was evident that the vascular access at this point will be very challenging due to extreme fluid overload., It was decided that the best option for the patient will be to exchange her right IJ catheter over a wire for a dialysis catheter in order to facilitate access, prevent dislodgment of pacemaker wires and facilitate cannulation. The right side of the neck was prepped and draped in the usual sterile fashion, including the central line catheter in the prep. Timeout was conducted. A guidewire was then advanced through the distal lumen of the central line. Proper positioning of the wire was verified with fluoroscopy. The central line was then removed leaving the catheter in place. I then proceeded to dilate the tract under fluoroscopic guidance. The dialysis catheter was then advanced over the wire into the newly dilated tract under direct fluoroscopy guidance. The guidewire was removed. Both ports were tested for blood return and flushing, excellent blood return was noted to with estimated flow superior to 600 cc/min. The catheter was fixed in place with 2-0 silk. Biopatch and sterile dressing was applied. The patient tolerated well the procedure, was transferred to the postanesthesia care unit in a stable condition and can undergo hemodialysis as soon as possible.
--- NOTE | 2023-06-14 14:14 | PC.HD ---
Patient arrived directly from PACU after insertion of right IJ temporary dialysis catheter. Patient sedated and sleepy. Catheter pulled and flushed without difficulty, and treatment was initiated at 13:57.
--- NOTE | 2023-06-14 14:56 | ANE.PACU2 ---
Inpatient post-anesthesia follow up: Airway intact: Yes Vital signs: Temperature 97.3 F Pulse Rate 78 Respiratory Rate 16 Blood Pressure 147/83 Pulse Oximetry 95 Oxygen Delivery Me thod [ Nasal Cannula Current Rate & Del krala] Oxygen Delivery Me thod Nasal Cannula Oxygen Flow Rate [ Current Rate 2 & Delivery] Oxygen Flow Rate 3 Fraction of Inspir ed Oxygen Hydration adequate: Yes Nausea and vomiting: No Pain level: 1 Mental status: Baseline
--- NOTE | 2023-06-14 16:31 | PC.HD ---
Patient's HR and BP began to elevate during treatment. Primary RN notified. Field Support Representative notified and advised this RN to terminate treatment after 2:15, which was done. Post-treatment, HR and BP were still elevated at 176/110 and 108, respectively. Patient asymptomatic.
[2023-06-14] MEDS: albumin 25 G/100 ML BAG 60 G IV (23:20)
[2023-06-15] VITALS (27 sets, daily range): BP systolic 117–155; BP diastolic 74–98; PULSE 76–132; RESP 16–36; TEMP 36–37.1; O2SAT 90–99
--- NOTE | 2023-06-15 00:34 | P.PN_ITS ---
Subjective Subjective: due to get dialysis today, renal function worse Medications: Reviewed: Yes Vitals/I&O/Wt Last Vital Signs Temp 98.8 F 06/15/23 00:00 Pulse 104 H 06/15/23 00:00 Resp 18 06/15/23 00:00 BP 137/94 06/15/23 00:00 Pulse Ox 96 06/15/23 00:00 O2 Del Method Nasal Cannula 06/15/23 00:00 O2 Flow Rate 2 06/14/23 20:00 06/14/23 06/14/23 06/15/23 14:59 22:59 06:59 Intake Total 0 / 0 600 / 600 Output Total 325 / 325 2124 / 2449 Balance -325 / -325 -1524 / -1849 Weight last 48 hrs Weight 216 lb 0.848 oz Weight 218 lb 3.2 oz Weight 215 lb 5 oz Physical Exam Narrative: Gen: patient laying propped up in bed RS: AEBE, decreased breath sounds at bases, basal crackles, no wheezing CVS:S1, S2 regular Ext:2-3+ edema bilateral legs and forearms. No cyanosis PA: soft, NTND, BS2+ SHELLFISH CHECKER: arousable but not anserwing questions appropriately. Urinary Catheter Management: Lewis: Cath Placed During This Visit: yes Reason for Continuing Indwelling Catheter: Accurate Measurement of Urinary Output in Critically Ill Patients Urinary Catheter Date of Insertion: 06/04/23 Urinary Catheter Time of Insertion: 22:30 Data 06/14/23 03:57 06/14/23 03:57 A&P Assessment and plan (1) Acute kidney injury: plan for dilaysis (2) Systolic CHF: HFrEF (3) Hyperbilirubinemia: (4) HTN (hypertension): (5) Sick sinus syndrome: (6) Chronic cholecystitis: (7) Atrial fibrillation: (8) Obesity: (9) Diabetes: (10) Status cardiac pacemaker: (11) Myocardial infarction: (12) CVA (cerebral vascular accident): (13) CKD (chronic kidney disease): (14) Bipolar 1 disorder: (15) Shock: resolved Plan Abnormal stress test Patient is in renal failure. Continue to hold AV delphine blockers and the BLAIR inhibitor. Pacemaker working appropriately Depending on her progression will plan for cardiac catheterization . I spoke at length with the patient and her daughter. Daughters decided on dialysis. Patient in her lucid moments has expressed desire not to be on dialysis in past. Nephrology is on board. Attestations Medical Necessity Statement*: As per primary team Coding Level of Care Code 60528 Diagnoses Acute kidney injury N17.9 Systolic CHF I50.20 Hyperbilirubinemia E80.6 HTN (hypertension) I10 Sick sinus syndrome I49.5 Chronic cholecystitis K81.1 Atrial fibrillation I48.91 Obesity E66.9 Diabetes E11.9 Status cardiac pacemaker Z95.0 Myocardial infarction I21.9 CVA (cerebral vascular accident) I63.9 CKD (chronic kidney disease) N18.9 Bipolar 1 disorder F31.9 Shock R57.9
[2023-06-15] MEDS: metroNIDAZOLE IV 500 MG/100 ML PREMIX 100 MG IV ×2 (02:50→10:11)
[2023-06-15 04:04] LABS: Basophils % 0.3 %; Eosinophils # 0.1 10^3/uL (0.0-0.8); Eosinophils % 1.2 %; Hematocrit 39.4 % (36-47); Lymphocytes # 0.8 10^3/uL (0.8-4.8); Lymphocytes % 8.5 %; Mean Corpuscular Hemoglobin 30.3 pg (27-33); Mean Corpuscular Volume 94.7 fl (85-98); Monocytes # 1.3 10^3/uL (0.2-0.9); Monocytes % 13.7 %; Neutrophils # 7.01 10^3/uL (1.8-7.7); Neutrophils % 75.9 %; Nucleated Red Blood Cells % 0.2 %; Platelet Count 72 10^3/cmm (157-399); Red Blood Count 4.16 10^6/uL (3.85-5.65); White Blood Count 9.23 10^3/uL (3.29-11.43)
[2023-06-15 04:20] LABS: Heparin Induced Platelet AB NEGATIVE (NEGATIVE); Patient O.D 0.112
[2023-06-15 04:31] LABS: Alanine Aminotransferase 15 U/L (0-33); Albumin Level 4.7 g/dL (3.5-5.2); Alkaline Phosphatase 76 U/L (35-105); Anion Gap 18.7 (5-19); Aspartate Amino Transferase 33 U/L (0-32); Blood Urea Nitrogen 38 mg/dL (8-23); Calcium 9.4 mg/dL (8.5-10.5); Carbon Dioxide 21 mmol/L (22-29); Chloride 99 mmol/L (98-107); Globulin 1.6 g/dL (1.3-4.6); Glucose 74 mg/dL (65-115); Magnesium 1.9 mg/dL (1.7-2.3); NT Pro B Type Natriuretic Pept 12196 pg/mL (0-125); Osmolality Calculated 288 mOsm/kg (285-295); Phosphorus 3.2 mg/dL (2.5-4.5); Potassium 3.7 mmol/L (3.5-5.1); Sodium 135 mmol/L (136-145); Total Bilirubin 3.4 mg/dL (0.15-1.2); Total Protein 6.3 g/dL (6.6-8.7)
[2023-06-15] MEDS: levothyroxine 25 mcg Tablet 37.5 MCG PO (05:41)
[2023-06-15] MEDS: albumin 25 G/100 ML BAG 60 G IV (05:42)
[2023-06-15 08:51] LABS: Glucose Point of Care 72 mg/dL (70-110)
[2023-06-15] MEDS: ciprofloxacin 400 MG/200 ML PREMIX 100 MG IV (10:11)
[2023-06-15] MEDS: pantoprazole DR 40 mg Tablet PO (10:12)
[2023-06-15] MEDS: atorvastatin 40 mg Tablet 20 MG PO (10:12)
[2023-06-15] MEDS: aspirin 81 mg EC Tablet PO (10:12)
[2023-06-15] MEDS: escitalopram 10 mg Tablet PO (10:13)
[2023-06-15] MEDS: donepezil 5 MG Tablet PO (10:13)
[2023-06-15] MEDS: ferrous sulfate EC 325 mg Tablet PO (10:13)
[2023-06-15] MEDS: magnesium lactate 84 mg Tablet PO (10:14)
[2023-06-15] MEDS: dilTIAZem 5 mg/mL SDV 5 mL IVP (10:14)
[2023-06-15] MEDS: nystatin cream 30 gm 1 APPLIC TOPICAL (10:14)
--- NOTE | 2023-06-15 10:35 | PM.PN ---
Subjective Subjective: fells better on 2l o2 Medications: Reviewed: Yes Vitals/I&O/Wt Last Vital Signs Temp 97.6 F 06/15/23 05:00 Pulse 108 H 06/15/23 07:54 Resp 18 06/15/23 05:00 BP 142/90 06/15/23 05:00 Pulse Ox 96 06/15/23 07:54 O2 Del Method Nasal Cannula 06/15/23 07:54 O2 Flow Rate 2 06/15/23 07:54 06/14/23 06/15/23 06/15/23 22:59 06:59 14:59 Intake Total 600 / 600 200 / 800 0 / 0 Output Total 2124 / 2449 400 / 2849 800 / 800 Balance -1524 / -1849 -200 / -2049 -800 / -800 Weight last 48 hrs Weight 98.112 kg Weight 98 kg Weight 98.974 kg Physical Exam Narrative: Lethargic , no acute distress HEENT S1-S2, regular rate and rhythm per report Lungs clear per report Trace edema Urinary Catheter Management: Lewis: Cath Placed During This Visit: yes Reason for Continuing Indwelling Catheter: Accurate Measurement of Urinary Output in Critically Ill Patients Urinary Catheter Date of Insertion: 06/04/23 Urinary Catheter Time of Insertion: 22:30 Data 06/15/23 03:26 06/15/23 03:26 A&P Assessment and plan (1) Acute renal failure: Acute on chronic kidney disease: Patient's baseline creatinine is in the range of 1-1.3. Now has creatinine of 3.8 likely multifactorial-secondary to prerenal DIXIE and hypotension , cardiorenal -off levophed , UOP low , -Avoid nephrotoxins and IV contrast studies -renal function worsened with SOB , AMS and mild metabolic acidosis --> s/p temporary catheter placement and started HD , HD # 2 i today No obstruction on CT 2. Hyponatremia: Mild, monitor, 3. Shock: Required multiple pressors, off now Wean Levophed as tolerated 4. History of pacemaker placement 5. History of rapid A-fib 6. History of CAD with cardiomyopathy, latest ejection fraction 30 to 35% Patient evaluated using audiovisual cart. Time spent 20 minutes Attestations Medical Necessity Statement*: per medcine Coding Level of Care Code Acute Code for [facility] Fwd Diagnoses Acute renal failure N17.9
--- NOTE | 2023-06-15 10:49 | PC.SOCIAL ---
IMM Update pg 2 of IMM updated and reviewed w/ patients daughter. Copy provided and Copy in chart dated, and initaled.
--- NOTE | 2023-06-15 11:29 | USR_ITS ---
PROCEDURE INFORMATION: Exam: US Abdomen, Limited; Right Upper Quadrant Exam date and time: 06/15/2023 11:58 AM Age: 73 years old Clinical indication: Abnormal findings; Abnormal radiologic finding of the abdomen; Radiologic exam and body structure: CT gb; Additional info: Elevated bili, cholelithiasis TECHNIQUE: Imaging protocol: Real time ultrasound of the abdomen with image documentation. Limited exam focused on the right upper quadrant. COMPARISON: 1. US gall bladder [id number] 06/05/2023 9:45 AM 2. US gall bladder [id number] 08/31/2022 9:[address] [place] [id number] 06/08/2023 1:46 PM FINDINGS: Pleural spaces: Partially visualized right pleural effusion. Liver: Measures 11.2 cm. There are 2 mildly echogenic focal liver lesions without definite posterior acoustic features and the larger showing questionable internal flow on color Doppler. These measure 2.6 x 2.1 x 2.4 cm and 1.1 x 0.9 x 1.2 cm. Patent portal vein with pulsatile waveform on spectral analysis. Gallbladder: Multiple shadowing hyperechoic gallstones. Mildly thickened wall measures 3.4 mm. No pericholecystic fluid collection. Biliary ducts: Visualized common duct segment is dilated, measuring up to 1 cm. No intrahepatic biliary ductal dilatation. Pancreas: Visualized pancreas is unremarkable. Right kidney: Not well visualized. No mass seen. No hydronephrosis. Intraperitoneal space: Partially visualized ascites. US/US abdomen limited [id number] IMPRESSION: 1. Cholelithiasis with mild wall thickening, which could be on the basis of underdistention versus inflammation. 2. Visualized common duct segment dilated up to 1 cm. 3. Two mildly echogenic focal liver lesions may represent hemangiomas or focal fatty areas. If patient has risk factors for malignancy, recommend dedicated liver MRI without and with contrast. 4. Right pleural effusion. 5. Ascites.
--- NOTE | 2023-06-15 12:52 | ECG_ITS ---
[facility] Test Date: 2023-06-15 Pat Name: Rupa Baptiste Department: Room: 102 Gender: Female Energy Scheduler: : 1950 Requested By: Rocky Elena Order Number: [id number] MD: Dennis Lopez M.D. Measurements Intervals [place] Rate: 132 P: 0 IN: 0 QRS: 75 QRSD: 126 T: 226 QT: 322 QTc: 477 Interpretive Statements ATRIAL FIBRILLATION WITH RAPID VENTRICULAR RESPONSE POSSIBLE ANTERIOR MYOCARDIAL INFARCTION , OF INDETERMINATE AGE [30 ms Q WAVE IN V3/V4, OR R < 0.2 mV IN V4] MODERATE T-WAVE ABNORMALITY, CONSIDER INFERIOR ISCHEMIA [-0.1+ mV T-WAVE IN II/aVF] Compared to ECG 06/10/2023 05:57:00 Myocardial infarct finding now present T-wave abnormality now present Possible ischemia now present Atrial-paced complex(es) or rhythm no longer present Ventricular-paced complex(es) or rhythm no longer present Electronically Signed On 06-15-2023 14:40:23 CDT by Dennis Lopez M.D. [email or web address]
--- NOTE | 2023-06-15 13:03 | PC.HD ---
When this RN arrived to take patient to dialysis, her heart rate was noted to be 105-125. Per primary RN, patient's metoprolol had been discontinued, and she received a dose of cardizem approximately 10:00 a.m. Patient's heart rate continues to be elevated. Treatment was initiated and assistant superintendent for curriculum notified. Will monitor HR and BP closely.
--- NOTE | 2023-06-15 13:13 | PM.PN ---
Subjective Subjective: Awake and more alert today. Denies pain currently. Nursing reports HR was elevated this morning. She is scheduled for dialysis again today. Vitals/I&O/Wt Last Vital Signs Temp 96.8 F L 06/15/23 13:00 Pulse 107 H 06/15/23 13:00 Resp 18 06/15/23 13:00 BP 155/94 06/15/23 13:00 Pulse Ox 96 06/15/23 10:00 O2 Del Method Nasal Cannula 06/15/23 07:54 O2 Flow Rate 2 06/15/23 07:54 06/14/23 06/15/23 06/15/23 22:59 06:59 14:59 Intake Total 600 / 600 200 / 800 0 / 0 Output Total 2124 / 2449 400 / 2849 800 / 800 Balance -1524 / -1849 -200 / -2049 -800 / -800 Weight last 48 hrs Weight 216 lb 4.8 oz Weight 216 lb 0.848 oz Weight 218 lb 3.2 oz Physical Exam Narrative: General: Cooperative patient in no apparent distress. Well developed. HEENT: Normocephalic, Atraumatic. External ears normal. Nasal passages patent without drainage. MMM. Heart: RRR. Resp: Lung sounds are diminished, there are also scattered rales. On nasal cannula, 2 L.. Abd: Soft, non-tender. Non-distended. Extremities: 2+ edema. Skin: No rash or lesions on exposed areas. Neuro: No focal motor or sensory loss. Gait is normal. m Urinary Catheter Management: Lewis: Cath Placed During This Visit: yes Reason for Continuing Indwelling Catheter: Accurate Measurement of Urinary Output in Critically Ill Patients Urinary Catheter Date of Insertion: 06/04/23 Urinary Catheter Time of Insertion: 22:30 Data 06/15/23 03:26 06/15/23 03:26 A&P Assessment and plan (1) Arrhythmia: (2) CHF (congestive heart failure): (3) Atrial fibrillation: (4) Diabetes: (5) Diarrhea: Monitor (6) Right upper quadrant abdominal pain: (7) Hyperbilirubinemia: (8) Urinary tract infection: (9) Systolic CHF: (10) Chronic cholecystitis: (11) Shock: (12) Acute renal failure: (13) Elevated INR: (14) Thrombocytopenia: (15) Acute encephalopathy: Plan 73 y/o F admitted for Encephalopathy, shock, arrhythmia, CHF exacerbation. Continue close inpatient monitoring. Cards, Nephro, Gen Surgery consulted and appreciated. HR elevated. Will discuss with cardiology regarding appropriate medication. Cardizem was given this morning that did improve HR. Will continue to monitor closely. Due to her acute renal failure, would appreciate recs for restarting BB or other medication. Bili is elevated today. She has a history of cholelithiasis and gallbladder dysfunction. Will recheck RUQ US today. Cardiology planning cath when stable. EF 30-35%. Hold anticoagulation until stable. Continue SSI, glucose checks and CC diet. Recheck AM labs. Continue RAAT and O2 protocol. Continue Cipro and Flagyl for RUQ abdominal pain. US showed cholelithiasis, Hepatic steatosis. UTI on Cipro. Shock has resolved. Off pressors. Continue strict I/O's. Hold nephrotoxic agents -Maintain MAP greater than 75. She does remain lethargic and difficult to arouse. Hopefully this will improve some with dialysis. Will discuss with family and patient regarding D/C planning when able. Code Status: Full IVF: None DVT PPx: SCD's. GI PPx: Protonix ABx: Cipro/Flagyl Diet: Renal diabetic diet. Discharge plan: TBD. Attestations Medical Necessity Statement*: Patient requires hospitalization for acute renal failure, developing fluid overload, Hemodialysis, receiving antibiotics for chronic cholecystitis, developing elevated INR, monitoring for signs of bleeding, has been off anticoagulation for the last 72 hours, receiving fluids for acute renal failure, thrombocytopenia Coding Level of Care Code Acute Code for Chg Fwd High MDM includes number and complexity of problems actively addressed during encounter, amount and/or complexity of data reviewed/ordered and described risk of complication, morbidity or mortality of management as documented Diagnoses Arrhythmia I49.9 CHF (congestive heart failure) I50.9 Atrial fibrillation I48.91 Diabetes E11.9 Diarrhea R19.7 Right upper quadrant abdominal pain R10.11 Hyperbilirubinemia E80.6 Urinary tract infection N39.0 Systolic CHF I50.20 Chronic cholecystitis K81.1 Shock R57.9 Acute renal failure N17.9 Elevated INR R79.1 Thrombocytopenia D69.6 Acute encephalopathy G93.40
[2023-06-15 17:10] LABS: Glucose Point of Care 88 mg/dL (70-110)
[2023-06-15] MEDS: dilTIAZem ER (24HR) 120 mg Capsule PO (18:16)
--- NOTE | 2023-06-15 18:23 | XRR_ITS ---
PROCEDURE INFORMATION: Exam: XR Chest Exam date and time: 06/15/2023 6:38 PM Age: 73 years old Clinical indication: Patient HX: Persistent cough with possible aspiration; Additional info: Possible aspiration. Excessive coughing TECHNIQUE: Imaging protocol: Radiologic exam of the chest. Views: 1 view. COMPARISON: CR XR chest 1V portable [id number] 06/09/2023 6:14 AM FINDINGS: Tubes, catheters and devices: Intact dual lead left subclavian pacemaker. Lungs: Increased vascular congestion. Increased interstitial and ground-glass opacities in the lung bases. Pleural spaces: Increased bilateral pleural effusions. No pneumothorax. Heart/Mediastinum: Cardiomegaly is unchanged. Bones/joints: Unremarkable. XR/XR chest 1V portable [id number] IMPRESSION: Worsened congestive heart failure.
[2023-06-15 20:51] LABS: Glucose Point of Care 88 mg/dL (70-110)
[2023-06-16] VITALS (23 sets, daily range): BP systolic 112–132; BP diastolic 58–76; PULSE 79–122; RESP 16–23; TEMP 36.4–37.3; O2SAT 88–96
[2023-06-16] MEDS: metroNIDAZOLE IV 500 MG/100 ML PREMIX 100 MG IV ×3 (01:15→17:22)
[2023-06-16] MEDS: levothyroxine 25 mcg Tablet 37.5 MCG PO (06:02)
[2023-06-16 06:27] LABS: Glucose Point of Care 74 mg/dL (70-110)
[2023-06-16] MEDS: aspirin 81 mg EC Tablet PO (09:11)
[2023-06-16] MEDS: magnesium lactate 84 mg Tablet PO (09:11)
[2023-06-16] MEDS: pantoprazole DR 40 mg Tablet PO (09:11)
[2023-06-16] MEDS: ferrous sulfate EC 325 mg Tablet PO (09:11)
[2023-06-16] MEDS: escitalopram 10 mg Tablet PO (09:11)
[2023-06-16] MEDS: dilTIAZem ER (24HR) 120 mg Capsule PO (09:12)
[2023-06-16] MEDS: donepezil 5 MG Tablet PO (09:12)
[2023-06-16] MEDS: atorvastatin 40 mg Tablet 20 MG PO (09:14)
[2023-06-16 10:15] LABS: Basophils % 0.3 %; Eosinophils # 0.1 10^3/uL (0.0-0.8); Eosinophils % 0.8 %; Hematocrit 37.7 % (36-47); Lymphocytes # 1.2 10^3/uL (0.8-4.8); Lymphocytes % 13.8 %; Mean Corpuscular HGB Conc 33.4 g/dL (30-55); Mean Corpuscular Hemoglobin 30.7 pg (27-33); Mean Corpuscular Volume 91.7 fl (85-98); Monocytes # 1.4 10^3/uL (0.2-0.9); Monocytes % 15.2 %; Neutrophils # 6.25 10^3/uL (1.8-7.7); Neutrophils % 69.5 %; Nucleated Red Blood Cells % 0.2 %; Platelet Count 70 10^3/cmm (157-399); Red Blood Count 4.11 10^6/uL (3.85-5.65); Red Cell Distribution Width 22.3 % (12.1-15.1)
[2023-06-16] MEDS: nystatin cream 30 gm 1 APPLIC TOPICAL ×2 (10:32→17:46)
[2023-06-16] MEDS: ciprofloxacin 400 MG/200 ML PREMIX 200 MG IV (10:33)
--- NOTE | 2023-06-16 10:35 | P.PN_ITS ---
Subjective Subjective: Patient is feeling better. No chest pain or shortness of breath. Vitals/I&O/Wt Last Vital Signs Temp 99.2 F 06/16/23 07:14 Pulse 104 H 06/16/23 08:00 Resp 17 06/16/23 07:14 BP 112/72 06/16/23 07:14 Pulse Ox 96 06/16/23 08:00 O2 Del Method Nasal Cannula 06/16/23 08:00 O2 Flow Rate 2 06/16/23 08:00 06/15/23 06/16/23 06/16/23 22:59 06:59 14:59 Intake Total 2020.667 / 2020.667 120 / 2141.667 Output Total 2675 / 4275 100 / 4375 150 / 150 Balance -653.333 / -2253.333 20 / -2233.333 -150 / -150 Weight last 48 hrs Weight 209 lb 3.2 oz Weight 218 lb 11.177 oz Weight 216 lb 4.8 oz Weight 216 lb 0.848 oz Physical Exam Narrative: GENERAL: Patient is sleepy and drowsy. NECK: No jugular vein distension. [] HEENT: No cyanosis. No icterus. No pallor. [] HEART: Regular S1 and S2. No murmur, rub or gallop. [] LUNGS: Clear to auscultate bilaterally. [] ABDOMEN: Soft, nontender and nondistended. Positive bowel sounds. No guarding, rebound or tenderness. [] CENTRAL NERVOUS SYSTEM: Grossly nonfocal. [] EXTREMITIES: Lower extremities with 1+ edema bilaterally. Urinary Catheter Management: Lewis: Cath Placed During This Visit: yes Reason for Continuing Indwelling Catheter: Accurate Measurement of Urinary Output in Critically Ill Patients Urinary Catheter Date of Insertion: 06/04/23 Urinary Catheter Time of Insertion: 22:30 Data 06/16/23 09:35 06/16/23 09:35 A&P Assessment and plan (1) Acute kidney injury: Dialysis has been initiated. doing better. (2) Systolic CHF: HFrEF. Etiology can be non-ischemic however will need ischemic work up for assessment (3) Hyperbilirubinemia: (4) HTN (hypertension): (5) Sick sinus syndrome: (6) Chronic cholecystitis: (7) Atrial fibrillation: (8) Obesity: (9) Diabetes: (10) Status cardiac pacemaker: (11) Myocardial infarction: (12) CVA (cerebral vascular accident): (13) CKD (chronic kidney disease): (14) Bipolar 1 disorder: (15) Shock: resolved Plan Patient is hemodynamically stable. We are uptitrating Cardizem to 180 mg daily. I had a detailed discussion with her daughter regarding ischemic work-up options. Echocardiogram shows recent drop in heart function. Stress test done a few months ago was abnormal. If no surgical intervention is necessary and pre op clearance is needed, ideally should have cardiac catheterization however thi s will likely put her on permanent dialysis. That decision has not been made yet. Attestations Medical Necessity Statement*: Care expected to cross 2 midnights. Coding Level of Care Code Acute Code for [facility] Diagnoses Acute kidney injury N17.9 Systolic CHF I50.20 Hyperbilirubinemia E80.6 HTN (hypertension) I10 Sick sinus syndrome I49.5 Chronic cholecystitis K81.1 Atrial fibrillation I48.91 Obesity E66.9 Diabetes E11.9 Status cardiac pacemaker Z95.0 Myocardial infarction I21.9 CVA (cerebral vascular accident) I63.9 CKD (chronic kidney disease) N18.9 Bipolar 1 disorder F31.9 Shock R57.9
[2023-06-16 10:40] LABS: Glucose Point of Care 104 mg/dL (70-110)
[2023-06-16 10:49] LABS: Alanine Aminotransferase 13 U/L (0-33); Albumin Level 4.2 g/dL (3.5-5.2); Alkaline Phosphatase 76 U/L (35-105); Anion Gap 13.5 (5-19); Aspartate Amino Transferase 32 U/L (0-32); Blood Urea Nitrogen 28 mg/dL (8-23); C Reactive Protein 19.2 mg/L (0.0-4.9); Carbon Dioxide 26 mmol/L (22-29); Chloride 100 mmol/L (98-107); Globulin 1.7 g/dL (1.3-4.6); Glucose 91 mg/dL (65-115); NT Pro B Type Natriuretic Pept 8826 pg/mL (0-125); Osmolality Calculated 287 mOsm/kg (285-295); Potassium 3.5 mmol/L (3.5-5.1); Sodium 136 mmol/L (136-145); Total Bilirubin 3.4 mg/dL (0.15-1.2); Total Protein 5.9 g/dL (6.6-8.7)
[2023-06-16] MEDS: dilTIAZem 60 mg Tablet PO (12:34)
--- NOTE | 2023-06-16 15:41 | P.PN_ITS ---
Subjective Subjective: feels better today Medications: Reviewed: Yes Vitals/I&O/Wt Last Vital Signs Temp 97.5 F L 06/16/23 11:59 Pulse 105 H 06/16/23 11:59 Resp 19 H 06/16/23 11:59 BP 117/69 06/16/23 11:59 Pulse Ox 91 06/16/23 11:59 O2 Del Method Nasal Cannula 06/16/23 11:59 O2 Flow Rate 2 06/16/23 08:00 06/16/23 06/16/23 06/16/23 06:59 14:59 22:59 Intake Total 120 / 2141.667 330 / 330 Output Total 100 / 4375 200 / 200 Balance 20 / -2233.333 130 / 130 Weight last 48 hrs Weight 94.892 kg Weight 99.2 kg Weight 98.112 kg Weight 98 kg Physical Exam Narrative: , no acute distress HEENT S1-S2, regular rate and rhythm per report Lungs clear per report Trace edema Urinary Catheter Management: Lewis: Cath Placed During This Visit: yes Reason for Continuing Indwelling Catheter: Accurate Measurement of Urinary Output in Critically Ill Patients Urinary Catheter Date of Insertion: 06/04/23 Urinary Catheter Time of Insertion: 22:30 Data 06/16/23 09:35 06/16/23 09:35 Micro: Microbiology 06/08/23 17:38 Blood Culture - Final Blood Staphylococcus epidermidis A&P Assessment and plan (1) Acute renal failure: Acute on chronic kidney disease: Patient's baseline creatinine is in the range of 1-1.3. Now has creatinine of 3.8 likely multifactorial-secondary to preren al DIXIE and hypotension , cardiorenal -off levophed , UOP low , -Avoid nephrotoxins and IV contrast studies -renal function worsened with SOB , AMS and mild metabolic acidosis --> s/p temporary catheter placement and started HD , s/p 2 sessions -if no improvement, will need tunnelled catheter placement 2. Hyponatremia: Mild, monitor, 3. Shock: Required multiple pressors, off now 4. History of pacemaker placement 5. History of rapid A-fib 6. History of CAD with cardiomyopathy, latest ejection fraction 30 to 35% Patient evaluated using audiovisual cart. Time spent 20 minutes Attestations Medical Necessity Statement*: per medicine Coding Level of Care Code Acute Code for [facility] Fwd Diagnoses Acute renal failure N17.9
[2023-06-16] MEDS: sodium chloride 0.9% 1,000 ML 50 ML IV (15:56)
[2023-06-16 16:42] LABS: Glucose Point of Care 112 mg/dL (70-110)
--- NOTE | 2023-06-16 16:45 | PM.PN ---
Subjective Subjective: Nursing reports that HR has been better controlled overnight after starting cardizem. Was able to complete dialysis yesterday. Daughter says that patient has been a little more alert, but still very disoriented. Vitals/I&O/Wt Last Vital Signs Temp 98.7 F 06/16/23 15:43 Pulse 79 06/16/23 15:43 Resp 22 H 06/16/23 15:43 BP 127/58 06/16/23 15:43 Pulse Ox 95 06/16/23 15:43 O2 Del Method Nasal Cannula 06/16/23 15:43 O2 Flow Rate 2 06/16/23 08:00 06/16/23 06/16/23 06/16/23 06:59 14:59 22:59 Intake Total 120 / 2141.667 330 / 330 Output Total 100 / 4375 200 / 200 Balance 20 / -2233.333 130 / 130 Weight last 48 hrs Weight 209 lb 3.2 oz Weight 218 lb 11.177 oz Weight 216 lb 4.8 oz Physical Exam Narrative: General: Cooperative patient in no apparent distress. Well developed. HEENT: Normocephalic, Atraumatic. External ears normal. Nasal passages patent without drainage. MMM. Heart: RRR. Resp: Lung sounds are diminished, there are also scattered rales. On nasal cannula, 2 L.. Abd: Soft, non-tender. Non-distended. Extremities: 2+ edema. Skin: No rash or lesions on exposed areas. Neuro: No focal motor or sensory loss. Urinary Catheter Management: Lewis: Cath Placed During This Visit: yes Reason for Continuing Indwelling Catheter: Accurate Measurement of Urinary Output in Critically Ill Patients Urinary Catheter Date of Insertion: 06/04/23 Urinary Catheter Time of Insertion: 22:30 Data 06/16/23 09:35 06/16/23 09:35 Micro: Microbiology 06/08/23 17:38 Blood Culture - Final Blood Staphylococcus epidermidis A&P Assessment and plan (1) Arrhythmia: (2) CHF (congestive heart failure): (3) Atrial fibrillation: (4) Diabetes: (5) Diarrhea: Monitor (6) Right upper quadrant abdominal pain: (7) Hyperbilirubinemia: (8) Urinary tract infection: (9) Systolic CHF: (10) Chronic cholecystitis: (11) Shock: (12) Acute renal failure: (13) Elevated INR: (14) Thrombocytopenia: (15) Acute encephalopathy: Plan 73 y/o F admitted for Encephalopathy, shock, arrhythmia, CHF exacerbation. Continue close inpatient monitoring. Cards, Nephro, Gen Surgery consulted and appreciated. HR now stable, around 100. Started on Cardizem yesterday. Bili still elevated to 3.4. US showed dilation of CBD to 1cm. Discussed with General surgery who will check liver function panel. Labs are improved. Cr down to 2.4 today. Cardiology planning cath when stable. EF 30-35%. Hold anticoagulation until stable. Continue SSI, glucose checks and CC diet. Recheck AM labs. Continue RAAT and O2 protocol. Continue Cipro and Flagyl for RUQ abdominal pain. Today is Day 9 on Flagyl, Day 7 on Cipro. UTI on Cipro. Shock has resolved. Off pressors. Continue strict I/O's. Hold nephrotoxic agents -Maintain MAP greater than 75. She does remain lethargic and difficult to arouse. Hopefully this will improve some with dialysis. Will discuss with family and patient regarding D/C planning when able. Code Status: Full IVF: None DVT PPx: SCD's. GI PPx: Protonix ABx: Cipro/Flagyl Diet: Renal diabetic diet. Discharge plan: TBD. Attestations Medical Necessity Statement*: Patient requires hospitalization for acute renal failure, developing fluid overload, Hemodialysis, receiving antibiotics for chronic cholecystitis, developing elevated INR, monitoring for signs of bleeding, has been off anticoagulation for the last 72 hours, receiving fluids for acute renal failure, thrombocytopenia Coding Level of Care Code Acute Code for [facility] Fwd Moderate MDM includes number and complexity of problems actively addressed during encounter, amount and/or complexity of data reviewed/ordered and described risk of complication, morbidity or mortality of management as documented Diagnoses Arrhythmia I49.9 CHF (congestive heart failure) I50.9 Atrial fibrillation I48.91 Diabetes E11.9 Diarrhea R19.7 Right upper quadrant abdominal pain R10.11 Hyperbilirubinemia E80.6 Urinary tract infection N39.0 Systolic CHF I50.20 Chronic cholecystitis K81.1 Shock R57.9 Acute renal failure N17.9 Elevated INR R79.1 Thrombocytopenia D69.6 Acute encephalopathy G93.40
[2023-06-16 20:16] LABS: Glucose Point of Care 125 mg/dL (70-110)
[2023-06-17] VITALS (12 sets, daily range): BP systolic 115–152; BP diastolic 59–78; PULSE 77–112; RESP 15–23; TEMP 37.1–37.6; O2SAT 91–94
[2023-06-17] MEDS: metroNIDAZOLE IV 500 MG/100 ML PREMIX 100 MG IV ×2 (01:22→09:46)
[2023-06-17 03:50] LABS: Alanine Aminotransferase 14 U/L (0-33); Albumin Level 3.8 g/dL (3.5-5.2); Alkaline Phosphatase 87 U/L (35-105); Aspartate Amino Transferase 30 U/L (0-32); Globulin 1.9 g/dL (1.3-4.6); Magnesium 1.7 mg/dL (1.7-2.3); Phosphorus 2.1 mg/dL (2.5-4.5); Total Bilirubin 3.3 mg/dL (0.15-1.2); Total Protein 5.7 g/dL (6.6-8.7)
[2023-06-17] MEDS: levothyroxine 25 mcg Tablet 37.5 MCG PO (05:55)
[2023-06-17 06:13] LABS: Glucose Point of Care 104 mg/dL (70-110)
--- NOTE | 2023-06-17 08:33 | PM.PN ---
Subjective Subjective: Patient has some improvement in mentation. No chest pain Vitals/I&O/Wt Last Vital Signs Temp 99.0 F 06/17/23 07:32 Pulse 93 06/17/23 08:02 Resp 22 H 06/17/23 07:32 BP 126/68 06/17/23 07:32 Pulse Ox 93 06/17/23 08:02 O2 Del Method Nasal Cannula 06/17/23 08:02 O2 Flow Rate 3 06/17/23 08:02 06/16/23 06/17/23 06/17/23 22:59 06:59 14:59 Intake Total 100 / 430 100 / 530 10 Output Total 125 / 325 275 / 600 Balance -25 / 105 -175 / -70 Weight last 48 hrs Weight 207 lb 3.2 oz Weight 209 lb 3.2 oz Weight 218 lb 11.177 oz Physical Exam Narrative: GENERAL: Patient is sleepy and drowsy. NECK: No jugular vein distension. [] HEENT: No cyanosis. No icterus. No pallor. [] HEART: Regular S1 and S2. No murmur, rub or gallop. [] LUNGS: Clear to auscultate bilaterally. [] CENTRAL NERVOUS SYSTEM: Grossly nonfocal. [] EXTREMITIES: Lower extremities with 1+ edema bilaterally. Urinary Catheter Management: Lewis: Cath Placed During This Visit: yes Reason for Continuing Indwelling Catheter: Accurate Measurement of Urinary Output in Critically Ill Patients Urinary Catheter Date of Insertion: 06/04/23 Urinary Catheter Time of Insertion: 22:30 Data 06/18/23 04:55 06/18/23 04:55 Micro: Microbiology 06/08/23 17:38 Blood Culture - Final Blood Staphylococcus epidermidis A&P Assessment and plan (1) Acute kidney injury: On dialysis. (2) Systolic CHF: HFrEF. Etiology can be non-ischemic however will need ischemic work up for assessment. Had abnormal stress test recently. (3) Hyperbilirubinemia: (4) HTN (hypertension): (5) Sick sinus syndrome: (6) Chronic cholecystitis: (7) Atrial fibrillation: (8) Obesity: (9) Diabetes: (10) Status cardiac pacemaker: (11) Myocardial infarction: (12) CVA (cerebral vascular accident): (13) CKD (chronic kidney disease): (14) Bipolar 1 disorder: (15) Shock: resolved Plan Continue cardizem. Heart rate is better controlled. Patient's INR is elevated. Monitor. I had a detailed discussion with her daughter regarding ischemic work-up options. Echocardiogram shows recent drop in heart function. Stress test done a few months ago was abnormal. If no surgical intervention is necessary and pre op clearance is needed, ideally should have cardiac catheterization however this will likely put her on permanent dialysis. That decision has not been made yet. Continue medical therapy for now. Attestations Medical Necessity Statement*: Care expected to cross 2 midnights. Coding Level of Care Code Acute Code for [facility] Diagnoses Acute kidney injury N17.9 Systolic CHF I50.20 Hyperbilirubinemia E80.6 HTN (hypertension) I10 Sick sinus syndrome I49.5 Chronic cholecystitis K81.1 Atrial fibrillation I48.91 Obesity E66.9 Diabetes E11.9 Status cardiac pacemaker Z95.0 Myocardial infarction I21.9 CVA (cerebral vascular accident) I63.9 CKD (chronic kidney disease) N18.9 Bipolar 1 disorder F31.9 Shock R57.9
[2023-06-17] MEDS: dilTIAZem ER (24HR) 180 mg Capsule PO (08:37)
[2023-06-17] MEDS: atorvastatin 40 mg Tablet 20 MG PO (08:38)
[2023-06-17] MEDS: magnesium lactate 84 mg Tablet PO (08:38)
[2023-06-17] MEDS: ferrous sulfate EC 325 mg Tablet PO (08:38)
[2023-06-17] MEDS: aspirin 81 mg EC Tablet PO (08:38)
[2023-06-17] MEDS: escitalopram 10 mg Tablet PO (08:38)
[2023-06-17] MEDS: pantoprazole DR 40 mg Tablet PO (08:38)
[2023-06-17] MEDS: donepezil 5 MG Tablet PO (08:38)
[2023-06-17] MEDS: nystatin cream 30 gm 1 APPLIC TOPICAL ×2 (08:38→18:33)
--- NOTE | 2023-06-17 08:51 | PM.PN ---
Subjective Subjective: no labs today Medications: Reviewed: Yes Vitals/I&O/Wt Last Vital Signs Temp 99.0 F 06/17/23 07:32 Pulse 93 06/17/23 08:02 Resp 22 H 06/17/23 07:32 BP 126/68 06/17/23 07:32 Pulse Ox 93 06/17/23 08:02 O2 Del Method Nasal Cannula 06/17/23 08:02 O2 Flow Rate 3 06/17/23 08:02 06/16/23 06/17/23 06/17/23 22:59 06:59 14:59 Intake Total 100 / 430 100 / 530 10 10 Output Total 125 / 325 275 / 600 Balance -25 / 105 -175 / -70 10 Weight last 48 hrs Weight 93.984 kg Weight 94.892 kg Weight 99.2 kg Physical Exam Narrative: , no acute distress HEENT S1-S2, regular rate and rhythm per report Lungs clear per report Trace edema Urinary Catheter Management: Lewis: Cath Placed During This Visit: yes Reason for Continuing Indwelling Catheter: Accurate Measurement of Urinary Output in Critically Ill Patients Urinary Catheter Date of Insertion: 06/04/23 Urinary Catheter Time of Insertion: 22:30 Data 06/16/23 09:35 06/16/23 09:35 Micro: Microbiology 06/08/23 17:38 Blood Culture - Final Blood Staphylococcus epidermidis A&P Assessment and plan (1) Acute renal failure: Acute on chronic kidney disease: Patient's baseline creatinine is in the range of 1-1.3. Now has creatinine of 3.8 likely multifactorial-secondary to prerenal DIXIE and hypotension , cardiorenal -off levophed , UOP low , -Avoid nephrotoxins and IV contrast studies -renal function worsened with SOB , AMS and mild metabolic acidosis --> s/p temporary catheter placement and started HD , s/p 2 sessions - await BMP today , will give IV lasix today -if no improvement, will need tunnelled catheter placement 2. Hyponatremia: Mild, monitor, 3. Shock: Required multiple pressors, off now 4. History of pacemaker placement 5. History of rapid A-fib 6. History of CAD with cardiomyopathy, latest ejection fraction 30 to 35% Patient evaluated using audiovisual cart. Time spent 20 minutes Plan per medicine Attestations Medical Necessity Statement*: per medicine Coding Level of Care Code Acute Code for [facility] Diagnoses Acute renal failure N17.9
[2023-06-17] MEDS: FUROsemide 10 mg/mL SDV 4mL 40 MG IVP ×2 (09:45→20:51)
[2023-06-17 10:01] LABS: Anion Gap 15.5 (5-19); Blood Urea Nitrogen 34 mg/dL (8-23); Calcium 8.7 mg/dL (8.5-10.5); Carbon Dioxide 25 mmol/L (22-29); Chloride 102 mmol/L (98-107); Glucose 119 mg/dL (65-115); Osmolality Calculated 297 mOsm/kg (285-295); Potassium 3.5 mmol/L (3.5-5.1); Sodium 139 mmol/L (136-145)
--- NOTE | 2023-06-17 10:37 | P.CONIM_ITS ---
Providers/Reason For Consult Consulting Physician/Specialty*: General Surgery Reason for Consult*: Cholestasis Attending Physician: Maxx Garcia MD Primary Care Provider: García Theodore MD History of Present Illness History of Present Illness Rupa Baptiste is a 73 year old female who is known to me for previous right IJ dialysis catheter placement. Patient has history of dementia, fluid overload and CHF. She appears very frail during my last evaluation. I have been asked to provide input regarding the uptrending bilirubin, evidence of bile duct dilation noted on ultrasound of the abdomen. On my evaluation this morning, patient appears more alert, denied any abdominal pain, denied any current GI symptoms. Review of Systems Narrative: A 10 point review of systems was unable to be completed due to patient clinical condition. Medications/Allergies Home Medications Medication Instructions Recorded Confirmed Last Taken Type ferrous sulfate 325 mg (65 mg 325 mg PO DAILY 03/23/20 06/05/23 08/29/22 History iron) tablet (Feosol) metoprolol tartrate 75 mg tablet 75 mg PO BID 03/23/20 06/05/23 08/29/22 History simvastatin 20 mg tablet 20 mg PO DAILY 03/23/20 06/05/23 08/29/22 History escitalopram oxalate 10 mg tablet 10 mg PO DAILY 04/03/20 06/05/23 08/29/22 History (Lexapro) docusate sodium 100 mg capsule 100 mg PO DAILY 08/31/22 06/05/23 08/29/22 History donepezil 5 mg tablet 5 mg PO DAILY 08/31/22 06/05/23 08/29/22 History glipizide 5 mg tablet 5 mg PO DAILY 08/31/22 06/05/23 08/29/22 History zolpidem 5 mg tablet 5 - 10 mg PO BEDTIME 08/31/22 06/05/23 08/29/22 History potassium chloride 8 mEq 8 meq PO DAILY #30 tabs 01/25/23 06/05/23 Unknown Rx tablet,extended release furosemide 40 mg tablet 40 mg PO DAILY #3 tabs 04/06/23 06/05/23 Unknown Rx ondansetron 4 mg oral soluble film 4 mg PO DAILY PRN nausea and 04/21/23 06/05/23 Unknown Rx vomiting #20 ea apixaban 5 mg tablet (Eliquis) 5 mg PO BID #180 tabs 05/16/23 06/05/23 Unknown Rx aspirin 81 mg tablet,delayed 81 mg PO DAILY 06/05/23 06/05/23 Unknown History release lactobacillus comb no.10 20 20,000 mmu cells PO DAILY 06/05/23 06/05/23 Unknown History billion cell capsule (Probiotic) Allergies Allergy/AdvReac Type Severity Reaction Status Date / Time Penicillins Allergy Unknown Unknown Verified 06/05/23 09:04 Tetanus Vaccines and Toxoid Allergy Unknown Unknown Verified 06/05/23 09:04 Current Medications Generic Name Dose Route Start Last Admin Trade Name Freq PRN Reason Stop Dose Admin Aspirin 81 mg 06/05/23 09:00 06/17/23 08:38 Aspirin 81 Mg Ec Tablet PO 81 mg DAILY AJ Administration Atorvastatin Calcium 20 mg 06/05/23 09:00 06/17/23 08:38 Atorvastatin 40 Mg Tablet PO 20 mg DAILY AJ Administration Dextrose 25 ml 06/04/23 23:05 06/11/23 06:26 Dextrose 50% Syringe 50 Ml IVP 25 ml ONCE PRN Administration hypoglycemia protocol Protocol Diltiazem HCl 180 mg 06/17/23 09:00 06/17/23 08:37 Diltiazem Er (24hr) 180 Mg Capsule PO 180 mg DAILY AJ Administration Donepezil HCl 5 mg 06/05/23 09:00 06/17/23 08:38 Donepezil 5 Mg Tablet PO 5 mg DAILY AJ Administration Escitalopram Oxalate 10 mg 06/05/23 09:00 06/17/23 08:38 Escitalopram 10 Mg Tablet PO 10 mg DAILY AJ Administration Ferrous Sulfate 325 mg 06/08/23 09:00 06/17/23 08:38 Ferrous Sulfate Ec 325 Mg Tablet PO 325 mg DAILY AJ Administration Furosemide 40 mg 06/17/23 09:00 06/17/23 09:45 Furosemide 10 Mg/Ml Sdv 4ml IVP 40 mg Q12H AJ Administration Metronidazole 500 mg in 100 mls @ 100 mls/hr 06/07/23 10:00 06/17/23 09:46 Flagyl Iv IV 100 mls/hr Q8H AJ Administration Protocol Norepinephrine Bitartrate 4 mg 254 mls @ 0 mls/hr 06/08/23 14:15 06/11/23 13:51 / Dextrose IV Infused .Q0M AJ Titration Protocol Per Protocol Albumin Human 25 g in 100 mls @ 60 mls/hr 06/08/23 14:45 06/15/23 05:42 Albumin IV 60 mls/hr Q8H AJ Administration Ciprofloxacin/Dextrose 400 mg in 200 mls @ 200 mls/hr 06/10/23 10:00 06/16/23 12:39 Cipro IV Infused Q24H AJ Infusion Protocol Sodium Chloride 1,000 mls @ 50 mls/hr 06/12/23 09:45 06/16/23 15:56 Sodium Chloride 0.9% IV 50 mls/hr .Q20H AJ Administration Insulin Human Lispro 0 unit 06/05/23 08:00 06/17/23 08:02 Insulin Lispro 100 Unit/1 Ml SUBCUT Not Given WM&BEDTIME AJ Protocol Levothyroxine Sodium 37.5 mcg 06/10/23 06:00 06/17/23 05:55 Levothyroxine 25 Mcg Tablet PO 37.5 mcg QAM AJ Administration Magnesium Lactate 84 mg 06/05/23 09:00 06/17/23 08:38 Magnesium Lactate 84 Mg Tablet PO 84 mg DAILY AJ Administration Metoclopramide HCl 5 mg 06/10/23 14:38 06/12/23 02:03 Metoclopramide 5 Mg/Ml Sdv 2 Ml IVP 5 mg Q6H PRN Administration NAUSEA AND VOMITING Morphine Sulfate 2 mg 06/07/23 22:46 06/14/23 09:24 Morphine 4 Mg/Ml Sdv 1 Ml IVP 2 mg Q4H PRN Administration SEVERE PAIN Nystatin 1 applic 06/05/23 09:00 06/17/23 08:38 Nystatin Cream 30 Gm TOPICAL 1 applic BID AJ Administration Ondansetron HCl 4 mg 06/04/23 23:24 06/14/23 05:37 Ondansetron 2 Mg/Ml Sdv 2 Ml IVP 4 mg Q6H PRN Administration NAUSEA AND VOMITING Pantoprazole Sodium 40 mg 06/05/23 09:00 06/17/23 08:[address] 40 Mg Tablet PO 40 mg DAILY AJ Administration PFSH Acute PFSH: Medical History (Updated 06/17/23 @ 10:41 by Lee De Anda MD) Abnormal gall bladder diagnostic imaging Acquired abnormality of brachiocephalic vein Acute encephalopathy Acute kidney injury Anticoagulant long-term use Atrial fibrillation Bipolar 1 disorder Chest pain CHF (congestive heart failure) CKD (chronic kidney disease) CVA (cerebral vascular accident) Residual right-sided weakness Diabetes HTN (hypertension) Ischemic cardiomyopathy Lung nodule Myocardial infarction Obesity Respiratory distress Sick sinus syndrome Transaminitis Surgical History History of hysterectomy Status cardiac pacemaker Family History Other Cancer Suicide Social History Smoking and tobacco status: former smoker Caregiver/support person: Yes (daughter) Lives independently: No Household members: none Current occupational status: retired Vitals/I&O/Wt Last Vital Signs Temp 99.0 F 06/17/23 07:32 Pulse 93 06/17/23 08:02 Resp 22 H 06/17/23 07:32 BP 126/68 06/17/23 07:32 Pulse Ox 93 06/17/23 08:02 O2 Del Method Nasal Cannula 06/17/23 08:02 O2 Flow Rate 3 06/17/23 08:02 06/16/23 06/17/23 06/17/23 22:59 06:59 14:59 Intake Total 100 / 430 100 / 530 10 / 10 Output Total 125 / 325 275 / 600 Balance -25 / 105 -175 / -70 10 / 10 Weight last 48 hrs Weight 207 lb 3.2 oz Weight 209 lb 3.2 oz Weight 218 lb 11.177 oz Physical Exam Const: OTHER: Patient is alert, oriented to person Neck/C-Spine: OTHER: Right neck dialysis catheter noted, no evidence of bleeding Resp: OTHER: A culture is rise bilaterally GI: OTHER: Abdomen is soft, nontender, nondistended, negative Fitzgerald sign. Extremity: OTHER: Bilateral lower extremities and upper extremities edema. Urinary Catheter Management: Lewis: Cath Placed During This Visit: yes Reason for Continuing Indwelling Catheter: Accurate Measurement of Urinary Output in Critically Ill Patients Urinary Catheter Date of Insertion: 06/04/23 Urinary Catheter Time of Insertion: 22:30 Data 06/16/23 09:35 06/17/23 03:13 Micro: Microbiology 06/08/23 17:38 Blood Culture - Final Blood Staphylococcus epidermidis A&P Assessment and plan (1) Cholestasis: Plan After a complete history, physical examination and review of all available clinical data the following is my assessment. At the moment patient is asymptomatic, physical examination is negative for jaundice or abdominal pain, uptrending bilirubin has been stable for the last 3 days, the direct component is 1.9 in today's labs. Ultrasound of the abdomen was reviewed, while there is evidence of dilation of the common bile duct, there is no evidence of mechanical obstruction. Thickening of the gallbladder appears to be either chronic or due to under distention, but I do not see any signs of acute cholecystitis. At this point the most likely cause of patient hyperbilirubinemia is slightly cholestasis due to prolonged hospitalization and severity of disease. I do not recommend the need for additional surgical intervention or drainage procedure at this time, as patient is clinically asymptomatic and there is no elevation in the white count. In the case of continuously uptrending bilirubin, the next step will be obtaining an MRCP, if patient is able to tolerate to evaluate for any mechanical obstruction of the common bile duct. If patient develops symptoms of acute cholecystitis or evidence of worsening cholestasis, the option will be to provide biliary drainage by IR, I think at this point surgery will be contraindicated in this patient due to severe CHF and fluid overload, which may resolve on patient demise if she undergoes surgical procedure. General surgery will remain available and will follow along. Coding Level of Care Code Acute Code for g [facility] Diagnoses Cholestasis K83.1
--- NOTE | 2023-06-17 10:48 | PC.SOCIAL ---
IMM Update pg 2 of IMM updated and reviewed w/ patients daughter Shila. Copy provided and copy in chart dated, and initialed.
[2023-06-17] MEDS: ciprofloxacin 400 MG/200 ML PREMIX 200 MG IV (11:32)
[2023-06-17] MEDS: sodium chloride 0.9% 1,000 ML 50 ML IV (11:44)
[2023-06-17 11:53] LABS: Glucose Point of Care 123 mg/dL (70-110)
--- NOTE | 2023-06-17 15:28 | PC.NURSE ---
Nurse noted bruising on patient's leg from SCDs and removed SCD wraps. Also noticed a bruise on her left arm extending all the way down the back of her forearm.
--- NOTE | 2023-06-17 16:05 | P.PN_ITS ---
Subjective Subjective: Patient was seen this morning she is alert to person, to place, not to time, she can follow some commands, denies any nausea, no vomiting, she has no right upper quadrant tenderness, not jaundiced on exam afebrile, Vitals/I&O/Wt Last Vital Signs Temp 98.8 F 06/17/23 11:30 Pulse 79 06/17/23 14:32 Resp 15 06/17/23 11:30 BP 152/78 06/17/23 11:30 Pulse Ox 92 06/17/23 11:30 O2 Del Method Nasal Cannula 06/17/23 11:30 O2 Flow Rate 3 06/17/23 08:02 06/17/23 06/17/23 06/17/23 06:59 14:59 22:59 Intake Total 100 / 530 1300 / 1300 Output Total 275 / 600 Balance -175 / -70 1300 / 1300 Weight last 48 hrs Weight 93.984 kg Weight 94.892 kg Physical Exam Const: COMMON NORMALS: no acute distress Resp: COMMON NORMALS: normal respiratory effort, No retractions, No use of acc essory muscles and clear to auscultation bilaterally AUSCULTATION: clear to auscultation bilaterally Cardio: COMMON NORMALS: regular rate, regular rhythm, S1 normal heart sound present and S2 normal heart sound present RATE: regular rate RHYTHM: regular rhythm HEART SOUNDS: S1 normal heart sound present and S2 normal heart sound present GI: COMMON NORMALS: Normal to inspection, nondistended, normoactive bowel sounds present and non-tender Extremity: COMMON NORMALS: no pedal edema Urinary Catheter Management: Lewis: Cath Placed During This Visit: yes Reason for Continuing Indwelling Catheter: Accurate Measurement of Urinary Output in Critically Ill Patients Urinary Catheter Date of Insertion: 06/04/23 Urinary Catheter Time of Insertion: 22:30 Data 06/16/23 09:35 06/17/23 03:13 Micro: Microbiology 06/08/23 17:38 Blood Culture - Final Blood Staphylococcus epidermidis A&P Assessment and plan (1) Cholestasis: (2) Acute encephalopathy: (3) Thrombocytopenia: (4) Elevated INR: (5) Acute renal failure: (6) Acute kidney injury: (7) Shock: (8) Chronic cholecystitis: (9) Systolic CHF: (10) Hyperbilirubinemia: (11) Urinary tract infection: (12) Right upper quadrant abdominal pain: (13) Arrhythmia: (14) Diarrhea: (15) HTN (hypertension): (16) Obesity: (17) Atrial fibrillation: (18) Diabetes: (19) CKD (chronic kidney disease): Plan (1) Arrhythmia: Patient presented with tachycardia, irregular wide-complex rhythm some of which are paced, seems like atrial fibrillation with paced rhythm She was started on amiodarone in the emergency department Cardiology consulted Was on verapamil, metoprolol which was discontinued after she went into shock She was in A-fib with RVR, on a Cardizem drip, currently on p.o. Cardizem 180 once daily (2) CHF (congestive heart failure): Patient presents with shortness of breath, markedly elevated BNP CONCLUSIONS ?LV systolic function is moderate to severely reduced with EF of ?30-35%. Moderate to severe global hypokinesis. ?RV is hypokinetic. ?Bilateral dilation ?Mild mitral regurgitation ?Moderate aortic regurgitation ?Mild tricuspid regurgitation ?IVC dilated ?Compared to prior echocardiogram from 08/2022, LV systolic ?function has significantly reduced. -cardiology consulted -Status post HD dialysis 2 sessions ? Currently receiving IV Lasix 40 IV twice daily monitor urine output (3) Atrial fibrillation: Patient with past history of atrial fibrillation eliquis on hold as self anticoagulating, recheck INR today, if INR is reasonable resume Eliquis Cardizem 180 once daily Cardiology consultation (4) Diabetes: Consistent carb diet when able Mild sliding scale insulin (5) Diarrhea: Monitor (6) Right upper quadrant abdominal pain: ruq us 1. Cholelithiasis without evidence for acute cholecystitis. 2. Hepatic steatosis. Focal area of increased echogenicity in the right lobe of the liver is probably either a small hemangioma or focal hepatic steatosis. This can be reevaluated in 3 months by ultrasound. This has not been described on prior imaging studies. 3. Quality of the ultrasound is suboptimal by body habitus. HIDA scan MPRESSION: Somewhat limited study due to patient's clinical status and inability to position for lateral imaging *? Diffuse patchy hepatic radiotracer uptake compatible with fatty infiltration. *? Gallbladder is not definitely visualized suspicious for? cholecystitis. Correlation with biliary function studies. Recommend follow-up with ultrasound. *? Common bile duct and small bowel activity are visualized by 90 minutes. 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 -Likely chronic cholecystitis -Has completed 10 days of Cipro and Flagyl, will discontinue for now as she does not have any recurrent right upper quadrant pain no nausea, vomiting, does have hyperbilirubinemia we will monitor (7) Hyperbilirubinemia: -General surgery consulted, monitor (8) Urinary tract infection: Completed ciprofloxacin (9) Systolic CHF: - EF of 30 to 35% LV systolic function is moderate to severely reduced with EF of ?30-35%. Moderate to severe global hypokinesis. ?RV is hypokinetic. ?Bilateral dilation ?Mild mitral regurgitation ?Moderate aortic regurgitation ?Mild tricuspid regurgitation ?IVC dilated ?Compared to prior echocardiogram from 08/2022, LV systolic ?function has significantly reduced. Cardiology on consult (10) Chronic cholecystitis: (11) Shock: Resolved - Multifactorial -Possible cardiogenic shock, repeat echo so far shows an EF of 30 to 35% -I do not feel this is septic shock s although there is evidence of stones in cystic duct, CBD, and extrahepatic biliary dilatation however remains afebrile, no significant LFT abnormalities, bilirubin elevation or alk phos elevation, or lipase elevation, no Pro-Corey or CRP elevation, no leukocytosis, she has been on antibiotics since hospital admission -off Levophed ? Albumin 25 g IV every 8 hours -We will monitor closely (12) Acute renal failure: - Acute renal failure, minimal your output -didnot respond to lasix, status post fluid therapy -Likely secondary to hypotension, shock, multiple pressors -Status post temporary dialysis catheter placed, status post 2 sessions of dialysis -Monitor urine output,, monitor creatinine trial of Lasix -If patient's creatinine and urine output does not respond if she develops fluid overload, she will likely need to be converted into permanent dialysis, monitor clinical progress -Consult nephrology (13) Elevated INR: -INR3.95, potentially dysfunction related to renal failure, will monitor for signs of bleeding, recheck INR today decision to resume Eliquis (14) Thrombocytopenia: Monitor (15) Acute encephalopathy: -Resolving -can follow commands at times Full code SCDs for DVT prophylaxis Protonix for GI prophylaxis will monitor renal function, monitor INR monitor urine output, consultation with cardiology, consultation of general surgery, Attestations Medical Necessity Statement*: Patient requires hospitalization for acute renal failure, decision to proceed with temporary versus permanent dialysis Diagnoses Cholestasis K83.1 Acute encephalopathy G93.40 Thrombocytopenia D69.6 Elevated INR R79.1 Acute renal failure N17.9 Acute kidney injury N17.9 Shock R57.9 Chronic cholecystitis K81.1 Systolic CHF I50.20 Hyperbilirubinemia E80.6 Urinary tract infection N39.0 Right upper quadrant abdominal pain R10.11 Arrhythmia I49.9 Diarrhea R19.7 HTN (hypertension) I10 Obesity E66.9 Atrial fibrillation I48.91 Diabetes E11.9 CKD (chronic kidney disease) N18.9
[2023-06-17 16:27] LABS: Glucose Point of Care 145 mg/dL (70-110)
[2023-06-17 17:19] LABS: INR 2.27 (0.8-1.2)
[2023-06-17] MEDS: morphine 4 mg/mL SDV 1 mL 2 MG IVP (18:31)
--- NOTE | 2023-06-17 18:32 | PC.NURSE ---
2mg morphine given for pain in the sacrum and sores on bottom near rectum. Patient turned approximately every two hours to prevent sores from growing and further irritation. Patient likes to lie on her side to sleep.
[2023-06-17] MEDS: apixaban 5 mg Tablet PO (20:54)
[2023-06-17 22:15] LABS: Glucose Point of Care 138 mg/dL (70-110)
[2023-06-18] VITALS (9 sets, daily range): BP systolic 115–134; BP diastolic 67–90; PULSE 74–105; RESP 16–23; TEMP 36.6–37.1; O2SAT 93–96
[2023-06-18 01:24] LABS: UFH High Dose, 100 IU/ML 6 % release; UFH Low Dose, 0.1 IU/ML 6 % release; UFH Low Dose, 0.5 IU/ML 5 % release; UFH SRA Result NEGATIVE (NEGATIVE)
[2023-06-18] MEDS: FUROsemide 10 mg/mL SDV 4mL 80 MG IVP (04:32)
[2023-06-18 05:11] LABS: Basophils % 0.2 %; Eosinophils # 0.1 10^3/uL (0.0-0.8); Eosinophils % 0.9 %; Hematocrit 35.6 % (36-47); Lymphocytes # 0.8 10^3/uL (0.8-4.8); Lymphocytes % 8.6 %; Mean Corpuscular HGB Conc 33.1 g/dL (30-55); Mean Corpuscular Hemoglobin 30.2 pg (27-33); Mean Platelet Volume 10.1 fL (7.4-10.4); Monocytes # 1.1 10^3/uL (0.2-0.9); Monocytes % 11.7 %; Neutrophils # 7.26 10^3/uL (1.8-7.7); Neutrophils % 78.2 %; Nucleated Red Blood Cells % 0.2 %; Platelet Count 75 10^3/cmm (157-399); Red Blood Count 3.91 10^6/uL (3.85-5.65); Red Cell Distribution Width 22.8 % (12.1-15.1); White Blood Count 9.29 10^3/uL (3.29-11.43)
[2023-06-18 05:20] LABS: INR 2.54 (0.8-1.2)
[2023-06-18 05:25] LABS: Alanine Aminotransferase 14 U/L (0-33); Albumin Level 3.9 g/dL (3.5-5.2); Alkaline Phosphatase 76 U/L (35-105); Anion Gap 13.4 (5-19); Aspartate Amino Transferase 32 U/L (0-32); Blood Urea Nitrogen 39 mg/dL (8-23); Calcium 8.9 mg/dL (8.5-10.5); Carbon Dioxide 25 mmol/L (22-29); Chloride 102 mmol/L (98-107); Globulin 2.1 g/dL (1.3-4.6); Glucose 157 mg/dL (65-115); Magnesium 1.7 mg/dL (1.7-2.3); Osmolality Calculated 297 mOsm/kg (285-295); Phosphorus 2.3 mg/dL (2.5-4.5); Potassium 3.4 mmol/L (3.5-5.1); Sodium 137 mmol/L (136-145); Total Bilirubin 3.8 mg/dL (0.15-1.2)
[2023-06-18] MEDS: levothyroxine 25 mcg Tablet 37.5 MCG PO (05:26)
[2023-06-18 05:39] LABS: NT Pro B Type Natriuretic Pept 6629 pg/mL (0-125)
[2023-06-18 06:23] LABS: Glucose Point of Care 164 mg/dL (70-110)
[2023-06-18] MEDS: apixaban 5 mg Tablet PO (08:29)
[2023-06-18] MEDS: magnesium lactate 84 mg Tablet PO (08:30)
[2023-06-18] MEDS: dilTIAZem ER (24HR) 180 mg Capsule PO (08:30)
[2023-06-18] MEDS: donepezil 5 MG Tablet PO (08:30)
[2023-06-18] MEDS: atorvastatin 40 mg Tablet 20 MG PO (08:30)
[2023-06-18] MEDS: aspirin 81 mg EC Tablet PO (08:30)
[2023-06-18] MEDS: escitalopram 10 mg Tablet PO (08:30)
[2023-06-18] MEDS: ferrous sulfate EC 325 mg Tablet PO (08:30)
[2023-06-18] MEDS: insulin lispro 100 unit/1 mL SUBCUT (08:31)
--- NOTE | 2023-06-18 09:01 | PM.PN ---
Subjective Subjective: Patient's condition is unchanged.Family decided to make patient comfort care. Vitals/I&O/Wt Last Vital Signs Temp 97.8 F 06/18/23 07:41 Pulse 91 06/18/23 07:41 Resp 20 H 06/18/23 07:41 BP 133/75 06/18/23 07:41 Pulse Ox 96 06/18/23 07:41 O2 Del Method Nasal Cannula 06/18/23 07:41 O2 Flow Rate 3 06/18/23 07:34 06/17/23 06/18/23 06/18/23 22:59 06:59 14:59 Intake Total 1100 / 2400 480 / 2880 Output Total 275 / 275 225 / 500 Balance 825 / 2125 255 / 2380 Weight last 48 hrs Weight 208 lb Weight 207 lb 3.2 oz Physical Exam Narrative: GENERAL: Patient is sleepy and drowsy. NECK: No jugular vein distension. [] HEENT: No cyanosis. No icterus. No pallor. [] HEART: Regular S1 and S2. No murmur, rub or gallop. [] LUNGS: Clear to auscultate bilaterally. [] CENTRAL NERVOUS SYSTEM: Grossly nonfocal. [] EXTREMITIES: Lower extremities with 1+ edema bilaterally. Urinary Catheter Management: Lewis: Cath Placed During This Visit: yes Reason for Continuing Indwelling Catheter: Accurate Measurement of Urinary Output in Critically Ill Patients Urinary Catheter Date of Insertion: 06/04/23 Urinary Catheter Time of Insertion: 22:30 Data 06/18/23 04:55 06/18/23 04:55 A&P Assessment and plan (1) Acute kidney injury: On dialysis. (2) Systolic CHF: (3) Hyperbilirubinemia: (4) HTN (hypertension): (5) Sick sinus syndrome: (6) Chronic cholecystitis: (7) Atrial fibrillation: (8) Obesity: (9) Diabetes: (10) Status cardiac pacemaker: (11) Myocardial infarction: (12) CVA (cerebral vascular accident): (13) CKD (chronic kidney disease): (14) Bipolar 1 disorder: (15) Shock: Plan Patient's family has decided to proceed with comfort care. Please call with questions Attestations Medical Necessity Statement*: Care expected to cross 2 midnights. Coding Level of Care Code Acute Code for [facility] Diagnoses Acute kidney injury N17.9 Systolic CHF I50.20 Hyperbilirubinemia E80.6 HTN (hypertension) I10 Sick sinus syndrome I49.5 Chronic cholecystitis K81.1 Atrial fibrillation I48.91 Obesity E66.9 Diabetes E11.9 Status cardiac pacemaker Z95.0 Myocardial infarction I21.9 CVA (cerebral vascular accident) I63.9 CKD (chronic kidney disease) N18.9 Bipolar 1 disorder F31.9 Shock R57.9
[2023-06-18 11:24] LABS: Glucose Point of Care 143 mg/dL (70-110)
--- NOTE | 2023-06-18 11:24 | USCV_ITS ---
Rupa Baptiste Age: 73 Gender: F : 1950 Exam Date: 06/18/2023 11:55 Ordering Phys: Maxx Garcia MD Technologist: Lucio Beltrán [place] [facility] [place]: lt arm swelling PROCEDURES: Venous duplex imaging was performed in only the left upper extremity. The following venous structures were evaluated: internal jugular vein, subclavian vein, axillary vein, and brachial veins. In addition, the radial vein and ulnar vein. FINDINGS: No evidence of deep vein thrombosis or superficial thrombophlebitis in the right upper extremity. There is subcutaneous left upper extremity edema noted. CONCLUSIONS No left upper extremity DVT. Dr. Adia Reece DO (Electronically Signed) Final Date: 19 June 2023 11:22 S
--- NOTE | 2023-06-18 12:20 | P.PN_ITS ---
Subjective Subjective: Patient was seen this morning, she is alert to person, not to place, not to time, she does follow commands, daughter is at bedside, I had extensive discussion with the patient's daughter at bedside, she continues to be edematous, she has had some left hand swelling for which we will do an ultraso und to make sure that that there is no DVT in the left upper extremity, she had an episode of nasal bleed overnight which has stopped, she has been started on Eliquis, she also had hematuria which has cleared up this morning, but she remains significantly deconditioned, she remains bedbound, she needs a Kris lift at this point, her appetite remains lacking, and her mentation continues to decline, I feel that Rupa in my opinion seems like because she is given up, I went over her goals of care discussion with her daughter extensively, discussion about should we convert her into permanent dialysis, is at something that we went up on [place] through she will likely need long-term dialysis, is this something that we want to put her through, potentially even an angiogram, her daughter tells me that she is going to talk to her mom and her family this afternoon, and come to a decision if they want to pursue continue medical interventions or pursue hospice, I did advise that I am going talk to Dr. Montanez note, spoke to rashawn Saxena, plans to watch her kidney function her creatinine is up to 2.7, she is developing anasarca, evidence of fluid overload, continues to have poor urine output, plans on doing dialysis today, ultimate decision to convert to permanent dialysis is can depend on discussion with family but overall her functional status is poor Vitals/I&O/Wt Last Vital Signs Temp 97.8 F 06/18/23 07:41 Pulse 91 06/18/23 07:41 Resp 20 H 06/18/23 07:41 BP 133/75 06/18/23 07:41 Pulse Ox 96 06/18/23 07:41 O2 Del Method Nasal Cannula 06/18/23 07:41 O2 Flow Rate 3 06/18/23 07:34 06/17/23 06/18/23 06/18/23 22:59 06:59 14:59 Intake Total 1100 / 2400 480 / 2880 222 / 222 Output Total 275 / 275 225 / 500 Balance 825 / 2125 255 / 2380 222 / 222 Weight last 48 hrs Weight 94.347 kg Weight 93.984 kg Physical Exam Const: COMMON NORMALS: no acute distress ORIENTATION/CONSCIOUSNESS: Yes aw dionisio and Yes oriented to person; not oriented to place and not oriented to time Resp: COMMON NORMALS: normal respiratory effort, No retractions, No use of accessory muscles and clear to auscultation bilaterally AUSCULTATION: clear to auscultation bilaterally Cardio: COMMON NORMALS: regular rate, regular rhythm, S1 normal heart sound present and S2 normal heart sound present RATE: regular rate RHYTHM: regular rhythm HEART SOUNDS: S1 normal heart sound present and S2 normal heart sound present GI: COMMON NORMALS: Normal to inspection, nondistended, normoactive bowel sounds present and non-tender Extremity: COMMON NORMALS: no pedal edema Neuro: SENSORIUM/ORIENTATION: Yes oriented to person, No oriented to place and No oriented to time Urinary Catheter Management: Lewis: Cath Placed During This Visit: yes Reason for Continuing Indwelling Catheter: Accurate Measurement of Urinary Output in Critically Ill Patients Urinary Catheter Date of Insertion: 06/04/23 Urinary Catheter Time of Insertion: 22:30 Data 06/18/23 04:55 06/18/23 04:55 A&P Assessment and plan (1) Cholestasis: (2) Acute encephalopathy: (3) Thrombocytopenia: (4) Elevated INR: (5) Acute renal failure: (6) Acute kidney injury: (7) Shock: (8) Chronic cholecystitis: (9) Systolic CHF: (10) Hyperbilirubinemia: (11) Urinary tract infection: (12) Right upper quadrant abdominal pain: (13) Arrhythmia: (14) Diarrhea: (15) HTN (hypertension): (16) Obesity: (17) Atrial fibrillation: (18) Diabetes: (19) CKD (chronic kidney disease): Plan (1) Arrhythmia: Patient presented with tachycardia, irregular wide-complex rhythm some of which are paced, seems like atrial fibrillation with paced rhythm She was started on amiodarone in the emergency department Cardiology consulted Was on verapamil, metoprolol which was discontinued after she went into shock She was in A-fib with RVR, on a Cardizem drip, currently on p.o. Cardizem 180 once daily (2) CHF (congestive heart failure): Patient presents with shortness of breath, markedly elevated BNP CONCLUSIONS ?LV systolic function is moderate to severely reduced with EF of ?30-35%. Moderate to severe global hypokinesis. ?RV is hypokinetic. ?Bilateral dilation ?Mild mitral regurgitation ?Moderate aortic regurgitation ?Mild tricuspid regurgitation ?IVC dilated ?Compared to prior echocardiogram from 08/2022, LV systolic ?function has significantly reduced. -cardiology consulted -Status post HD dialysis 2 sessions ? Currently fluid overloaded Lasix has been increased to 80 IV twice daily, receiving dialysis today (3) Atrial fibrillation: Patient with past history of atrial fibrillation eliquis on hold as self anticoagulating, INR 2.5, and hematuria, bloody nose Cardizem 180 once daily Cardiology consultation (4) Diabetes: Consistent carb diet when able Mild sliding scale insulin (5) Diarrhea: Monitor (6) Right upper quadrant abdominal pain: ruq us 1. Cholelithiasis without evidence for acute cholecystitis. 2. Hepatic steatosis. Focal area of increased echogenicity in the right lobe of the liver is probably either a small hemangioma or focal hepatic steatosis. This can be reevaluated in 3 months by ultrasound. This has not been described on prior imaging studies. 3. Quality of the ultrasound is suboptimal by body habitus. HIDA scan MPRESSION: Somewhat limited study due to patient's clinical status and inability to position for lateral imaging *? Diffuse patchy hepatic radiotracer uptake compatible with fatty infiltration. *? Gallbladder is not definitely visualized suspicious for? cholecystitis. Correlation with biliary function studies. Recommend follow-up with ultrasound. *? Common bile duct and small bowel activity are visualized by 90 minutes. Noted on the prior most recent CT from 2009 gallbladder appears thickened at that time with cholelithiasis similar to the recent ultrasound suggesting chronic or indolent gallbladder dysfunction. -Likely chronic cholecystitis -Has completed 10 days of Cipro and Flagyl, will discontinue for now as she does not have any recurrent right upper quadrant pain no nausea, vomiting, does have hyperbilirubinemia we will monitor (7) Hyperbilirubinemia: -General surgery consulted, monitor (8) Urinary tract infection: Completed ciprofloxacin (9) Systolic CHF: - EF of 30 to 35% LV systolic function is moderate to severely reduced with EF of ?30-35%. Moderate to severe global hypokinesis. ?RV is hypokinetic. ?Bilateral dilation ?Mild mitral regurgitation ?Moderate aortic regurgitation ?Mild tricuspid regurgitation ?IVC dilated ?Compared to prior echocardiogram from 08/2022, LV systolic ?function has significantly reduced. Cardiology on consult (10) Chronic cholecystitis: (11) Shock: Resolved - Multifactorial -Possible cardiogenic shock, repeat echo so far shows an EF of 30 to 35% -I do not feel this is septic shock s although there is evidence of stones in cystic duct, CBD, and extrahepatic biliary dilatation however remains afebrile, no significant LFT abnormalities, bilirubin elevation or alk phos elevation, or lipase elevation, no Pro-Corey or CRP elevation, no leukocytosis, she has been on antibiotics since hospital admission -off Levophed ? Albumin 25 g IV every 8 hours -We will monitor closely (12) Acute renal failure: - Acute renal failure, minimal your output -didnot respond to lasix, status post fluid therapy -Likely secondary to hypotension, shock, multiple pressors -Status post temporary dialysis catheter placed, status post 2 sessions of dialysis -Monitor urine output,, monitor creatinine trial of Lasix -If patient's creatinine and urine output does not respond if she develops fluid overload, she will likely need to be converted into permanent dialysis, monitor clinical progress -Consult nephrology (13) Elevated INR: -INR3.95, potentially dysfunction related to renal failure, will monitor for signs of bleeding, recheck INR today decision to resume Eliquis (14) Thrombocytopenia: Monitor (15) Acute encephalopathy: -Resolving -can follow commands at times 16 ANASARCA -DIALYSIS TODAY 17 DECONDITIONING -REMAINS BED BOUND -POOR APPETITE Full code SCDs for DVT prophylaxis Protonix for GI prophylaxis will monitor renal function, monitor INR monitor urine output, dialysis today, continue Lasix, await family discussion, hold Eliquis, left upper extremity ultrasound, anasarca Attestations Medical Necessity Statement*: Patient requires hospitalization for fluid overload, anasarca, renal failure, requiring dialysis Lasix Diagnoses Cholestasis K83.1 Acute encephalopathy G93.40 Thrombocytopenia D69.6 Elevated INR R79.1 Acute renal failure N17.9 Acute kidney injury N17.9 Shock R57.9 Chronic cholecystitis K81.1 Systolic CHF I50.20 Hyperbilirubinemia E80.6 Urinary tract infection N39.0 Right upper quadrant abdominal pain R10.11 Arrhythmia I49.9 Diarrhea R19.7 HTN (hypertension) I10 Obesity E66.9 Atrial fibrillation I48.91 Diabetes E11.9 CKD (chronic kidney disease) N18.9
--- NOTE | 2023-06-18 13:59 | P.PN_ITS ---
Subjective Subjective: sob today Medications: Reviewed: Yes Vitals/I&O/Wt Last Vital Signs Temp 98.4 F 06/18/23 12:29 Pulse 83 06/18/23 12:29 Resp 16 06/18/23 12:29 BP 115/71 06/18/23 12:29 Pulse Ox 96 06/18/23 07:41 O2 Del Method Nasal Cannula 06/18/23 07:41 O2 Flow Rate 3 06/18/23 07:34 06/17/23 06/18/23 06/18/23 22:59 06:59 14:59 Intake Total 1100 / 2400 480 / 2880 222 / 222 Output Total 275 / 275 225 / 500 Balance 825 / 2125 255 / 2380 222 / 222 Weight last 48 hrs Weight 94.347 kg Weight 93.984 kg Physical Exam Narrative: mild distress HEENT S1-S2, regular rate and rhythm per report Lungs clear per report Trace edema Urinary Catheter Management: Lewis: Cath Placed During This Visit: yes Reason for Continuing Indwelling Catheter: Accurate Measurement of Urinary Output in Critically Ill Patients Urinary Catheter Date of Insertion: 06/04/23 Urinary Catheter Time of Insertion: 22:30 Data 06/18/23 04:55 06/18/23 04:55 A&P Assessment and plan (1) Acute renal failure: Acute on chronic kidney disease: Patient's baseline creatinine is in the range of 1-1.3. Now has creatinine of 3.8 likely multifactorial-secondary to prerenal DIXIE and hypotension , cardiorenal -off levophed , UOP low , -Avoid nephrotoxins and IV contrast studies -renal function worsened with SOB , AMS and mild metabolic acidosis --> s/p temporary catheter placement and started HD , s/p 2 sessions , hd again today fpr SOB - NO IMPROVEMENT IN RENAL FXN , WILL REQUIRE INTERMEDIATE HD -DISCUSSED WITH FAMILY , AND AWAITING DECISION RE : INTERMEDIATE HD 2. Hyponatremia: Mild, monitor, 3. Shock: Required multiple pressors, off now 4. History of pacemaker placement 5. History of rapid A-fib 6. History of CAD with cardiomyopathy, latest ejection fraction 30 to 35% Patient evaluated using audiovisual cart. Time spent 20 minutes Attestations Medical Necessity Statement*: per medicine Coding Level of Care Code Acute Code for [facility] Diagnoses Acute renal failure N17.9
--- NOTE | 2023-06-18 16:05 | PC.NURSE ---
Pt just came back from dialysis and Daughter at bedside Dgtr is teary eyed when she told me that me that her and pt have decided to go home on hospice. Dgtr and pt stated she feels tired of all this anymore. was wondering if there is a hospice staff available today. I informed her that i will let the case mgt know about their decision and possible tomorrow there will be hospice staff discussion. notified TERESA Randall of the case mgt and Dr Garcia.
[2023-06-18] MEDS: nystatin cream 30 gm 1 APPLIC TOPICAL ×2 (18:34→18:35)
[2023-06-18] MEDS: morphine 4 mg/mL SDV 1 mL 2 MG IVP (19:18)
--- NOTE | 2023-06-18 19:39 | DCPLANNER ---
pt has blood oozing and nosebleeds on and off today notified dr le regarding the removal of non tunneled dialysis port at this time might not be a good idea since she received eliquis and heparin during dialysis, plt count of 75 today. telephone order received to wait until tomorrow to remove the line.
--- NOTE | 2023-06-18 19:45 | PC.NURSE ---
pt has blood oozing and nosebleeds on and off today notified dr le regarding the order for removal of pt's non tunneled dialysis port at this time, might not be a good idea at this time since she received eliquis and heparin during dialysis, plt count of 75 today and still has blood oozing from her nose and sacrum pressure ulcers. telephone order received to wait until tomorrow to remove the line.
--- NOTE | 2023-06-19 04:26 | PC.NURSE ---
patient with increased heart rate and decreased O2 sat, notified patients daughter appx 0300 of decline in patient condition, patient is comfort care so no code or rapid response called, patient pulseless and without respirations, time of 314
--- NOTE | 2023-06-19 04:48 | PC.NURSE ---
[facility] notified of pt expiration. Phone call interrupted due to overhead emergency. 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 [facility] stated pt is candidate for tissue donation, will work with [facility] in the event of tissue donation.
--- NOTE | 2023-06-19 04:53 | PC.NURSE ---
Pt transferred to home at 0454.
[2023-06-19 05:17] VITALS: PULSE 93
--- NOTE | 2023-06-19 08:05 | PM.DDS ---
Discharge Providers DDS Date of Admission: 06/04/23 21:34 Date Summary Completed: 06/23/23 Attending Provider at Admission: Tyron Miranda MD Attending Provider at Discharge: Maxx Garcia MD Primary Care Provider: García Theodore MD DS Diagnoses Hospital Diagnoses (1) Acute renal failure: Reason for Visit Reason for Visit chest pain, sob, Summary Summary Summary: Rupa Baptiste is a 73 year old female with history of dementia presenting to the hospital with her daughter with shortness of breath the last several weeks.? Prior to that she had had some vomiting, and has continued to have some significant diarrhea.? She has not had any fever.? She has ate less than before.? Tonight she seemed significantly short of breath, weaker, and heart rate was up.? They have visited the emergency department at [place] as well as here for some of these issues.? There have been no sick contacts.? She has not had any apparent chest pain. Patient was admitted to [facility] for arrhythmia event, systolic CHF exacerbation, atrial fibrillation, recurrent nausea vomiting related to chronic cholecystitis, right upper quadrant pain, UTI, shock, acute renal failure, elevated INR, thrombocytopenia, encephalopathy, anasarca, Patient was admitted to [facility] for arrhythmia event, cardiology was consulted, medically manage, her hospitalization was complicated with systolic CHF requiring diuresis, her EF was found to be 30 to 35%, she also had recurrent nausea vomiting right upper quadrant pain, HIDA scan showed chronic cholecystitis, after discussion with cardiology and her diminished ejection fraction decision was made to attempt coronary angiography, which was aborted due to recurrent nausea vomiting. Patient developed shock, likely cardiogenic shock during hospitalization, requiring multiple pressors, her shock overall improved but she developed significant acute renal failure, with then developing fluid overload, anasarca, requiring dialysis catheter placement and temporary dialysis. Her hospitalization that was complicated with encephalopathy, elevated INR, thrombocytopenia, fluid overload. Given her underlying dementia, her deconditioned state, and at times her refusal to do dialysis, her persistent fluid overload, pulmonary edema, anasarca, acute respiratory failure, persistent renal failure, after extensive discussions with patient's family, decision was made to pursue hospice. Patient was made hospice, patient 06/19/2022 at 3:15 AM Additional Data Confirmation of as documented by pronouncing clinician: no pulse, no respirations and no heart sounds Family: contacted Additional persons at bedside: nursing staff Attending/PCP notified?: Attending notified Was code activated?: No Autopsy requested?: No Advance directives?: Yes Hospice patient?: No Discharge Plan Discharge Patient Disposition: Condition: Stable DS Attestations Time Spent in /Discharge Care*: greater than 30 min Quality - AMI: AMI present?: No Quality - Stroke: CVA present?: No Symptom Onset Unknown: No Quality - VTE: VTE present?: No Deep Vein Thrombosis/Pulmonary Embolism Present on Admission: No Coding Level of Care Code 06099 Total time (in minutes) for Discharge: 50 Diagnoses Acute renal failure N17.9
[2023-06-20 06:59] LABS: Fibrinogen Degradation Product <5 mcg/mL (LESS THAN 5)
== END 2023-06-19 05:00 | disposition expired | DRG 291 ==
LOC: ER 20:03 → ICU 21:47 → CSU 06-12 14:38
PROVIDERS: Family Medicine; Hospitalist; Internal Medicine Cardiovascular Disease; Student in an Organized Health Care Education/Training Program; Surgery; Admitting Provider Internal Medicine; Emergency Provider Family Medicine; PCP Family Medicine; Visit Provider Family Medicine
PROC: 02HV33Z Insertion of Infusion Device into Superior Vena Cava, Percutaneous Approach (ICD-10-PCS; principal; 2023-06-14 12:00)
DX: I13.0 Hypertensive heart and chronic kidney disease with heart failure and stage 1 through stage 4 chronic kidney disease, or unspecified chronic kidney disease (principal); I50.23 Acute on chronic systolic (congestive) heart failure; N17.9 Acute kidney failure, unspecified; I48.20 Chronic atrial fibrillation, unspecified; K80.10 Calculus of gallbladder with chronic cholecystitis without obstruction; N39.0 Urinary tract infection, site not specified; G93.40 Encephalopathy, unspecified; I69.951 Hemiplegia and hemiparesis following unspecified cerebrovascular disease affecting right dominant side; N18.9 Chronic kidney disease, unspecified; E11.22 Type 2 diabetes mellitus with diabetic chronic kidney disease; F03.90 Unspecified dementia, unspecified severity, without behavioral disturbance, psychotic disturbance, mood disturbance, and anxiety; R57.0 Cardiogenic shock; D69.6 Thrombocytopenia, unspecified; Z51.5 Encounter for palliative care; Z91.158 Patient's noncompliance with renal dialysis for other reason; F31.9 Bipolar disorder, unspecified; R04.0 Epistaxis; R31.9 Hematuria, unspecified; R79.1 Abnormal coagulation profile; I95.9 Hypotension, unspecified; I08.3 Combined rheumatic disorders of mitral, aortic and tricuspid valves; Z53.8 Procedure and treatment not carried out for other reasons; Z87.891 Personal history of nicotine dependence; Z95.0 Presence of cardiac pacemaker; I49.5 Sick sinus syndrome; I25.2 Old myocardial infarction; I25.5 Ischemic cardiomyopathy
CPT/HCPCS: 36415; 36416; 36592; 36600; 51702; 71045; 71250; 74018; 74176; 76000; 76705; 77001; 78226; 80048; 80051; 80053; 80076; 80503; 81001; 82150; 82330; 82533; 82550; 82803; 82805; 82962; 82977; 83010; 83605; 83615; 83690; 83735; 83880; 84100; 84145; 84443; 84481; 84484; 85025; 85362; 85378; 85384; 85610; 85730; 86140; 87040; 87077; 87086; 87150; 87186; 87205; 87340; 87493; 90935; 92523; 92610; 93005; 93306; 93970; 93971; 96365; 96372; 96375; 96376; 97110; 97116; 97161; 97530; 99152; 99153; 99285; A9537; C1752; C1769; C1894; J0282; J0696; J0744; J1250; J1265; J1610; J1644; J1650; J1720; J1815; J1940; J2250; J2270; J2371; J2405; J2704; J2765; J3010; J3490; J7030; J7040; J7060; P9046; Q0163; Q3014